=== PATIENT | male | born 1960 | race Caucasian/White ===

== ENCOUNTER 2019-09-24 07:55 | Inpatient (IN) | payer SELFPAY ==
[~2019-09-24] VITALS: Ht 177.8 cm; Wt 120.0 kg
[2019-09-24] MEDS ORDERED: LORazepam INJ 2 MG/ML (ATIVAN) VIAL ONE (08:18)
--- NOTE | 2019-09-24 08:22 | ED General ---
General Chief Complaint: Altered Mental Status Stated Complaint: CONFUSION;VOMITING Nursing Triage Note: PT TAKEN FROM CAR AND BROUGHT TO RM 7 WITH CC OF ALTERED MENTAL STATUS THAT STARTED ABOUT 0200. STATES HE WAS WALKING INTO A [employer] SEVERAL TIMES AND THEN SHE WALKED HIM TO THE RESTROOM AND HE URINATED ON THE FLOOR. PT VOMITED ABOUT 2100 BUT WAS OK MENTALLY. PT FELL ABOUT 10 DAYS AGO, WAS PUT ON PREDNISONE FOR PULLED MUSCLE IN LT RIB AREA, PT PUT ON LASIX YESTERDAY FOR SWELLING, TOOK ONE YESTERDAY AND STAYED HOME DUE TO SWELLING. Nursing Sepsis Screen: No Definite Risk Source of Information: Patient Exam Limitations: No Limitations History of Present Illness Date Seen by Provider: Sep 24, 2019 Time Seen by Provider: 08:05 Initial Comments This 65 year old man presents to the ER by private vehicle accompanied by his family with concerns about confusion and vomiting. Patient was noted to have a fall on September 15. He had left sided chest wall injury and was given prednisone at that time. He finished a 5 day course of prednisone. He then developed swelling and presented to his primary care provider. He was prescribed Lasix of which he has only taken one dose. He started vomiting about 2100 last night. stated the emesis started as a purplish color and then became darker. Then around 02:00 he got up from bed and started walking around the house. He bumped into a book shelf several times. His then led him to the bathroom where he urinated on the floor. He is disoriented at this time. He is oriented to person and place but disoriented to age and month. Family believes he has hallucinated some. His speech is clear but the content is sometimes nonsensical. He daily consumes 3 or 4 mixed drinks with whiskey. Family reports he has not had any alcohol in a couple of days. He also takes lorazepam for anxiety but family does not believe he has had any in a couple of days. Patient denies any pain. Wesley Campoverde is his primary care provider. Allergies and Home Medications Allergies Coded Allergies: No Known Drug Allergies (Unverified , 09/24/19) Home Medications Amlodipine Besylate 10 Mg Tablet, 10 MG PO DAILY, (Reported) Cholecalciferol (Vitamin D3) 1,250 Mcg Capsule, 1,250 MCG PO FRIDAY, (Reported) Duloxetine HCl 60 Mg Capsule.dr, 60 MG PO DAILY, (Reported) Furosemide 20 Mg Tablet, 20 MG PO DAILY, (Reported) Ibuprofen 200 Mg Tablet, 400 MG PO Q6H PRN for PAIN-MILD (1-4), (Reported) Meloxicam 7.5 Mg Tablet, 7.5 MG PO BID PRN for MUSCLE SPASMS, (Reported) [place]-3 Acid Ethyl Esters 1 Gm Capsule, 2 GM PO BID, (Reported) TAKES 2 (1GM) TO EQUAL 2GM CAPS TWICE DAILY Propranolol HCl 80 Mg Tablet, 80 MG PO BID, (Reported) Patient Home Medication List Home Medication List Reviewed: Yes Review of Systems Review of Systems Constitutional: see HPI; No fever EENTM: no symptoms reported Respiratory: no symptoms reported Cardiovascular: no symptoms reported Gastrointestinal: see HPI Genitourinary: no symptoms reported Musculoskeletal: no symptoms reported Skin: no symptoms reported Psychiatric/Neurological: See HPI Hematologic/Lymphatic: No Symptoms Reported Immunological/Allergic: no symptoms reported Past Hokrmnz-Fphjob-Iwskqw Hx Past Med/Social Hx: Reviewed and Corrections made Patient Social History Alcohol Use: Regular Use Alcohol Beverage of Choice: Whiskey Recreational Drug Use: No Smoking Status: Current Everyday Smoker Recent Foreign Travel: No Contact w/Someone Who Travel: No Recent Infectious Disease Expo: No Past Medical History Surgeries: Yes Orthopedic (Knee) Respiratory: Yes Chronic Bronchitis Cardiac: Yes Hypertension Neurological: No Reproductive Disorders: No Genitourinary: No Gastrointestinal: No Musculoskeletal: No Endocrine: No HEENT: No Cancer: No Psychosocial: Yes (regular alcohol use) Anxiety Integumentary: No Family Medical History Reviewed Nursing Family Hx Physical Exam Vital Signs Vital Signs - First Documented 09/24/19 09/24/19 08:02 11:44 Temp 35.3 Pulse 62 Resp 18 B/P (MAP) 146/87 (106) Pulse Ox 97 O2 Delivery Room Air Capillary Refill : Less Than 3 Seconds Height, Weight, BMI Height: '" Weight: lbs. oz. kg; 29.00 BMI Method: General Appearance: No Apparent Distress, WD/WN HEENT: PERRL/EOMI, TMs Normal, Normal ENT Inspection, Other (oropharynx pasty, mild facial edema) Neck: Normal Inspection Respiratory: Lungs Clear, Normal Breath Sounds, No Accessory Muscle Use, No Respiratory Distress Cardiovascular: Regular Rate, Rhythm, No Edema, No Murmur, Normal Peripheral Pulses Gastrointestinal: Normal Bowel Sounds, Non Tender, Soft Extremity: Non Tender, Pedal Edema (marked pitting edema of the lower extremities, equal bilaterally), Swelling Neurologic/Psychiatric: Alert, No Motor/Sensory Deficits, cashier II-XII Norm as Tested, Disoriented Skin: Normal Color, Warm/Dry Progress/Results/Core Measures Suspected Sepsis Recent Fever Within 48 Hours: No Infection Criteria Present: Suspected New Infection New/Unexplained Altered Menta: Yes Sepsis Screen: No Definite Risk SIRS Temperature: Pulse: 62 Respiratory Rate: 18 Laboratory Tests 09/24/19 08:06: White Blood Count 18.0H Blood Pressure 146 /87 Mean: 106 Laboratory Tests 09/24/19 08:06: Creatinine 0.75, INR Comment 1.3, Platelet Count 132, Total Bilirubin 2.3H Results/Orders Lab Results Laboratory Tests Test 09/24/19 08:05 09/24/19 08:06 09/24/19 10:15 Range/Units Glucometer 113 H 70-110 MG/DL White Blood Count 18.0 H 4.3-11.0 10^3/uL Red Blood Count 3.58 L 4.35-5.85 10^6/uL Hemoglobin 11.6 L 13.3-17.7 G/DL Hematocrit 34 L 40-54 % Mean Corpuscular Volume 96 80-99 FL Mean Corpuscular Hemoglobin 32 25-34 PG Mean Corpuscular Hemoglobin Concent 34 32-36 G/DL Red Cell Distribution Width 16.9 H 10.0-14.5 % Platelet Count 132 130-400 10^3/uL Mean Platelet Volume 11.7 H 7.4-10.4 FL Neutrophils (%) (Auto) 55 42-75 % Lymphocytes (%) (Auto) 31 12-44 % Monocytes (%) (Auto) 11 0-12 % Eosinophils (%) (Auto) 3 0-10 % Basophils (%) (Auto) 1 0-10 % Neutrophils # (Auto) 9.9 H 1.8-7.8 X 10^3 Lymphocytes # (Auto) 5.5 H 1.0-4.0 X 10^3 Monocytes # (Auto) 2.0 H 0.0-1.0 X 10^3 Eosinophils # (Auto) 0.5 H 0.0-0.3 10^3/uL Basophils # (Auto) 0.1 0.0-0.1 10^3/uL Neutrophils % (Manual) 52 % Lymphocytes % (Manual) 38 % Monocytes % (Manual) 6 % Eosinophils % (Manual) 4 % Basophils % (Manual) 0 % Band Neutrophils 0 % Anisocytosis SLIGHT Prothrombin Time 16.8 H 12.2-14.7 SEC INR Comment 1.3 0.8-1.4 Sodium Level 145 135-145 MMOL/L Potassium Level 4.1 3.6-5.0 MMOL/L Chloride Level 114 H 98-107 MMOL/L Carbon Dioxide Level 20 L 21-32 MMOL/L Anion Gap 11 5-14 MMOL/L Blood Urea Nitrogen 33 H 7-18 MG/DL Creatinine 0.75 0.60-1.30 MG/DL Estimat Glomerular Filtration Rate > 60 BUN/Creatinine Ratio 44 Glucose Level 116 H 70-105 MG/DL Calcium Level 7.9 L 8.5-10.1 MG/DL Corrected Calcium 8.6 8.5-10.1 MG/DL Magnesium Level 2.0 1.6-2.4 MG/DL Total Bilirubin 2.3 H 0.1-1.0 MG/DL Aspartate Amino Transf (AST/SGOT) 55 H 5-34 U/L Alanine Aminotransferase (ALT/SGPT) 33 0-55 U/L Alkaline Phosphatase 130 40-136 U/L Ammonia 85 H 11-32 UMOL/L C-Reactive Protein High Sensitivity 1.42 H 0.00-0.50 MG/DL B-Type Natriuretic Peptide 148.8 H <100.0 PG/ML Total Protein 5.7 L 6.4-8.2 GM/DL Albumin 3.1 L 3.2-4.5 GM/DL Lipase 22 8-78 U/L Serum Alcohol < 10 <10 MG/DL Urine Color DARK YELLOW Urine Clarity SL CLOUDY Urine pH 6.5 5-9 Urine Specific [place] 1.010 L 1.016-1.022 Urine Protein NEGATIVE NEGATIVE Urine Glucose (UA) NEGATIVE NEGATIVE Urine Ketones NEGATIVE NEGATIVE Urine Nitrite NEGATIVE NEGATIVE Urine Bilirubin NEGATIVE NEGATIVE Urine Urobilinogen >=8.0 < = 1.0 MG/DL Urine Leukocyte Esterase NEGATIVE NEGATIVE Urine RBC (Auto) NEGATIVE NEGATIVE Urine RBC NONE /HPF Urine WBC NONE /HPF Urine Squamous Epithelial Cells 0-2 /HPF Urine Crystals NONE /LPF Urine Bacteria NEGATIVE /HPF Urine Casts NONE /LPF Urine Mucus NEGATIVE /LPF Urine Culture Indicated NO Urine Opiates Screen NEGATIVE NEGATIVE Urine Oxycodone Screen NEGATIVE NEGATIVE Urine Methadone Screen NEGATIVE NEGATIVE Urine Propoxyphene Screen NEGATIVE NEGATIVE Urine Barbiturates Screen NEGATIVE NEGATIVE Ur Tricyclic Antidepressants Screen NEGATIVE NEGATIVE Urine Phencyclidine Screen NEGATIVE NEGATIVE Urine Amphetamines Screen NEGATIVE NEGATIVE Urine Methamphetamines Screen NEGATIVE NEGATIVE Urine Benzodiazepines Screen NEGATIVE NEGATIVE Urine Cocaine Screen NEGATIVE NEGATIVE Urine Cannabinoids Screen POSITIVE H NEGATIVE Micro Results Microbiology 09/24/19 Influenza Types A,B Antigen (OCTAVIANO) - Final, Complete My Orders Orders - EDWIN TOLBERT MD Influenza A And B Antigens (09/24/19 08:02) Alcohol (09/24/19 08:15) Ammonia (09/24/19 08:15) Cbc With Automated Diff (09/24/19 08:15) Comprehensive Metabolic Panel (09/24/19 08:15) Drug Screen Stat (Urine) (09/24/19 08:15) Magnesium (09/24/19 08:15) Protime With Inr (09/24/19 08:15) Ua Culture If Indicated (09/24/19 08:15) Ed Iv/Invasive Line Start (09/24/19 08:15) Ct Head Wo (09/24/19 08:15) BNP (09/24/19 08:17) Hs C Reactive Protein (09/24/19 08:17) Chest 1 View, Ap/Pa Only (09/24/19 08:17) Lorazepam Injection (Ativan Injection) (09/24/19 08:30) Ondansetron Injection (Zofran Injectio (09/24/19 08:30) Famotidine Injection (Pepcid Injection) (09/24/19 08:30) Lorazepam Injection (Ativan Injection) (09/24/19 08:18) Manual Differential (09/24/19 08:06) Lipase (09/24/19 09:01) Ns Iv 1000 Ml (Sodium Chloride 0.9%) (09/24/19 09:01) Lorazepam Injection (Ativan Injection) (09/24/19 09:30) Medications Given in ED Current Medications Medications Dose Ordered Sig/Shadi Route Start Time Stop Time Status Last Admin Dose Admin Famotidine 20 mg ONCE ONCE IVP 09/24/19 08:30 09/24/19 08:31 DC 09/24/19 08:30 20 MG Lorazepam 0.5 mg ONCE ONCE IVP 09/24/19 08:30 09/24/19 08:31 DC 09/24/19 08:27 0.5 MG Lorazepam 0.5 mg ONCE ONCE IVP 09/24/19 09:30 09/24/19 09:31 DC 09/24/19 09:24 0.5 MG Ondansetron HCl 4 mg ONCE ONCE IVP 09/24/19 08:30 09/24/19 08:31 DC 09/24/19 08:30 4 MG Vital Signs/I&O 09/24/19 09/24/19 09/24/19 09/24/19 08:02 11:44 12:01 12:57 Temp 35.3 35.7 36.9 37.0 Pulse 62 73 69 75 Resp 18 18 18 18 B/P (MAP) 146/87 (106) 124/84 (106) 136/78 135/71 (92) Pulse Ox 97 94 O2 Delivery Room Air Room Air Room Air 09/24/19 13:55 Temp 36.4 Pulse 67 Resp 20 B/P (MAP) 135/83 (100) Pulse Ox 99 O2 Delivery Room Air Capillary Refill : Less Than 3 Seconds Blood Pressure Mean: 106 Progress Note #1: Time: 08:35 Progress Note Patient was seen and examined. He was given Zofran and Pepcid for GI prophylaxis. Ativan 0.5 mg IV was given as family believe he had been having hallucinations and he was picking and pulling at monitor and lines. We will obtain CT of the head and chest x-ray. Labs are pending. Progress Note #2: Time: 10:48 Progress Note Workup was suggestive of liver failure with elevated ammonia level. This is likely the cause of his altered mental status. He had leukocytosis without any evidence of bacterial infection. Chest x-ray and urinalysis showed no infection. CT of the head was unremarkable. Case was discussed with Dr. Morales. Patient will be admitted and treated with lactulose. The alcohol withdrawal orders will be included. Patient required 2 doses of Ativan 0.5 mg f or agitation in the ER. Diagnostic Imaging Diagonstic Imaging: CT Plain Films/CT/US/NM/MRI: head Comments CT head viewed by me and report reviewed. See report below: NAME: KATIANA BENSON [facility] REC#: [id number] PT STATUS: REG ER : 1960 PHYSICIAN: EDWIN TOLBERT MD ADMIT DATE: 09/24/19/ER Draft Date of Exam:09/24/19 CT HEAD WO PROCEDURE: CT head without contrast. TECHNIQUE: Multiple contiguous axial images were obtained through the brain without the use of intravenous contrast. Auto Exposure Controls were utilized during the CT exam to meet ALARA standards for radiation dose reduction. INDICATION: Altered mental status. COMPARISON: No prior studies are available for comparison. Ventricles and sulci are within normal limits. No sulcal effacement or midline shift is identified. No acute intra-axial or extra-axial hemorrhage is detected. Cisterns are patent. Visualized paranasal sinuses are clear. IMPRESSION: No acute intracranial process is detected. Dictated on workstation # [id number] Dict: 09/24/19 0850 Trans: 09/24/[address] [facility] [id number] Interpreted by: EMIR SILVERIO MD Diagonstic Imaging: Xray Plain Films/CT/US/NM/MRI: chest Comments Chest x-ray viewed by me and report reviewed. See report below: NAME: KATIANA BENSON [facility] REC#: [id number] PT STATUS: REG ER : 1960 PHYSICIAN: EDWIN TOLBERT MD ADMIT DATE: 09/24/19/ER Draft Date of Exam:09/24/19 CHEST 1 VIEW, AP/PA ONLY INDICATION: Altered mental status COMPARISON: None FINDINGS: Single frontal view of the chest demonstrates normal heart size and pulmonary vascularity. The lungs show somewhat low inspiratory volumes, but are otherwise clear. No large pleural effusion or pneumothorax is seen. The visualized osseous structures show no acute abnormalities. IMPRESSION: 1. No acute cardiopulmonary process. Dictated on workstation # [id number] Dict: 09/24/1944 Trans: 09/24/19 0947 [facility] [id number] Interpreted by: SISI BALDERAS MD Departure Communication (Admissions) Time/Spoke to Admitting Phy: 10:42 Dr. Morales Impression Primary Impression: Hyperammonemia Additional Impressions: Altered mental status Qualified Codes: R41.0 - Disorientation, unspecified Nausea and vomiting Qualified Codes: R11.2 - Nausea with vomiting, unspecified Alcohol dependence Qualified Codes: F10.29 - Alcohol dependence with unspecified alcohol- induced disorder Agitation Disposition: 09 ADMITTED INPATIENT Condition: Improved Admissions Decision to Admit Reason: Admit from ER (General) Decision to Admit/Date: Sep 24, 2019 Time/Decision to Admit Time: 08:10 EDWIN TOLBERT MD Sep 24, 2019 08:22
[2019-09-24 08:24] LABS: BASOPHILS # (AUTO) 0.1 10^3/uL (0.0-0.1); BASOPHILS % (AUTO) 1 % (0-10); EOSINOPHILS # (AUTO) 0.5 10^3/uL (0.0-0.3); EOSINOPHILS % (AUTO) 3 % (0-10); HEMATOCRIT 34 % (40-54); HEMOGLOBIN 11.6 G/DL (13.3-17.7); LYMPHOCYTES # (AUTO) 5.5 X 10^3 (1.0-4.0); LYMPHOCYTES % (AUTO) 31 % (12-44); MEAN CORPUSCULAR HEMOGLOBIN 32 PG (25-34); MEAN CORPUSCULAR HGB CONC 34 G/DL (32-36); MEAN CORPUSCULAR VOLUME 96 FL (80-99); MEAN PLATELET VOLUME 11.7 FL (7.4-10.4); MONOCYTES % (AUTO) 11 % (0-12); NEUTROPHILS # (AUTO) 9.9 X 10^3 (1.8-7.8); NEUTROPHILS % (AUTO) 55 % (42-75); PLATELET COUNT 132 10^3/uL (130-400); RED CELL DISTRIBUTION WIDTH 16.9 % (10.0-14.5)
[2019-09-24 08:30] LABS: INR 1.3 (0.8-1.4); PROTHROMBIN TIME PATIENT 16.8 SEC (12.2-14.7)
[2019-09-24] MEDS ORDERED: ONDANSETRON 4 MG/2 ML (SDV) Z0FRAN IVP ONE (08:30)
[2019-09-24] MEDS ORDERED: LORazepam INJ 2 MG/ML (ATIVAN) VIAL IVP ONE ×2 (08:30→09:30)
[2019-09-24] MEDS ORDERED: FAMOTIDINE 20MG/2ML IV (PEPCID) IVP ONE (08:30)
[2019-09-24 08:39] LABS: ALANINE AMINOTRANSFERASE 33 U/L (0-55); ALBUMIN 3.1 GM/DL (3.2-4.5); ALKALINE PHOSPHATASE 130 U/L (40-136); AMMONIA 85 UMOL/L (11-32); BILIRUBIN,TOTAL 2.3 MG/DL (0.1-1.0); BUN/CREATININE RATIO 44; CALCIUM 7.9 MG/DL (8.5-10.1); CARBON DIOXIDE 20 MMOL/L (21-32); CHLORIDE 114 MMOL/L (98-107); CREATININE SERUM 0.75 MG/DL (0.60-1.30); GFR ESTIMATED > 60; GLUCOSE 116 MG/DL (70-105); POTASSIUM 4.1 MMOL/L (3.6-5.0); SODIUM 145 MMOL/L (135-145); TOTAL PROTEIN 5.7 GM/DL (6.4-8.2)
--- NOTE | 2019-09-24 08:50 | NUR ---
PT PULLING LEADS OFF AND TURNING ABOUT THE BED, UNABLE TO KEEP HIM ON THE MONITOR, VITALS CHECKED AND LEADS TAKEN OFF FOR PT COMFORT AND SAFETY.
--- NOTE | 2019-09-24 08:52 | Diagnostic Imaging Report ---
PROCEDURE: CT head without contrast. TECHNIQUE: Multiple contiguous axial images were obtained through the brain without the use of intravenous contrast. Auto Exposure Controls were utilized during the CT exam to meet ALARA standards for radiation dose reduction. INDICATION: Altered mental status. COMPARISON: No prior studies are available for comparison. Ventricles and sulci are within normal limits. No sulcal effacement or midline shift is identified. No acute intra-axial or extra-axial hemorrhage is detected. Cisterns are patent. Visualized paranasal sinuses are clear. IMPRESSION: No acute intracranial process is detected. Dictated by: Dictated on workstation # [id number]
[2019-09-24 08:55] LABS: ANISOCYTOSIS SLIGHT; BAND NEUTROPHILS 0 %; BASOPHILS % (MANUAL) 0 %; EOSINOPHILS % (MANUAL) 4 %; LYMPHOCYTES % (MANUAL) 38 %; MONOCYTES % (MANUAL) 6 %; NEUTROPHILS % (MANUAL) 52 %
[2019-09-24] MEDS ORDERED: NS IV 1000 ML 1,000 ML IV SCH (09:01)
--- NOTE | 2019-09-24 09:47 | Diagnostic Imaging Report ---
INDICATION: Altered mental status COMPARISON: None FINDINGS: Single frontal view of the chest demonstrates normal heart size and pulmonary vascularity. The lungs show somewhat low inspiratory volumes, but are otherwise clear. No large pleural effusion or pneumothorax is seen. The visualized osseous structures show no acute abnormalities. IMPRESSION: 1. No acute cardiopulmonary process. Dictated by: Dictated on workstation # [id number]
[2019-09-24 10:21] LABS: BILIRUBIN,URINE NEGATIVE (NEGATIVE); CLARITY,URINE SL CLOUDY; COLOR,URINE DARK YELLOW; GLUCOSE, URINE (UA) NEGATIVE (NEGATIVE); KETONES,URINE NEGATIVE (NEGATIVE); LEUKOCYTE ESTERASE ,URINE NEGATIVE (NEGATIVE); NITRITE,URINE NEGATIVE (NEGATIVE); PH,URINE 6.5 (5-9); PROTEIN,URINE NEGATIVE (NEGATIVE)
[2019-09-24 10:33] LABS: AMPHETAMINE SCREEN, URINE NEGATIVE (NEGATIVE); BARBITURATE SCREEN URINE NEGATIVE (NEGATIVE); BENZODIAZEPINES SCREEN URINE NEGATIVE (NEGATIVE); CANNABINOID SCREEN, URINE POSITIVE (NEGATIVE); COCAINE SCREEN URINE NEGATIVE (NEGATIVE); METHADONE STAT NEGATIVE (NEGATIVE); METHAMPHETAMINE SCREEN URINE S NEGATIVE (NEGATIVE); OPIATE SCREEN URINE NEGATIVE (NEGATIVE); OXYCODONE STAT NEGATIVE (NEGATIVE); PROPOXYPHENE STAT NEGATIVE (NEGATIVE); TRICYCLIC ANTIDEPRESSANTS SCRE NEGATIVE (NEGATIVE)
[2019-09-24 10:42] LABS: BACTERIA,URINE NEGATIVE /HPF; SQUAMOUS EPITHELIAL CELL,UR 0-2 /HPF
--- NOTE | 2019-09-24 11:00 | NUR ---
PT TRYING TO CRAWL OUT THE END OF THE BED, RAILS UP, NOT RESPONDING TO COMMANDS TO STAY IN BED, ASSISTING THIS RN. PT STATES NEEDING TO GO TO THE BATHROOM, STATED SHE THOUGHT HE NEEDED TO HAVE A BM SO THIS RN GETS THE COMMODE. PT ASSISTED TO THE COMMODE BY TAI RN, THE , AND THIS RN HE IS URINATING ALL OVER THE FLOOR. PT THEN KEEPS TRYING TO STAND UP HE IS STILL URINATING. PT THEN ASSISTED TO HIS FEET AND HELD IN PLACE TO KEEP FROM SLIPPING IN HIS URINE. BLANKETS PULLED OFF THE BED TO THE FLOOR PT CONTINUES TO URINATE WHILE BEING HELD UP BY TAI AND MYSELF. WHEN PT IS FINISHED URINATING ON THE FLOOR WE ASSIST HIM TO THE BED AND COVER HIM BACK UP. PT THEN FALLS BACK TO SLEEP.
--- NOTE | 2019-09-24 11:30 | NUR ---
DR. SOTO IN WITH PT AND FAMILY.
--- NOTE | 2019-09-24 11:39 | History & Physical-Hospitalist ---
[facility] 09/24/19 1139: History of Present Illness HPI/Chief Complaint Patient is obtunded and not able to answer questions. is at bedside and is giving history. Patient was participating in outdoor activities with family when he slipped and fell on his back. He had LUQ pain that lasted for several days before he sought medical care. [facility] he was told he strained a muscle and they started him on prednisone. His says he became severely swollen in both lower extremities so they returned to [facility] and left on lasix. He continued with pain and discomfort until last night around 9pm where he started throwing up profusely dark black and purple. Throughout the night his mental status deteriorated, he then became confused, disoriented, and was urinating on himself and the floor. Patient smokes about 2 packs in a week and drinks 3-4 whiskey glasses nightly. Source: family () Date Seen 09/24/19 Time Seen by a Provider: 11:08 Attending Physician Svetlana Morales DO [facility] Referring Physician Date of Admission Sep 24, 2019 at 10:44 Home Medications & Allergies Home Medications Reviewed patient Home Medication Reconciliation performed by pharmacy medication reconciliations commercial hvac service technician and/or nursing. Patients Allergies have been reviewed. 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) Alcohol Use: Regular Use (3-4 Whiskey nightly ) Alcohol Beverage of Choice: Whiskey Recreational Drug Use: No Smoking Status: Current Everyday Smoker Type Used: Cigarettes Recent Foreign Travel: No Contact w/other who traveled: No Recent Hopitalizations: No Recent Infectious Disease Expo: No Seasonal Allergies Seasonal Allergies: No Past Medical History Surgeries: Orthopedic (Knee in his 20s), Vasectomy Respiratory: Chronic Bronchitis Cardiac: Hypertension Reproductive: No Musculoskeletal: Arthritis (hands), Chronic Back Pain Loss of Vision: Denies Hearing Impairment: Denies Psychosocial: Anxiety Family History Reviewed Nursing Family Hx Review of Systems ROS-Unable to Obtain: patient is obtunded Physical Exam Physical Exam Vital Signs Vital Signs - First Documented 09/24/19 08:02 Temp 35.3 Pulse 62 Resp 18 B/P (MAP) 146/87 (106) O2 Delivery Room Air Capillary Refill : Less Than 3 Seconds Height, Weight, BMI Height: '" Weight: lbs. oz. kg; 29.00 BMI Method: General Appearance: WD/WN, Other (obtunded ) Eyes: Bilateral Eye PERRL HEENT: PERRL/EOMI; No Scleral Icterus (L), No Scleral Icterus (R) Neck: Normal Inspection, Supple Respiratory: Lungs Clear, No Accessory Muscle Use, No Respiratory Distress Cardiovascular: Regular Rate, Rhythm, No Gallop, No Murmur Gastrointestinal: No Pulsatile Mass, Soft; No Guarding Rectal: Deferred Extremity: Normal Capillary Refill, Pedal Edema, Swelling (LE b/l) Neurologic/Psychiatric: Other (obtunded) Skin: Normal Color, Warm/Dry Lymphatic: No Adenopathy (neck) Results Results/Procedures Labs Laboratory Tests 09/24/19 08:06 Patient resulted labs reviewed. Assessment/Plan Assessment and Plan [facility] Hematemesis Inc Ammonia Abn liver enzymes Alcohol abuse Chronic bronchitis Leukocytosis Positive Cannabinoid screen Tobacco abuse Arthritis Slip and fall slight elevation in BNP Head CT - no acute process CXR - no acute process UA - no UTI CIWA protocol Order Blood cultures Consult surgery for EGD due to hematemesis and alcohol history Start lactulose for inc levels of ammonia Start Lasix Start IV Fluids, NS 75cc per hour Regular diet Repeat labs in the morning, CBC, CMP, ammonia, Order Procalcitonin Consult pulmonology Nebs for chronic bronchitis SVETLANA MORALES DO 09/24/192047: History of Present Illness HPI/Chief Complaint CC: AMS HPI: This is a 59yoWM clinic patient of Wesely Campoverde who has a long history of ETOHism who presented to AMS and found to have electrolyte abnl and elevated ammonia. Patient was admitted for supportive care and Lactulose ordered along with detox protocol. Lovenox ordered due to decreased ambulatory status. 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) Alcohol Use: Regular Use (3-4 Whiskey nightly ) Smoking Status: Current Everyday Smoker Review of Systems Constitutional: see HPI Physical Exam Physical Exam General Appearance: Chronically ill, Other (obtunded ) Respiratory: Lungs Clear Cardiovascular: Regular Rate, Rhythm Assessment/Plan Admission Diagnosis Assessment: Encephalopathy likely hepatic type with elevated ammonia ETOH withdrawal Chronic pain issues Smoker Plan: Supportive care Lactulose Lovenox Monitor labs Admission Status: Inpatient Order (span 2 midnights) Reason for Inpatient Admission: AMS with elevated ammonia Diagnosis/Problems Diagnosis/Problems (1) Altered mental status Status: Acute Qualifiers: Altered mental status type: delirium Qualified Codes: R41.0 - Disorientation, unspecified (2) Hyperammonemia Status: Acute (3) Alcohol dependence Status: Acute Qualifiers: Substance use status: unspecified alcohol-induced disorder Qualified Codes: F10.29 - Alcohol dependence with unspecified alcohol-induced disorder (4) Agitation Status: Acute (5) Nausea and vomiting Status: Acute Qualifiers: Vomiting type: unspecified Vomiting Intractability: non-intractable Qualified Codes: R11.2 - Nausea with vomiting, unspecified Supervisory-Addendum Brief Verification & Attestation Participated in pt care: history, MDM, physical Personally performed: exam, history, MDM, supervision of care Care discussed with: Medical Student Procedures: n/a Results interpretation: Verified all documentation Verification and Attestation of Medical Student E/M Service A medical student performed and documented this service in my presence. I rev iewed and verified all information documented by the medical student and made modifications to such information, when appropriate. I personally performed the physical exam and medical decision making. Svetlana Morales Sep 24, 2019,20:49 [facility] Sep 24, 2019 11:39 SVETLANA MORALES DO Sep 24, 2019 20:48
--- NOTE | 2019-09-24 12:00 | NUR ---
KATIANA BENSON admitted to room 420-1, with an admitting diagnosis of HYPER JORDYN. AMS, N/V, on 09/24/19 from ER via [facility], accompanied by ER STAFF AND .KATIANA BENSON introduced to surroundings, call light, bed controls, phone, TV, temperature control, lights, meal times, smoking policy, visitor policy, side rail policy, bathrooms and showers. Patient Rights given to patient in the handbook. KATIANA BENSON verbalizes understanding that [facility] is not responsible for the loss or damage to any personal effects or valuables that are kept in the patients posession during their hospitalization. The following Patient Care Plans were discussed with the PT AND : Discharge Planning,HIGH RISK INJURY, FL VOL DEFICIT, POT FOR FALLS, HG RSK FOR ACT INTOL. KATIANA BENSON verbalizes understanding of Interdisciplinary Patient Education. Patient and/or family were informed about the Rapid Response Team and its purpose.
[2019-09-24 12:01] VITALS: BP 136/78
[2019-09-24] MEDS ORDERED: 1/2 NS IV SOLUTION 1,000 ML IV PRN (12:51)
[2019-09-24 12:57] VITALS: BP 135/71
[2019-09-24] MEDS ORDERED: ONDANSETRON 4 MG/2 ML (SDV) Z0FRAN IV PRN (13:00)
[2019-09-24] MEDS ORDERED: D5 1/2 NS 1000 ML IV SOLUTION 1,000 ML IV PRN (13:00)
[2019-09-24] MEDS ORDERED: LORazepam INJ 2 MG/ML (ATIVAN) VIAL IM/IV PRN (13:00)
[2019-09-24] MEDS ORDERED: LORazepam 1 MG (ATIVAN) TAB PO PRN (13:00)
[2019-09-24] MEDS ORDERED: ONDANSETRON 4 MG (ZOFRAN) ORAL DISSOLVE TAB SL PRN (13:00)
[2019-09-24] MEDS: D5 1/2 NS W/KCL 20 MEQ/L 1,000 ML IV SCH ×2 (13:24→21:44)
[2019-09-24] MEDS: LACTULOSE SYRUP 10GM/15ML (ENULOSE) 30ML UDC PO SCH ×3 (13:25→21:45)
[2019-09-24] MEDS ORDERED: AMLO10TA7 PO (13:37)
[2019-09-24] MEDS ORDERED: FURO-125 PO (13:37)
[2019-09-24] MEDS ORDERED: PROP80TA3 PO (13:37)
[2019-09-24] MEDS ORDERED: CHOL500049 PO (13:37)
[2019-09-24] MEDS ORDERED: DULO60CA6 PO (13:37)
[2019-09-24] MEDS ORDERED: OMEG1CAP PO (13:37)
[2019-09-24] MEDS ORDERED: MELO7.5T46 PO (13:37)
[2019-09-24] MEDS ORDERED: IBUP-2473 PO (13:38)
--- NOTE | 2019-09-24 13:40 | NUR ---
UNABLE TO SPEAK WITH THE PT BUT HIS WAS IN THE ROOM AND HAD A PICTURE OF HIS BOTTLES. I TOOK THE INFORMATION AND GOT A MED LIST FROM [facility] (I WILL ATTACH IT TO THE CHART) TO COMPLETE THE MED REC. PT WAS RECENTLY STARTED ON FUROSEMIDE 20MG AND THE THERAPY WAS IS ONLY FOR 5 DAYS (THIS IS ON THE MED REC) THE FOLLOWING ARE FILL DATES: 09-01-2019 AMLODIPINE 10MG #30/30DS 09-02-2019 VITAMIN D 50,000# 12/84DS 09-02-2019 LOVAZA 1GM #120/30DS 09-02-2019 PROPRANOLOL 80MG #60/30DS 09-16-2019 MELOXICAM 7.5MG #60/30DS 09-19-2019 DULOXETINE 60MG #30/30DS 09-22-2019 FUROSEMIDE 20MG #5/5DS OTC MEDS: IBUPROFEN
[2019-09-24 13:55] VITALS: BP 135/83
[2019-09-24] MEDS: THIAMINE INJECTION 100 MG, FOLIC ACID INJECTION 1 MG, MAGNESIUM SULFATE 2 GM, VITAMIN M... IV SCH ×5 (14:28)
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
[2019-09-24 19:40] VITALS: BP 127/80
[2019-09-24] MEDS ORDERED: HALOPERIDOL 5 MG/ML (HALDOL) AMP IM PRN (20:30)
[2019-09-24] MEDS ORDERED: ENOXAPARIN 40 MG/0.4 ML (LOVENOX) SYR SC SCH (20:45)
--- NOTE | 2019-09-24 21:00 | NUR ---
CALL PLACED TO DR. ROSA AT 1946 TO DISCUSS PT'S COMBATIVE BEHAVIOR, REFUSAL TO TAKE PO MEDS, AND STAFF BEING UNABLE TO OBTAIN IV ACCESS. ORDERS WERE GIVEN FOR HALODOL 5MG PRN Q4 HOURS FOR AGITATION. ORDERS GIVEN TO LEAVE IV OUT FOR NOW. AT APPROXIMATELY 1999 DR. ROSA WAS CONTACTED R/T INTERACTION NOTIFICATION FOR HALODOL AND ZOFRAN. ZOFRAN HAD NOT BEEN ADMINISTERED SINCE 0830 THIS MORNING. ORDERS WERE GIVEN TO DC ZOFRAN AND THAT IT WOULD BE OKAY TO ADMINISTER HALODOL AT THIS TIME.
[2019-09-24] MEDS: FAMOTIDINE 20MG/2ML IV (PEPCID) IV SCH (21:45)
[2019-09-24] MEDS: FAMOTIDINE 20 MG (PEPCID) TABLET PO SCH (21:45)
[2019-09-25] VITALS (27 sets, daily range): BP systolic 76–149; BP diastolic 39–97
[2019-09-25] MEDS: D5 1/2 NS W/KCL 20 MEQ/L 1,000 ML IV SCH ×2 (03:03→11:20)
[2019-09-25 04:44] LABS: ALANINE AMINOTRANSFERASE 32 U/L (0-55); ALBUMIN 2.8 GM/DL (3.2-4.5); ALKALINE PHOSPHATASE 105 U/L (40-136); AMMONIA 120 UMOL/L (11-32); BILIRUBIN,TOTAL 2.7 MG/DL (0.1-1.0); BUN/CREATININE RATIO 43; CALCIUM 7.7 MG/DL (8.5-10.1); CARBON DIOXIDE 16 MMOL/L (21-32); CHLORIDE 118 MMOL/L (98-107); CREATININE SERUM 0.84 MG/DL (0.60-1.30); GFR ESTIMATED > 60; GLUCOSE 134 MG/DL (70-105); SODIUM 145 MMOL/L (135-145); TOTAL PROTEIN 5.3 GM/DL (6.4-8.2)
[2019-09-25] MEDS ORDERED: ENOXAPARIN 40 MG/0.4 ML (LOVENOX) SYR SC SCH (08:00)
--- NOTE | 2019-09-25 09:05 | Progress Note - Hospitalist ---
Subjective HPI/CC On Admission Date Seen by Provider: Sep 25, 2019 Time Seen by Provider: 08:45 CC: AMS HPI: This is a 59yoWM clinic patient of Wesley Campoverde who has a long history of ETOHism who presented to [facility] and found to have electrolyte abnl and elevated ammonia. Patient was admitted for supportive care and Lactulose ordered along with detox protocol. Lovenox ordered due to decreased ambulatory status. Subjective/Events-last exam Patient has become increasingly agitated overnight has removed all IV access and we have been unable to obtain more. He is becoming at increased risk to self and we are unable to provide any medications. Long discussion was held with and son regarding elective intubation and ICU management as he detoxes. I discussed with Dr. Srivastava biztalk software developer and he agrees and will come in to intubate the patient and sedate the patient he goes through withdrawal. The patient currently has sonorous respirations and is agitated striking out but without making sense Review of Systems General: Other Genitourinary: Incontinence Neurological: Confusion Objective Exam Vital Signs Vital Signs Date Time Temp Pulse Resp B/P (MAP) Pulse Ox O2 Delivery O2 Flow Rate FiO2 09/25/19 07:02 37.1 80 20 138/72 (94) 95 Room Air Capillary Refill : Less Than 3 Seconds General Appearance: Chronically ill Neck: Limited Range of Motion Respiratory: Lungs Clear, Other (Sonorous respirations) Cardiovascular: Tachycardia Gastrointestinal: Soft Rectal: Deferred Back: Normal Inspection Extremity: Pedal Edema Results/Procedures Lab Laboratory Tests 09/25/19 04:14 Patient resulted labs reviewed. Assessment/Plan Assessment and Plan Assess & Plan/Chief Complaint Delirium tremens Chronic alcoholism Agitation High risk for seizures because of withdrawal Plan to move to the ICU for elective intubation and sedation Clinical Quality Measures DVT/VTE Risk/Contraindication: Risk Factor Score Per Nursin RFS Level Per Nursing on Admit: 3=High SHIRLEY ROSA MD Sep 25, 2019 09:05
--- NOTE | 2019-09-25 09:10 | NUR ---
THIS RN CALLED ICU TO GIVE REPORT AND TRANSFER PATIENT. ICU NURSE NOT READY AT THIS TIME
[2019-09-25] MEDS ORDERED: PROPOFOL DRIP (ICU) 100 ML IV ONE (09:15)
[2019-09-25] MEDS ORDERED: NS IV 1000 ML 2,000 ML ONE (09:16)
--- NOTE | 2019-09-25 09:30 | NUR ---
TRANSFERED TO ICU IN BED, REPORT GIVEN AT BEDSIDE TO LUIS FELIPE PETE
[2019-09-25] MEDS: PROPOFOL DRIP (ICU) 100 ML IV SCH ×4 (09:51→22:56)
--- NOTE | 2019-09-25 10:15 | NUR ---
PT TO ICU 9 VIA BED ACCOMPANIED BY 4TH FLOOR RN AND DR CARIAS. PT CONNECTED TO BEDSIDE MONITOR AND BEDSIDE REPORT RECEIVED. DR CARIAS ORDERED TO GIVE 6MG VERSED IM TO PT. GIVEN AT 0932. LEFT 18G FOREARM IV AND RIGHT AC 20G IV STARTED AT 0940 AND 1L NS BOLUS STARTED PER DR CARIAS ORDERS. 0945 5ML PROPOFOL GIVEN BY DR CARIAS FOR INTUBATION, RT IN ROOM. 0946 75MCG FENTANYL GIVEN PER DR CARIASS ORDERS, 0947 50MG ROCURONIUM GIVEN PER DR CARIAS, 0950 PT INTUBATED WITH AN 8 ET TUBE, POSITIVE COLOR CHANGED ON CO2 INDICATOR AND THE TUBE IS SECURED AT 24 AT THE LIP, VENTILATOR SET UP BY RT. 0951 PROPOFOL GTT STARTED PER DR CARIAS AT 40MCG. DR CARIAS IN ROOM STILL TO INSERT CENTRAL LINE, DR CARIAS ORDERED TO GIVE ADDITIONAL 25MCG FENTANYL IV AT 1001, 4MG VERSED GIVEN AT [address] CARIAS ORDERS. RIGHT IJ CENTRAL LINE PLACED AT [address] CARIAS. 1010 OG AND YANG PLACED. CXR ORDERED TO CONFIRM PLACEMENT OF LINES/TUBES. WILL CONTINUE TO MONITOR.
[2019-09-25] MEDS ORDERED: LACTATED RINGERS 1,000 ML IV ONE (10:30)
[2019-09-25] MEDS ORDERED: PANTOPRAZOLE 40 MG (PROTONIX) VIAL IV SCH (10:30)
--- NOTE | 2019-09-25 10:35 | Diagnostic Imaging Report ---
INDICATION: Dyspnea, line placement. COMPARISON: 09/24/2019. DISCUSSION: Single portable upright view of the chest was obtained. New right IJ central venous catheter tip in the SVC. New endotracheal tube with tip in the mid trachea. New enteric tube with tip in the gastric body. Normal heart size. No consolidation, pleural fluid, or pneumothorax. No osseous abnormality. IMPRESSION: 1. Support lines and catheter in good position. No pneumothorax. Dictated by: Dictated on workstation # [id number]
[2019-09-25 10:39] LABS: BASOPHILS # (AUTO) 0.1 10^3/uL (0.0-0.1); BASOPHILS % (AUTO) 0 % (0-10); EOSINOPHILS # (AUTO) 0.1 10^3/uL (0.0-0.3); EOSINOPHILS % (AUTO) 1 % (0-10); HEMATOCRIT 23 % (40-54); HEMOGLOBIN 7.5 G/DL (13.3-17.7); LYMPHOCYTES # (AUTO) 4.3 X 10^3 (1.0-4.0); LYMPHOCYTES % (AUTO) 21 % (12-44); MEAN CORPUSCULAR HGB CONC 33 G/DL (32-36); MEAN CORPUSCULAR VOLUME 99 FL (80-99); MEAN PLATELET VOLUME 11.8 FL (7.4-10.4); MONOCYTES # (AUTO) 2.7 X 10^3 (0.0-1.0); MONOCYTES % (AUTO) 13 % (0-12); NEUTROPHILS # (AUTO) 13.3 X 10^3 (1.8-7.8); NEUTROPHILS % (AUTO) 65 % (42-75); PLATELET COUNT 129 10^3/uL (130-400); RED CELL DISTRIBUTION WIDTH 17.1 % (10.0-14.5); WHITE BLOOD COUNT 20.4 10^3/uL (4.3-11.0)
[2019-09-25 10:41] LABS: MEAN CORPUSCULAR HEMOGLOBIN 32 PG (25-34)
[2019-09-25 10:58] LABS: ALANINE AMINOTRANSFERASE 27 U/L (0-55); ALBUMIN 2.7 GM/DL (3.2-4.5); ALKALINE PHOSPHATASE 102 U/L (40-136); BILIRUBIN,TOTAL 2.3 MG/DL (0.1-1.0); BUN/CREATININE RATIO 48; CALCIUM 7.5 MG/DL (8.5-10.1); CARBON DIOXIDE 17 MMOL/L (21-32); CHLORIDE 122 MMOL/L (98-107); CREATININE SERUM 0.92 MG/DL (0.60-1.30); GFR ESTIMATED > 60; GLUCOSE 142 MG/DL (70-105); POTASSIUM 4.4 MMOL/L (3.6-5.0); SODIUM 148 MMOL/L (135-145); TOTAL PROTEIN 4.8 GM/DL (6.4-8.2); TRIGLYCERIDES 161 MG/DL (<150)
[2019-09-25] MEDS: LORazepam INJECTION FOR DRIP 20 MG in D5W 100 ML IVPB 90 ML IV SCH ×2 (11:01→20:30)
[2019-09-25] MEDS: THIAMINE INJECTION 100 MG, FOLIC ACID INJECTION 1 MG, MAGNESIUM SULFATE 2 GM, VITAMIN M... IV SCH ×5 (11:03)
[2019-09-25] MEDS: FAMOTIDINE 20 MG (PEPCID) TABLET PO SCH (11:08)
[2019-09-25] MEDS: FAMOTIDINE 20MG/2ML IV (PEPCID) IV SCH (11:08)
[2019-09-25 11:34] LABS: ABG BASE EXCESS -5.1 MMOL/L (-2.5-2.5); ABG OXYGEN SATURATION 99 % (94-100); ABG PCO2 29 MMHG (35-45); ABG PH 7.43 (7.37-7.43); ABG PO2 119 MMHG (79-93); ABG TCO2 19.4 MMOL/L (21.0-31.0); ALLENS TEST YES-POS
[2019-09-25 11:35] LABS: INSPIRED O2 90%; PATIENT TEMP 37.1; VENTILATOR YES
[2019-09-25] MEDS: inSUlin ASPART (NovoLOG) 1 UNIT/0.01 ML (CHARGE PER UNIT) SC SCH ×2 (12:05→18:13)
[2019-09-25] MEDS: LACTATED RINGERS 1,000 ML IV SCH ×2 (12:07→20:26)
--- NOTE | 2019-09-25 12:07 | Physical Therapy Progress Note ---
Therapy Progress Note Orders received for therapy, patient currently intubated and sedated. We will check patient status 09/27/19. JERRY MCKAY PT Sep 25, 2019 12:07
[2019-09-25] MEDS: DexMEDEtomidine 250 ML DRIP 250 ML IV SCH (12:32)
[2019-09-25] MEDS ORDERED: NS 100 ML (IVPB) BAG IV ONE (13:30)
[2019-09-25] MEDS ORDERED: IOHEXOL 350 MG/ML 100 ML (OMNIPAQUE 350) VIAL IV ONE (13:30)
[2019-09-25] MEDS ORDERED: HOLD METFORMIN - RECEIVED CONTRAST 20 ML VIAL IV SCH (13:30)
[2019-09-25 15:54] LABS: BASOPHILS % (AUTO) 0 % (0-10); EOSINOPHILS # (AUTO) 0.1 10^3/uL (0.0-0.3); EOSINOPHILS % (AUTO) 1 % (0-10); LYMPHOCYTES # (AUTO) 3.7 X 10^3 (1.0-4.0); LYMPHOCYTES % (AUTO) 30 % (12-44); MEAN CORPUSCULAR HEMOGLOBIN 32 PG (25-34); MEAN CORPUSCULAR HGB CONC 32 G/DL (32-36); MEAN CORPUSCULAR VOLUME 100 FL (80-99); MEAN PLATELET VOLUME 11.3 FL (7.4-10.4); MONOCYTES # (AUTO) 1.2 X 10^3 (0.0-1.0); MONOCYTES % (AUTO) 10 % (0-12); NEUTROPHILS # (AUTO) 7.2 X 10^3 (1.8-7.8); NEUTROPHILS % (AUTO) 58 % (42-75); PLATELET COUNT 80 10^3/uL (130-400); RED CELL DISTRIBUTION WIDTH 17.1 % (10.0-14.5); WHITE BLOOD COUNT 12.2 10^3/uL (4.3-11.0)
[2019-09-25 15:56] LABS: HEMATOCRIT 19 % (40-54)
[2019-09-25] MEDS ORDERED: fentaNYL INJECTION 100 MCG/2 ML AMP INJ ONE (16:02)
[2019-09-25] MEDS ORDERED: ROCURONIUM 10 MG/ML 5 ML SYRINGE IV ONE (16:02)
[2019-09-25] MEDS ORDERED: MIDAZOLAM 5 MG/5 ML (VERSED) VIAL IJ ONE (16:02)
[2019-09-25 16:18] LABS: CALCIUM 7.1 MG/DL (8.5-10.1); CREATININE SERUM 1.24 MG/DL (0.60-1.30); MAGNESIUM 2.5 MG/DL (1.6-2.4); POTASSIUM 4.4 MMOL/L (3.6-5.0)
--- NOTE | 2019-09-25 16:49 | Diagnostic Imaging Report ---
EXAMINATION: CT Abdomen Pelvis with and without intravenous contrast. TECHNIQUE: Precontrast acquisitions were acquired through the abdomen and pelvis. Multiple contiguous axial images were obtained through the abdomen and pelvis after the administration of intravenous contrast. All CT scans use one or more of the following dose optimizing techniques: automated exposure control, MA and/or KvP adjustment based on a patient size and exam type, or iterative reconstruction. HISTORY: History of falls. Dropping hemoglobin. COMPARISON: None available. FINDINGS: The heart is unremarkable. Bibasilar consolidative opacities are present. The liver demonstrates a micronodular contour. No focal hepatic lesions are identified. The gallbladder is distended. The spleen is enlarged. A small volume of ascites is seen in the abdomen and pelvis. The pancreas, adrenal glands, and kidneys have a normal appearance. There is no pathologically enlarged mesenteric or retroperitoneal adenopathy. The bowel loops are nondilated. An enteric tube is visualized in the stomach.. There is no free fluid or free air. No acute osseous abnormalities. The urinary bladder is decompressed with a Acevedo in place. There is no free air, loculated collection, or adenopathy in the pelvis. IMPRESSION: 1. Cirrhotic morphology of the liver. No focal hepatic lesions are seen. Recommend correlation with LFTs. 2. Stigmata of portal hypertension with splenomegaly and a small volume of ascites in the abdomen and pelvis. The portal vein is patent. 3. Consolidative opacities in the lung bases, which may represent atelectasis or infection. 4. Distended gallbladder. Consider liver gallbladder ultrasound to further evaluate. Dictated by: Dictated on workstation # [id number]
--- NOTE | 2019-09-25 17:45 | Consultation - Surgery ---
ROBSON MENARD MEDICAL STUDENT 09/25/19 1745: History of Present Illness History of Present Illness Patient Consulted On(donnie/time) 09/25/19 17:36 Date Seen by Provider: Sep 25, 2019 Time Seen by Provider: 05:36 History of Present Illness Shamar Coates is a 65 y/o male, is currently intubated and unresponsive. Information was received from his . Pt presented to the ER on 09/23. Patient was noted to have a fall resulting in left sided chest wall injury on September 11. Pt was given prednisone for possible pulled muscle. After his course of prednisone, pt developed swelling and presented to his primary care provider. He was prescribed Lasix on 09/21, of which he had only taken one dose before he started vomiting. stated the emesis was a dark red color. Pt was delirious, disoriented and was walking into fajardo and urinating on the floor. Pt stated his stomach was in large amounts of pain. Pt was admitted to ER and intubated soon after because he was being combative. Nurses state that there was blood in throat before intubation occurred. also states that yesterday's bowel movement, was very dark and bloody. Pt daily consumes 3 or 4 mixed drinks with whiskey. Family reports he has not had any alcohol in a couple of days. Ammonia level has trended from 85 to 120. Pt is not on any blood thinners. CT abdomen showed: 1. Cirrhotic liver, with no lesions 2. Portal hypertension, splenomegaly, patent portal vein 3. Consolidation in both lung bases 4. Distended Gallbladder Allergies and Home Medications Allergies Coded Allergies: Penicillins (Verified Allergy, Unknown, 09/25/19) Home Medications Amlodipine Besylate 10 Mg Tablet, 10 MG PO DAILY, (Reported) Cholecalciferol (Vitamin D3) 1,250 Mcg Capsule, 1,250 MCG PO FRIDAY, (Reported) Duloxetine HCl 60 Mg Capsule.dr, 60 MG PO DAILY, (Reported) Furosemide 20 Mg Tablet, 20 MG PO DAILY, (Reported) Ibuprofen 200 Mg Tablet, 400 MG PO Q6H PRN for PAIN-MILD (1-4), (Reported) Meloxicam 7.5 Mg Tablet, 7.5 MG PO BID PRN for MUSCLE SPASMS, (Reported) Deerfield-3 Acid Ethyl Esters 1 Gm Capsule, 2 GM PO BID, (Reported) TAKES 2 (1GM) TO EQUAL 2GM CAPS TWICE DAILY Propranolol HCl 80 Mg Tablet, 80 MG PO BID, (Reported) Past Qnauahj-Akmjlh-Hiakbf Hx Patient Social History Alcohol Use: Regular Use (3-4 Whiskey nightly ) Number of Drinks Today: GG Recreational Drug Use: No Smoking Status: Current Everyday Smoker Type Used: Cigarettes Recent Foreign Travel: No Contact w/Someone Who Travel: No Recent Infectious Disease Expo: No Recent Hopitalizations: No Physical Abuse Screen: No Sexual Abuse: No Seasonal Allergies Seasonal Allergies: No Surgeries History of Surgeries: Yes Surgeries: Orthopedic (Knee in his 20s), Vasectomy Respiratory History of Respiratory Disorde: Yes Respiratory Disorders: Chronic Bronchitis Cardiovascular History of Cardiac Disorders: Yes Cardiac Disorders: Hypertension Neurological History of Neurological Disord: No Reproductive System Hx Reproductive Disorders: No Genitourinary History of Genitourinary Disor: No Gastrointestinal History of Gastrointestinal Di: No Musculoskeletal History of Musculoskeletal Dis: Yes Musculoskeletal Disorders: Arthritis, Chronic Back Pain Endocrine History of Endocrine Disorders: No HEENT History of HEENT Disorders: No Loss of Vision: Denies Hearing Impairment: Denies Cancer History of Cancer: No Psychosocial History of Psychiatric Problem: Yes (regular alcohol use) Behavioral Health Disorders: Anxiety Integumentary History of Skin or Integumenta: No Review of Systems-General ROS-Unable to Obtain: Patient is intubated and obtunded Physical Exam-General Problems Physical Exam Vital Signs Vital Signs - First Documented 09/24/19 09/24/19 09/25/19 09/25/19 08:02 11:44 09:30 11:43 Temp 35.3 Pulse 62 Resp 18 B/P (MAP) 146/87 (106) Pulse Ox 97 O2 Delivery Room Air O2 Flow Rate 70.00 FiO2 100 Capillary Refill : Less Than 3 Seconds General Appearance: other (Intubated and obtunded) Neck: non-tender, normal inspection Respiratory: lungs clear, other (intubated) Cardiovascular: regular rate, rhythm, no murmur Gastrointestinal: normal bowel sounds, soft, spleenomegaly Extremities: normal inspection, no pedal edema Neurologic/Psychiatric: No alert, No normal mood/affect, No oriented x 3 Skin: normal color, warm/dry Lymphatic: no adenopathy Data Review Labs Laboratory Tests 09/25/19 04:14: Sodium Level 145, Potassium Level 5.0, Chloride Level 118H, Carbon Dioxide Level 16L, Anion Gap 11, Blood Urea Nitrogen 36H, Creatinine 0.84, Estimat Glomerular Filtration Rate > 60, BUN/Creatinine Ratio 43, Glucose Level 134H, Calcium Level 7.7L, Corrected Calcium 8.7, Total Bilirubin 2.7H, Aspartate Amino Transf (AST/SGOT) 59H, Alanine Aminotransferase (ALT/SGPT) 32, Alkaline Phosphatase 105, Ammonia 120H, Total Protein 5.3L, Albumin 2.8L, Procalcitonin 0.16H 09/25/19 10:15: Sodium Level 148H, Potassium Level 4.4, Chloride Level 122H, Carbon Dioxide Level 17L, Anion Gap 9, Blood Urea Nitrogen 44H, Creatinine 0.92, Estimat Glomerular Filtration Rate > 60, BUN/Creatinine Ratio 48, Glucose Level 142H, Calcium Level 7.5L, Corrected Calcium 8.5, Total Bilirubin 2.3H, Aspartate Amino Transf (AST/SGOT) 47H, Alanine Aminotransferase (ALT/SGPT) 27, Alkaline Phosphatase 102, Total Protein 4.8L, Albumin 2.7L, White Blood Count 20.4H, Red Blood Count 2.31L, Hemoglobin 7.5#L, Hematocrit 23L, Mean Corpuscular Volume 99, Mean Corpuscular Hemoglobin 32, Mean Corpuscular Hemoglobin Concent 33, Red Cell Distribution Width 17.1H, Platelet Count 129L, Mean Platelet Volume 11.8H, Neutrophils (%) (Auto) 65, Lymphocytes (%) (Auto) 21, Monocytes (%) (Auto) 13H, Eosinophils (%) (Auto) 1, Basophils (%) (Auto) 0, Neutrophils # (Auto) 13.3H, Lymphocytes # (Auto) 4.3H, Monocytes # (Auto) 2.7H, Eosinophils # (Auto) 0.1, Basophils # (Auto) 0.1, B-Type Natriuretic Peptide 56.9, Triglycerides Level 161H 09/25/19 11:25: Blood Gas Puncture Site RT BRACH, Blood Gas Patient Temperature 37.1, Arterial Blood pH 7.43, Arterial Blood Partial Pressure CO2 29L, Arterial Blood Partial Pressure O2 119H, Arterial Blood HCO3 19L, Arterial Blood Total CO2 19.4L, Arterial Blood Oxygen Saturation 99, Arterial Blood Base Excess -5.1L, Jordan Test YES-POS, Blood Gas Ventilator Setting YES, Blood Gas Inspired Oxygen 90% 3/14/20 11:41: Glucometer 150H 09/25/19 15:45: White Blood Count 12.2H, Red Blood Count 1.89L, Hemoglobin 6.0*L, Hematocrit 19 *L, Mean Corpuscular Volume 100H, Mean Corpuscular Hemoglobin 32, Mean Corpuscular Hemoglobin Concent 32, Red Cell Distribution Width 17.1H, Platelet Count 80L, Mean Platelet Volume 11.3H, Neutrophils (%) (Auto) 58, Lymphocytes (%) (Auto) 30, Monocytes (%) (Auto) 10, Eosinophils (%) (Auto) 1, Basophils (%) (Auto) 0, Neutrophils # (Auto) 7.2, Lymphocytes # (Auto) 3.7, Monocytes # (Auto) 1.2H, Eosinophils # (Auto) 0.1, Basophils # (Auto) 0.0, Sodium Level 148H, Potassium Level 4.4, Chloride Level 122H, Carbon Dioxide Level 16L, Anion Gap 10, Blood Urea Nitrogen 49H, Creatinine 1.24, Estimat Glomerular Filtration Rate 60, BUN/Creatinine Ratio 40, Glucose Level 164H, Calcium Level 7.1L, Magnesium Level 2.5H Microbiology 09/24/19 Influenza Types A,B Antigen (OCTAVIANO) - Final, Complete Assessment/Plan Assessment/Plan Assessment/Plan Delirium Tremens Hypotension GI bleed Cirrhotic Liver EGD kayexalate Maintenance Fluids Watch Hgb levels after 2 unit infusion Clinical Quality Measures DVT/VTE Risk/Contraindication: Risk Factor Score Per Nursin RFS Level Per Nursing on Admit: 3=High SHRUTHI BEAULIEU DO 09/25/192120: History of Present Illness History of Present Illness History of Present Illness 59 year old male who is intubated and sedated. Patient with recent dark color emesis and vomiting prior to intubation. Patient reported to have become combative and concerned for withdrawl and was intubated. Patient having dark coffee ground appearing OG tube drainage. Patient with Hgb drop. Family reports daily alcohol use. Patient receiving PRBC now. Asked to perform EGD for further evaluation. Allergies and Home Medications Allergies Coded Allergies: Penicillins (Verified Allergy, Unknown, 09/25/19) Home Medications Amlodipine Besylate 10 Mg Tablet, 10 MG PO DAILY, (Reported) Cholecalciferol (Vitamin D3) 1,250 Mcg Capsule, 1,250 MCG PO FRIDAY, (Reported) Duloxetine HCl 60 Mg Capsule.dr, 60 MG PO DAILY, (Reported) Furosemide 20 Mg Tablet, 20 MG PO DAILY, (Reported) Ibuprofen 200 Mg Tablet, 400 MG PO Q6H PRN for PAIN-MILD (1-4), (Reported) Meloxicam 7.5 Mg Tablet, 7.5 MG PO BID PRN for MUSCLE SPASMS, (Reported) [place]erfield-3 Acid Ethyl Esters 1 Gm Capsule, 2 GM PO BID, (Reported) TAKES 2 (1GM) TO EQUAL 2GM CAPS TWICE DAILY Propranolol HCl 80 Mg Tablet, 80 MG PO BID, (Reported) Patient Home Medication List Home Medication List Reviewed: Yes Past Vaavukh-Zcpagp-Anocrr Hx Patient Social History Alcohol Use: Regular Use Reviewed Nursing Assessment Reviewed/Agree w Nursing PMH: Yes Family Medical History Significant Family History: No Pertinent Family Hx Review of Systems-General ROS-Unable to Obtain: intubated and sedated unable to obtain Physical Exam-General Problems Physical Exam General Appearance: other (Intubated and sedated) HEENT: other (Et and OT inplaced.) Neck: normal inspection Respiratory: lungs clear Cardiovascular: regular rate, rhythm Gastrointestinal: soft; No distended Rectal: deferred Extremities: normal inspection, no pedal edema Neurologic/Psychiatric: No alert, No normal mood/affect, No oriented x 3; other (sedated) Skin: normal color, warm/dry Lymphatic: no adenopathy Assessment/Plan Assessment/Plan Assessment/Plan GI bleed likely upper source Hypotension Cirrhotic liver EtOH daily use follow labs transfuse blood products prn EGD now Protonix/Octreotide drips Keep intubated May need further endoscopy no surgical intervention will follow Supervisory-Addendum Brief Verification & Attestation Participated in pt care: history, MDM, physical Personally performed: exam, history, MDM, supervision of care Care discussed with: Medical Student Procedures: n/a Results interpretation: Verified all documentation Verification and Attestation of Medical Student E/M Service A medical student performed and documented this service in my presence. I reviewed and verified all information documented by the medical student and made modifications to such information, when appropriate. I personally performed the physical exam and medical decision making. Shruthi Beaulieu, Sep 25, 2019,21:25 ROBSON MENARD MEDICAL STUDENT Sep 25, 2019 17:45 SHRUTHI BEAULIEU DO Sep 25, 2019 21:21
[2019-09-25] MEDS ORDERED: EPINEPHrine INJECTION 1 MG/ML AMP ONE (18:18)
[2019-09-25] MEDS: NS IV 500 ML 500 ML IV SCH ×2 (18:22→18:23)
[2019-09-25] MEDS ORDERED: OCTREOTIDE DRIP KIT ONE (19:33)
[2019-09-25] MEDS ORDERED: NS (IVPB) 0 ML ONE (19:45)
[2019-09-25] MEDS: PANTOPRAZOLE INJECTION 200 MG in NS (IVPB) 100 ML IV SCH (20:25)
[2019-09-25] MEDS: OCTREOTIDE INJECTION 500 MCG in NS (IVPB) 99 ML IV SCH (20:25)
--- OUTSIDE RECORDS SUMMARY | 2019-09-25 23:55 | XMS REPORT ---
Author Author Shamar LANDA Organization [facility] [place] Address [address] [place] [address] Care Team Providers Care Vessel Builder Name Role Phone PETR LANDA Unavailable PROBLEMS Type Condition ICD9-CM Code YGE20-MI Code Onset Dates Condition S tatus SNOMED Code Problem Porokeratosis Q82.8 Active 932125 004 Problem Hypertriglyceridemia E78.1 Active 814318101 Problem Hypertension, benign I10 Active 73599445 Problem Chronic tension-type headache, not intractable G44 .229 Active 275071350 Problem Arthritis M19.90 Active 0966186 Problem Anxiety F41.9 Active 80134971 ALLERGIES No Information ENCOUNTERS Encounter Location Date Diagnosis [facility] [place] [address] [address] May, [facility] [place] [address] [address] 15 Apr, 2018 [facility] [place] [address] [address] 10 Feb, 2018 Callus of foot L84 ; Poroker atosis Q82.8 and Hyperhidrosis R61 [facility] [address] [place] [id number] [place] [phone] 08 Dec, 2017 Chest congestion R09.89 ; Co ugh R05 and Excessive cerumen in both ear canals H61.23 [facility] [place] [address] [place] [id number] [place] [phone] November, Hypertriglyceridemia E78.1 a nd Elevated liver enzymes R74.8 [facility] [place] [address] [place] [id number] [place] [phone] November, [facility] [place] [address] [place] [place] [id number] [place] [phone] November, Anxiety F41.9 ; Hypertension , benign I10 and Arthritis M19.90 [place] [address] Jul, Hypertension, benign I10 ; A nxiety F41.9 ; Arthritis M19.90 ; Other eczema L30.8 and Lesion of skin of face L98.9 [place] [address] [address] Jun, Hypertension, benign I10 [place] [address] [address] May, Hypertension, benign I10 [place] [address] [address] Apr, Hypertension, benign I10 [address] [address] Apr, Encounter for pre-employment examination Z02.[address] [address] 21 Mar, 2017 Hypertension, benign I10 and 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 [place] [address] [address] 14 Mar, 2017 Hypertension, benign I10 and Anxiety F41.[address] [address] 07 Mar, 2017 Chronic tension-type headach e, not intractable G44.229 and Hypertension, benign I10 [facility] [address] [place] [phone] 09 Mar, 2016 Injury of left little finger , initial encounter S69.92XA and Dislocation of left little finger, initial encounter S63.257A [facility] [address] [address] 17 Jul, 2015 Sprain of unspecified parts of lumbar spine and pelvis, initial encounter S33.9XXA [facility] [address] [facility] [id number] [place] [address] Jan, Wasp sting 989.5 ; Caries 52 1.00 and Tooth pain 525.9 IMMUNIZATIONS No Known Immunizations SOCIAL HISTORY Never Assessed REASON FOR VISIT dot pysical appt. sceduling PLAN OF CARE VITAL SIGNS MEDICATIONS Unknown Medications RESULTS No Results PROCEDURES No Known procedures INSTRUCTIONS MEDICATIONS ADMINISTERED No Known Medications
--- OUTSIDE RECORDS SUMMARY | 2019-09-25 23:55 | XMS REPORT ---
Author Author Shamar MARKS Organization [employer] Address Unknown Phone Unavailable Care Team Providers Care Grinder Set Up Operator Thread Name Role Phone ELI MARKS CP Unavailable Allergies, Adverse Reactions, Alerts Substance Reaction Event Type N.K.D.A. Info Not Available Non Drug Allergy Problems Problem Type Condition Code Onset Dates Condition Statu s Assessment Sprain of unspecified parts of lumbar spine and pelvis, initial encounter S33.9XXA Active Medications Medication Code System Code Instructions Start Date End Date Status Dosage PredniSONE [facility] [address]-90 20 MG Orally Once a day Jul 30, 201 6 Aug 02, 2015 as directed Naprosyn [facility] [address]-01 500 MG Orally every 12 hrs Jul 30, 2 016 Aug 06, 2015 1 tablet as needed Cyclobenzaprine HCl [facility] [address]-87 10 MG Orally Three t imes a day Jul 30, 2015 Aug 06, 2015 1 tablet Ibuprofen [facility] [address]-99 800 MG Orally Three times a day 1 tablet Procedures Procedure Coding System Code Date Office Visit, Est Pt., Level 3 CPT-4 35487 J 2015 Vital Signs Date/Time: Jul 30, 2015 Temperature 99.1 F Weight 234.6 lbs Height 70 in BMI 33.66 Index Blood Pressure Diastolic 92 mmHg Blood Pressure Systolic 142 mmHg Cardiac Monitoring Heart Rate 62 bpm Results No Known Results Summary Purpose [employer] Submission
--- OUTSIDE RECORDS SUMMARY | 2019-09-25 23:55 | XMS REPORT ---
Author Author Shamar LANDA Organization [facility] Address [address] [place] [address] Care Team Providers Care Kettle Worker Name Role Phone PETR LANDA Unavailable PROBLEMS Type Condition ICD9-CM Code [id number] Code Onset Dates Condition S tatus SNOMED Code Problem Hypertriglyceridemia E78.1 Active 780017993 Problem Arthritis M19.90 Active 3949153 Problem Chronic tension-type headache, not intractable G44 .229 Active 366819069 Problem Anxiety F41.9 Active 19170918 Problem Hypertension, benign I10 Active 91892158 ALLERGIES No Known Allergies ENCOUNTERS Encounter Location Date Diagnosis [place] [id number] [address] Feb, [facility] [address] [address] 08 Dec, 2017 Chest congestion R09.89 ; Co ugh R05 and Excessive cerumen in both ear canals H61.[address] [address] November, Hypertriglyceridemia E78.1 a nd Elevated liver enzymes R74.[address] [address] November, [address] [address] November, Anxiety F41.9 ; Hypertension , benign I10 and Arthritis M19.90 [facility] [address] [address] Jul, Hypertension, benign I10 ; A nxiety F41.9 ; Arthritis M19.90 ; Other eczema L30.8 and Lesion of skin of face L98.9 [place] [address] [address] Jun, Hypertension, benign I10 [place] [address] [address] May, Hypertension, benign I10 [place] [address] [address] Apr, Hypertension, benign I10 [place] [address] [address] Apr, Encounter for pre-employment examination Z02.1 [address] Mar, Hypertension, benign I10 and 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 [address] Mar, Hypertension, benign I10 and Anxiety F41.9 [place] [address] [address] 07 Mar, 2017 Chronic tension-type headach e, not intractable G44.229 and Hypertension, benign I10 [facility] [place] [address] [address] 09 Mar, 2016 Injury of left little finger , initial encounter S69.92XA and Dislocation of left little finger, initial encounter S63.257A [facility] [address] [address] Jul, Sprain of unspecified parts of lumbar spine and pelvis, initial encounter S33.9XXA [address] [address] Jan, Wasp sting 989.5 ; Caries 52 1.00 and Tooth pain 525.9 IMMUNIZATIONS No Known Immunizations SOCIAL HISTORY Never Assessed REASON FOR VISIT anxiety-Tiburcio ROMO PLAN OF CARE Activity Details Follow Up 4 Weeks Reason:anxiety, htn VITAL SIGNS Height 70 in 2017-11-17 Weight 212.9 lbs 2017-11-17 Temperature 98.5 degrees Fahrenheit 2017-11-17 Heart Rate 78 bpm 2017-11-17 Respiratory Rate 18 2017-11-17 BMI 30.54 kg/m2 2017-11-17 Blood pressure systolic 148 mmHg 2017-11-17 Blood pressure diastolic 96 mmHg 2017-11-17 MEDICATIONS Medication Instructions Dosage Frequency Start Date End Date Duration S tatus Triamcinolone Acetonide 0.1 % Externally Twice a day 1 appli cation to affected area 12h Jul, Active Lisinopril-Hydrochlorothiazide 20-12.5 MG Orally Once a day 2 table ts 24h Jul, Active Propranolol HCl 80 MG 1 tablet 12h A ctive RESULTS No Results PROCEDURES Procedure Date Ordered Result Body Site LIPID PANEL November 17, 2017 ASSAY OF VITAMIN D November 17, 2017 COMPREHEN METABOLIC PANEL November 17, 2017 ASSAY THYROID STIM HORMONE November 17, 2017 COMPLETE CBC W/AUTO DIFF WBC November 17, 2017 INSTRUCTIONS MEDICATIONS ADMINISTERED No Known Medications
--- OUTSIDE RECORDS SUMMARY | 2019-09-25 23:55 | XMS REPORT ---
Author Author Shamar LANDA Organization [facility] Address [address] [place] [address] Care Team Providers Care Salesperson Toy Trains And Accessories Name Role Phone SYEDAPETR Unavailable PROBLEMS Type Condition ICD9-CM Code XWR84-FG Code Onset Dates Condition S tatus SNOMED Code Problem Hypertriglyceridemia E78.1 Active 331392204 Problem Arthritis M19.90 Active 0734498 Problem Chronic tension-type headache, not intractable G44 .229 Active 124054775 Problem Anxiety F41.9 Active 54692328 Problem Hypertension, benign I10 Active 86270777 ALLERGIES No Information ENCOUNTERS Encounter Location Date Diagnosis [place] [address] [address] Feb, [place] [address] [address] November, Hypertriglyceridemia E78.1 a nd Elevated liver enzymes R74.[address] [address] November, [place] [address] [address] November, Anxiety F41.9 ; Hypertension , benign I10 and Arthritis M19.[address] [address] Jul, Hypertension, benign I10 ; A nxiety F41.9 ; Arthritis M19.90 ; Other eczema L30.8 and Lesion of skin of face L98.9 [place] [address] [place] [id number] [place] [address] Jun, Hypertension, benign I10 [place] [address] [address] May, Hypertension, benign I10 [place] [address] [address] Apr, Hypertension, benign I10 [place] [address] [place] [address] Apr, Encounter for pre-employment examination Z02.1 [place] [address] [address] Mar, Hypertension, benign I10 and 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 [address] 14 Mar, 2017 Hypertension, benign I10 and Anxiety F41.9 [place] [address] [address] 07 Mar, 2017 Chronic tension-type headach e, not intractable G44.229 and Hypertension, benign I10 [facility] IN [facility] [address] [address] 09 Mar, 2016 Injury of left little finger , initial encounter S69.92XA and Dislocation of left little finger, initial encounter S63.257A [facility] WALK IN [facility] [address] [place] [address] Jul, Sprain of unspecified parts of lumbar spine and pelvis, initial encounter S33.9XXA [address] [address] Jan, Wasp sting 989.5 ; Caries 52 1.00 and Tooth pain 525.9 IMMUNIZATIONS No Known Immunizations SOCIAL HISTORY Never Assessed REASON FOR VISIT Medication refill request PLAN OF CARE VITAL SIGNS MEDICATIONS Medication Instructions Dosage Frequency Start Date End Date Duration S tatus Propranolol HCl 80 MG Orally Twice a day 1 tablet 12h 07 Mar, 2017 30 day(s) Active Lisinopril 20 mg Orally Once a day 1 tablet 24h Mar, 30 day(s) Active RESULTS No Results PROCEDURES No Known procedures INSTRUCTIONS MEDICATIONS ADMINISTERED No Known Medications
--- OUTSIDE RECORDS SUMMARY | 2019-09-25 23:55 | XMS REPORT ---
Author Author Shamar LANDA Organization [facility] Address [address] [place] [address] Care Team Providers Care Collector Name Role Phone PETR LANDA Unavailable PROBLEMS Type Condition ICD9-CM Code YGQ74-BF Code Onset Dates Condition S tatus SNOMED Code Problem Porokeratosis Q82.8 Active 934031 004 Problem Hypertriglyceridemia E78.1 Active 842319948 Problem Hypertension, benign I10 Active 49879595 Problem Chronic tension-type headache, not intractable G44 .229 Active 008093370 Problem Arthritis M19.90 Active 3815478 Problem Anxiety F41.9 Active 70846588 ALLERGIES No Known Allergies ENCOUNTERS Encounter Location Date Diagnosis [address] [address] May, Anxiety F41.9 and Hypertensi on, benign I10 [address] [address] Apr, [address] [address] 10 Feb, 2018 Callus of foot L84 ; Poroker atosis Q82.8 and Hyperhidrosis R61 [facility] [address] [address] 08 Dec, 2017 Chest congestion R09.89 ; Co ugh R05 and Excessive cerumen in both ear canals H61.[address] [address] November, Hypertriglyceridemia E78.1 a nd Elevated liver enzymes R74.[address] [address] November, [facility] [address] [address] November, Anxiety F41.9 ; Hypertension , benign I10 and Arthritis M19.[address] [address] 08 Jul, 2017 Hypertension, benign I10 ; A nxiety F41.9 ; Arthritis M19.90 ; Other eczema L30.8 and Lesion of skin of face L98.[address] [address] Jun, Hypertension, benign I10 [address] [address] May, Hypertension, benign I10 [address] [address] Apr, Hypertension, benign I10 [address] [address] Apr, Encounter for pre-employment examination Z02.[address] [address] 21 Mar, 2017 Hypertension, benign I10 and 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 [address] 14 Mar, 2017 Hypertension, benign I10 and Anxiety F41.[address] [address] 07 Mar, 2017 Chronic tension-type headach e, not intractable G44.229 and Hypertension, benign I10 [facility] WALK IN [address] [address] 09 Mar, 2016 Injury of left little finger , initial encounter S69.92XA and Dislocation of left little finger, initial encounter S63.257A [facility] [address] [address] Jul, Sprain of unspecified parts of lumbar spine and pelvis, initial encounter S33.9XXA [facility] [address] [facility] [id number] [place] [address] Jan, Wasp sting 989.5 ; Caries 52 1.00 and Tooth pain 525.9 IMMUNIZATIONS No Known Immunizations SOCIAL HISTORY Never Assessed REASON FOR VISIT Anxiety/Hypertension, - Cb ROMO PLAN OF CARE VITAL SIGNS Height 70 in 2018-05-15 Weight 200 lbs 2018-05-15 Temperature 98.1 degrees Fahrenheit 2018-05-15 Heart Rate 59 bpm 2018-05-15 Respiratory Rate 20 2018-05-15 Oximetry 97 % 2018-05-15 BMI 28.69 kg/m2 2018-05-15 Blood pressure systolic 132 mmHg 2018-05-15 Blood pressure diastolic 78 mmHg 2018-05-15 MEDICATIONS Medication Instructions Dosage Frequency Start Date End Date Duration S tatus Fish Oil 1000 MG Orally Twice a day 2 capsules 12h November, May, 30 day(s) Active Propranolol HCl 80 MG 1 tablet 12h 30 A ctive Lisinopril-Hydrochlorothiazide 20-12.5 MG TAKE TWO TABLETS BY MOUTH ONCE DAILY 30 Active Duloxetine HCl 60 MG TAKE ONE (1) CAPSULE BY MOUTH ONCE DAILY 30 Active RESULTS No Results PROCEDURES No Known procedures INSTRUCTIONS MEDICATIONS ADMINISTERED No Known Medications MEDICAL (GENERAL) HISTORY Type Description Date Medical History anxiety/depression Medical History Hypertension Surgical History Left knee ligaments 23yo
--- OUTSIDE RECORDS SUMMARY | 2019-09-25 23:55 | XMS REPORT ---
Author Author Shamar LANDA Organization [facility] Address [address] [place] [address] Care Team Providers Care Airplane Flight Attendant Name Role Phone SEYDAPETR Unavailable PROBLEMS Type Condition ICD9-CM Code QFP09-SW Code Onset Dates Condition S tatus SNOMED Code Problem Hypertriglyceridemia E78.1 Active 094550220 Problem Arthritis M19.90 Active 9512202 Problem Chronic tension-type headache, not intractable G44 .229 Active 308927409 Problem Anxiety F41.9 Active 83401450 Problem Hypertension, benign I10 Active 28144893 ALLERGIES No Information ENCOUNTERS Encounter Location Date Diagnosis [place] [address] [address] Feb, [place] [address] [address] November, Hypertriglyceridemia E78.1 a nd Elevated liver enzymes R74.[address] [address] November, [place] [address] [address] November, Anxiety F41.9 ; Hypertension , benign I10 and Arthritis M19.90 [place] [address] [address] Jul, Hypertension, benign I10 ; A nxiety F41.9 ; Arthritis M19.90 ; Other eczema L30.8 and Lesion of skin of face L98.9 [place] [address] [address] [place] [id number] [address] [place] [address] Jun, Hypertension, benign I10 [place] [address] [address] May, Hypertension, benign I10 [facility] [address] [address] Apr, Hypertension, benign I10 [place] [address] [address] Apr, Encounter for pre-employment examination Z02.1 [place] [address] [address] 21 Mar, 2017 Hypertension, benign I10 and 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 [address] 14 Mar, 2017 Hypertension, benign I10 and Anxiety F41.[address] [address] 07 Mar, 2017 Chronic tension-type headach e, not intractable G44.229 and Hypertension, benign I10 [facility] WALK IN [facility] [address] [address] 09 Mar, 2016 Injury of left little finger , initial encounter S69.92XA and Dislocation of left little finger, initial encounter S63.257A [facility] WALK IN [facility] [address] [place] [address] Jul, Sprain of unspecified parts of lumbar spine and pelvis, initial encounter S33.9XXA [address] [address] Jan, Wasp sting 989.5 ; Caries 52 1.00 and Tooth pain 525.9 IMMUNIZATIONS No Known Immunizations SOCIAL HISTORY Never Assessed REASON FOR VISIT Controlled Refill Request PLAN OF CARE VITAL SIGNS MEDICATIONS Medication Instructions Dosage Frequency Start Date End Date Duration S tatus Ativan 0.5 MG Orally every 6 hrs 1 tablet as needed 6h Mar, Active RESULTS No Results PROCEDURES No Known procedures INSTRUCTIONS MEDICATIONS ADMINISTERED No Known Medications
--- OUTSIDE RECORDS SUMMARY | 2019-09-25 23:55 | XMS REPORT ---
Author Author Shamar LANDA Organization [facility] Address [address] [place] [address] Care Team Providers Care International Trade Analyst Name Role Phone PETR LANDA Unavailable PROBLEMS Type Condition ICD9-CM Code UGQ82-XH Code Onset Dates Condition S tatus SNOMED Code Problem Porokeratosis Q82.8 Active 263295 004 Problem Hypertriglyceridemia E78.1 Active 935161905 Problem Hypertension, benign I10 Active 76531749 Problem Chronic tension-type headache, not intractable G44 .229 Active 388402916 Problem Arthritis M19.90 Active 8039696 Problem Anxiety F41.9 Active 96798087 ALLERGIES No Information ENCOUNTERS Encounter Location Date Diagnosis [address] [address] Apr, [address] [address] Feb, Callus of foot L84 ; Poroker atosis Q82.[address] [facility] [address] [place] [id number] [address] [place] [address] 08 Dec, 2017 Chest congestion R09.89 ; Co ugh R05 and Excessive cerumen in both ear canals H61.23 [facility] [address] [address] November, Hypertriglyceridemia E78.1 a nd Elevated liver enzymes R74.8 [place] [address] [address] November, [place] [address] [address] November, Anxiety F41.9 ; Hypertension , benign I10 and Arthritis M19.[address] [address] 08 Jul, 2017 Hypertension, benign I10 ; A nxiety F41.9 ; Arthritis M19.90 ; Other eczema L30.8 and Lesion of skin of face L98.[address] [address] 14 Jun, 2017 Hypertension, benign I10 [address] [address] May, Hypertension, benign I10 [address] [address] Apr, Hypertension, benign I10 [address] [address] Apr, Encounter for pre-employment examination Z02.[address] [address] 21 Mar, 2017 Hypertension, benign I10 and 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 [address] 14 Mar, 2017 Hypertension, benign I10 and Anxiety F41.[address] [address] 07 Mar, 2017 Chronic tension-type headach e, not intractable G44.229 and Hypertension, benign I10 [facility] WALK IN [address] [address] 09 Mar, 2016 Injury of left little finger , initial encounter S69.92XA and Dislocation of left little finger, initial encounter S63.257A [facility] WALK IN [address] [address] 17 Jul, 2015 Sprain of unspecified parts of lumbar spine and pelvis, initial encounter S33.9XXA [address] [address] Jan, Wasp sting 989.5 ; Caries 52 1.00 and Tooth pain 525.9 IMMUNIZATIONS No Known Immunizations SOCIAL HISTORY Never Assessed REASON FOR VISIT referral/ PLAN OF CARE VITAL SIGNS MEDICATIONS Unknown Medications RESULTS No Results PROCEDURES No Known procedures INSTRUCTIONS MEDICATIONS ADMINISTERED No Known Medications
--- OUTSIDE RECORDS SUMMARY | 2019-09-25 23:55 | XMS REPORT ---
Author Author Shamar GODINEZ Organization [facility] Address [address] [place] [address] Care Team Providers Care Continuous Still Operator Name Role Phone AAYUSH GODINEZ Unavailable PROBLEMS Type Condition ICD9-CM Code KFZ98-PY Code Onset Dates Condition S tatus SNOMED Code Problem Porokeratosis Q82.8 Active 416361 004 Problem Hypertriglyceridemia E78.1 Active 675036330 Problem Hypertension, benign I10 Active 21191112 Problem Chronic tension-type headache, not intractable G44 .229 Active 484313569 Problem Arthritis M19.90 Active 1691834 Problem Anxiety F41.9 Active 07803705 ALLERGIES No Known Allergies ENCOUNTERS Encounter Location Date Diagnosis [place] [address] [address] Apr, [place] [address] [address] Feb, Callus of foot L84 ; Poroker atosis Q82.8 and Hyperhidrosis R61 [facility] [address] [place] [id number] [address] [place] [address] 08 Dec, 2017 Chest congestion R09.89 ; Co ugh R05 and Excessive cerumen in both ear canals H61.23 [facility] [address] [place] [id number] [place] [address] November, Hypertriglyceridemia E78.1 a nd Elevated liver enzymes R74.8 [place] [address] [address] [place] [id number] [place] [address] November, [place] [address] [address] [place] [id number] [address] [place] [address] November, Anxiety F41.9 ; Hypertension , benign I10 and Arthritis M19.90 [place] [address] [address] Jul, Hypertension, benign I10 ; A nxiety F41.9 ; Arthritis M19.90 ; Other eczema L30.8 and Lesion of skin of face L98.9 [place] [address] [address] Jun, Hypertension, benign I10 [place] [address] [address] May, Hypertension, benign I10 [address] [address] Apr, Hypertension, benign I10 [place] [address] [address] Apr, Encounter for pre-employment examination Z02.[address] [address] 21 Mar, 2017 Hypertension, benign I10 and 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 [address] 14 Mar, 2017 Hypertension, benign I10 and Anxiety F41.[address] [address] 07 Mar, 2017 Chronic tension-type headach e, not intractable G44.229 and Hypertension, benign I10 [facility] WALK IN [address] [address] 09 Mar, 2016 Injury of left little finger , initial encounter S69.92XA and Dislocation of left little finger, initial encounter S63.257A [facility] WALK IN [address] [address] 17 Jul, 2015 Sprain of unspecified parts of lumbar spine and pelvis, initial encounter S33.9XXA [address] [place] [address] Jan, Wasp sting 989.5 ; Caries 52 1.00 and Tooth pain 525.9 IMMUNIZATIONS No Known Immunizations SOCIAL HISTORY Never Assessed REASON FOR VISIT cough x7 days JStrasserRN PLAN OF CARE Activity Details Follow Up 1 Week, prn Reason:if sympto ms worsen or do not improve VITAL SIGNS Height 70 in 2017-12-19 Weight 201.2 lbs 2017-12-19 Temperature 99.4 degrees Fahrenheit 2017-12-19 Heart Rate 70 bpm 2017-12-19 Respiratory Rate 20 2017-12-19 BMI 28.87 kg/m2 2017-12-19 Blood pressure systolic 100 mmHg 2017-12-19 Blood pressure diastolic 70 mmHg 2017-12-19 MEDICATIONS Medication Instructions Dosage Frequency Start Date End Date Duration S tatus Propranolol HCl 80 MG 1 tablet 12h A ctive Doxycycline Hyclate 100 mg Orally twice a day 1 capsule 12h 0 8 Dec, 2017 Dec, 10 day(s) Active Lisinopril-Hydrochlorothiazide 20-12.5 MG Orally Once a day 2 table ts 24h Jul, Active Benzonatate 200 mg Orally Three times a day 1 capsule 8h 08 Dec, 2017 Dec, 10 days Active Triamcinolone Acetonide 0.1 % Externally Twice a day 1 appli cation to affected area 12h Jul, Not-Taking Fish Oil 1000 MG Orally Twice a day 2 capsules 12h November, May, 30 day(s) Active Debrox 6.5 % Otic Twice a day 5 drops into affected ear 12h Dec, Dec, 4 day(s) Active RESULTS Name Result Date Reference Range Xray : Chest 2 View (IN HOUSE) 2017-12-19 PROCEDURES Procedure Date Ordered Result Body Site X-RAY EXAM CHEST 2 VIEWS December 19, 2017 INSTRUCTIONS MEDICATIONS ADMINISTERED No Known Medications
--- OUTSIDE RECORDS SUMMARY | 2019-09-25 23:55 | XMS REPORT ---
Author Author Shamar LANDA Organization [facility] Address [address] [place] [address] Care Team Providers Care Swatch Checker Name Role Phone PETR LANDA Unavailable PROBLEMS Type Condition ICD9-CM Code AOF23-NX Code Onset Dates Condition S tatus SNOMED Code Problem Hypertriglyceridemia E78.1 Active 353169451 Problem Arthritis M19.90 Active 7650556 Problem Chronic tension-type headache, not intractable G44 .229 Active 103843968 Problem Anxiety F41.9 Active 37149917 Problem Hypertension, benign I10 Active 03102724 ALLERGIES No Information ENCOUNTERS Encounter Location Date Diagnosis [address] [address] Feb, [facility] [address] [address] 08 Dec, 2017 Chest congestion R09.89 ; Co ugh R05 and Excessive cerumen in both ear canals H61.[address] [address] November, Hypertriglyceridemia E78.1 a nd Elevated liver enzymes R74.[address] [address] November, [address] [address] November, Anxiety F41.9 ; Hypertension , benign I10 and Arthritis M19.90 [place] [address] [address] Jul, Hypertension, benign I10 ; A nxiety F41.9 ; Arthritis M19.90 ; Other eczema L30.8 and Lesion of skin of face L98.9 [place] [address] [address] Jun, Hypertension, benign I10 [place] [address] [address] May, Hypertension, benign I10 [place] [address] [address] Apr, Hypertension, benign I10 [place] [address] [address] Apr, Encounter for pre-employment examination Z02.[address] 21 Mar, 2017 Hypertension, benign I10 and 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 [address] 14 Mar, 2017 Hypertension, benign I10 and Anxiety F41.9 [place] [address] [address] 07 Mar, 2017 Chronic tension-type headach e, not intractable G44.229 and Hypertension, benign I10 [facility] WALK IN [place] [address] [address] 09 Mar, 2016 Injury of left little finger , initial encounter S69.92XA and Dislocation of left little finger, initial encounter S63.257A [facility] [address] [address] Jul, Sprain of unspecified parts of lumbar spine and pelvis, initial encounter S33.9XXA [address] [address] Jan, Wasp sting 989.5 ; Caries 52 1.00 and Tooth pain 525.9 IMMUNIZATIONS No Known Immunizations SOCIAL HISTORY Never Assessed REASON FOR VISIT Lab results PLAN OF CARE VITAL SIGNS MEDICATIONS Medication Instructions Dosage Frequency Start Date End Date Duration S tatus Fish Oil 1000 MG Orally Twice a day 2 capsules 12h November, May, 30 day(s) Active RESULTS No Results PROCEDURES No Known procedures INSTRUCTIONS MEDICATIONS ADMINISTERED No Known Medications
--- OUTSIDE RECORDS SUMMARY | 2019-09-25 23:55 | XMS REPORT ---
Author Author Shamar CRAMER Organization [facility] Address [address] [place] [address] Care Team Providers Care Production Gear Cutter Name Role Phone SHOAIB, EVENS Unavailable PROBLEMS Type Condition ICD9-CM Code WDD75-QS Code Onset Dates Condition S tatus SNOMED Code Problem Porokeratosis Q82.8 Active 125757 004 Problem Hypertriglyceridemia E78.1 Active 492921020 Problem Hypertension, benign I10 Active 25926284 Problem Chronic tension-type headache, not intractable G44 .229 Active 735121296 Problem Arthritis M19.90 Active 5953360 Problem Anxiety F41.9 Active 35002396 ALLERGIES No Information ENCOUNTERS Encounter Location Date Diagnosis [facility] [address] [address] Apr, [facility] [address] [address] Feb, Callus of foot L84 ; Poroker atosis Q82.8 and Hyperhidrosis R61 [facility] [address] [place] [id number] [address] [place] [phone] 08 Dec, 2017 Chest congestion R09.89 ; Co ugh R05 and Excessive cerumen in both ear canals H61.23 [facility] [address] [place] [id number] [address] [place] [phone] November, Hypertriglyceridemia E78.1 a nd Elevated liver enzymes R74.8 [facility] [address] [address] November, [place] [address] [address] November, Anxiety F41.9 ; Hypertension , benign I10 and Arthritis M19.90 [place] [address] [address] 08 Jul, 2017 Hypertension, benign I10 ; A nxiety F41.9 ; Arthritis M19.90 ; Other eczema L30.8 and Lesion of skin of face L98.9 [place] [address] [address] 14 Jun, 2017 Hypertension, benign I10 [place] [address] [address] May, Hypertension, benign I10 [address] [address] Apr, Hypertension, benign I10 [place] [address] [address] Apr, Encounter for pre-employment examination Z02.[address] [address] 21 Mar, 2017 Hypertension, benign I10 and 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 [address] 14 Mar, 2017 Hypertension, benign I10 and Anxiety F41.[address] [address] 07 Mar, 2017 Chronic tension-type headach e, not intractable G44.229 and Hypertension, benign I10 [facility] [address] [address] 09 Mar, 2016 Injury of left little finger , initial encounter S69.92XA and Dislocation of left little finger, initial encounter S63.257A [facility] [address] [address] 17 Jul, 2015 Sprain of unspecified parts of lumbar spine and pelvis, initial encounter S33.9XXA [address] [address] Jan, Wasp sting 989.5 ; Caries 52 1.00 and Tooth pain 525.9 IMMUNIZATIONS No Known Immunizations SOCIAL HISTORY Never Assessed REASON FOR VISIT bilat heel spurs. interested in surgery/injections. - DEMETRIUS Toney PLAN OF CARE Activity Details Follow Up 2 Months Reason: VITAL SIGNS Height 70 in 2018-02-20 Blood pressure systolic 128 mmHg 2018-02-20 Blood pressure diastolic 90 mmHg 2018-02-20 MEDICATIONS Unknown Medications RESULTS No Results PROCEDURES No Known procedures INSTRUCTIONS MEDICATIONS ADMINISTERED No Known Medications
--- OUTSIDE RECORDS SUMMARY | 2019-09-25 23:56 | XMS REPORT ---
Author Author Shamar LANDA Organization [facility] Address [address] [place] [address] Care Team Providers Care College Recruiter Name Role Phone SYEDA PETR Unavailable PROBLEMS Type Condition ICD9-CM Code ING23-OX Code Onset Dates Condition S tatus SNOMED Code Problem Arthritis M19.90 Active 1558117 Problem Anxiety F41.9 Active 51510564 Problem Chronic tension-type headache, not intractable G44 .229 Active 237298862 Problem Hypertension, benign I10 Active 46057897 ALLERGIES No Known Allergies ENCOUNTERS Encounter Location Date Diagnosis [place] [address] [address] November, [address] [address] Jul, Hypertension, benign I10 ; A nxiety F41.9 ; Arthritis M19.90 ; Other eczema L30.8 and Lesion of skin of face L98.9 [place] [address] [address] Jun, Hypertension, benign I10 [place] [address] [address] May, Hypertension, benign I10 [place] [address] [address] Apr, Hypertension, benign I10 [place] [address] [address] Apr, Encounter for pre-employment examination Z02.1 [place] [address] [address] Mar, Hypertension, benign I10 and 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 [facility] [address] [place] [id number] [address] [place] [phone] 14 Mar, 2017 Hypertension, benign I10 and Anxiety F41.9 [facility] [address] [place] [id number] [address] [place] [phone] 07 Mar, 2017 Chronic tension-type headach e, not intractable G44.229 and Hypertension, benign I10 [facility] [address] [place] [id number] [place] [phone] 09 Mar, 2016 Injury of left little finger , initial encounter S69.92XA and Dislocation of left little finger, initial encounter S63.257A [facility] [address] [address] Jul, Sprain of unspecified parts of lumbar spine and pelvis, initial encounter S33.9XXA [place] [address] [place] [id number] [place] [address] Jan, Wasp sting 989.5 ; Caries 52 1.00 and Tooth pain 525.9 IMMUNIZATIONS No Known Immunizations SOCIAL HISTORY Never Assessed REASON FOR VISIT Headache, neck pains causing severe heachaches, b/p f/u--H Michael ROMO PLAN OF CARE VITAL SIGNS Height 70 in 2017-03-20 Weight 214.2 lbs 2017-03-20 Temperature 98.9 degrees Fahrenheit 2017-03-20 Heart Rate 88 bpm 2017-03-20 Respiratory Rate 20 2017-03-20 BMI 30.73 kg/m2 2017-03-20 Blood pressure systolic 168 mmHg 2017-03-20 Blood pressure diastolic 98 mmHg 2017-03-20 MEDICATIONS Medication Instructions Dosage Frequency Start Date End Date Duration S tatus Propranolol HCl 60 mg Orally Twice a day 1 tablet 12h 07 Mar, 2017 30 day(s) Active Fioricet 50-325-40 MG Orally every 4 hrs 1 tablet as needed 4h 07 S 2016 Active Ibuprofen 800 MG Orally Three times a day 1 tablet 8h Active RESULTS No Results PROCEDURES No Known procedures INSTRUCTIONS MEDICATIONS ADMINISTERED No Known Medications
--- OUTSIDE RECORDS SUMMARY | 2019-09-25 23:56 | XMS REPORT | Continuity of Care Document ---
Author Organization Unknown Address Unknown Phone Unavailable Allergies Active Description Code Type Severity Reaction Onset Reported/Identified Relationship to Patient Clinical Status Yes No Known Drug Allergies [id number] Drug Allergy Unknown N/A 09/24/2019 Medications There is no data. Problems There is no data. Procedures There is no data. Results Test Result Range LIPID PANEL - 11/17/17 09:06 CHOLESTEROL, TOTAL 177 mg/dL <200 HDL CHOLESTEROL 28 mg/dL >40 TRIGLYCERIDES 288 mg/dL <150 LDL-CHOLESTEROL 108 mg/dL (calc) NRG CHOL/HDLC RATIO 6.3 (calc) <5.0 NON HDL CHOLESTEROL 149 mg/dL (calc) <13 0 CRP - 09/01/19 09:05 C-REACTIVE PROTEIN 16.8 mg/L <8.0 Capillary blood glucose measurement by g lucometer (mass/volume) - 09/24/19 08:05 Capillary blood glucose measurement by glucometer (mas s/volume) 113 mg/dL 70-110 Complete blood count (CBC) with automate d white blood cell (WBC) differential - 09/24/19 08:06 Blood leukocytes automated count (number/volume) 18.0 10*3/uL 4.3-11.0 Blood erythrocytes automated count (number/volume) 3.58 10*6/uL 4.35-5.85 Venous blood hemoglobin measurement (mass/volume) 11.6 g/dL 13.3-17.7 Blood hematocrit (volume fraction) 34 % 40-54 Automated erythrocyte mean corpuscular volume 96 [ foz_us] 80-99 Automated erythrocyte mean corpuscular h emoglobin (mass per erythrocyte) 32 pg 25-34 Automated erythrocyte mean corpuscular h emoglobin concentration measurement (mass/volume) 34 g/dL 32-36 Automated erythrocyte distribution width ratio 16. 9 % 10.0- 14.5 Automated blood platelet count (count/volume) 132 10*3/uL 130-400 Automated blood platelet mean volume measurement 11.7 [foz_us] 7.4-10.4 Automated blood neutrophils/100 leukocytes 55 % 42-75 Automated blood lymphocytes/100 leukocytes 31 % 12-44 Blood monocytes/100 leukocytes 11 % 0-12 Automated blood eosinophils/100 leukocytes 3 % 0-10 Automated blood basophils/100 leukocytes 1 % 0-10 Blood neutrophils automated count (number/volume) 9.9 10*3 1.8-7.8 Blood lymphocytes automated count (number/volume) 5.5 10*3 1.0-4.0 Blood monocytes automated count (number/volume) 2. 0 10*3 0.0-1.0 Automated eosinophil count 0.5 10*3/uL 0 .0-0.3 Automated blood basophil count (count/volume) 0.1 10*3/uL 0.0-0.1 PT panel in platelet poor plasma by coag ulation assay - 09/24/19 08:06 Prothrombin time (PT) in platelet poor plasma by coagu lation assay 16.8 s 12.2-14.7 INR in platelet poor plasma or blood by coagulation as say 1.3 0.8-1.4 Comprehensive metabolic panel - 09/24/19 08:06 Serum or plasma sodium measurement (moles/volume) 145 mmol/L 135-145 Serum or plasma potassium measurement (moles/volume) 4.1 mmol/L 3.6-5.0 Serum or plasma chloride measurement (moles/volume) 114 mmol/L 98-107 Carbon dioxide 20 mmol/L 21-32 Serum or plasma anion gap determination (moles/volume) 11 mmol/L 5-14 Serum or plasma urea nitrogen measurement (mass/volume ) 33 mg/dL 7-18 Serum or plasma creatinine measurement (mass/volume) 0.75 mg/dL 0.60-1.30 Serum or plasma urea nitrogen/creatinine mass ratio 44 NRG Serum or plasma creatinine measurement w ith calculation of estimated glomerular filtration rate > NRG Serum or plasma glucose measurement (mass/volume) 116 mg/dL 70-105 Serum or plasma calcium measurement (mass/volume) 7.9 mg/dL 8.5-10.1 Serum or plasma total bilirubin measurement (mass/volu me) 2.3 mg/dL 0.1-1.0 Serum or plasma alkaline phosphatase deepali surement (enzymatic activity/volume) 130 U/L 40-136 Serum or plasma aspartate aminotransfera se measurement (enzymatic activity/volume) 55 U/L 5-34 Serum or plasma alanine aminotransferase measurement (enzymatic activity/volume) 33 U/L 0-55 Serum or plasma protein measurement (mass/volume) 5.7 g/dL 6.4-8.2 Serum or plasma albumin measurement (mass/volume) 3.1 g/dL 3.2-4.5 CALCIUM CORRECTED 8.6 mg/dL 8.5-10.1 Magnesium - 09/24/19 08:06 Magnesium 2.0 mg/dL 1.6-2.4 Ammonia - 09/24/19 08:06 Ammonia 85 umol/L 11-32 Serum or plasma C reactive protein measu rement (mass/volume) - 09/24/19 08:06 Serum or plasma C reactive protein measurement (mass/v olume) 1.42 mg/dL 0.00-0.50 Manual absolute plasma cell count - 09/11 09/30 08:06 Blood monocytes/100 leukocytes 6 % NRG Manual blood segmented neutrophils/100 leukocytes 52 % NRG Blood band neutrophils/100 leukocytes 0 % NRG Manual blood lymphocytes/100 leukocytes 38 % NRG Manual eosinophils/100 leukocytes in nose 4 % NRG Manual blood basophils/100 leukocytes 0 % NRG Blood anisocytosis detection by light microscopy S LIGHT NRG Serum or plasma lithium measurement (mol es/volume) - 09/24/19 08:06 BNP PT 148.8 pg/mL <100.0 Serum or plasma ethanol measurement (mas s/volume) - 09/24/19 08:06 Serum or plasma ethanol measurement (mass/volume) < mg/dL <10 Lipase - 09/24/19 08:06 Lipase 22 U/L 8-78 Influenza virus A and B antigen detectio n - 09/24/19 08:13 FLU RESULT NEGATIVE FOR INFLUENZA A AND B ANTIGENS BY [facility] Urine drug screening test - 09/24/19 10: 15 Urine phencyclidine detection by screening method NEGATIVE NEGATIVE Urine benzodiazepines detection by screening method NEGATIVE NEGATIVE Urine cocaine detection NEGATIVE NEGATI VE Urine amphetamines detection by screening method N EGATIVE NEGATIVE Urine methamphetamine detection by screening method NEGATIVE NEGATIVE Urine cannabinoids detection by screening method P OSITIVE NEGATIVE Urine opiates detection by screening method NEGATI VE NEGATIVE Urine barbiturates detection NEGATIVE N EGATIVE Screening urine tricyclic antidepressants detection NEGATIVE NEGATIVE Urine methadone detection by screening method NEGA TIVE NEGATIVE Urine oxycodone detection NEGATIVE NEGA TIVE Urine propoxyphene detection NEGATIVE N EGATIVE Complete urinalysis with reflex to cultu re - 09/24/19 10:15 Urine color determination DARK YELLOW N RG Urine clarity determination SL CLOUDY N RG Urine pH measurement by test strip 6.5 5-9 Specific gravity of urine by test strip 1.010 1.016-1.022 Urine protein assay by test strip, semi-quantitative NEGATIVE NEGATIVE Urine glucose detection by automated test strip NE GATIVE NEGATIVE Erythrocytes detection in urine sediment by light micr oscopy NEGATIVE NEGATIVE Urine ketones detection by automated test strip NE GATIVE NEGATIVE Urine nitrite detection by test strip NEGATIVE NEGATIVE Urine total bilirubin detection by test strip NEGA TIVE NEGATIVE Urine urobilinogen measurement by automated test strip (mass/volume) >= mg/dL < = 1.0 Urine leukocyte esterase detection by dipstick NEG ATIVE NEGATIVE Automated urine sediment erythrocyte cou nt by microscopy (number/high power field) NONE NRG Automated urine sediment leukocyte count by microscopy (number/high power field) NONE NRG Bacteria detection in urine sediment by light microsco py NEGATIVE NRG Squamous epithelial cells detection in u rine sediment by light microscopy 0-2 NRG Crystals detection in urine sediment by light microsco py NONE NRG Casts detection in urine sediment by light microscopy NONE NRG Mucus detection in urine sediment by light microscopy NEGATIVE NRG Complete urinalysis with reflex to culture NO NRG Comprehensive metabolic panel - 09/25/19 04:14 Serum or plasma sodium measurement (moles/volume) 145 mmol/L 135-145 Serum or plasma potassium measurement (moles/volume) 5.0 mmol/L 3.6-5.0 Serum or plasma chloride measurement (moles/volume) 118 mmol/L 98-107 Carbon dioxide 16 mmol/L 21-32 Serum or plasma anion gap determination (moles/volume) 11 mmol/L 5-14 Serum or plasma urea nitrogen measurement (mass/volume ) 36 mg/dL 7-18 Serum or plasma creatinine measurement (mass/volume) 0.84 mg/dL 0.60-1.30 Serum or plasma urea nitrogen/creatinine mass ratio 43 NRG Serum or plasma creatinine measurement w ith calculation of estimated glomerular filtration rate > NRG Serum or plasma glucose measurement (mass/volume) 134 mg/dL 70-105 Serum or plasma calcium measurement (mass/volume) 7.7 mg/dL 8.5-10.1 Serum or plasma total bilirubin measurement (mass/volu me) 2.7 mg/dL 0.1-1.0 Serum or plasma alkaline phosphatase deepali surement (enzymatic activity/volume) 105 U/L 40-136 Serum or plasma aspartate aminotransfera se measurement (enzymatic activity/volume) 59 U/L 5-34 Serum or plasma alanine aminotransferase measurement (enzymatic activity/volume) 32 U/L 0-55 Serum or plasma protein measurement (mass/volume) 5.3 g/dL 6.4-8.2 Serum or plasma albumin measurement (mass/volume) 2.8 g/dL 3.2-4.5 CALCIUM CORRECTED 8.7 mg/dL 8.5-10.1 PROCALCITONIN (PCT) - 09/25/19 04:14 PROCALCITONIN (PCT) 0.16 ng/mL <0.10 Ammonia - 09/25/19 04:14 Ammonia 120 umol/L 11-32 Complete blood count (CBC) with automate d white blood cell (WBC) differential - 09/25/19 10:15 Blood leukocytes automated count (number/volume) 20.4 10*3/uL 4.3-11.0 Blood erythrocytes automated count (number/volume) 2.31 10*6/uL 4.35-5.85 Venous blood hemoglobin measurement (mass/volume) 7.5 g/dL 13.3-17.7 Blood hematocrit (volume fraction) 23 % 40-54 Automated erythrocyte mean corpuscular volume 99 [ foz_us] 80-99 Automated erythrocyte mean corpuscular h emoglobin (mass per erythrocyte) 32 pg 25-34 Automated erythrocyte mean corpuscular h emoglobin concentration measurement (mass/volume) 33 g/dL 32-36 Automated erythrocyte distribution width ratio 17. 1 % 10.0- 14.5 Automated blood platelet count (count/volume) 129 10*3/uL 130-400 Automated blood platelet mean volume measurement 11.8 [foz_us] 7.4-10.4 Automated blood neutrophils/100 leukocytes 65 % 42-75 Automated blood lymphocytes/100 leukocytes 21 % 12-44 Blood monocytes/100 leukocytes 13 % 0-12 Automated blood eosinophils/100 leukocytes 1 % 0-10 Automated blood basophils/100 leukocytes 0 % 0-10 Blood neutrophils automated count (number/volume) 13.3 10*3 1.8-7.8 Blood lymphocytes automated count (number/volume) 4.3 10*3 1.0-4.0 Blood monocytes automated count (number/volume) 2. 7 10*3 0.0-1.0 Automated eosinophil count 0.1 10*3/uL 0 .0-0.3 Automated blood basophil count (count/volume) 0.1 10*3/uL 0.0-0.1 Comprehensive metabolic panel - 09/25/19 10:15 Serum or plasma sodium measurement (moles/volume) 148 mmol/L 135-145 Serum or plasma potassium measurement (moles/volume) 4.4 mmol/L 3.6-5.0 Serum or plasma chloride measurement (moles/volume) 122 mmol/L 98-107 Carbon dioxide 17 mmol/L 21-32 Serum or plasma anion gap determination (moles/volume) 9 mmol/L 5-14 Serum or plasma urea nitrogen measurement (mass/volume ) 44 mg/dL 7-18 Serum or plasma creatinine measurement (mass/volume) 0.92 mg/dL 0.60-1.30 Serum or plasma urea nitrogen/creatinine mass ratio 48 NRG Serum or plasma creatinine measurement w ith calculation of estimated glomerular filtration rate > NRG Serum or plasma glucose measurement (mass/volume) 142 mg/dL 70-105 Serum or plasma calcium measurement (mass/volume) 7.5 mg/dL 8.5-10.1 Serum or plasma total bilirubin measurement (mass/volu me) 2.3 mg/dL 0.1-1.0 Serum or plasma alkaline phosphatase deepali surement (enzymatic activity/volume) 102 U/L 40-136 Serum or plasma aspartate aminotransfera se measurement (enzymatic activity/volume) 47 U/L 5-34 Serum or plasma alanine aminotransferase measurement (enzymatic activity/volume) 27 U/L 0-55 Serum or plasma protein measurement (mass/volume) 4.8 g/dL 6.4-8.2 Serum or plasma albumin measurement (mass/volume) 2.7 g/dL 3.2-4.5 CALCIUM CORRECTED 8.5 mg/dL 8.5-10.1 Serum or plasma triglyceride measurement (mass/volume) - 09/25/19 10:15 Serum or plasma triglyceride measurement (mass/volume) 161 mg/dL <150 Serum or plasma lithium measurement (mol es/volume) - 09/25/19 10:15 BNP PT 56.9 pg/mL <100.0 Arterial blood gas measurement - 0 11:25 Blood pCO2 29 mm[Hg] 35-45 Blood pO2 119 mm[Hg] 79-93 Arterial blood bicarbonate measurement (moles/volume) 19 mmol/L 23-27 Arterial blood base excess by calculation -5.1 mmo l/L -2.5-2.5 Arterial blood oxygen saturation measurement 99 % 94-100 * Inhaled oxygen flow rate 90% NRG Arterial blood pH measurement with patient temperature correction 7.43 7.37-7.43 Arterial blood carbon dioxide, total measurement (mole s/volume) 19.4 mmol/L 21.0-31.0 Body site RT BRACH NRG Assessment of wrist artery patency prior to arterial p uncture YES-POS NRG Setting of ventilation mode YES NR G Measurement of body temperature 37.1 NRG Capillary blood glucose measurement by g lucometer (mass/volume) - 09/25/19 11:41 Capillary blood glucose measurement by glucometer (mas s/volume) 150 mg/dL 70-110 Complete blood count (CBC) with automate d white blood cell (WBC) differential - 09/25/19 15:45 Blood leukocytes automated count (number/volume) 12.2 10*3/uL 4.3-11.0 Blood erythrocytes automated count (number/volume) 1.89 10*6/uL 4.35-5.85 Venous blood hemoglobin measurement (mass/volume) 6.0 g/dL 13.3-17.7 Blood hematocrit (volume fraction) 19 % 40-54 Automated erythrocyte mean corpuscular volume 100 [foz_us] 80-99 Automated erythrocyte mean corpuscular h emoglobin (mass per erythrocyte) 32 pg 25-34 Automated erythrocyte mean corpuscular h emoglobin concentration measurement (mass/volume) 32 g/dL 32-36 Automated erythrocyte distribution width ratio 17. 1 % 10.0- 14.5 Automated blood platelet count (count/volume) 80 1 0*3/uL 130-400 Automated blood platelet mean volume measurement 11.3 [foz_us] 7.4-10.4 Automated blood neutrophils/100 leukocytes 58 % 42-75 Automated blood lymphocytes/100 leukocytes 30 % 12-44 Blood monocytes/100 leukocytes 10 % 0-12 Automated blood eosinophils/100 leukocytes 1 % 0-10 Automated blood basophils/100 leukocytes 0 % 0-10 Blood neutrophils automated count (number/volume) 7.2 10*3 1.8-7.8 Blood lymphocytes automated count (number/volume) 3.7 10*3 1.0-4.0 Blood monocytes automated count (number/volume) 1. 2 10*3 0.0-1.0 Automated eosinophil count 0.1 10*3/uL 0 .0-0.3 Automated blood basophil count (count/volume) 0.0 10*3/uL 0.0-0.1 Whole blood basic metabolic panel - 09/11 10/31 15:45 Serum or plasma sodium measurement (moles/volume) 148 mmol/L 135-145 Serum or plasma potassium measurement (moles/volume) 4.4 mmol/L 3.6-5.0 Serum or plasma chloride measurement (moles/volume) 122 mmol/L 98-107 Carbon dioxide 16 mmol/L 21-32 Serum or plasma anion gap determination (moles/volume) 10 mmol/L 5-14 Serum or plasma urea nitrogen measurement (mass/volume ) 49 mg/dL 7-18 Serum or plasma creatinine measurement (mass/volume) 1.24 mg/dL 0.60-1.30 Serum or plasma urea nitrogen/creatinine mass ratio 40 NRG Serum or plasma creatinine measurement w ith calculation of estimated glomerular filtration rate 60 NRG Serum or plasma glucose measurement (mass/volume) 164 mg/dL 70-105 Serum or plasma calcium measurement (mass/volume) 7.1 mg/dL 8.5-10.1 Magnesium - 09/25/19 15:45 Magnesium 2.5 mg/dL 1.6-2.4 RED CELLS LEUKO REDUCED AS1 - 09/25/19 1 7:10 RED CELLS LEUKO REDUCED AS1 T RANSFUSED 09/25/19 1756 NRG Blood type T Indirect antibody screen pa fracisco - 09/25/19 17:10 WRISTBAND NUMBER [id number] NRG ABO+Rh group OP NRG Blood group antibody screen NEGATIVE NR G Capillary blood glucose measurement by g lucometer (mass/volume) - 09/25/19 17:45 Capillary blood glucose measurement by glucometer (mas s/volume) 151 mg/dL 70-110 Encounters ACCT No. Visit Date/Time Discharge Status Pt. Type Provider Facility Loc./Unit Complaint [id number] 09/16/2019 15:30:00 09/16/2019 23:59:5 9 CLS [facility] [id number] 09/01/2019 08:20:00 Document Registration [id number] 11/17/2017 08:20:00 Document Registration [id number] 09/24/2019 10:44:[address] Inpatient ANALY SOTO DO [facility] 4TH HYPERAMMONEMIA,AMS,N/V
--- OUTSIDE RECORDS SUMMARY | 2019-09-25 23:56 | XMS REPORT ---
Author Author Shamar LANDA Organization [facility] [place] Address [address] [place] [address] Care Team Providers Care Manager Specialty Name Role Phone SYEDA PETR Unavailable PROBLEMS Type Condition ICD9-CM Code [id number] Code Onset Dates Condition S tatus SNOMED Code Problem Arthritis M19.90 Active 3602284 Problem Anxiety F41.9 Active 78789489 Problem Chronic tension-type headache, not intractable G44 .229 Active 177422101 Problem Hypertension, benign I10 Active 71168567 ALLERGIES No Known Allergies ENCOUNTERS Encounter Location Date Diagnosis [place] [address] [address] November, [address] [address] Jul, Hypertension, benign I10 ; A nxiety F41.9 ; Arthritis M19.90 ; Other eczema L30.8 and Lesion of skin of face L98.9 [place] [address] [address] Jun, Hypertension, benign I10 [place] [address] [address] May, Hypertension, benign I10 [place] [address] [address] Apr, Hypertension, benign I10 [place] [address] [address] Apr, Encounter for pre-employment examination Z02.1 [place] [address] [address] Mar, Hypertension, benign I10 and 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 [facility] [address] [place] [id number] [address] [place] [phone] 14 Mar, 2017 Hypertension, benign I10 and Anxiety F41.9 [facility] [address] [place] [id number] [address] [place] [phone] 07 Mar, 2017 Chronic tension-type headach e, not intractable G44.229 and Hypertension, benign I10 [facility] [address] [place] [id number] [place] [phone] 09 Mar, 2016 Injury of left little finger , initial encounter S69.92XA and Dislocation of left little finger, initial encounter S63.257A [facility] W[facility] IN [address] [address] Jul, Sprain of unspecified parts of lumbar spine and pelvis, initial encounter S33.9XXA [place] [address] [address] [place] [id number] [place] [phone] Jan, Wasp sting 989.5 ; Caries 52 1.00 and Tooth pain 525.9 IMMUNIZATIONS No Known Immunizations SOCIAL HISTORY Never Assessed REASON FOR VISIT Headache f/u, BP f/u--H [facility] PLAN OF CARE Activity Details Follow Up 1 Week Reason:dot phys VITAL SIGNS Height 70 in 2017-03-27 Weight 208.4 lbs 2017-03-27 Temperature 98.8 degrees Fahrenheit 2017-03-27 Heart Rate 76 bpm 2017-03-27 Respiratory Rate 20 2017-03-27 BMI 29.90 kg/m2 2017-03-27 Blood pressure systolic 142 mmHg 2017-03-27 Blood pressure diastolic 98 mmHg 2017-03-27 MEDICATIONS Medication Instructions Dosage Frequency Start Date End Date Duration S tatus Fioricet 50-325-40 MG Orally every 4 hrs 1 tablet as needed 4h 07 S ep, 2017 Active Propranolol HCl 80 MG Orally Twice a day 1 tablet 12h 07 Mar, 2017 30 day(s) Active Ativan 0.5 MG Orally every 6 hrs 1 tablet as needed 6h 14 Mar, 2017 Active RESULTS No Results PROCEDURES No Known procedures INSTRUCTIONS MEDICATIONS ADMINISTERED No Known Medications
--- OUTSIDE RECORDS SUMMARY | 2019-09-25 23:56 | XMS REPORT ---
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 Unknown Non Drug Allergy Mar, Unknown SOCIAL HISTORY No smoking Hx information available PLAN OF CARE VITAL SIGNS Height 70 in 2016-03-22 Weight 217.6 lbs 2016-03-22 Heart Rate 82 bpm 2016-03-22 Respiratory Rate 20 2016-03-22 BMI 31.22 kg/m2 2016-03-22 Blood pressure systolic 142 mmHg 2016-03-22 Blood pressure diastolic 90 mmHg 2016-03-22 MEDICATIONS No Known Medications RESULTS Name Result Date Reference Range Xray : Finger(s), Left 2 views (IN HOUSE) 03-22 PROCEDURES Procedure Date Ordered Related Diagnosis Body Site X-RAY EXAM OF FINGER(S) Mar 22, 2016 Office Visit, Est Pt., Level 3 Mar 22, 2016 IMMUNIZATIONS No Known Immunizations
--- OUTSIDE RECORDS SUMMARY | 2019-09-25 23:56 | XMS REPORT ---
Author Author Shamar LANDA Organization [facility] [place] Address [address] [place] [address] Care Team Providers Care Robotics Application Engineer Name Role Phone SYEDA PETR Unavailable PROBLEMS Type Condition ICD9-CM Code MPC34-AL Code Onset Dates Condition S tatus SNOMED Code Problem Arthritis M19.90 Active 1307190 Problem Anxiety F41.9 Active 29975155 Problem Chronic tension-type headache, not intractable G44 .229 Active 395828727 Problem Hypertension, benign I10 Active 95245944 ALLERGIES No Known Allergies ENCOUNTERS Encounter Location Date Diagnosis [place] [address] [address] November, [address] [address] Jul, Hypertension, benign I10 ; A nxiety F41.9 ; Arthritis M19.90 ; Other eczema L30.8 and Lesion of skin of face L98.[address] [address] Jun, Hypertension, benign I10 [place] [address] [address] May, Hypertension, benign I10 [place] [address] [address] Apr, Hypertension, benign I10 [place] [address] [address] Apr, Encounter for pre-employment examination Z02.1 [place] [address] [address] Mar, Hypertension, benign I10 and 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 [facility] [place] [address] [place] [id number] [address] [place] [phone] 14 Mar, 2017 Hypertension, benign I10 and Anxiety F41.9 [facility] [place] [address] [place] [id number] [address] [place] [phone] 07 Mar, 2017 Chronic tension-type headach e, not intractable G44.229 and Hypertension, benign I10 [facility] WALK IN [facility] [address] [place] [id number] [place] [phone] 09 Mar, 2016 Injury of left little finger , initial encounter S69.92XA and Dislocation of left little finger, initial encounter S63.257A [facility] WALK IN [address] [address] Jul, Sprain of unspecified parts of lumbar spine and pelvis, initial encounter S33.9XXA [place] [address] [address] [place] [id number] [place] [phone] Jan, Wasp sting 989.5 ; Caries 52 1.00 and Tooth pain 525.9 IMMUNIZATIONS No Known Immunizations SOCIAL HISTORY Never Assessed REASON FOR VISIT DOT physical--Holland Rodriguez MA PLAN OF CARE Activity Details Follow Up 2 Weeks Reason:htn VITAL SIGNS Height 70 in 2017-04-03 Weight 213.5 lbs 2017-04-03 Temperature 98.5 degrees Fahrenheit 2017-04-03 Heart Rate 82 bpm 2017-04-03 Respiratory Rate 20 2017-04-03 BMI 30.63 kg/m2 2017-04-03 Blood pressure systolic 160 mmHg 2017-04-03 Blood pressure diastolic 98 mmHg 2017-04-03 MEDICATIONS Medication Instructions Dosage Frequency Start Date End Date Duration S tatus Lisinopril 20 mg Orally Once a day 1 tablet 24h 21 Mar, 2017 30 day(s) Active Fioricet 50-325-40 MG Orally every 4 hrs 1 tablet as needed 4h 07 S 2016 Active Propranolol HCl 80 MG Orally Twice a day 1 tablet 12h 07 Mar, 2017 30 day(s) Active Ativan 0.5 MG Orally every 6 hrs 1 tablet as needed 6h 14 Mar, 2017 Active RESULTS Name Result Date Reference Range UA LONG DIP (IN HOUSE) 2017-04-03 Lot # [id number] Exp date Clarity clear Color yellow Odor GLU negative JAVED negative KET negative SG 1.020 BLO negative pH 6.0 Protein negative URO 1.0E.U/dl NIT negative MARYAM negative Lot # [id number] Exp date PROCEDURES Procedure Date Ordered Result Body Site VISUAL ACUITY SCREEN Apr 03, 2017 INSTRUCTIONS MEDICATIONS ADMINISTERED No Known Medications
--- OUTSIDE RECORDS SUMMARY | 2019-09-25 23:56 | XMS REPORT ---
Author Author Shamar LANDA Organization [facility] Address [address] [place] [address] Care Team Providers Care Marketing Effectiveness Manager Name Role Phone SYEDAPETR Unavailable PROBLEMS Type Condition ICD9-CM Code HWY96-HW Code Onset Dates Condition S tatus SNOMED Code Problem Hypertriglyceridemia E78.1 Active 725342953 Problem Arthritis M19.90 Active 9553012 Problem Chronic tension-type headache, not intractable G44 .229 Active 381584610 Problem Anxiety F41.9 Active 23242768 Problem Hypertension, benign I10 Active 70788102 ALLERGIES No Information ENCOUNTERS Encounter Location Date Diagnosis [place] [address] [address] Feb, [place] [address] [address] November, Hypertriglyceridemia E78.1 a nd Elevated liver enzymes R74.[address] [address] November, [place] [address] [address] November, Anxiety F41.9 ; Hypertension , benign I10 and Arthritis M19.90 [place] [address] [address] Jul, Hypertension, benign I10 ; A nxiety F41.9 ; Arthritis M19.90 ; Other eczema L30.8 and Lesion of skin of face L98.9 [place] [address] [address] [place] [id number] [address] [place] [phone] Jun, Hypertension, benign I10 [place] [address] [address] May, Hypertension, benign I10 [facility] [address] [address] Apr, Hypertension, benign I10 [place] [address] [address] Apr, Encounter for pre-employment examination Z02.1 [place] [address] [address] 21 Mar, 2017 Hypertension, benign I10 and 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 WALK IN [facility] [address] [address] 09 Mar, 2016 Injury of left little finger , initial encounter S69.92XA and Dislocation of left little finger, initial encounter S63.257A [facility] WALK IN [facility] [address] [place] [address] Jul, Sprain of unspecified parts of lumbar spine and pelvis, initial encounter S33.9XXA [address] [address] Jan, Wasp sting 989.5 ; Caries 52 1.00 and Tooth pain 525.9 IMMUNIZATIONS No Known Immunizations SOCIAL HISTORY Never Assessed REASON FOR VISIT Controlled Med Refill PLAN OF CARE VITAL SIGNS MEDICATIONS Medication Instructions Dosage Frequency Start Date End Date Duration S tatus Ativan 0.5 MG Orally every 6 hrs 1 tablet as needed 6h Mar, Active RESULTS No Results PROCEDURES No Known procedures INSTRUCTIONS MEDICATIONS ADMINISTERED No Known Medications
[2019-09-26] VITALS (30 sets, daily range): BP systolic 92–118; BP diastolic 46–62
[2019-09-26 00:27] LABS: HEMOGLOBIN 7.8 G/DL (13.3-17.7)
[2019-09-26] MEDS: inSUlin ASPART (NovoLOG) 1 UNIT/0.01 ML (CHARGE PER UNIT) SC SCH ×5 (00:30→23:41)
[2019-09-26] MEDS: DexMEDEtomidine 250 ML DRIP 250 ML IV SCH ×2 (01:51→17:30)
[2019-09-26 02:48] LABS: BASOPHILS % (AUTO) 0 % (0-10); EOSINOPHILS # (AUTO) 0.1 10^3/uL (0.0-0.3); EOSINOPHILS % (AUTO) 1 % (0-10); HEMATOCRIT 23 % (40-54); HEMOGLOBIN 7.7 G/DL (13.3-17.7); LYMPHOCYTES # (AUTO) 3.1 X 10^3 (1.0-4.0); LYMPHOCYTES % (AUTO) 23 % (12-44); MEAN CORPUSCULAR HEMOGLOBIN 32 PG (25-34); MEAN CORPUSCULAR HGB CONC 34 G/DL (32-36); MEAN CORPUSCULAR VOLUME 96 FL (80-99); MEAN PLATELET VOLUME 11.8 FL (7.4-10.4); MONOCYTES # (AUTO) 1.3 X 10^3 (0.0-1.0); MONOCYTES % (AUTO) 10 % (0-12); NEUTROPHILS # (AUTO) 8.8 X 10^3 (1.8-7.8); NEUTROPHILS % (AUTO) 66 % (42-75); PLATELET COUNT 79 10^3/uL (130-400); RED CELL DISTRIBUTION WIDTH 18.4 % (10.0-14.5); WHITE BLOOD COUNT 13.4 10^3/uL (4.3-11.0)
[2019-09-26 03:03] LABS: ABG OXYGEN SATURATION 92 % (94-100); ABG PCO2 23 MMHG (35-45); ABG PH 7.42 (7.37-7.43); ABG PO2 63 MMHG (79-93); ABG TCO2 15.4 MMOL/L (21.0-31.0)
[2019-09-26 03:05] LABS: CALCIUM 6.8 MG/DL (8.5-10.1); CREATININE SERUM 1.41 MG/DL (0.60-1.30); MAGNESIUM 2.5 MG/DL (1.6-2.4); PHOSPHORUS 6.4 MG/DL (2.3-4.7); POTASSIUM 4.4 MMOL/L (3.6-5.0)
[2019-09-26 03:08] LABS: ALLENS TEST POSITIVE; INSPIRED O2 17; PATIENT TEMP 36.8; VENTILATOR YES
[2019-09-26] MEDS: PROPOFOL DRIP (ICU) 100 ML IV SCH ×3 (03:58→23:39)
--- NOTE | 2019-09-26 04:05 | NUR ---
Scant OG content noted throughout shift, OG flushed for patency, difficulty flushing, OG removed and replaced at this time, air bolus auscultated over epigastric region.
--- NOTE | 2019-09-26 04:07 | NUR ---
Daughter at bedside, reports pt's asking about restarting home medications. States that one of the new medications that pt received (along with steroids when he went to an outpatient clinic) was Mobic 7.5 mg daily. Daughter states that he had been taking those meds for approximately 4 days.
[2019-09-26] MEDS: MAGNESIUM 1 GM/100 ML IVPB 100 ML IV SCH (05:18)
[2019-09-26] MEDS: KCL 20 MEQ TAB (K-DUR) PO SCH (05:18)
[2019-09-26] MEDS: POTASSIUM CL 10MEQ/50ML IVPB 50 ML IV SCH (05:18)
--- OUTSIDE RECORDS SUMMARY | 2019-09-26 05:19 | XMS REPORT | Continuity of Care Document ---
Author Organization Unknown Address Unknown Phone Unavailable Allergies Active Description Code Type Severity Reaction Onset Reported/Identified Relationship to Patient Clinical Status Yes No Known Drug Allergies [id number] Drug Allergy Unknown N/A 09/24/2019 Medications There [...] INFLUENZA A AND B ANTIGENS BY IA [facility] Urine drug screening test - 09/24/19 10: [...] pa fracisco - 09/25/19 17:10 WRISTBAND NUMBER [id number] NRG ABO+Rh group OP NRG Blood group antibody screen NEGATIVE NR G Capillary blood glucose measurement by g lucometer (mass/volume) - 09/25/19 17:45 Capillary blood glucose measurement by glucometer (mas s/volume) 151 mg/dL 70-110 Capillary blood glucose measurement by g lucometer (mass/volume) - 09/26/19 00:10 Capillary blood glucose measurement by glucometer (mas s/volume) 156 mg/dL 70-110 Whole blood hemoglobin and hematocrit pa fracisco - 09/26/19 00:10 Venous blood hemoglobin measurement (mass/volume) 7.8 g/dL 13.3-17.7 Blood hematocrit (volume fraction) 23 % 40-54 Complete blood count (CBC) with automate d white blood cell (WBC) differential - 09/26/19 02:34 Blood leukocytes automated count (number/volume) 13.4 10*3/uL 4.3-11.0 Blood erythrocytes automated count (number/volume) 2.40 10*6/uL 4.35-5.85 Venous blood hemoglobin measurement (mass/volume) 7.7 g/dL 13.3-17.7 Blood hematocrit (volume fraction) 23 % 40-54 Automated erythrocyte mean corpuscular volume 96 [ foz_us] 80-99 Automated erythrocyte mean corpuscular h emoglobin (mass per erythrocyte) 32 pg 25-34 Automated erythrocyte mean corpuscular h emoglobin concentration measurement (mass/volume) 34 g/dL 32-36 Automated erythrocyte distribution width ratio 18. 4 % 10.0- 14.5 Automated blood platelet count (count/volume) 79 1 0*3/uL 130-400 Automated blood platelet mean volume measurement 11.8 [foz_us] 7.4-10.4 Automated blood neutrophils/100 leukocytes 66 % 42-75 Automated blood lymphocytes/100 leukocytes 23 % 12-44 Blood monocytes/100 leukocytes 10 % 0-12 Automated blood eosinophils/100 leukocytes 1 % 0-10 Automated blood basophils/100 leukocytes 0 % 0-10 Blood neutrophils automated count (number/volume) 8.8 10*3 1.8-7.8 Blood lymphocytes automated count (number/volume) 3.1 10*3 1.0-4.0 Blood monocytes automated count (number/volume) 1. 3 10*3 0.0-1.0 Automated eosinophil count 0.1 10*3/uL 0 .0-0.3 Automated blood basophil count (count/volume) 0.0 10*3/uL 0.0-0.1 Whole blood basic metabolic panel - 09/11 11/30 02:34 Serum or plasma sodium measurement (moles/volume) 143 mmol/L 135-145 Serum or plasma potassium measurement (moles/volume) 4.4 mmol/L 3.6-5.0 Serum or plasma chloride measurement (moles/volume) 119 mmol/L 98-107 Carbon dioxide 13 mmol/L 21-32 Serum or plasma anion gap determination (moles/volume) 11 mmol/L 5-14 Serum or plasma urea nitrogen measurement (mass/volume ) 56 mg/dL 7-18 Serum or plasma creatinine measurement (mass/volume) 1.41 mg/dL 0.60-1.30 Serum or plasma urea nitrogen/creatinine mass ratio 40 NRG Serum or plasma creatinine measurement w ith calculation of estimated glomerular filtration rate 52 NRG Serum or plasma glucose measurement (mass/volume) 132 mg/dL 70-105 Serum or plasma calcium measurement (mass/volume) 6.8 mg/dL 8.5-10.1 Serum or plasma phosphate measurement (m ass/volume) - 09/26/19 02:34 Serum or plasma phosphate measurement (mass/volume) 6.4 mg/dL 2.3-4.7 Magnesium - 09/26/19 02:34 Magnesium 2.5 mg/dL 1.6-2.4 Ammonia - 09/26/19 02:34 Ammonia 85 umol/L 11-32 Arterial blood gas measurement - 0 02:57 Blood pCO2 23 mm[Hg] 35-45 Blood pO2 63 mm[Hg] 79-93 Arterial blood bicarbonate measurement (moles/volume) 15 mmol/L 23-27 Arterial blood base excess by calculation -9.0 mmo l/L -2.5-2.5 Arterial blood oxygen saturation measurement 92 % 94-100 * Inhaled oxygen flow rate 17 NRG Arterial blood pH measurement with patient temperature correction 7.42 7.37-7.43 Arterial blood carbon dioxide, total measurement (mole s/volume) 15.4 mmol/L 21.0-31.0 Body site LEFT RADIAL NRG Assessment of wrist artery patency prior to arterial p uncture POSITIVE NRG Setting of ventilation mode YES NR G Measurement of body temperature 36.8 NRG Encounters ACCT No. Visit Date/Time Discharge Status Pt. Type Provider Facility Loc./Unit Complaint [id number] 09/16/2019 15:30:00 09/16/2019 23:59:5 9 CLS Outpatient PETR LANDA APRN WALK IN CARE [id number] 09/01/2019 08:20:00 Document Registration [id number] 11/17/2017 08:20:00 Document Registration [id number] 09/24/2019 10:44:[address] Inpatient ANALY SOTO DO Via [facility] 4TH HYPERAMMONEMIA,AMS,N/V
--- NOTE | 2019-09-26 05:59 | Pulmonary Consultation ---
History of Present Illness History of Present Illness Date Seen by Provider: Sep 26, 2019 Time Seen by Provider: 05:54 Date of Admission Allergies and Home Medications Allergies Coded Allergies: Penicillins (Verified Allergy, Unknown, 09/25/19) Home Medications Amlodipine Besylate 10 Mg Tablet, 10 MG PO DAILY, (Reported) Cholecalciferol (Vitamin D3) 1,250 Mcg Capsule, 1,250 MCG PO FRIDAY, (Reported) Duloxetine HCl 60 Mg Capsule.dr, 60 MG PO DAILY, (Reported) Furosemide 20 Mg Tablet, 20 MG PO DAILY, (Reported) Ibuprofen 200 Mg Tablet, 400 MG PO Q6H PRN for PAIN-MILD (1-4), (Reported) Meloxicam 7.5 Mg Tablet, 7.5 MG PO BID PRN for MUSCLE SPASMS, (Reported) [place]-3 Acid Ethyl Esters 1 Gm Capsule, 2 GM PO BID, (Reported) TAKES 2 (1GM) TO EQUAL 2GM CAPS TWICE DAILY Propranolol HCl 80 Mg Tablet, 80 MG PO BID, (Reported) Past Kdnwexq-Lbbjxb-Xbwbzz Hx Past Med/Social Hx: Reviewed Nursing Past Med/Soc Hx, Reviewed and Corrections made Patient Social History Alcohol Use: Regular Use Number of Drinks Today: GG Alcohol Beverage of Choice: Whiskey Recreational Drug Use: No Smoking Status: Current Everyday Smoker Type Used: Cigarettes Recent Foreign Travel: No Contact w/Someone Who Travel: No Recent Infectious Disease Expo: No Recent Hopitalizations: No Physical Abuse: No Sexual Abuse: No Mistreated: No Fear: No Seasonal Allergies Seasonal Allergies: No Past Medical History Surgeries: Yes Orthopedic (Knee in his 20s), Vasectomy Respiratory: Yes Chronic Bronchitis Cardiac: Yes Hypertension Neurological: No Reproductive Disorders: No Genitourinary: No Gastrointestinal: No Musculoskeletal: Yes Arthritis, Chronic Back Pain Endocrine: No HEENT: No Loss of Vision: Denies Hearing Impairment: Denies Cancer: No Psychosocial: Yes (regular alcohol use) Anxiety Integumentary: No Family Medical History Reviewed Nursing Family Hx No Pertinent Family Hx Sepsis Event Evaluation Height, Weight, BMI Height: '" Weight: lbs. oz. kg; 30.65 BMI Method: Exam Exam Vital Signs Date Time Temp Pulse Resp B/P (MAP) Pulse Ox O2 Delivery O2 Flow Rate FiO2 09/26/19 04:02 36.8 09/26/19 04:00 58 19 94/47 (63) 93 Mechanical Ventilator 30.00 09/26/19 04:00 Mechanical Ventilator 30 09/26/19 03:58 59 94/52 09/26/19 03:00 61 16 92/47 (62) 93 Mechanical Ventilator 30.00 09/26/19 02:14 58 27 93 30 09/26/19 02:00 63 18 94/50 (65) 93 Mechanical Ventilator 30.00 09/26/19 01:51 62 93/48 09/26/19 01:00 63 17 100/50 (67) 94 Mechanical Ventilator 30.00 09/26/19 01:00 63 09/26/19 00:05 36.5 09/26/19 00:00 Mechanical Ventilator 30 09/26/19 00:00 59 16 102/51 (68) 95 Mechanical Ventilator 30.00 09/25/19 23:00 58 18 104/51 (68) 95 Mechanical Ventilator 30.00 09/25/19 22:56 58 101/51 09/25/19 22:27 36.2 09/25/19 22:27 36.2 59 16 102/51 95 Mechanical Ventilator 30 09/25/19 22:20 Mechanical Ventilator 30.00 09/25/19 22:20 Mechanical Ventilator 30.00 09/25/19 22:15 60 28 97 40 09/25/19 22:00 61 18 98/49 (65) 97 Mechanical Ventilator 40.00 09/25/19 21:00 62 17 95/45 (62) 95 Mechanical Ventilator 40.00 09/25/19 20:40 35.9 60 16 88/45 96 Mechanical Ventilator 40 09/25/19 20:18 35.9 61 16 93/45 96 Mechanical Ventilator 40 09/25/19 20:04 36.4 09/25/19 20:00 Mechanical Ventilator 40 09/25/19 20:00 62 15 85/39 (54) 99 Mechanical Ventilator 40.00 09/25/19 19:46 35.8 59 99/46 Mechanical Ventilator 40 09/25/19 19:00 62 15 97/46 (63) 99 Mechanical Ventilator 40.00 09/25/19 19:00 59 09/25/19 18:20 36.2 63 17 88/43 97 Mechanical Ventilator 40 09/25/19 18:05 36.4 64 17 91/40 96 Mechanical Ventilator 40 09/25/19 18:00 64 17 91/40 (57) 98 Mechanical Ventilator 50.00 09/25/19 17:34 67 09/25/19 17:00 68 17 98/48 (65) 98 Mechanical Ventilator 50.00 09/25/19 16:54 70 32 97 40 09/25/19 16:00 Mechanical Ventilator 50 09/25/19 16:00 107/54 (71) Mechanical Ventilator 50.00 09/25/19 15:50 35.9 09/25/19 15:00 69 16 76/44 (55) 95 Mechanical Ventilator 50.00 09/25/19 14:00 78 18 79/47 (58) 96 Mechanical Ventilator 50.00 09/25/19 13:51 80 28 96 50 09/25/19 13:00 87 32 102/65 (77) 98 Mechanical Ventilator 50.00 09/25/19 12:42 88 09/25/19 12:34 86 122/71 09/25/19 12:32 87 122/71 09/25/19 12:00 Mechanical Ventilator 50 09/25/19 12:00 84 15 122/71 (88) 100 Mechanical Ventilator 50.00 09/25/19 11:43 104 22 96 100 09/25/19 11:42 36.7 09/25/19 11:10 84 09/25/19 11:01 89 35 132/81 09/25/19 11:00 86 13 132/81 (98) 100 Mechanical Ventilator 70.00 09/25/19 10:00 105 22 149/97 (114) 100 Mechanical Ventilator 70.00 09/25/19 10:00 Mechanical Ventilator 09/25/19 09:51 86 09/25/19 09:30 93 34 140/78 (98) 97 Mechanical Ventilator 70.00 09/25/19 08:00 Room Air 09/25/19 07:02 37.1 80 20 138/72 (94) 95 Room Air I & O 09/26/19 07:00 Intake Total 2650 ml Output Total 675 ml Balance 1975 ml Height & Weight Height: '" Weight: lbs. oz. kg; 30.65 BMI Method: General Appearance: Chronically ill HEENT: PERRL/EOMI, TMs Normal, Normal ENT Inspection, Other (oropharynx pasty, mild facial edema) Neck: Limited Range of Motion Respiratory: Lungs Clear, Other (Sonorous respirations) Cardiovascular: Tachycardia Capillary Refill: Less Than 3 Seconds Gastrointestinal: soft; No distended Extremity: Pedal Edema Neurologic/Psychiatric: Alert, No Motor/Sensory Deficits, md ophthalmologist II-XII Norm as Tested, Disoriented Skin: Normal Color, Warm/Dry Lymphatic: No Adenopathy (neck) Results Lab Laboratory Tests 09/24/19 08:06 09/25/19 04:14 09/25/19 10:15 09/25/19 15:45 09/26/19 00:10 09/26/19 02:34 Assessment/Plan Assessment/Plan Acute respiratory failure -S/p intubation Alcoholic dependance -CIWA protocol Agitation JESSICA CARIAS DO Sep 26, 2019 05:59
[2019-09-26] MEDS ORDERED: LACTATED RINGERS 1,000 ML IV SCH ×2 (06:00)
--- NOTE | 2019-09-26 06:07 | Pulmonary Progress Note ---
Subjective Date Seen by a Provider: Sep 26, 2019 Time Seen by a Provider: 07:16 Subjective/Events-last exam Sedated on vent Sepsis Event Evaluation Height, Weight, BMI Height: '" Weight: lbs. oz. kg; 30.65 BMI Method: Exam Exam Vital Signs Date Time Temp Pulse Resp B/P (MAP) Pulse Ox O2 Delivery O2 Flow Rate FiO2 09/26/19 04:02 36.8 09/26/19 04:00 58 19 94/47 (63) 93 Mechanical Ventilator 30.00 09/26/19 04:00 Mechanical Ventilator 30 09/26/19 03:58 59 94/52 09/26/19 03:00 61 16 92/47 (62) 93 Mechanical Ventilator 30.00 09/26/19 02:14 58 27 93 30 09/26/19 02:00 63 18 94/50 (65) 93 Mechanical Ventilator 30.00 09/26/19 01:51 62 93/48 09/26/19 01:00 63 17 100/50 (67) 94 Mechanical Ventilator 30.00 09/26/19 01:00 63 09/26/19 00:05 36.5 09/26/19 00:00 Mechanical Ventilator 30 09/26/19 00:00 59 16 102/51 (68) 95 Mechanical Ventilator 30.00 09/25/19 23:00 58 18 104/51 (68) 95 Mechanical Ventilator 30.00 09/25/19 22:56 58 101/51 09/25/19 22:27 36.2 09/25/19 22:27 36.2 59 16 102/51 95 Mechanical Ventilator 30 09/25/19 22:20 Mechanical Ventilator 30.00 09/25/19 22:20 Mechanical Ventilator 30.00 09/25/19 22:15 60 28 97 40 09/25/19 22:00 61 18 98/49 (65) 97 Mechanical Ventilator 40.00 09/25/19 21:00 62 17 95/45 (62) 95 Mechanical Ventilator 40.00 09/25/19 20:40 35.9 60 16 88/45 96 Mechanical Ventilator 40 09/25/19 20:18 35.9 61 16 93/45 96 Mechanical Ventilator 40 09/25/19 20:04 36.4 09/25/19 20:00 Mechanical Ventilator 40 09/25/19 20:00 62 15 85/39 (54) 99 Mechanical Ventilator 40.00 09/25/19 19:46 35.8 59 99/46 Mechanical Ventilator 40 09/25/19 19:00 62 15 97/46 (63) 99 Mechanical Ventilator 40.00 09/25/19 19:00 59 09/25/19 18:20 36.2 63 17 88/43 97 Mechanical Ventilator 40 09/25/19 18:05 36.4 64 17 91/40 96 Mechanical Ventilator 40 09/25/19 18:00 64 17 91/40 (57) 98 Mechanical Ventilator 50.00 09/25/19 17:34 67 09/25/19 17:00 68 17 98/48 (65) 98 Mechanical Ventilator 50.00 09/25/19 16:54 70 32 97 40 09/25/19 16:00 Mechanical Ventilator 50 09/25/19 16:00 107/54 (71) Mechanical Ventilator 50.00 09/25/19 15:50 35.9 09/25/19 15:00 69 16 76/44 (55) 95 Mechanical Ventilator 50.00 09/25/19 14:00 78 18 79/47 (58) 96 Mechanical Ventilator 50.00 09/25/19 13:51 80 28 96 50 09/25/19 13:00 87 32 102/65 (77) 98 Mechanical Ventilator 50.00 09/25/19 12:42 88 09/25/19 12:34 86 122/71 09/25/19 12:32 87 122/71 09/25/19 12:00 Mechanical Ventilator 50 09/25/19 12:00 84 15 122/71 (88) 100 Mechanical Ventilator 50.00 09/25/19 11:43 104 22 96 100 09/25/19 11:42 36.7 09/25/19 11:10 84 09/25/19 11:01 89 35 132/81 09/25/19 11:00 86 13 132/81 (98) 100 Mechanical Ventilator 70.00 09/25/19 10:00 105 22 149/97 (114) 100 Mechanical Ventilator 70.00 09/25/19 10:00 Mechanical Ventilator 09/25/19 09:51 86 09/25/19 09:30 93 34 140/78 (98) 97 Mechanical Ventilator 70.00 09/25/19 08:00 Room Air 09/25/19 07:02 37.1 80 20 138/72 (94) 95 Room Air I & O 09/26/19 07:00 Intake Total 2650 ml Output Total 675 ml Balance 1975 ml Height & Weight Height: '" Weight: lbs. oz. kg; 30.65 BMI Method: General Appearance: Chronically ill, Other (sedated on vent) HEENT: PERRL/EOMI, TMs Normal, Normal ENT Inspection, Other (oropharynx pasty, mild facial edema) Neck: Limited Range of Motion Respiratory: Lungs Clear Cardiovascular: Tachycardia Capillary Refill: Less Than 3 Seconds Gastrointestinal: soft; No distended Extremity: Pedal Edema Neurologic/Psychiatric: Disoriented Skin: Normal Color, Warm/Dry Lymphatic: No Adenopathy (neck) Results Lab Laboratory Tests 09/24/19 08:06 09/25/19 04:14 09/25/19 10:15 09/25/19 15:45 09/26/19 00:10 09/26/19 02:34 Assessment/Plan Assessment/Plan Acute respiratory failure r/o PNA -CT of abd shows PNA in bases -Check procalcitonin -Start Rocephin and cleocin -Abdalla culture -Cont ventilator care Metabolic acidosis -Give 2 liter bolus -Check LA -Increase LR to 150 -Monitor Alcoholic dependance -CIWA protocol -Check CMP Acute worsening renal failure -IVF Thrombocytopenia -Monitor Acute GIB with anemia -Continue protonix and octreotide gtt -Monitor Grade I diastolic CHF Agitation JESSICA CARIAS DO Sep 26, 2019 06:07
[2019-09-26] MEDS ORDERED: WATER (STERILE) FOR INJECTION 10 ML ONE (06:22)
[2019-09-26] MEDS ORDERED: cefTRIAXone 1,000 MG IV (ROCEPHIN) VIAL ONE (06:22)
[2019-09-26] MEDS: LORazepam INJECTION FOR DRIP 20 MG in D5W 100 ML IVPB 90 ML IV SCH ×5 (06:25→21:09)
[2019-09-26] MEDS: LACTATED RINGERS 1,000 ML IV SCH ×3 (06:30→20:01)
[2019-09-26] MEDS: cefTRIAXone FOR IV USE 1,000 MG in WATER (STERILE) FOR INJECTION 10 ML IV SCH (06:30)
[2019-09-26 07:04] LABS: ALBUMIN 2.4 GM/DL (3.2-4.5); BILIRUBIN,TOTAL 1.4 MG/DL (0.1-1.0); CREATININE SERUM 1.56 MG/DL (0.60-1.30); POTASSIUM 4.5 MMOL/L (3.6-5.0); TOTAL PROTEIN 4.4 GM/DL (6.4-8.2)
[2019-09-26 07:14] LABS: CLARITY,URINE CLEAR; COLOR,URINE YELLOW; GLUCOSE, URINE (UA) NEGATIVE (NEGATIVE); KETONES,URINE NEGATIVE (NEGATIVE); LEUKOCYTE ESTERASE ,URINE NEGATIVE (NEGATIVE); NITRITE,URINE NEGATIVE (NEGATIVE); PH,URINE 5.5 (5-9); PROTEIN,URINE NEGATIVE (NEGATIVE)
--- NOTE | 2019-09-26 07:25 | Diagnostic Imaging Report ---
INDICATION: Ventilator support. TIME OF EXAM: 3:49 AM CORRELATION is made with prior study of one day earlier. ET tube has tip above the heaven. There appears to be an OG tube. The tip is difficult to see but appears to pass below the diaphragm. ET tube has tip above the heaven. Lungs are fairly clear. There is no significant effusion or pneumothorax. IMPRESSION: Stable chest. No acute feature is detected. Dictated by: Dictated on workstation # [id number]
[2019-09-26 07:31] LABS: BACTERIA,URINE NEGATIVE /HPF; BILIRUBIN,URINE 1+ (NEGATIVE)
[2019-09-26] MEDS: OCTREOTIDE INJECTION 500 MCG in NS (IVPB) 99 ML IV SCH ×3 (08:13→17:24)
--- NOTE | 2019-09-26 08:51 | Progress Note - Surgery ---
ROBSON MENARD MEDICAL STUDENT 09/26/19 0851: Subjective Date Seen by a Provider: Sep 26, 2019 Time Seen by a Provider: 08:00 Subjective/Events-last exam Patient is intubated and sedated. Was not able to ask questions because of this. and daughter at bedside. Urine output- 0.22 WBC: Trending down from 20.4 to 13.4 Hgb: Stable 7.7 from yesterdays 6, after the 2 unit transfusion Lactic Acid: 3.05 Creatinine: Trending up from 1.41 to 1.56 Focused Exam Lactate Level 09/26/19 06:19: Lactic Acid Level 3.05*H 09/26/19 08:15: Lactic Acid Level Laboratory Tests Test 09/26/19 06:19 09/26/19 08:15 Lactic Acid Level 3.05 MMOL/L (0.50-2.00) *H Objective Exam Vital Signs Date Time Temp Pulse Resp B/P (MAP) Pulse Ox O2 Delivery O2 Flow Rate FiO2 09/26/19 07:50 68 17 95 30 09/26/19 07:44 67 120/66 09/26/19 06:40 59 09/26/19 06:00 58 22 103/53 (70) 92 Mechanical Ventilator 30.00 09/26/19 05:00 56 17 106/53 (70) 93 Mechanical Ventilator 30.00 09/26/19 04:02 36.8 09/26/19 04:00 58 19 94/47 (63) 93 Mechanical Ventilator 30.00 09/26/19 04:00 Mechanical Ventilator 30 09/26/19 03:58 59 94/52 09/26/19 03:00 61 16 92/47 (62) 93 Mechanical Ventilator 30.00 09/26/19 02:14 58 27 93 30 09/26/19 02:00 63 18 94/50 (65) 93 Mechanical Ventilator 30.00 09/26/19 01:51 62 93/48 09/26/19 01:00 63 17 100/50 (67) 94 Mechanical Ventilator 30.00 09/26/19 01:00 63 09/26/19 00:05 36.5 09/26/19 00:00 Mechanical Ventilator 30 09/26/19 00:00 59 16 102/51 (68) 95 Mechanical Ventilator 30.00 09/25/19 23:00 58 18 104/51 (68) 95 Mechanical Ventilator 30.00 09/25/19 22:56 58 101/51 09/25/19 22:27 36.2 09/25/19 22:27 36.2 59 16 102/51 95 Mechanical Ventilator 30 09/25/19 22:20 Mechanical Ventilator 30.00 09/25/19 22:20 Mechanical Ventilator 30.00 09/25/19 22:15 60 28 97 40 09/25/19 22:00 61 18 98/49 (65) 97 Mechanical Ventilator 40.00 09/25/19 21:00 62 17 95/45 (62) 95 Mechanical Ventilator 40.00 09/25/19 20:40 35.9 60 16 88/45 96 Mechanical Ventilator 40 09/25/19 20:18 35.9 61 16 93/45 96 Mechanical Ventilator 40 09/25/19 20:04 36.4 09/25/19 20:00 Mechanical Ventilator 40 09/25/19 20:00 62 15 85/39 (54) 99 Mechanical Ventilator 40.00 09/25/19 19:46 35.8 59 99/46 Mechanical Ventilator 40 09/25/19 19:00 62 15 97/46 (63) 99 Mechanical Ventilator 40.00 09/25/19 19:00 59 09/25/19 18:20 36.2 63 17 88/43 97 Mechanical Ventilator 40 09/25/19 18:05 36.4 64 17 91/40 96 Mechanical Ventilator 40 09/25/19 18:00 64 17 91/40 (57) 98 Mechanical Ventilator 50.00 09/25/19 17:34 67 09/25/19 17:00 68 17 98/48 (65) 98 Mechanical Ventilator 50.00 09/25/19 16:54 70 32 97 40 09/25/19 16:00 Mechanical Ventilator 50 09/25/19 16:00 107/54 (71) Mechanical Ventilator 50.00 09/25/19 15:50 35.9 09/25/19 15:00 69 16 76/44 (55) 95 Mechanical Ventilator 50.00 09/25/19 14:00 78 18 79/47 (58) 96 Mechanical Ventilator 50.00 09/25/19 13:51 80 28 96 50 09/25/19 13:00 87 32 102/65 (77) 98 Mechanical Ventilator 50.00 09/25/19 12:42 88 3/14/20 12:34 86 122/71 09/25/19 12:32 87 122/71 09/25/19 12:00 Mechanical Ventilator 50 09/25/19 12:00 84 15 122/71 (88) 100 Mechanical Ventilator 50.00 09/25/19 11:43 104 22 96 100 09/25/19 11:42 36.7 09/25/19 11:10 84 09/25/19 11:01 89 35 132/81 09/25/19 11:00 86 13 132/81 (98) 100 Mechanical Ventilator 70.00 09/25/19 10:00 105 22 149/97 (114) 100 Mechanical Ventilator 70.00 09/25/19 10:00 Mechanical Ventilator 09/25/19 09:51 86 09/25/19 09:30 93 34 140/78 (98) 97 Mechanical Ventilator 70.00 I & O 09/26/19 07:00 Intake Total 3760 ml Output Total 850 ml Balance 2910 ml Capillary Refill : Less Than 3 Seconds General Appearance: Chronically ill, Other (sedated on vent) HEENT: PERRL/EOMI, TMs Normal, Normal ENT Inspection, Other (oropharynx pasty, mild facial edema) Neck: Limited Range of Motion Respiratory: Lungs Clear Cardiovascular: Tachycardia Gastrointestinal: soft; No distended Extremity: Pedal Edema (minimal) Neurologic/Psychiatric: No Alert, No Oriented x3, No Normal Mood/Affect, No Disoriented; Other (nonresponsive) Skin: Normal Color, Warm/Dry Lymphatic: No Adenopathy (neck) Results Lab Laboratory Tests 09/25/19 10:15: White Blood Count 20.4H, Red Blood Count 2.31L, Hemoglobin 7.5#L, Hematocrit 23L , Mean Corpuscular Volume 99, Mean Corpuscular Hemoglobin 32, Mean Corpuscular Hemoglobin Concent 33, Red Cell Distribution Width 17.1H, Platelet Count 129L, Mean Platelet Volume 11.8H, Neutrophils (%) (Auto) 65, Lymphocytes (%) (Auto) 21, Monocytes (%) (Auto) 13H, Eosinophils (%) (Auto) 1, Basophils (%) (Auto) 0, Neutrophils # (Auto) 13.3H, Lymphocytes # (Auto) 4.3H, Monocytes # (Auto) 2.7H, Eosinophils # (Auto) 0.1, Basophils # (Auto) 0.1, Sodium Level 148H, Potassium Level 4.4, Chloride Level 122H, Carbon Dioxide Level 17L, Anion Gap 9, Blood Urea Nitrogen 44H, Creatinine 0.92, Estimat Glomerular Filtration Rate > 60, BUN/Creatinine Ratio 48, Glucose Level 142H, Calcium Level 7.5L, Corrected Calci um 8.5, Total Bilirubin 2.3H, Aspartate Amino Transf (AST/SGOT) 47H, Alanine Aminotransferase (ALT/SGPT) 27, Alkaline Phosphatase 102, B-Type Natriuretic Peptide 56.9, Total Protein 4.8L, Albumin 2.7L, Triglycerides Level 161H 09/25/19 11:25: Blood Gas Puncture Site RT BRACH, Blood Gas Patient Temperature 37.1, Arterial Blood pH 7.43, Arterial Blood Partial Pressure CO2 29L, Arterial Blood Partial Pressure O2 119H, Arterial Blood HCO3 19L, Arterial Blood Total CO2 19.4L, Arterial Blood Oxygen Saturation 99, Arterial Blood Base Excess -5.1L, Jordan Test YES-POS, Blood Gas Ventilator Setting YES, Blood Gas Inspired Oxygen 90% 09/25/19 11:41: Glucometer 150H 09/25/19 15:45: White Blood Count 12.2H, Red Blood Count 1.89L, Hemoglobin 6.0*L, Hematocrit 19*L, Mean Corpuscular Volume 100H, Mean Corpuscular Hemoglobin 32, Mean Corpuscular Hemoglobin Concent 32, Red Cell Distribution Width 17.1H, Platelet Count 80L, Mean Platelet Volume 11.3H, Neutrophils (%) (Auto) 58, Lymphocytes (%) (Auto) 30, Monocytes (%) (Auto) 10, Eosinophils (%) (Auto) 1, Basophils (%) (Auto) 0, Neutrophils # (Auto) 7.2, Lymphocytes # (Auto) 3.7, Monocytes # (Auto) 1.2H, Eosinophils # (Auto) 0.1, Basophils # (Auto) 0.0, Sodium Level 148H, Potassium Level 4.4, Chloride Level 122H, Carbon Dioxide Level 16L, Anion Gap 10, Blood Urea Nitrogen 49H, Creatinine 1.24, Estimat Glomerular Filtration Rate 60, BUN/Creatinine Ratio 40, Glucose Level 164H, Calcium Level 7.1L, Magnesium Level 2.5H 09/25/19 17:45: Glucometer 151H 09/26/19 00:10: Glucometer 156H, Hemoglobin 7.8#L, Hematocrit 23L 09/26/19 02:34: Hemoglobin 7.7L, Hematocrit 23L, White Blood Count 13.4H, Red Blood Count 2.40L, Mean Corpuscular Volume 96, Mean Corpuscular Hemoglobin 32, Mean Corpuscular Hemoglobin Concent 34, Red Cell Distribution Width 18.4H, Platelet Count 79L, Mean Platelet Volume 11.8H, Neutrophils (%) (Auto) 66, Lymphocytes (%) (Auto) 23, Monocytes (%) (Auto) 10, Eosinophils (%) (Auto) 1, Basophils (%) (Auto) 0, Neutrophils # (Auto) 8.8H, Lymphocytes # (Auto) 3.1, Monocytes # (Auto) 1.3H, Eosinophils # (Auto) 0.1, Basophils # (Auto) 0.0, Sodium Level 143, Potassium Level 4.4, Chloride Level 119H, Carbon Dioxide Level 13L, Anion Gap 11, Blood Urea Nitrogen 56H, Creatinine 1.41H, Estimat Glomerular Filtration Rate 52, BUN/Creatinine Ratio 40, Glucose Level 132H, Calcium Level 6.8L, Phosphorus Level 6.4H, Magnesium Level 2.5H, Ammonia 85H 09/26/19 02:57: Blood Gas Puncture Site LEFT RADIAL, Blood Gas Patient Temperature 36.8, Arterial Blood pH 7.42, Arterial Blood Partial Pressure CO2 23L, Arterial Blood Partial Pressure O2 63L, Arterial Blood HCO3 15*L, Arterial Blood Total CO2 15.4L, Arterial Blood Oxygen Saturation 92L, Arterial Blood Base Excess -9.0L, Jordan Test POSITIVE, Blood Gas Ventilator Setting YES, Blood Gas Inspired Oxygen 17 09/26/19 06:19: Sodium Level 145, Potassium Level 4.5, Chloride Level 120H, Carbon Dioxide Level 13L, Anion Gap 12, Blood Urea Nitrogen 61H, Creatinine 1.56H, Estimat Glomerular Filtration Rate 46, BUN/Creatinine Ratio 39, Glucose Level 129H, Lactic Acid Level 3.05*H, Calcium Level 7.0L, Corrected Calcium 8.3L, Total Bilirubin 1.4H, Aspartate Amino Transf (AST/SGOT) 43H, Alanine Aminotransferase (ALT/SGPT) 27, Alkaline Phosphatase 88, Total Protein 4.4L, Albumin 2.4L, Procalcitonin 0.29H 09/26/19 06:58: Urine Color YELLOW, Urine Clarity CLEAR, Urine pH 5.5, Urine Specific [place] 1.020, Urine Protein NEGATIVE, Urine Glucose (UA) NEGATIVE, Urine Ketones NEGATIVE, Urine Nitrite NEGATIVE, Urine Bilirubin 1+H, Urine Urobilinogen 0.2, Urine Leukocyte Esterase NEGATIVE, Urine RBC (Auto) NEGATIVE, Urine RBC NONE, Urine WBC 2-5, Urine Crystals NONE, Urine Bacteria NEGATIVE, Urine Casts NONE, Urine Mucus NEGATIVE, Urine Culture Indicated NO 09/26/19 08:15: Microbiology 09/25/19 Gram Stain - Final, Resulted 09/25/19 Sputum Culture - Preliminary, Resulted Staphylococcus aureus Assessment/Plan Assessment/Plan Assessment/Plan GI bleed with anemia-likely upper source Hypotension Cirrhotic liver EtOH daily use follow labs transfuse blood products prn Follow up EGD today Protonix/Octreotide drips Keep intubated no surgical intervention will follow Clinical Quality Measures DVT/VTE Risk/Contraindication: Risk Factor Score Per Nursin RFS Level Per Nursing on Admit: 3=High YOSI CHAPPELL DO 09/26/19 1646: Subjective Subjective/Events-last exam Intubated and sedated hgb stable on protonix and octretotide drip family at bedside. Objective Exam General Appearance: Other (sedated on vent) HEENT: Normal ENT Inspection, Other (et and og tube) Neck: Supple Respiratory: Chest Non Tender (lungs coarse) Cardiovascular: Tachycardia Gastrointestinal: soft; No distended Neurologic/Psychiatric: Other (sedated) Skin: Normal Color, Warm/Dry Lymphatic: No Adenopathy (neck) Assessment/Plan Assessment/Plan Assessment/Plan GI bleed with anemia-large clots in stomach at time of EGD and did not see any active bleeding Hypotension- monitor Cirrhotic liver EtOH daily use on ciwa acute respiratory failure on vent may need repeat egd if drop in hgb follow hgb transfusing blood products prn Supervisory-Addendum Brief Verification & Attestation Participated in pt care: history, MDM, physical Personally performed: exam, history, MDM, supervision of care Care discussed with: Medical Student Procedures: n/a Results interpretation: Verified all documentation Verification and Attestation of Medical Student E/M Service A medical student performed and documented this service in my presence. I reviewed and verified all information documented by the medical student and made modifications to such information, when appropriate. I personally performed the physical exam and medical decision making. Yosi Chappell, Sep 26, 2019,16:46 ROBSON MENARD MEDICAL STUDENT Sep 26, 2019 08:51 YOSI CHAPPELL DO Sep 26, 2019 16:46
[2019-09-26] MEDS ORDERED: VANCOMYCIN INJECTION 0.1 MG in NS (IVPB) 250 ML IV SCH (09:45)
[2019-09-26] MEDS: THIAMINE INJECTION 100 MG, FOLIC ACID INJECTION 1 MG, MAGNESIUM SULFATE 2 GM, VITAMIN M... IV SCH ×5 (09:47)
--- NOTE | 2019-09-26 10:16 | NUR ---
CR 1.56; CR CL ~60 (USED ADJ WT OF 83.7 KG); ACTUAL WT 99.9 KG; VANCO 1750 MG IV BOLUS THEN 1250 MG IV Q12H; TROUGH AFTER 3RD DOSE
[2019-09-26] MEDS ORDERED: VANCOMYCIN 1,750 MG/NS 500 ML IVPB IV NR ×2 (10:30)
--- NOTE | 2019-09-26 13:29 | NUR ---
This nurse taking over care of patient. Report received from JUAN R Quarles
--- NOTE | 2019-09-26 13:29 | NUR ---
Report given to JUAN R San at this time.
[2019-09-26] MEDS: CLINDAMYCIN 600 MG/50 ML IVPB 50 ML IV SCH ×2 (14:49→21:09)
--- NOTE | 2019-09-26 16:12 | NUR ---
notified of patients elevated lactic acid. order received to give a 1L NS bolus
[2019-09-26] MEDS ORDERED: NS IV 1000 ML 1,000 ML IV SCH (16:15)
[2019-09-26] MEDS: PANTOPRAZOLE INJECTION 200 MG in NS (IVPB) 100 ML IV SCH (17:31)
--- NOTE | 2019-09-26 20:52 | OPERATIVE REPORT ---
DATE OF SERVICE: 09/25/2019 PREOPERATIVE DIAGNOSES: Anemia, gastrointestinal bleed. POSTOPERATIVE DIAGNOSIS: Upper gastrointestinal bleed. No source of bleeding found, but large clot in the stomach. PROCEDURE: EGD. SURGEON: Shruthi Chappell DO. ANESTHESIA: Sedation. The patient was already sedated on ventilator. INDICATIONS: The patient is a 59-year-old male with anemia and found to have dark coffee ground-appearing fluid coming from his OG tube. Family understands risks and benefits of procedure and wished to proceed with procedure. Consent was signed in the chart. DESCRIPTION OF PROCEDURE: The patient remained intubated and sedated in the ICU. Timeout was performed. Scope was inserted in mouth, down the esophagus, stomach and into the duodenum without difficulty. The duodenum had normal appearance. No polyps, masses or ulcerations. Some fluid down in the duodenum was easily suctioned. Scope was then slowly retracted back into the stomach where a large clot was present more in the cardia of the stomach, which lots of irrigation and suction was performed removing the clot in its entirety. The stomach was irrigated with copious amounts of irrigation further for better visualization. There were no polyps, masses or ulcerations. No active bleeding visualized at this time. No erythematous changes in the stomach. Scope was then retracted back slowly in the distal esophagus, which had normal appearance. No polyps, masses or ulcerations. Scope was slowly retracted back until completely removed noting no other pathology. The patient tolerated procedure well without any complications. RECOMMENDATIONS: The patient is started on Protonix and octreotide drip. A significant clot burden in the stomach, which I feel is most likely source of bleeding, but no source able to be visualized. We will continue to monitor hemoglobin. If he has further drop in hemoglobin, we would repeat EGD at that time. Job ID: [id number] DocumentID: [id number] Dictated Date: 09/26/2019 16:51:04 Otolaryngology Physician Date: 09/26/2019 20:51:54 Dictated By: SHRUTHI CHAPPELL DO [facility]
[2019-09-26] MEDS ORDERED: VANCOMYCIN 1250 MG/NS 250 ML IVPB IV SCH ×2 (23:00)
[2019-09-27] VITALS (31 sets, daily range): BP systolic 89–126; BP diastolic 46–101
[2019-09-27] MEDS: LORazepam INJ 2 MG/ML (ATIVAN) VIAL IV PRN ×3 (00:08→20:46)
[2019-09-27 00:42] LABS: ABG BASE EXCESS -7.2 MMOL/L (-2.5-2.5); ABG OXYGEN SATURATION 87 % (94-100); ABG PCO2 23 MMHG (35-45); ABG PH 7.46 (7.37-7.43); ABG PO2 52 MMHG (79-93); ABG TCO2 16.7 MMOL/L (21.0-31.0)
[2019-09-27 00:43] LABS: BASOPHILS % (AUTO) 0 % (0-10); EOSINOPHILS # (AUTO) 0.2 10^3/uL (0.0-0.3); EOSINOPHILS % (AUTO) 2 % (0-10); HEMATOCRIT 25 % (40-54); HEMOGLOBIN 8.4 G/DL (13.3-17.7); LYMPHOCYTES # (AUTO) 2.7 X 10^3 (1.0-4.0); LYMPHOCYTES % (AUTO) 23 % (12-44); MEAN CORPUSCULAR HEMOGLOBIN 32 PG (25-34); MEAN CORPUSCULAR HGB CONC 33 G/DL (32-36); MEAN CORPUSCULAR VOLUME 97 FL (80-99); MONOCYTES # (AUTO) 0.9 X 10^3 (0.0-1.0); MONOCYTES % (AUTO) 8 % (0-12); NEUTROPHILS # (AUTO) 8.1 X 10^3 (1.8-7.8); NEUTROPHILS % (AUTO) 68 % (42-75); PLATELET COUNT 83 10^3/uL (130-400); RED CELL DISTRIBUTION WIDTH 19.8 % (10.0-14.5); WHITE BLOOD COUNT 11.9 10^3/uL (4.3-11.0)
[2019-09-27 00:45] LABS: ALLENS TEST POSITIVE; INSPIRED O2 33; PATIENT TEMP 36.5; VENTILATOR YES
[2019-09-27] MEDS ORDERED: fentaNYL INJECTION 100 MCG/2 ML AMP ONE (00:52)
[2019-09-27 01:01] LABS: INR 1.3 (0.8-1.4); PROTHROMBIN TIME PATIENT 17.2 SEC (12.2-14.7)
[2019-09-27 01:11] LABS: ALANINE AMINOTRANSFERASE 36 U/L (0-55); ALBUMIN 2.5 GM/DL (3.2-4.5); ALKALINE PHOSPHATASE 96 U/L (40-136); AMMONIA 67 UMOL/L (11-32); BILIRUBIN,TOTAL 1.3 MG/DL (0.1-1.0); BUN/CREATININE RATIO 37; CALCIUM 6.9 MG/DL (8.5-10.1); CARBON DIOXIDE 15 MMOL/L (21-32); CREATININE SERUM 1.11 MG/DL (0.60-1.30); GFR ESTIMATED > 60; GLUCOSE 111 MG/DL (70-105); POTASSIUM 4.1 MMOL/L (3.6-5.0); SODIUM 143 MMOL/L (135-145); TOTAL PROTEIN 4.5 GM/DL (6.4-8.2)
--- NOTE | 2019-09-27 01:26 | NUR ---
peep to [address] martin Addendum: 09/27/19 at 0128 by KAILA ROSALES RT Amended: Links added.
[2019-09-27 01:36] LABS: CHLORIDE 119 MMOL/L (98-107)
[2019-09-27] MEDS: LORazepam INJECTION FOR DRIP 20 MG in D5W 100 ML IVPB 90 ML IV SCH ×6 (01:49→20:27)
[2019-09-27] MEDS: LACTATED RINGERS 1,000 ML IV SCH ×4 (01:49→20:26)
[2019-09-27 03:22] LABS: BASOPHILS % (AUTO) 0 % (0-10); EOSINOPHILS # (AUTO) 0.2 10^3/uL (0.0-0.3); EOSINOPHILS % (AUTO) 2 % (0-10); HEMATOCRIT 24 % (40-54); HEMOGLOBIN 7.8 G/DL (13.3-17.7); LYMPHOCYTES # (AUTO) 1.7 X 10^3 (1.0-4.0); LYMPHOCYTES % (AUTO) 17 % (12-44); MEAN CORPUSCULAR HEMOGLOBIN 32 PG (25-34); MEAN CORPUSCULAR HGB CONC 33 G/DL (32-36); MEAN CORPUSCULAR VOLUME 98 FL (80-99); MEAN PLATELET VOLUME 11.9 FL (7.4-10.4); MONOCYTES # (AUTO) 0.7 X 10^3 (0.0-1.0); MONOCYTES % (AUTO) 7 % (0-12); NEUTROPHILS # (AUTO) 7.2 X 10^3 (1.8-7.8); NEUTROPHILS % (AUTO) 74 % (42-75); PLATELET COUNT 72 10^3/uL (130-400); RED CELL DISTRIBUTION WIDTH 19.7 % (10.0-14.5); WHITE BLOOD COUNT 9.7 10^3/uL (4.3-11.0)
[2019-09-27 03:24] LABS: ABG BASE EXCESS -7.3 MMOL/L (-2.5-2.5); ABG OXYGEN SATURATION 90 % (94-100); ABG PCO2 28 MMHG (35-45); ABG PH 7.39 (7.37-7.43); ABG PO2 160 MMHG (79-93); ABG TCO2 17.3 MMOL/L (21.0-31.0)
[2019-09-27 03:25] LABS: ALLENS TEST POSITIVE
[2019-09-27 03:26] LABS: INSPIRED O2 60; PATIENT TEMP 38.4; VENTILATOR YES
[2019-09-27] MEDS ORDERED: ACETAMINOPHEN 650 MG SUPP (TYLENOL) PR PRN (03:30)
--- NOTE | 2019-09-27 03:30 | NUR ---
PT TEMP 38.4. TELEPHONE ORDERS RECEIVED FROM DR. ROSA-TYLENOL SUPPOSITORY 650MG Q6HRS PRN TEMP.
[2019-09-27] MEDS ORDERED: ACETAMINOPHEN 650 MG SUPP (TYLENOL) ONE (03:41)
[2019-09-27] MEDS: OCTREOTIDE INJECTION 500 MCG in NS (IVPB) 99 ML IV SCH ×2 (03:57→14:09)
[2019-09-27] MEDS: PROPOFOL DRIP (ICU) 100 ML IV SCH ×4 (03:59→17:57)
[2019-09-27 04:00] LABS: BUN/CREATININE RATIO 34; CALCIUM 6.7 MG/DL (8.5-10.1); CARBON DIOXIDE 16 MMOL/L (21-32); CHLORIDE 119 MMOL/L (98-107); CREATININE SERUM 1.16 MG/DL (0.60-1.30); GFR ESTIMATED > 60; GLUCOSE 113 MG/DL (70-105); MAGNESIUM 2.5 MG/DL (1.6-2.4); PHOSPHORUS 3.3 MG/DL (2.3-4.7); POTASSIUM 3.7 MMOL/L (3.6-5.0); SODIUM 142 MMOL/L (135-145); TRIGLYCERIDES 157 MG/DL (<150)
[2019-09-27] MEDS ORDERED: fentaNYL INJECTION 100 MCG/2 ML AMP IV ONE (04:00)
[2019-09-27] MEDS: POTASSIUM CL 10MEQ/50ML IVPB 50 ML IV SCH (04:05)
[2019-09-27] MEDS: MAGNESIUM 1 GM/100 ML IVPB 100 ML IV SCH (04:05)
[2019-09-27] MEDS: inSUlin ASPART (NovoLOG) 1 UNIT/0.01 ML (CHARGE PER UNIT) SC SCH ×4 (04:06→23:20)
[2019-09-27] MEDS: KCL 20 MEQ TAB (K-DUR) PO SCH (04:06)
--- NOTE | 2019-09-27 04:39 | Pulmonary Progress Note ---
Subjective Date Seen by a Provider: Sep 27, 2019 Time Seen by a Provider: 04:34 Subjective/Events-last exam Sedated on vent Sepsis Event Evaluation Height, Weight, BMI Height: '" Weight: lbs. oz. kg; 30.65 BMI Method: Focused Exam Lactate Level 09/26/19 18:35: Lactic Acid Level 2.16*H 09/27/19 00:30: Lactic Acid Level 2.47*H 09/27/19 03:08: Lactic Acid Level 2.09*H Lactic Acid Level Laboratory Tests Test 09/27/19 03:08 Lactic Acid Level 2.09 MMOL/L (0.50-2.00) *H Exam Exam Vital Signs Date Time Temp Pulse Resp B/P (MAP) Pulse Ox O2 Delivery O2 Flow Rate FiO2 09/27/19 03:59 70 96/47 09/27/19 03:56 38.4 09/27/19 03:34 Mechanical Ventilator 45 09/27/19 03:32 69 20 92 Mechanical Ventilator 45.00 09/27/19 03:20 38.4 Mechanical Ventilator 60.00 09/27/19 03:00 70 21 107/51 (69) 91 Mechanical Ventilator 60.00 09/27/19 02:38 70 21 94 60 09/27/19 02:00 70 20 114/54 (74) 94 Mechanical Ventilator 60.00 09/27/19 01:49 71 21 111/58 09/27/19 01:00 73 09/27/19 01:00 73 24 122/61 (81) 93 Mechanical Ventilator 60.00 09/27/19 00:50 75 22 111/61 (78) 91 Mechanical Ventilator 60.00 09/27/19 00:13 Mechanical Ventilator 50.00 09/27/19 00:00 73 26 126/101 (109) 92 Mechanical Ventilator 40.00 09/26/19 23:52 Mechanical Ventilator 40 09/26/19 23:48 36.5 40.00 09/26/19 23:39 64 117/59 09/26/19 23:00 64 34 117/59 (78) 91 Mechanical Ventilator 40.00 09/26/19 22:05 61 21 91 40 09/26/19 22:00 58 18 107/50 (69) 96 Mechanical Ventilator 40.00 09/26/19 21:09 60 34 107/57 09/26/19 21:00 61 18 107/57 (74) 93 Mechanical Ventilator 40.00 09/26/19 20:00 Mechanical Ventilator 40 09/26/19 20:00 54 25 106/52 (70) 91 Mechanical Ventilator 40.00 09/26/19 19:26 36.7 09/26/19 19:00 57 09/26/19 19:00 57 17 112/53 (72) 92 Mechanical Ventilator 40.00 09/26/19 18:47 57 19 91 40 09/26/19 18:00 59 17 115/52 (73) 91 Mechanical Ventilator 40.00 09/26/19 17:30 60 114/60 09/26/19 17:00 61 15 111/50 (70) 94 Mechanical Ventilator 40.00 09/26/19 16:00 Mechanical Ventilator 40 09/26/19 16:00 36.8 09/26/19 16:00 60 15 105/47 (66) 93 Mechanical Ventilator 40.00 09/26/19 15:00 59 16 105/49 (67) 94 Mechanical Ventilator 40.00 09/26/19 14:50 60 101/46 09/26/19 14:00 61 16 101/46 (64) 93 Mechanical Ventilator 40.00 09/26/19 13:32 62 21 93 40 09/26/19 13:00 62 17 99/46 (63) 93 Mechanical Ventilator 40.00 09/26/19 12:38 62 09/26/19 12:00 Mechanical Ventilator 40 09/26/19 12:00 52 18 101/56 (71) 95 Mechanical Ventilator 40.00 09/26/19 11:55 36.3 09/26/19 11:17 107/56 09/26/19 11:00 54 18 110/56 (74) 94 Mechanical Ventilator 30.00 09/26/19 11:00 Mechanical Ventilator 40.00 09/26/19 10:00 62 19 112/55 (74) 91 Mechanical Ventilator 30.00 09/26/19 09:50 62 18 90 40 09/26/19 09:46 97/53 09/26/19 09:00 65 12 103/51 (68) 90 Mechanical Ventilator 30.00 09/26/19 08:00 36.5 Mechanical Ventilator 30.00 09/26/19 08:00 67 16 117/60 (79) 94 Mechanical Ventilator 30.00 09/26/19 08:00 Mechanical Ventilator 30 09/26/19 07:50 68 17 95 30 09/26/19 07:44 67 120/66 09/26/19 07:00 63 37 112/56 (74) 95 Mechanical Ventilator 30.00 09/26/19 06:40 59 09/26/19 06:00 58 22 103/53 (70) 92 Mechanical Ventilator 30.00 09/26/19 05:00 56 17 106/53 (70) 93 Mechanical Ventilator 30.00 I & O 09/27/19 07:00 Intake Total 4067.5 ml Output Total 1760 ml Balance 2307.5 ml Height & Weight Height: '" Weight: lbs. oz. kg; 30.65 BMI Method: General Appearance: Other (sedated on vent) HEENT: Normal ENT Inspection, Other (et and og tube) Neck: Supple Respiratory: Chest Non Tender (lungs coarse) Cardiovascular: Tachycardia Capillary Refill: Less Than 3 Seconds Gastrointestinal: soft; No distended Extremity: Pedal Edema (minimal) Neurologic/Psychiatric: Other (sedated) Skin: Normal Color, Warm/Dry Lymphatic: No Adenopathy (neck) Results Lab Laboratory Tests 09/25/19 10:15 09/25/19 15:45 09/26/19 00:10 09/26/19 02:34 09/26/19 06:19 09/27/19 00:30 09/27/19 03:08 Assessment/Plan Assessment/Plan Acute respiratory failure r/o PNA -Check procalcitonin -Rocephin and cleocin -Abdalla culture -Cont ventilator care Metabolic acidosis -Give 2 liter bolus -Check LA -Increase LR to 150 -Monitor Alcoholic dependance -CIWA protocol -Check CMP Acute worsening renal failure -IVF Thrombocytopenia -Monitor Acute GIB with anemia -Continue protonix and octreotide gtt -Monitor Grade I diastolic CHF Agitation JESSICA CARIAS DO Sep 27, 2019 04:39
[2019-09-27] MEDS ORDERED: LACTATED RINGERS 1,000 ML IV SCH (05:15)
[2019-09-27] MEDS ORDERED: SODIUM BICARB 8.4% 50 MEQ/50 ML VIAL IV ONE (05:15)
[2019-09-27] MEDS: CLINDAMYCIN 600 MG/50 ML IVPB 50 ML IV SCH ×3 (05:33→20:26)
[2019-09-27] MEDS: cefTRIAXone FOR IV USE 1,000 MG in WATER (STERILE) FOR INJECTION 10 ML IV SCH (05:33)
--- NOTE | 2019-09-27 06:30 | NUR ---
INFORMED DR. CARIAS PT TIDAL VOLUME KEEPS INCREASING TO GREATER THAN 1200. TELEPHONE ORDERS RECEIVED FOR ATIVAN 4MG IV X1.
--- NOTE | 2019-09-27 06:43 | Progress Note - Hospitalist ---
Subjective HPI/CC On Admission Date Seen by Provider: Sep 26, 2019 Time Seen by Provider: 09:15 CC: AMS HPI: This is a 59yoWM clinic patient of Wesley Campoverde who has a long history of ETOHism who presented to AMS and found to have electrolyte abnl and elevated ammonia. Patient was admitted for supportive care and Lactulose ordered along with detox protocol. Lovenox ordered due to decreased ambulatory status. Subjective/Events-last exam Pt comfortable on vent Fi02 30%. discussed guarded prognosis at length with . Hgb stable Focused Exam Lactate Level 09/26/19 18:35: Lactic Acid Level 2.16*H 09/27/19 00:30: Lactic Acid Level 2.47*H 09/27/19 03:08: Lactic Acid Level 2.09*H Lactic Acid Level Laboratory Tests Test 09/27/19 03:08 Lactic Acid Level 2.09 MMOL/L (0.50-2.00) *H Objective Exam Vital Signs Vital Signs Date Time Temp Pulse Resp B/P (MAP) Pulse Ox O2 Delivery O2 Flow Rate FiO2 09/27/19 06:00 71 18 98/49 (65) 89 Mechanical Ventilator 45.00 09/27/19 03:56 38.4 09/27/19 03:34 45 Capillary Refill : Less Than 3 Seconds General Appearance: WD/WN, Other (sedated) Neck: Limited Range of Motion Respiratory: Lungs Clear Cardiovascular: Regular Rate, Rhythm, No Gallop, No Murmur Gastrointestinal: Normal Bowel Sounds, Soft Extremity: Pedal Edema Neurologic/Psychiatric: Other Results/Procedures Lab Laboratory Tests 09/27/19 00:30 09/27/19 03:08 Patient resulted labs reviewed. Assessment/Plan Assessment and Plan Assess & Plan/Chief Complaint Delirium tremens-intubated- appreciate DR. Salamanca help Chronic alcoholism Agitation High risk for seizures Upper GI bleed s/p 2 units blood- appreciate DR. Lira help Increasing cr- risk of hepato-renal failure increasing Prognosis guarded Clinical Quality Measures DVT/VTE Risk/Contraindication: Risk Factor Score Per Nursin RFS Level Per Nursing on Admit: 3=High SHIRLEY ROSA MD Sep 27, 2019 06:43
[2019-09-27] MEDS ORDERED: LORazepam INJ 2 MG/ML (ATIVAN) VIAL IVP ONE (06:45)
--- NOTE | 2019-09-27 06:54 | Diagnostic Imaging Report ---
CHEST 1 VIEW, AP/PA ONLY INDICATION: Dyspnea. COMPARISON: 09/26/2019 FINDINGS: Stable ET and enteric tubes. Stable right IJ central venous catheter. Increase in bibasilar ill-defined pulmonary opacities. Small left pleural effusion. No pneumothorax. Stable cardiomediastinal silhouette. IMPRESSION: 1. Stable support devices. 2. Worsening bibasilar pulmonary opacities could be due to edema, infection and/or atelectasis. Dictated by: Dictated on workstation # [id number]
[2019-09-27] MEDS: DexMEDEtomidine 250 ML DRIP 250 ML IV SCH ×2 (07:23→20:26)
--- NOTE | 2019-09-27 08:09 | NUR ---
Eligibility Consultant support provided to pt's , Marilynn, via phone. 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 She states pastoral care is important to them at this time as they believe in prayer and feel vulnerable now.
--- NOTE | 2019-09-27 08:27 | Progress Note - Surgery ---
ROBSON MENARD MEDICAL STUDENT 09/27/19 0827: Subjective Date Seen by a Provider: Sep 27, 2019 Time Seen by a Provider: 07:30 Subjective/Events-last exam Patient is intubated and sedated. Was not able to ask questions because of this. at bedside. Dr. Osborn has informed pts family of guarded prognosis WBC: 9.7; Trending down from 13.4 yesterday Hgb: Stable 7.8 from yesterdays 7.7, after the 2 unit transfusion on 09/24 Lactic Acid: 2.09; Trending down from 3.10 yesterday Creatinine: 1.16; Trending down from 1.[address] shows worsening bibasilar pulmonary opacities Focused Exam Lactate Level 09/26/19 18:35: Lactic Acid Level 2.16*H 09/27/19 00:30: Lactic Acid Level 2.47*H 09/27/19 03:08: Lactic Acid Level 2.09*H Objective Exam Vital Signs Date Time Temp Pulse Resp B/P (MAP) Pulse Ox O2 Delivery O2 Flow Rate FiO2 09/27/19 07:25 71 21 93 45 09/27/19 07:23 71 98/49 09/27/19 07:05 37.8 09/27/19 07:00 71 14 97/52 (67) 92 Mechanical Ventilator 45.00 09/27/19 07:00 72 09/27/19 06:00 71 18 98/49 (65) 89 Mechanical Ventilator 45.00 09/27/19 05:34 69 16 92/54 09/27/19 05:00 69 17 89/49 (62) 91 Mechanical Ventilator 45.00 09/27/19 04:00 70 20 92/49 (63) 90 Mechanical Ventilator 45.00 09/27/19 03:59 70 96/47 09/27/19 03:56 38.4 09/27/19 03:34 Mechanical Ventilator 45 09/27/19 03:32 69 20 92 Mechanical Ventilator 45.00 09/27/19 03:20 38.4 Mechanical Ventilator 60.00 09/27/19 03:00 70 21 107/51 (69) 91 Mechanical Ventilator 60.00 09/27/19 02:38 70 21 94 60 09/27/19 02:00 70 20 114/54 (74) 94 Mechanical Ventilator 60.00 09/27/19 01:49 71 21 111/58 09/27/19 01:00 73 09/27/19 01:00 73 24 122/61 (81) 93 Mechanical Ventilator 60.00 09/27/19 00:50 75 22 111/61 (78) 91 Mechanical Ventilator 60.00 09/27/19 00:13 Mechanical Ventilator 50.00 09/27/19 00:00 73 26 126/101 (109) 92 Mechanical Ventilator 40.00 09/26/19 23:52 Mechanical Ventilator 40 09/26/19 23:48 36.5 40.00 09/26/19 23:39 64 117/59 09/26/19 23:00 64 34 117/59 (78) 91 Mechanical Ventilator 40.00 09/26/19 22:05 61 21 91 40 09/26/19 22:00 58 18 107/50 (69) 96 Mechanical Ventilator 40.00 09/26/19 21:09 60 34 107/57 09/26/19 21:00 61 18 107/57 (74) 93 Mechanical Ventilator 40.00 09/26/19 20:00 Mechanical Ventilator 40 09/26/19 20:00 54 25 106/52 (70) 91 Mechanical Ventilator 40.00 09/26/19 19:26 36.7 09/26/19 19:00 57 09/26/19 19:00 57 17 112/53 (72) 92 Mechanical Ventilator 40.00 09/26/19 18:47 57 19 91 40 09/26/19 18:00 59 17 115/52 (73) 91 Mechanical Ventilator 40.00 09/26/19 17:30 60 114/60 09/26/19 17:00 61 15 111/50 (70) 94 Mechanical Ventilator 40.00 09/26/19 16:00 Mechanical Ventilator 40 09/26/19 16:00 36.8 09/26/19 16:00 60 15 105/47 (66) 93 Mechanical Ventilator 40.00 09/26/19 15:00 59 16 105/49 (67) 94 Mechanical Ventilator 40.00 09/26/19 14:50 60 101/46 09/26/19 14:00 61 16 101/46 (64) 93 Mechanical Ventilator 40.00 09/26/19 13:32 62 21 93 40 09/26/19 13:00 62 17 99/46 (63) 93 Mechanical Ventilator 40.00 09/26/19 12:38 62 09/26/19 12:00 Mechanical Ventilator 40 09/26/19 12:00 52 18 101/56 (71) 95 Mechanical Ventilator 40.00 09/26/19 11:55 36.3 09/26/19 11:17 107/56 09/26/19 11:00 54 18 110/56 (74) 94 Mechanical Ventilator 30.00 09/26/19 11:00 Mechanical Ventilator 40.00 09/26/19 10:00 62 19 112/55 (74) 91 Mechanical Ventilator 30.00 09/26/19 09:50 62 18 90 40 09/26/19 09:46 97/53 09/26/19 09:00 65 12 103/51 (68) 90 Mechanical Ventilator 30.00 I & O 09/27/19 07:00 Intake Total 4490.0 ml Output Total 2360 ml Balance 2130.0 ml Capillary Refill : Less Than 3 Seconds General Appearance: WD/WN, Other (sedated) HEENT: Normal ENT Inspection, Other (et and og tube) Neck: Non Tender, Supple, Limited Range of Motion Respiratory: Lungs Clear, Other (Pt is on ventilator FiO2 30%) Cardiovascular: Regular Rate, Rhythm, No Gallop, No Murmur Gastrointestinal: soft; No distended Extremity: Pedal Edema Neurologic/Psychiatric: Other (Pt is intubated and sedated) Skin: Normal Color, Warm/Dry Lymphatic: No Adenopathy (neck) Results Lab Laboratory Tests 09/26/19 11:07: Glucometer 162H 09/26/19 11:20: Lactic Acid Level 3.53*H 09/26/19 11:50: Glucometer 156H 09/26/19 13:50: Lactic Acid Level 3.10*H 09/26/19 16:25: Lactic Acid Level 2.79*H 09/26/19 17:52: Glucometer 127H 09/26/19 18:35: Lactic Acid Level 2.16*H 09/26/19 22:56: Glucometer 118H 09/27/19 00:30: White Blood Count 11.9H, Red Blood Count 2.63L, Hemoglobin 8.4L, Hematocrit 25L, Mean Corpuscular Volume 97, Mean Corpuscular Hemoglobin 32, Mean Corpuscular Hemoglobin Concent 33, Red Cell Distribution Width 19.8H, Platelet Count 83L, Mean Platelet Volume 12.0H, Neutrophils (%) (Auto) 68, Lymphocytes (%) (Auto) 23, Monocytes (%) (Auto) 8, Eosinophils (%) (Auto) 2, Basophils (%) (Auto) 0, Neutrophils # (Auto) 8.1H, Lymphocytes # (Auto) 2.7, Monocytes # (Auto) 0.9, Eosinophils # (Auto) 0.2, Basophils # (Auto) 0.0, Prothrombin Time 17.2H, INR Comment 1.3, Blood Gas Puncture Site LEFT RADIAL, Blood Gas Patient Temperature 36.5, Arterial Blood pH 7.46H, Arterial Blood Partial Pressure CO2 23L, Arterial Blood Partial Pressure O2 52L, Arterial Blood HCO3 16*L, Arterial Blood Total CO2 16.7L, Arterial Blood Oxygen Saturation 87L, Arterial Blood Base Excess - 7.2L, Jordan Test POSITIVE, Blood Gas Ventilator Setting YES, Blood Gas Inspired Oxygen 33, Sodium Level 143, Potassium Level 4.1, Chloride Level 119H, Carbon Dioxide Level 15L, Anion Gap 9, Blood Urea Nitrogen 41H, Creatinine 1.11, Estimat Glomerular Filtration Rate > 60, BUN/Creatinine Ratio 37, Glucose Level 111H, Lactic Acid Level 2.47*H, Calcium Level 6.9L, Corrected Calcium 8.1L, Total Bilirubin 1.3H, Aspartate Amino Transf (AST/SGOT) 76H, Alanine Aminotransferase (ALT/SGPT) 36, Alkaline Phosphatase 96, Ammonia 67H, Total Protein 4.5L, Albumin 2.5L 09/27/19 03:08: White Blood Count 9.7, Red Blood Count 2.44L, Hemoglobin 7.8L, Hematocrit 24L, Mean Corpuscular Volume 98, Mean Corpuscular Hemoglobin 32, Mean Corpuscular Hemoglobin Concent 33, Red Cell Distribution Width 19.7H, Platelet Count 72L, Mean Platelet Volume 11.9H, Neutrophils (%) (Auto) 74, Lymphocytes (%) (Auto) 17, Monocytes (%) (Auto) 7, Eosinophils (%) (Auto) 2, Basophils (%) (Auto) 0, Neutrophils # (Auto) 7.2, Lymphocytes # (Auto) 1.7, Monocytes # (Auto) 0.7, Eosinophils # (Auto) 0.2, Basophils # (Auto) 0.0, Sodium Level 142, Potassium Level 3.7, Chloride Level 119H, Carbon Dioxide Level 16L, Anion Gap 7, Blood Urea Nitrogen 40H, Creatinine 1.16, Estimat Glomerular Filtration Rate > 60, BUN/Creatinine Ratio 34, Glucose Level 113H, Lactic Acid Level 2.09*H, Calcium Level 6.7L, Phosphorus Level 3.3, Magnesium Level 2.5H, Triglycerides Level 157H , Procalcitonin 0.22H 09/27/19 03:15: Blood Gas Puncture Site RIGHT RADIAL, Blood Gas Patient Temperature 38.4, Arterial Blood pH 7.39, Arterial Blood Partial Pressure CO2 28L, Arterial Blood Partial Pressure O2 160H, Arterial Blood HCO3 16*L, Arterial Blood Total CO2 17.3L, Arterial Blood Oxygen Saturation 90L, Arterial Blood Base Excess -7.3L, Jordan Test POSITIVE, Blood Gas Ventilator Setting YES, Blood Gas Inspired Oxygen 60 09/27/19 05:40: Microbiology 09/26/19 MRSA Screen - Final, Complete MRSA not isolated Assessment/Plan Assessment/Plan Assessment/Plan GI bleed with anemia-large clots in stomach at time of EGD and did not see any active bleeding Hypotension- monitor Delirium [place] Cirrhotic liver Acute Respiratory Failure Prognosis Guarded EtOH daily use on ciwa acute respiratory failure on vent follow hgb transfusing blood products prn Clinical Quality Measures DVT/VTE Risk/Contraindication: Risk Factor Score Per Nursin RFS Level Per Nursing on Admit: 3=High YOSI CHAPPELL DO 09/28/19 1704: Subjective Subjective/Events-last exam Patient remains intubated and sedated. Not having og drainage that is coffee ground appearing now. Hgb stable. Family at bedside all questions answered. Objective Exam General Appearance: Other (sedated and intubated) HEENT: Other (et and og tube) Neck: Normal Inspection Respiratory: Other (Pt is on ventilator FiO2 30%, equal chest rise) Cardiovascular: Regular Rate, Rhythm Gastrointestinal: soft; No distended Extremity: Pedal Edema Neurologic/Psychiatric: Other (intubated and sedated) Skin: Normal Color, Warm/Dry Lymphatic: No Adenopathy Assessment/Plan Assessment/Plan Assessment/Plan GI bleed with anemia-large clots in stomach at time of EGD and did not see any active bleeding Hypotension- monitor Delirium [place] Cirrhotic liver Acute Respiratory Failure Hgb stable On Octreotide/Protonix drips Follow hgb, if drop would repeat egd Supervisory-Addendum Brief Verification & Attestation Participated in pt care: history, MDM, physical Personally performed: exam, history, MDM, supervision of care Care discussed with: Medical Student Procedures: n/a Results interpretation: Verified all documentation Verification and Attestation of Medical Student E/M Service A medical student performed and documented this service in my presence. I reviewed and verified all information documented by the medical student and made modifications to such information, when appropriate. I personally performed the physical exam and medical decision making. Yosi Chappell, Sep 27, 2019,17:01 ROBSON MENARD MEDICAL STUDENT Sep 27, 2019 08:27 YOSI CHAPPELL DO Sep 28, 2019 17:04
--- NOTE | 2019-09-27 08:30 | Physical Therapy Progress Note ---
Therapy Progress Note Patient currently sedated and on ventilator. PT will continue to monitor patient status and initiate treatment when patient is medically stable and able to actively participate with skilled therapy. KAILA HERNANDEZ PT Sep 27, 2019 08:30
--- NOTE | 2019-09-27 08:33 | Occ Therapy Progress Note ---
Therapy Progress Note Pt. continues on ventilator support. Will continue to monitor and evaluate for skilled occupational therapy services when medically stable. [id number] JACKY YOO OT Sep 27, 2019 08:32
--- NOTE | 2019-09-27 10:40 | NUR ---
Pastoral care visit, w/pts and son, offered support had prayer.
--- NOTE | 2019-09-27 14:46 | NUR ---
"Received dietary consult regarding pt's vent status. Est. kcal needs: 8752-9783 kcal | 15-20 kcal/kg Est. Pro needs: 88-109 g Pro | 0.8-1.0 g Pro/kg If pt is to remain NPO for more than 3days, would recommend initiation of the following TF: Jevity 1.5 at goal rate of 60ml/hr. Begin at 10ml/hr and increase by 10ml q6h as tolerated. Monitor gastric residuals for tolerance. At goal rate, provides 2160 kcal (20 kcal/kg); 92 g Pro (0.8 g Pro/kg) and 1094ml free water. Flush with 75ml H2O q4h for hydration status. With flushes, provides 1544ml free water. Will continue to follow and reassess as pt needs, intake, and status change. Trevor Dasilva MS, RD, LD [phone]"
[2019-09-27] MEDS: PANTOPRAZOLE INJECTION 200 MG in NS (IVPB) 100 ML IV SCH (15:58)
--- NOTE | 2019-09-27 19:18 | Progress Note ---
Subjective Subjective/Events-last exam Intubated and sedated Review of Systems Intubated and sedated Focused Exam Lactate Level 09/26/19 18:35: Lactic Acid Level 2.16*H 09/27/19 00:30: Lactic Acid Level 2.47*H 09/27/19 03:08: Lactic Acid Level 2.09*H Objective Exam Last Set of Vital Signs Vital Signs Date Time Temp Pulse Resp B/P (MAP) Pulse Ox O2 Delivery O2 Flow Rate FiO2 09/27/19 18:24 63 21 94 45 09/27/19 18:00 110/57 (74) Mechanical Ventilator 45.00 09/27/19 16:00 37.6 Capillary Refill : Less Than 3 Seconds I&O Intake and Output 09/27/19 00:00 Intake Total 4590.0 ml Output Total 1760 ml Balance 2830.0 ml Intake Oral 0 ml IV Total 4590.0 ml Output Urine Total 1725 ml Gastric Drainage Total 35 ml General: Other (Intubated and sedated) Lungs: Other (diffuse crackles, breathing over the vent, agitated) Heart: Regular Rate (mild distention) Extremities: Other (3+ pitting edema bilaterally) Results/Procedures Lab Laboratory Tests 09/26/19 22:56: Glucometer 118H 09/27/19 00:30: White Blood Count 11.9H, Red Blood Count 2.63L, Hemoglobin 8.4L, Hematocrit 25L, Mean Corpuscular Volume 97, Mean Corpuscular Hemoglobin 32, Mean Corpuscular Hemoglobin Concent 33, Red Cell Distribution Width 19.8H, Platelet Count 83L, Mean Platelet Volume 12.0H, Neutrophils (%) (Auto) 68, Lymphocytes (%) (Auto) 23, Monocytes (%) (Auto) 8, Eosinophils (%) (Auto) 2, Basophils (%) (Auto) 0, Neutrophils # (Auto) 8.1H, Lymphocytes # (Auto) 2.7, Monocytes # (Auto) 0.9, Eosinophils # (Auto) 0.2, Basophils # (Auto) 0.0, Prothrombin Time 17.2H, INR Comment 1.3, Blood Gas Puncture Site LEFT RADIAL, Blood Gas Patient Temperature 36.5, Arterial Blood pH 7.46H, Arterial Blood Partial Pressure CO2 23L, Arterial Blood Partial Pressure O2 52L, Arterial Blood HCO3 16*L, Arterial Blood Total CO2 16.7L, Arterial Blood Oxygen Saturation 87L, Arterial Blood Base Excess - 7.2L, Jordan Test POSITIVE, Blood Gas Ventilator Setting YES, Blood Gas Inspired Oxygen 33, Sodium Level 143, Potassium Level 4.1, Chloride Level 119H, Carbon Dioxide Level 15L, Anion Gap 9, Blood Urea Nitrogen 41H, Creatinine 1.11, Estimat Glomerular Filtration Rate > 60, BUN/Creatinine Ratio 37, Glucose Level 111H, Lactic Acid Level 2.47*H, Calcium Level 6.9L, Corrected Calcium 8.1L, Total Bilirubin 1.3H, Aspartate Amino Transf (AST/SGOT) 76H, Alanine Aminotransferase (ALT/SGPT) 36, Alkaline Phosphatase 96, Ammonia 67H, Total Protein 4.5L, Albumin 2.5L 09/27/19 03:08: White Blood Count 9.7, Red Blood Count 2.44L, Hemoglobin 7.8L, Hematocrit 24L, Mean Corpuscular Volume 98, Mean Corpuscular Hemoglobin 32, Mean Corpuscular Hemoglobin Concent 33, Red Cell Distribution Width 19.7H, Platelet Count 72L, Mean Platelet Volume 11.9H, Neutrophils (%) (Auto) 74, Lymphocytes (%) (Auto) 17, Monocytes (%) (Auto) 7, Eosinophils (%) (Auto) 2, Basophils (%) (Auto) 0, Neutrophils # (Auto) 7.2, Lymphocytes # (Auto) 1.7, Monocytes # (Auto) 0.7, Eosinophils # (Auto) 0.2, Basophils # (Auto) 0.0, Sodium Level 142, Potassium Level 3.7, Chloride Level 119H, Carbon Dioxide Level 16L, Anion Gap 7, Blood Urea Nitrogen 40H, Creatinine 1.16, Estimat Glomerular Filtration Rate > 60, BUN/Creatinine Ratio 34, Glucose Level 113H, Lactic Acid Level 2.09*H, Calcium Level 6.7L, Phosphorus Level 3.3, Magnesium Level 2.5H, Triglycerides Level 157H , Procalcitonin 0.22H 09/27/19 03:15: Blood Gas Puncture Site RIGHT RADIAL, Blood Gas Patient Temperature 38.4, Arterial Blood pH 7.39, Arterial Blood Partial Pressure CO2 28L, Arterial Blood Partial Pressure O2 160H, Arterial Blood HCO3 16*L, Arterial Blood Total CO2 17.3L, Arterial Blood Oxygen Saturation 90L, Arterial Blood Base Excess -7.3L, Jordan Test POSITIVE, Blood Gas Ventilator Setting YES, Blood Gas Inspired Oxygen 60 09/27/19 11:19: Glucometer 145H 09/27/19 11:34: Lab Scanned Report Transfusion Reaction Form 09/27/19 14:00: 09/27/19 17:53: Glucometer 144H Microbiology 09/26/19 MRSA Screen - Final, Complete MRSA not isolated 09/26/19 Blood Culture - Preliminary, Resulted No growth Assessment/Plan Assessment/Plan (1) Acute respiratory failure Status: Acute Assessment & Plan: 09/26: 2/2 to DTs, Dr Srivastava consulted and managing Qualifiers: Qualified Codes: J96.00 - Acute respiratory failure, unspecified whether with hypoxia or hypercapnia (2) Delirium tremens Status: Acute Assessment & Plan: 09/26: Currently on Ativan gtts 6mg/hr which was increased from yesterday (3) Acute upper GI bleed Status: Acute Assessment & Plan: 09/26: Dr Chappell consulted and managing, patient received 2 Units of pRBCs (4) Anemia due to acute blood loss Status: Acute (5) Altered mental status Status: Acute Qualifiers: Qualified Codes: R41.0 - Disorientation, unspecified (6) Hyperammonemia Status: Acute (7) Alcohol dependence Status: Acute Qualifiers: Qualified Codes: F10.29 - Alcohol dependence with unspecified alcohol- induced disorder (8) DVT prophylaxis Status: Acute Assessment & Plan: SCDs 2/2 to upper GI bleed Clinical Quality Measures DVT/VTE Risk/Contraindication: Risk Factor Score Per Nursin RFS Level Per Nursing on Admit: 3=High EDDY YOUNGER MD Sep 27, 2019 19:17
[2019-09-27] MEDS ORDERED: TROUGH ORDER-PHARMACY XX NR (22:00)
[2019-09-28] VITALS (30 sets, daily range): BP systolic 103–136; BP diastolic 52–86
[2019-09-28] MEDS: PROPOFOL DRIP (ICU) 100 ML IV SCH ×4 (00:31→17:58)
[2019-09-28] MEDS: OCTREOTIDE INJECTION 500 MCG in NS (IVPB) 99 ML IV SCH ×3 (00:32→20:26)
[2019-09-28] MEDS: LORazepam INJECTION FOR DRIP 20 MG in D5W 100 ML IVPB 90 ML IV SCH ×5 (02:17→22:23)
[2019-09-28 04:03] LABS: ABG BASE EXCESS -3.5 MMOL/L (-2.5-2.5); ABG OXYGEN SATURATION 93 % (94-100); ABG PCO2 36 MMHG (35-45); ABG PH 7.38 (7.37-7.43); ABG PO2 73 MMHG (79-93); ABG TCO2 21.6 MMOL/L (21.0-31.0)
[2019-09-28 04:04] LABS: ALLENS TEST POS; INSPIRED O2 45%; PATIENT TEMP 37.8; VENTILATOR YES
[2019-09-28 04:17] LABS: BASOPHILS % (AUTO) 0 % (0-10); EOSINOPHILS # (AUTO) 0.1 10^3/uL (0.0-0.3); EOSINOPHILS % (AUTO) 2 % (0-10); HEMATOCRIT 23 % (40-54); HEMOGLOBIN 7.1 G/DL (13.3-17.7); LYMPHOCYTES # (AUTO) 2.6 X 10^3 (1.0-4.0); LYMPHOCYTES % (AUTO) 28 % (12-44); MEAN CORPUSCULAR HEMOGLOBIN 32 PG (25-34); MEAN CORPUSCULAR HGB CONC 31 G/DL (32-36); MEAN CORPUSCULAR VOLUME 100 FL (80-99); MEAN PLATELET VOLUME 11.6 FL (7.4-10.4); MONOCYTES # (AUTO) 1.1 X 10^3 (0.0-1.0); MONOCYTES % (AUTO) 12 % (0-12); NEUTROPHILS # (AUTO) 5.5 X 10^3 (1.8-7.8); NEUTROPHILS % (AUTO) 59 % (42-75); PLATELET COUNT 64 10^3/uL (130-400); RED CELL DISTRIBUTION WIDTH 20.4 % (10.0-14.5); WHITE BLOOD COUNT 9.3 10^3/uL (4.3-11.0)
[2019-09-28] MEDS: LORazepam INJ 2 MG/ML (ATIVAN) VIAL IV PRN (04:25)
[2019-09-28] MEDS: LACTATED RINGERS 1,000 ML IV SCH (04:38)
[2019-09-28 04:44] LABS: BUN/CREATININE RATIO 28; CALCIUM 6.7 MG/DL (8.5-10.1); CARBON DIOXIDE 19 MMOL/L (21-32); CHLORIDE 119 MMOL/L (98-107); CREATININE SERUM 1.08 MG/DL (0.60-1.30); GFR ESTIMATED > 60; GLUCOSE 127 MG/DL (70-105); MAGNESIUM 2.5 MG/DL (1.6-2.4); PHOSPHORUS 3.2 MG/DL (2.3-4.7); SODIUM 144 MMOL/L (135-145)
--- NOTE | 2019-09-28 05:42 | Pulmonary Progress Note ---
Subjective Time Seen by a Provider: 05:35 Subjective/Events-last exam Sedated on vent. Sepsis Event Evaluation Height, Weight, BMI Height: '" Weight: lbs. oz. kg; 30.65 BMI Method: Focused Exam Lactate Level 09/26/19 18:35: Lactic Acid Level 2.16*H 09/27/19 00:30: Lactic Acid Level 2.47*H 09/27/19 03:08: Lactic Acid Level 2.09*H Exam Exam Vital Signs Date Time Temp Pulse Resp B/P (MAP) Pulse Ox O2 Delivery O2 Flow Rate FiO2 09/28/19 04:12 37.8 09/28/19 04:00 Mechanical Ventilator 45 09/28/19 04:00 65 31 111/59 (76) 91 Mechanical Ventilator 45.00 09/28/19 03:00 65 33 112/57 (75) 92 Mechanical Ventilator 45.00 09/28/19 02:17 64 32 113/55 09/28/19 02:10 64 18 92 45 09/28/19 02:00 64 19 113/55 (74) 92 Mechanical Ventilator 45.00 09/28/19 01:00 62 22 111/56 (74) 94 Mechanical Ventilator 45.00 09/28/19 01:00 62 09/28/19 00:31 64 112/56 09/28/19 00:00 64 16 112/56 (74) 95 Mechanical Ventilator 45.00 09/27/19 23:23 Mechanical Ventilator 45 09/27/19 23:20 37.3 09/27/19 23:00 64 14 114/56 (75) 95 Mechanical Ventilator 45.00 09/27/19 22:09 70 17 95 45 09/27/19 22:00 70 16 116/60 (78) 95 Mechanical Ventilator 45.00 09/27/19 21:00 71 15 117/61 (79) 96 Mechanical Ventilator 45.00 09/27/19 20:27 70 14 113/61 09/27/19 20:26 70 113/61 09/27/19 20:00 70 10 113/61 (78) 94 Mechanical Ventilator 45.00 09/27/19 20:00 37.7 09/27/19 20:00 Mechanical Ventilator 45 09/27/19 19:00 63 09/27/19 19:00 63 13 113/59 (77) 95 Mechanical Ventilator 45.00 09/27/19 18:24 63 21 94 45 09/27/19 18:00 62 17 110/57 (74) 94 Mechanical Ventilator 45.00 09/27/19 17:57 111/55 09/27/19 17:00 61 16 111/55 (73) 94 Mechanical Ventilator 45.00 09/27/19 16:43 Mechanical Ventilator 45 09/27/19 16:29 61 21 95 45 09/27/19 16:00 61 14 108/53 (71) 94 Mechanical Ventilator 45.00 09/27/19 16:00 37.6 09/27/19 15:54 60 10 106/54 09/27/19 15:00 60 10 106/54 (71) 93 Mechanical Ventilator 45.00 09/27/19 14:00 61 13 109/51 (70) 95 Mechanical Ventilator 45.00 09/27/19 13:22 58 103/52 09/27/19 13:00 56 13 103/46 (65) 94 Mechanical Ventilator 45.00 09/27/19 12:28 62 10 102/46 09/27/19 12:05 62 09/27/19 12:01 Mechanical Ventilator 45 09/27/19 12:00 60 10 102/46 (64) 92 Mechanical Ventilator 45.00 09/27/19 11:52 59 21 92 45 09/27/19 11:10 37.2 09/27/19 11:00 61 11 114/58 (76) 93 Mechanical Ventilator 45.00 09/27/19 10:00 64 17 109/54 (72) 93 Mechanical Ventilator 45.00 09/27/19 09:16 67 12 118/61 09/27/19 09:00 67 12 118/61 (80) 91 Mechanical Ventilator 45.00 09/27/19 08:34 71 101/49 09/27/19 08:15 Mechanical Ventilator 45 09/27/19 08:00 71 10 120/63 (82) 93 Mechanical Ventilator 45.00 09/27/19 07:25 71 21 93 45 09/27/19 07:23 71 98/49 09/27/19 07:05 37.8 09/27/19 07:00 71 14 97/52 (67) 92 Mechanical Ventilator 45.00 09/27/19 07:00 72 09/27/19 06:00 71 18 98/49 (65) 89 Mechanical Ventilator 45.00 I & O 09/28/19 07:00 Intake Total 1950 ml Output Total 1850 ml Balance 100 ml Height & Weight Height: '" Weight: lbs. oz. kg; 30.65 BMI Method: General Appearance: Other (sedated on vent) HEENT: Normal ENT Inspection, Other (et and og tube) Neck: Supple Respiratory: Chest Non Tender (lungs coarse) Cardiovascular: Tachycardia Capillary Refill: Less Than 3 Seconds Gastrointestinal: soft; No distended Extremity: Pedal Edema (minimal) Neurologic/Psychiatric: Other (sedated) Skin: Normal Color, Warm/Dry Lymphatic: No Adenopathy (neck) Results Lab Laboratory Tests 09/26/19 06:19 09/27/19 00:30 09/27/19 03:08 09/28/19 03:45 Assessment/Plan Assessment/Plan Acute respiratory failure with PNA -Rocephin and cleocin -Will plan on extubating pt tomorrow morning. -Give 60mg of Lasix x 1 now. -D/C IVF -Vanco d/c'd -Abdalla culture -Cont ventilator care Metabolic acidosis -Check LA -Increase LR to 150 -Monitor Alcoholic dependance -CIWA protocol -Check CMP Acute worsening renal failure -IVF Thrombocytopenia -Monitor Acute GIB with anemia -protonix and octreotide gtt -Repeat H&H later today -Monitor Grade I diastolic CHF JESSICA CRAIAS DO Sep 28, 2019 05:41
[2019-09-28] MEDS: MAGNESIUM 1 GM/100 ML IVPB 100 ML IV SCH (05:50)
[2019-09-28] MEDS: KCL 20 MEQ TAB (K-DUR) PO SCH (05:50)
[2019-09-28] MEDS: POTASSIUM CL 10MEQ/50ML IVPB 50 ML IV SCH ×4 (05:50→07:19)
[2019-09-28] MEDS: inSUlin ASPART (NovoLOG) 1 UNIT/0.01 ML (CHARGE PER UNIT) SC SCH ×3 (05:51→20:57)
--- NOTE | 2019-09-28 06:01 | Diagnostic Imaging Report ---
Indication: Respiratory distress Portable chest 4:55 AM There is ET tube projects over the trachea. Right IJ central line tip projects over the SVC. NG tube appears to enter the stomach. Heart size and pulmonary vascularity are within normal limits. There is some basilar atelectasis. IMPRESSION: Bibasilar atelectasis. No appreciable change from the previous day. Dictated by: Dictated on workstation # [id number]
[2019-09-28] MEDS: cefTRIAXone FOR IV USE 1,000 MG in WATER (STERILE) FOR INJECTION 10 ML IV SCH (06:02)
[2019-09-28] MEDS: CLINDAMYCIN 600 MG/50 ML IVPB 50 ML IV SCH ×3 (06:02→21:32)
[2019-09-28] MEDS ORDERED: FUROSEMIDE 40 MG/4 ML INJ (LASIX) ONE (07:07)
[2019-09-28] MEDS ORDERED: FUROSEMIDE 40 MG/4 ML INJ (LASIX) IVP NR (07:14)
[2019-09-28] MEDS: DexMEDEtomidine 250 ML DRIP 250 ML IV SCH ×3 (07:40→23:31)
--- NOTE | 2019-09-28 07:57 | Physical Therapy Progress Note ---
Therapy Progress Note Patient currently sedated and on mechanical ventilator. PT will continue to monitor patient medical status and initiate treatment when patient is medically stable and able to actively participate with skilled therapy. KAILA HERNANDEZ PT Sep 28, 2019 07:57
--- NOTE | 2019-09-28 11:04 | Occ Therapy Progress Note ---
Therapy Progress Note Pt. continues on ventilator support. Will continue to monitor and evaluate for skilled occupational therapy services when medically stable and able to participate. CORNELIO SINGH OT Sep 28, 2019 11:04
[2019-09-28 11:12] LABS: HEMOGLOBIN 7.6 G/DL (13.3-17.7)
[2019-09-28 11:14] LABS: PARAINFLU 1 PCR Not Detected (Not Detected); PARAINFLU 2 PCR Not Detected (Not Detected); RSV PCR TEST Not Detected (Not Detected)
[2019-09-28] MEDS: RT-ALBUTEROL/IPRATROPIUM 3 ML (DUONEB) VIAL INH SCH ×4 (11:19→21:35)
[2019-09-28] MEDS: PANTOPRAZOLE INJECTION 200 MG in NS (IVPB) 100 ML IV SCH (14:45)
--- NOTE | 2019-09-28 16:11 | OPERATIVE REPORT ---
DATE OF SERVICE: 09/28/2019 PREOPERATIVE DIAGNOSIS: Gastrointestinal bleed upper. POSTOPERATIVE DIAGNOSES: Erosion body of the stomach. No active bleeding. PROCEDURE: EGD with biopsy of the antrum. SURGEON: Shruthi Chappell. ANESTHESIA: Intubated and sedation. ESTIMATED BLOOD LOSS: None. COMPLICATIONS: None. INDICATIONS: The patient is a 59-year-old male intensive care unit. He had a slight drop in his hemoglobin. He previously was not able to have found the source of bleeding. The patient's family was discussed risks and benefits of relooking with EGD and they understand and wish to proceed. Consent was signed in the chart. DESCRIPTION OF PROCEDURE: The patient was already intubated and sedated. Timeout was performed. Scope was inserted in mouth, down the esophagus, stomach and into the duodenum without difficulty. There were no polyps, masses or ulcerations within the duodenum. Scope was then slowly retracted back into the stomach. There were no polyps, masses or ulcerations within the antrum. Scope was retroflexed noting some slight erosions in the body of the stomach. This is most likely source of where his bleeding was. There was no active bleeding at this time. No other pathology noted. Scope was returned to its normal position. Biopsy of the antrum was obtained. Scope was slowly retracted back until withdrawn into the distal esophagus. There were no polyps, masses or ulcerations. Scope was then slowly retracted back until completely removed noting no other pathology. The patient tolerated procedure well without any complications. RECOMMENDATIONS: The patient to continue on current medications. If any significant drop in hemoglobin, we would repeat endoscopy. Job ID: [id number] DocumentID: [id number] Dictated Date: 09/28/2019 15:31:20 Mix Crusher Operator Date: 09/28/2019 16:11:02 Dictated By: SHRUTHI CHAPPELL DO [facility]
--- NOTE | 2019-09-28 17:10 | Progress Note - Surgery ---
Subjective Date Seen by a Provider: Sep 28, 2019 Time Seen by a Provider: 12:03 Subjective/Events-last exam Patient remains intubated and sedated. Patient had drop in hgb and og contents more coffee ground appearance. Hgb down to 7.1 and repeat 7.6. Family at bedside. Focused Exam Lactate Level 09/27/19 00:30: Lactic Acid Level 2.47*H 09/27/19 03:08: Lactic Acid Level 2.09*H 09/28/19 06:10: Lactic Acid Level 1.20 Objective Exam Vital Signs Date Time Temp Pulse Resp B/P (MAP) Pulse Ox O2 Delivery O2 Flow Rate FiO2 09/28/19 16:00 68 16 109/61 (77) 95 Mechanical Ventilator 40.00 09/28/19 15:30 68 106/52 09/28/19 15:30 68 106/52 09/28/19 15:00 68 14 106/52 (70) 94 Mechanical Ventilator 40.00 09/28/19 14:48 65 19 94 35 09/28/19 14:00 61 16 114/55 (74) 95 Mechanical Ventilator 40.00 09/28/19 13:33 Mechanical Ventilator 40.00 09/28/19 13:13 67 14 120/62 09/28/19 13:00 67 14 120/62 (81) 95 Mechanical Ventilator 45.00 09/28/19 12:12 69 09/28/19 12:05 Mechanical Ventilator 55 09/28/19 12:00 68 18 119/62 (81) 92 Mechanical Ventilator 45.00 09/28/19 12:00 37.2 09/28/19 11:30 Mechanical Ventilator 45.00 09/28/19 11:19 68 21 96 45 09/28/19 11:00 96 16 136/86 (103) 97 Mechanical Ventilator 50.00 09/28/19 10:00 64 15 121/66 (84) 95 Mechanical Ventilator 55.00 09/28/19 09:00 64 18 116/62 (80) 96 Mechanical Ventilator 55.00 09/28/19 08:22 Mechanical Ventilator 55 09/28/19 08:20 36.4 09/28/19 08:16 64 17 115/72 09/28/19 08:00 64 17 115/72 (86) 95 Mechanical Ventilator 55.00 09/28/19 07:40 68 110/62 09/28/19 07:40 68 110/62 09/28/19 07:19 68 21 96 45 09/28/19 07:00 64 15 110/62 (78) 95 Mechanical Ventilator 55.00 09/28/19 07:00 65 09/28/19 06:05 Mechanical Ventilator 55.00 09/28/19 06:00 64 15 109/57 (74) 94 Mechanical Ventilator 45.00 09/28/19 05:23 65 17 103/55 (71) 91 Mechanical Ventilator 45.00 09/28/19 04:12 37.8 09/28/19 04:00 Mechanical Ventilator 45 09/28/19 04:00 65 31 111/59 (76) 91 Mechanical Ventilator 45.00 09/28/19 03:00 65 33 112/57 (75) 92 Mechanical Ventilator 45.00 09/28/19 02:17 64 32 113/55 09/28/19 02:10 64 18 92 45 09/28/19 02:00 64 19 113/55 (74) 92 Mechanical Ventilator 45.00 09/28/19 01:00 62 22 111/56 (74) 94 Mechanical Ventilator 45.00 09/28/19 01:00 62 09/28/19 00:31 64 112/56 09/28/19 00:00 64 16 112/56 (74) 95 Mechanical Ventilator 45.00 09/27/19 23:23 Mechanical Ventilator 45 09/27/19 23:20 37.3 09/27/19 23:00 64 14 114/56 (75) 95 Mechanical Ventilator 45.00 09/27/19 22:09 70 17 95 45 09/27/19 22:00 70 16 116/60 (78) 95 Mechanical Ventilator 45.00 09/27/19 21:00 71 15 117/61 (79) 96 Mechanical Ventilator 45.00 09/27/19 20:27 70 14 113/61 09/27/19 20:26 70 113/61 09/27/19 20:00 70 10 113/61 (78) 94 Mechanical Ventilator 45.00 09/27/19 20:00 37.7 09/27/19 20:00 Mechanical Ventilator 45 09/27/19 19:00 63 09/27/19 19:00 63 13 113/59 (77) 95 Mechanical Ventilator 45.00 3/16/20 18:24 63 21 94 45 09/27/19 18:00 62 17 110/57 (74) 94 Mechanical Ventilator 45.00 09/27/19 17:57 111/55 I & O 09/28/19 07:00 Intake Total 2010 ml Output Total 2325 ml Balance -315 ml Capillary Refill : Less Than 3 Seconds General Appearance: No Apparent Distress, Other (sedated and intubated) HEENT: PERRL/EOMI, Other (et and og tube) Neck: Normal Inspection Respiratory: Other (equal chest rise) Cardiovascular: Regular Rate, Rhythm Gastrointestinal: soft, no organomegaly; No distended Extremity: Pedal Edema Neurologic/Psychiatric: Other (intubated and sedated) Skin: Normal Color, Warm/Dry Lymphatic: No Adenopathy Results Lab Laboratory Tests 09/27/19 17:53: Glucometer 144H 09/27/19 23:11: Glucometer 136H 09/28/19 03:45: White Blood Count 9.3, Red Blood Count 2.25L, Hemoglobin 7.1L, Hematocrit 23L, Mean Corpuscular Volume 100H, Mean Corpuscular Hemoglobin 32, Mean Corpuscular Hemoglobin Concent 31L, Red Cell Distribution Width 20.4H, Platelet Count 64L, Mean Platelet Volume 11.6H, Neutrophils (%) (Auto) 59, Lymphocytes (%) (Auto) 28, Monocytes (%) (Auto) 12, Eosinophils (%) (Auto) 2, Basophils (%) (Auto) 0, Neutrophils # (Auto) 5.5, Lymphocytes # (Auto) 2.6, Monocytes # (Auto) 1.1H, Eosinophils # (Auto) 0.1, Basophils # (Auto) 0.0, Sodium Level 144, Potassium Level 4.0, Chloride Level 119H, Carbon Dioxide Level 19L, Anion Gap 6, Blood Urea Nitrogen 30H, Creatinine 1.08, Estimat Glomerular Filtration Rate > 60, BUN/Creatinine Ratio 28, Glucose Level 127H, Calcium Level 6.7L, Phosphorus Level 3.2, Magnesium Level 2.5H, B-Type Natriuretic Peptide 150.7H 09/28/19 03:50: Blood Gas Puncture Site RT Rad, Blood Gas Patient Temperature 37.8, Arterial Blood pH 7.38, Arterial Blood Partial Pressure CO2 36, Arterial Blood Partial Pressure O2 73L, Arterial Blood HCO3 21L, Arterial Blood Total CO2 21.6, Arterial Blood Oxygen Saturation 93L, Arterial Blood Base Excess -3.5L, Jordan Test POS, Blood Gas Ventilator Setting YES, Blood Gas Inspired Oxygen 45% 09/28/19 06:10: Lactic Acid Level 1.20 09/28/19 11:00: Hemoglobin 7.6L, Hematocrit 24L 09/28/19 11:20: Glucometer 136H Microbiology 09/27/19 MRSA Screen - Final, Complete MRSA not isolated 09/26/19 Blood Culture - Preliminary, Resulted No growth Assessment/Plan Assessment/Plan Assessment/Plan GI bleed with anemia-large clots in stomach at time of EGD and did not see any active bleeding Hypotension- monitor Delirium [place] Cirrhotic liver Acute Respiratory Failure Hgb stable Protonix Had drop in hgb, repeat okay but concerned with change of OG tube output. We discussed risks and benefits of having repeat egd and family wishes to proceed. Clinical Quality Measures DVT/VTE Risk/Contraindication: Risk Factor Score Per Nursin RFS Level Per Nursing on Admit: 3=High SHRUTHI BEAULIEU DO Sep 28, 2019 17:10
--- NOTE | 2019-09-28 22:25 | Progress Note ---
Subjective Subjective/Events-last exam Intubated and sedated No O/N events Review of Systems Intubated and sedated Focused Exam Lactate Level 09/27/19 00:30: Lactic Acid Level 2.47*H 09/27/19 03:08: Lactic Acid Level 2.09*H 09/28/19 06:10: Lactic Acid Level 1.20 Objective Exam Last Set of Vital Signs Vital Signs Date Time Temp Pulse Resp B/P (MAP) Pulse Ox O2 Delivery O2 Flow Rate FiO2 09/28/19 22:00 72 14 111/64 (80) 94 Mechanical Ventilator 40.00 09/28/19 21:35 35 09/28/19 20:00 37.3 Capillary Refill : Less Than 3 Seconds I&O Intake and Output 09/28/19 00:00 Intake Total 3010 ml Output Total 2375 ml Balance 635 ml Intake Oral 0 ml IV Total 3010 ml Output Urine Total 2025 ml Gastric Drainage Total 350 ml General: Other (Intubated and Sedated) HEENT: Mucous Memb Moist/[place], Other (dark brown blood draining from OG) Lungs: Clear to Auscultation, Normal Air Movement Heart: Regular Rate, No Murmurs Abdomen: Normal Bowel Sounds, Soft, Other (mild distention) Extremities: Other (4+ pitting edema bilaterally) Results/Procedures Lab Laboratory Tests 09/27/19 23:11: Glucometer 136H 09/28/19 03:45: White Blood Count 9.3, Red Blood Count 2.25L, Hemoglobin 7.1L, Hematocrit 23L, Mean Corpuscular Volume 100H, Mean Corpuscular Hemoglobin 32, Mean Corpuscular Hemoglobin Concent 31L, Red Cell Distribution Width 20.4H, Platelet Count 64L, Mean Platelet Volume 11.6H, Neutrophils (%) (Auto) 59, Lymphocytes (%) (Auto) 28, Monocytes (%) (Auto) 12, Eosinophils (%) (Auto) 2, Basophils (%) (Auto) 0, Neutrophils # (Auto) 5.5, Lymphocytes # (Auto) 2.6, Monocytes # (Auto) 1.1H, Eo sinophils # (Auto) 0.1, Basophils # (Auto) 0.0, Sodium Level 144, Potassium Level 4.0, Chloride Level 119H, Carbon Dioxide Level 19L, Anion Gap 6, Blood Urea Nitrogen 30H, Creatinine 1.08, Estimat Glomerular Filtration Rate > 60, BUN/Creatinine Ratio 28, Glucose Level 127H, Calcium Level 6.7L, Phosphorus Level 3.2, Magnesium Level 2.5H, B-Type Natriuretic Peptide 150.7H 09/28/19 03:50: Blood Gas Puncture Site RT Rad, Blood Gas Patient Temperature 37.8, Arterial Blood pH 7.38, Arterial Blood Partial Pressure CO2 36, Arterial Blood Partial Pressure O2 73L, Arterial Blood HCO3 21L, Arterial Blood Total CO2 21.6, Arterial Blood Oxygen Saturation 93L, Arterial Blood Base Excess -3.5L, Jordan Test POS, Blood Gas Ventilator Setting YES, Blood Gas Inspired Oxygen 45% 09/28/19 06:10: Lactic Acid Level 1.20 09/28/19 11:00: Hemoglobin 7.6L, Hematocrit 24L 09/28/19 11:20: Glucometer 136H 09/28/19 17:47: Glucometer 146H Microbiology 09/27/19 MRSA Screen - Final, Complete MRSA not isolated 09/26/19 Blood Culture - Preliminary, Resulted No growth Assessment/Plan Assessment/Plan (1) Acute respiratory failure Status: Acute Assessment & Plan: 09/26: 2/ to DTs, Dr Srivastava consulted and managing 09/27: Plan to extubate tomorrow Qualifiers: Qualified Codes: J96.00 - Acute respiratory failure, unspecified whether with hypoxia or hypercapnia (2) Delirium tremens Status: Acute Assessment & Plan: 09/26: Currently on Ativan gtts 6mg/hr which was increased from yesterday 09/27: Ativan gtts decreased today to 4 mg/hr, will continue to titrate as tolerated (3) Acute upper GI bleed Status: Acute Assessment & Plan: 09/26: Dr Chappell consulted and managing, patient received 2 Units of pRBCs (4) Anemia due to acute blood loss Status: Acute Assessment & Plan: 09/27: IV iron replacement when patient stabilized (5) Altered mental status Status: Acute Qualifiers: Qualified Codes: R41.0 - Disorientation, unspecified (6) Hyperammonemia Status: Acute (7) Alcohol dependence Status: Acute Qualifiers: Qualified Codes: F10.29 - Alcohol dependence with unspecified alcohol- induced disorder (8) DVT prophylaxis Status: Acute Assessment & Plan: SCDs 2/2 to upper GI bleed Clinical Quality Measures DVT/VTE Risk/Contraindication: Risk Factor Score Per Nursin RFS Level Per Nursing on Admit: 3=High EDDY YOUNGER MD Sep 28, 2019 22:25
[2019-09-29] VITALS (30 sets, daily range): BP systolic 117–193; BP diastolic 59–102
[2019-09-29] MEDS: inSUlin ASPART (NovoLOG) 1 UNIT/0.01 ML (CHARGE PER UNIT) SC SCH ×5 (00:26→23:14)
[2019-09-29] MEDS: PROPOFOL DRIP (ICU) 100 ML IV SCH (01:02)
[2019-09-29] MEDS: RT-ALBUTEROL/IPRATROPIUM 3 ML (DUONEB) VIAL INH SCH ×6 (01:55→22:13)
[2019-09-29 03:16] LABS: ABG BASE EXCESS -3.8 MMOL/L (-2.5-2.5); ABG OXYGEN SATURATION 96 % (94-100); ABG PCO2 36 MMHG (35-45); ABG PH 7.38 (7.37-7.43); ABG PO2 76 MMHG (79-93); ABG TCO2 21.5 MMOL/L (21.0-31.0); ALLENS TEST POSITIVE; INSPIRED O2 40; PATIENT TEMP 37.2; VENTILATOR YES
[2019-09-29 03:20] LABS: BASOPHILS % (AUTO) 0 % (0-10); EOSINOPHILS # (AUTO) 0.1 10^3/uL (0.0-0.3); EOSINOPHILS % (AUTO) 1 % (0-10); HEMATOCRIT 24 % (40-54); HEMOGLOBIN 7.7 G/DL (13.3-17.7); LYMPHOCYTES % (AUTO) 24 % (12-44); MEAN CORPUSCULAR HEMOGLOBIN 32 PG (25-34); MEAN CORPUSCULAR HGB CONC 32 G/DL (32-36); MEAN CORPUSCULAR VOLUME 100 FL (80-99); MEAN PLATELET VOLUME 11.6 FL (7.4-10.4); MONOCYTES # (AUTO) 0.9 X 10^3 (0.0-1.0); MONOCYTES % (AUTO) 11 % (0-12); NEUTROPHILS # (AUTO) 5.4 X 10^3 (1.8-7.8); NEUTROPHILS % (AUTO) 64 % (42-75); PLATELET COUNT 69 10^3/uL (130-400); RED CELL DISTRIBUTION WIDTH 19.7 % (10.0-14.5); WHITE BLOOD COUNT 8.6 10^3/uL (4.3-11.0)
[2019-09-29 03:33] LABS: ALANINE AMINOTRANSFERASE 33 U/L (0-55); ALBUMIN 2.4 GM/DL (3.2-4.5); ALKALINE PHOSPHATASE 97 U/L (40-136); AMMONIA 44 UMOL/L (11-32); BILIRUBIN,TOTAL 1.3 MG/DL (0.1-1.0); BUN/CREATININE RATIO 23; CALCIUM 7.1 MG/DL (8.5-10.1); CARBON DIOXIDE 19 MMOL/L (21-32); CHLORIDE 117 MMOL/L (98-107); CREATININE SERUM 1.05 MG/DL (0.60-1.30); GFR ESTIMATED > 60; GLUCOSE 143 MG/DL (70-105); MAGNESIUM 2.6 MG/DL (1.6-2.4); PHOSPHORUS 3.5 MG/DL (2.3-4.7); POTASSIUM 4.4 MMOL/L (3.6-5.0); SODIUM 143 MMOL/L (135-145); TOTAL PROTEIN 4.9 GM/DL (6.4-8.2); TRIGLYCERIDES 131 MG/DL (<150)
[2019-09-29] MEDS: LORazepam INJECTION FOR DRIP 20 MG in D5W 100 ML IVPB 90 ML IV SCH (03:41)
[2019-09-29] MEDS ORDERED: FUROSEMIDE 40 MG/4 ML INJ (LASIX) IVP ONE (05:15)
--- NOTE | 2019-09-29 05:23 | Pulmonary Progress Note ---
Subjective Time Seen by a Provider: 05:17 Subjective/Events-last exam Sedated on vent Sepsis Event Evaluation Height, Weight, BMI Height: '" Weight: lbs. oz. kg; 30.65 BMI Method: Focused Exam Lactate Level 09/27/19 00:30: Lactic Acid Level 2.47*H 09/27/19 03:08: Lactic Acid Level 2.09*H 09/28/19 06:10: Lactic Acid Level 1.20 Exam Exam Vital Signs Date Time Temp Pulse Resp B/P (MAP) Pulse Ox O2 Delivery O2 Flow Rate FiO2 09/29/19 04:00 37.2 09/29/19 04:00 79 13 123/66 (85) 93 Mechanical Ventilator 35.00 09/29/19 04:00 Mechanical Ventilator 35 09/29/19 03:41 80 09/29/19 03:00 76 15 123/65 (84) 95 Mechanical Ventilator 35.00 09/29/19 02:00 75 32 125/62 (83) 94 Mechanical Ventilator 35.00 09/29/19 01:55 75 17 94 35 09/29/19 01:02 70 09/29/19 01:00 70 14 117/64 (81) 93 Mechanical Ventilator 35.00 09/29/19 01:00 70 09/29/19 00:00 Mechanical Ventilator 35 09/29/19 00:00 71 16 117/59 (78) 94 Mechanical Ventilator 35.00 09/28/19 23:45 37.2 09/28/19 23:31 72 09/28/19 23:00 72 14 119/63 (81) 94 Mechanical Ventilator 35.00 09/28/19 22:23 74 09/28/19 22:00 72 14 111/64 (80) 94 Mechanical Ventilator 35.00 09/28/19 21:35 72 18 94 35 09/28/19 21:00 73 15 123/80 (94) 94 Mechanical Ventilator 35.00 09/28/19 20:00 37.3 09/28/19 20:00 Mechanical Ventilator 35 09/28/19 20:00 72 13 116/62 (80) 94 Mechanical Ventilator 35.00 09/28/19 19:00 72 13 112/52 (72) 93 Mechanical Ventilator 35.00 09/28/19 19:00 72 09/28/19 18:24 67 19 94 35 09/28/19 18:00 69 14 113/55 (74) 93 Mechanical Ventilator 40.00 09/28/19 17:58 65 109/56 09/28/19 17:56 65 15 109/56 09/28/19 17:00 65 15 109/56 (73) 95 Mechanical Ventilator 40.00 09/28/19 16:35 Mechanical Ventilator 45 09/28/19 16:00 68 16 109/61 (77) 95 Mechanical Ventilator 40.00 09/28/19 15:30 68 106/52 09/28/19 15:30 68 106/52 09/28/19 15:00 68 14 106/52 (70) 94 Mechanical Ventilator 40.00 09/28/19 14:48 65 19 94 35 09/28/19 14:00 61 16 114/55 (74) 95 Mechanical Ventilator 40.00 09/28/19 13:33 Mechanical Ventilator 40.00 09/28/19 13:13 67 14 120/62 09/28/19 13:00 67 14 120/62 (81) 95 Mechanical Ventilator 45.00 09/28/19 12:12 69 09/28/19 12:05 Mechanical Ventilator 55 09/28/19 12:00 68 18 119/62 (81) 92 Mechanical Ventilator 45.00 09/28/19 12:00 37.2 09/28/19 11:30 Mechanical Ventilator 45.00 09/28/19 11:19 68 21 96 45 09/28/19 11:00 96 16 136/86 (103) 97 Mechanical Ventilator 50.00 09/28/19 10:00 64 15 121/66 (84) 95 Mechanical Ventilator 55.00 09/28/19 09:00 64 18 116/62 (80) 96 Mechanical Ventilator 55.00 09/28/19 08:22 Mechanical Ventilator 55 09/28/19 08:20 36.4 09/28/19 08:16 64 17 115/72 09/28/19 08:00 64 17 115/72 (86) 95 Mechanical Ventilator 55.00 09/28/19 07:40 68 110/62 09/28/19 07:40 68 110/62 09/28/19 07:19 68 21 96 45 09/28/19 07:00 64 15 110/62 (78) 95 Mechanical Ventilator 55.00 09/28/19 07:00 65 09/28/19 06:05 Mechanical Ventilator 55.00 09/28/19 06:00 64 15 109/57 (74) 94 Mechanical Ventilator 45.00 09/28/19 05:23 65 17 103/55 (71) 91 Mechanical Ventilator 45.00 I & O 09/29/19 07:00 Intake Total 550 ml Output Total 3530 ml Balance -2980 ml Height & Weight Height: '" Weight: lbs. oz. kg; 30.65 BMI Method: General Appearance: No Apparent Distress, Other (sedated and intubated) HEENT: PERRL/EOMI, Other (et and og tube) Neck: Normal Inspection Respiratory: Other (equal chest rise) Cardiovascular: Regular Rate, Rhythm Capillary Refill: Less Than 3 Seconds Gastrointestinal: soft, no organomegaly; No distended Extremity: Pedal Edema Neurologic/Psychiatric: Other (intubated and sedated) Skin: Normal Color, Warm/Dry Lymphatic: No Adenopathy Results Lab Laboratory Tests 09/28/19 03:45 09/28/19 11:00 09/29/19 03:05 Assessment/Plan Assessment/Plan Acute respiratory failure with PNA -Rocephin and cleocin -Will extubate this AM. D/C propofol and Ativan. Continue precedex. -Once pt is awake and alert will extubate. -Give 40mg of Lasix x 1 now. -D/C IVF -Vanco d/c'd -Abdalla culture -Cont ventilator care Metabolic acidosis -Check LA -Increase LR to 150 -Monitor Alcoholic dependance -Last drink was 09/21 -[facility] protocol Acute worsening renal failure -IVF Thrombocytopenia -Monitor Acute GIB with anemia -protonix and octreotide gtt -Repeat H&H later today -Monitor Grade I diastolic CHF JESSICA CARIAS DO Sep 29, 2019 05:23
[2019-09-29] MEDS ORDERED: FUROSEMIDE 40 MG/4 ML INJ (LASIX) ONE (05:33)
[2019-09-29] MEDS: cefTRIAXone FOR IV USE 1,000 MG in WATER (STERILE) FOR INJECTION 10 ML IV SCH (05:45)
[2019-09-29] MEDS: KCL 20 MEQ TAB (K-DUR) PO SCH (06:20)
[2019-09-29] MEDS: POTASSIUM CL 10MEQ/50ML IVPB 50 ML IV SCH (06:20)
[2019-09-29] MEDS: MAGNESIUM 1 GM/100 ML IVPB 100 ML IV SCH (06:20)
[2019-09-29] MEDS: OCTREOTIDE INJECTION 500 MCG in NS (IVPB) 99 ML IV SCH ×2 (06:39→14:37)
--- NOTE | 2019-09-29 07:22 | Diagnostic Imaging Report ---
INDICATION: Ventilator patient with respiratory distress. COMPARISON: 09/28/2019. FINDINGS: ET tube, NG tube and right central line remain in good position. There continues to be basilar atelectasis and/or infiltrates. The upper lungs are clear. Mild cardiomegaly. No pneumothorax. Could not exclude small basilar pleural effusion. IMPRESSION: 1. Continued density lung bases consistent with atelectasis and/or infiltrate. No significant overall change in appearance has occurred. Dictated by: Dictated on workstation # [id number]
--- NOTE | 2019-09-29 07:49 | Physical Therapy Progress Note ---
Therapy Progress Note Patient remains sedated and intubated. PT will continue to monitor. KAILA HERNANDEZ PT Sep 29, 2019 07:49
--- NOTE | 2019-09-29 10:07 | Occ Therapy Progress Note ---
Therapy Progress Note Pt continues to be sedated and on vent, OT will continue to monitor and initiate tx when pt is able to participate in skilled therapy and is more medically stable. CLIFFORD TURCIOS OT Sep 29, 2019 10:07
--- NOTE | 2019-09-29 11:03 | NUR ---
VEL/MARCK visited the patients room. The patient is currently being weaned off of vent and staff is waiting for patient to wake up. The patients Marilynn was present at bedside. She states that they have been for 35 years and their 36th anniversary is this upcoming Friday. She verbalized that she is waiting for him to wake up because they are taking off the vent today. CM/SS informed the patients of the role of social work and what things we can assist with. VEL/MARCK stated that we could not plan for much at this time until we see his functioning level and needs. She verbalized understanding. She reports that she is okay and does not have any questions or concerns at this time. Will continue to follow to assist with any discharge needs.
--- NOTE | 2019-09-29 12:19 | Progress Note - Surgery ---
Subjective Date Seen by a Provider: Sep 29, 2019 Time Seen by a Provider: 08:36 Subjective/Events-last exam On vent and sedated at this time. at bedside. Hgb stable. Focused Exam Lactate Level 09/27/19 00:30: Lactic Acid Level 2.47*H 09/27/19 03:08: Lactic Acid Level 2.09*H 09/28/19 06:10: Lactic Acid Level 1.20 Objective Exam Vital Signs Date Time Temp Pulse Resp B/P (MAP) Pulse Ox O2 Delivery O2 Flow Rate FiO2 09/29/19 10:24 73 19 93 30 09/29/19 09:00 75 16 120/70 (87) 96 Mechanical Ventilator 35.00 09/29/19 08:00 76 15 120/68 (85) 94 Mechanical Ventilator 35.00 09/29/19 07:49 Mechanical Ventilator 35 09/29/19 07:49 37.4 09/29/19 07:41 74 19 94 35 09/29/19 07:00 74 15 120/66 (84) 94 Mechanical Ventilator 35.00 09/29/19 06:40 69 09/29/19 06:00 73 14 128/68 (88) 95 Mechanical Ventilator 35.00 09/29/19 05:00 75 15 123/64 (83) 94 Mechanical Ventilator 35.00 09/29/19 04:00 37.2 09/29/19 04:00 79 13 123/66 (85) 93 Mechanical Ventilator 35.00 09/29/19 04:00 Mechanical Ventilator 35 09/29/19 03:41 80 09/29/19 03:00 76 15 123/65 (84) 95 Mechanical Ventilator 35.00 09/29/19 02:00 75 32 125/62 (83) 94 Mechanical Ventilator 35.00 09/29/19 01:55 75 17 94 35 09/29/19 01:02 70 09/29/19 01:00 70 14 117/64 (81) 93 Mechanical Ventilator 35.00 09/29/19 01:00 70 09/29/19 00:00 Mechanical Ventilator 35 09/29/19 00:00 71 16 117/59 (78) 94 Mechanical Ventilator 35.00 09/28/19 23:45 37.2 09/28/19 23:31 72 09/28/19 23:00 72 14 119/63 (81) 94 Mechanical Ventilator 35.00 09/28/19 22:23 74 09/28/19 22:00 72 14 111/64 (80) 94 Mechanical Ventilator 35.00 09/28/19 21:35 72 18 94 35 09/28/19 21:00 73 15 123/80 (94) 94 Mechanical Ventilator 35.00 09/28/19 20:00 37.3 09/28/19 20:00 Mechanical Ventilator 35 09/28/19 20:00 72 13 116/62 (80) 94 Mechanical Ventilator 35.00 09/28/19 19:00 72 13 112/52 (72) 93 Mechanical Ventilator 35.00 09/28/19 19:00 72 09/28/19 18:24 67 19 94 35 09/28/19 18:00 69 14 113/55 (74) 93 Mechanical Ventilator 40.00 09/28/19 17:58 65 109/56 09/28/19 17:56 65 15 109/56 09/28/19 17:00 65 15 109/56 (73) 95 Mechanical Ventilator 40.00 09/28/19 16:35 Mechanical Ventilator 45 09/28/19 16:00 68 16 109/61 (77) 95 Mechanical Ventilator 40.00 09/28/19 15:30 68 106/52 09/28/19 15:30 68 106/52 09/28/19 15:00 68 14 106/52 (70) 94 Mechanical Ventilator 40.00 09/28/19 14:48 65 19 94 35 09/28/19 14:00 61 16 114/55 (74) 95 Mechanical Ventilator 40.00 09/28/19 13:33 Mechanical Ventilator 40.00 09/28/19 13:13 67 14 120/62 09/28/19 13:00 67 14 120/62 (81) 95 Mechanical Ventilator 45.00 09/28/19 12:12 69 I & O 09/29/19 07:00 Intake Total 550 ml Output Total 3805 ml Balance -3255 ml Capillary Refill : Less Than 3 Seconds General Appearance: No Apparent Distress, Other (sedated and intubated) HEENT: PERRL/EOMI, Other (et and og tube no evidence of blood) Neck: Normal Inspection Respiratory: Other (equal chest rise) Cardiovascular: Regular Rate, Rhythm Gastrointestinal: soft, no organomegaly; No distended Extremity: Pedal Edema Neurologic/Psychiatric: Other (intubated and sedated) Skin: Normal Color, Warm/Dry Lymphatic: No Adenopathy Results Lab Laboratory Tests 09/28/19 17:47: Glucometer 146H 09/28/19 22:55: Glucometer 146H 09/29/19 03:05: White Blood Count 8.6, Red Blood Count 2.39L, Hemoglobin 7.7L, Hematocrit 24L, Mean Corpuscular Volume 100H, Mean Corpuscular Hemoglobin 32, Mean Corpuscular Hemoglobin Concent 32, Red Cell Distribution Width 19.7H, Platelet Count 69L, Mean Platelet Volume 11.6H, Neutrophils (%) (Auto) 64, Lymphocytes (%) (Auto) 24, Monocytes (%) (Auto) 11, Eosinophils (%) (Auto) 1, Basophils (%) (Auto) 0, Neutrophils # (Auto) 5.4, Lymphocytes # (Auto) 2.0, Monocytes # (Auto) 0.9, Eosinophils # (Auto) 0.1, Basophils # (Auto) 0.0, Blood Gas Puncture Site RIGHT RADIAL, Blood Gas Patient Temperature 37.2, Arterial Blood pH 7.38, Arterial Blood Partial Pressure CO2 36, Arterial Blood Partial Pressure O2 76L, Arterial Blood HCO3 20L, Arterial Blood Total CO2 21.5, Arterial Blood Oxygen Saturation 96, Arterial Blood Base Excess -3.8L, Jordan Test POSITIVE, Blood Gas Ventilator Setting YES, Blood Gas Inspired Oxygen 40, Sodium Level 143, Potassium Level 4.4, Chloride Level 117H, Carbon Dioxide Level 19L, Anion Gap 7, Blood Urea Nitrogen 24H, Creatinine 1.05, Estimat Glomerular Filtration Rate > 60, BUN/Creatinine Ratio 23, Glucose Level 143H, Calcium Level 7.1L, Corrected Calcium 8.4L, Phosphorus Level 3.5, Magnesium Level 2.6H, Total Bilirubin 1.3H, Aspartate Amino Transf (AST/SGOT) 65H, Alanine Aminotransferase (ALT/SGPT) 33, Alkaline Phosphatase 97, Ammonia 44H, Total Protein 4.9L, Albumin 2.4L, Triglycerides Level 131 Microbiology 09/27/19 MRSA Screen - Final, Complete MRSA not isolated 09/26/19 Blood Culture - Preliminary, Resulted No growth Assessment/Plan Assessment/Plan Assessment/Plan GI bleed with anemia-upper Hypotension- monitor Delirium Tremens Cirrhotic liver Acute Respiratory Failure Hgb stable Protonix If drop would repeat egd Trying to extubated today Clinical Quality Measures DVT/VTE Risk/Contraindication: Risk Factor Score Per Nursin RFS Level Per Nursing on Admit: 3=High SHRUTHI BEAULIEU DO Sep 29, 2019 12:19
[2019-09-29] MEDS: PANTOPRAZOLE INJECTION 200 MG in NS (IVPB) 100 ML IV SCH (14:37)
[2019-09-29] MEDS: LORazepam INJ 2 MG/ML (ATIVAN) VIAL IV PRN (18:53)
[2019-09-29] MEDS ORDERED: LORazepam INJECTION FOR DRIP 20 MG in D5W 100 ML IVPB 90 ML IV SCH (19:00)
--- NOTE | 2019-09-29 20:27 | Progress Note ---
Subjective Subjective/Events-last exam Patient intubated, sedation has been turned off. Review of Systems Intubated and sedated Focused Exam Lactate Level 09/27/19 00:30: Lactic Acid Level 2.47*H 09/27/19 03:08: Lactic Acid Level 2.09*H 09/28/19 06:10: Lactic Acid Level 1.20 Objective Exam Last Set of Vital Signs Vital Signs Date Time Temp Pulse Resp B/P (MAP) Pulse Ox O2 Delivery O2 Flow Rate FiO2 09/29/19 19:00 105 09/29/19 18:20 21 92 30 09/29/19 18:00 159/86 (110) Mechanical Ventilator 35.00 09/29/19 16:00 37.6 Capillary Refill : Less Than 3 Seconds I&O Intake and Output 09/29/19 00:00 Intake Total 910 ml Output Total 4150 ml Balance -3240 ml Intake Oral 0 ml IV Total 910 ml Output Urine Total 3825 ml Gastric Drainage Total 200 ml Oral Regurgitation 125 ml General: Other (Intubated, sedation turned off, patient not responding yet) HEENT: Mucous Memb Moist/Napoleon, Other (OG with brown old blood ) Lungs: Clear to Auscultation, Normal Air Movement Heart: Regular Rate, No Murmurs Abdomen: Normal Bowel Sounds, Soft, Other (mild distention) Extremities: Other (4+ pitting edema) Results/Procedures Lab Laboratory Tests 09/28/19 22:55: Glucometer 146H 09/29/19 03:05: White Blood Count 8.6, Red Blood Count 2.39L, Hemoglobin 7.7L, Hematocrit 24L, Mean Corpuscular Volume 100H, Mean Corpuscular Hemoglobin 32, Mean Corpuscular Hemoglobin Concent 32, Red Cell Distribution Width 19.7H, Platelet Count 69L, Mean Platelet Volume 11.6H, Neutrophils (%) (Auto) 64, Lymphocytes (%) (Auto) 24, Monocytes (%) (Auto) 11, Eosinophils (%) (Auto) 1, Basophils (%) (Auto) 0, Neutrophils # (Auto) 5.4, Lymphocytes # (Auto) 2.0, Monocytes # (Auto) 0.9, Eosinophils # (Auto) 0.1, Basophils # (Auto) 0.0, Blood Gas Puncture Site RIGHT RADIAL, Blood Gas Patient Temperature 37.2, Arterial Blood pH 7.38, Arterial Blood Partial Pressure CO2 36, Arterial Blood Partial Pressure O2 76L, Arterial Blood HCO3 20L, Arterial Blood Total CO2 21.5, Arterial Blood Oxygen Saturation 96, Arterial Blood Base Excess -3.8L, Jordan Test POSITIVE, Blood Gas Ventilator Setting YES, Blood Gas Inspired Oxygen 40, Sodium Level 143, Potassium Level 4.4, Chloride Level 117H, Carbon Dioxide Level 19L, Anion Gap 7, Blood Urea Nitrogen 24H, Creatinine 1.05, Estimat Glomerular Filtration Rate > 60, BUN/Creatinine Ratio 23, Glucose Level 143H, Calcium Level 7.1L, Corrected Calcium 8.4L, Phosphorus Level 3.5, Magnesium Level 2.6H, Total Bilirubin 1.3H, Aspartate Amino Transf (AST/SGOT) 65H, Alanine Aminotransferase (ALT/SGPT) 33, Alkaline Phosphatase 97, Ammonia 44H, Total Protein 4.9L, Albumin 2.4L, T riglycerides Level 131 09/29/19 12:05: Glucometer 128H 09/29/19 18:21: Glucometer 108 Microbiology 09/27/19 MRSA Screen - Final, Complete MRSA not isolated 09/26/19 Blood Culture - Preliminary, Resulted No growth Assessment/Plan Assessment/Plan (1) Acute respiratory failure Status: Acute Assessment & Plan: 09/26: 2/ to DTs, Dr Srivastava consulted and managing 09/27: Plan to extubate tomorrow 09/28: Sedation off and breathing trial planned for today with goal of extubation Qualifiers: Qualified Codes: J96.00 - Acute respiratory failure, unspecified whether with hypoxia or hypercapnia (2) Delirium tremens Status: Acute Assessment & Plan: 09/26: Currently on Ativan gtts 6mg/hr which was increased from yesterday 09/27: Ativan gtts decreased today to 4 mg/hr, will continue to titrate as tolerated 09/28: Ativan d/c today (3) Acute upper GI bleed Status: Acute Assessment & Plan: 09/26: Dr Chappell consulted and managing, patient received 2 Units of pRBCs 09/28: Hgb stable, continue to monitor, no signs of active bleeding (4) Anemia due to acute blood loss Status: Acute Assessment & Plan: 09/27: IV iron replacement when patient stabilized (5) Altered mental status Status: Acute Qualifiers: Qualified Codes: R41.0 - Disorientation, unspecified (6) Hyperammonemia Status: Acute (7) Alcohol dependence Status: Acute Qualifiers: Qualified Codes: F10.29 - Alcohol dependence with unspecified alcohol-induce d disorder (8) DVT prophylaxis Status: Acute Assessment & Plan: SCDs 2/2 to upper GI bleed Clinical Quality Measures DVT/VTE Risk/Contraindication: Risk Factor Score Per Nursin RFS Level Per Nursing on Admit: 3=High EDDY YOUNGER MD Sep 29, 2019 20:27
[2019-09-29] MEDS ORDERED: ACETAMINOPHEN 650 MG SUPP (TYLENOL) ONE (21:27)
[2019-09-29] MEDS ORDERED: ACETAMINOPHEN 650 MG SUPP (TYLENOL) PR PRN (21:30)
[2019-09-29 22:11] LABS: ABG BASE EXCESS -4.2 MMOL/L (-2.5-2.5); ABG OXYGEN SATURATION 93 % (94-100); ABG PCO2 39 MMHG (35-45); ABG PH 7.35 (7.37-7.43); ABG PO2 84 MMHG (79-93)
[2019-09-29 22:13] LABS: ALLENS TEST YES-POS; INSPIRED O2 45%; PATIENT TEMP 39.6; VENTILATOR YES
[2019-09-29 22:47] LABS: BASOPHILS % (AUTO) 0 % (0-10); EOSINOPHILS # (AUTO) 0.1 10^3/uL (0.0-0.3); EOSINOPHILS % (AUTO) 1 % (0-10); HEMATOCRIT 27 % (40-54); HEMOGLOBIN 8.5 G/DL (13.3-17.7); LYMPHOCYTES # (AUTO) 1.1 X 10^3 (1.0-4.0); LYMPHOCYTES % (AUTO) 7 % (12-44); MEAN CORPUSCULAR HEMOGLOBIN 32 PG (25-34); MEAN CORPUSCULAR HGB CONC 32 G/DL (32-36); MEAN CORPUSCULAR VOLUME 100 FL (80-99); MEAN PLATELET VOLUME 11.5 FL (7.4-10.4); MONOCYTES # (AUTO) 1.8 X 10^3 (0.0-1.0); MONOCYTES % (AUTO) 11 % (0-12); NEUTROPHILS # (AUTO) 13.1 X 10^3 (1.8-7.8); NEUTROPHILS % (AUTO) 81 % (42-75); PLATELET COUNT 97 10^3/uL (130-400); RED CELL DISTRIBUTION WIDTH 19.1 % (10.0-14.5); WHITE BLOOD COUNT 16.1 10^3/uL (4.3-11.0)
[2019-09-29 22:51] LABS: INR 1.3 (0.8-1.4); PROTHROMBIN TIME PATIENT 17.1 SEC (12.2-14.7)
[2019-09-29 22:58] LABS: ALANINE AMINOTRANSFERASE 43 U/L (0-55); ALBUMIN 2.7 GM/DL (3.2-4.5); ALKALINE PHOSPHATASE 142 U/L (40-136); BILIRUBIN,TOTAL 1.7 MG/DL (0.1-1.0); BUN/CREATININE RATIO 23; CALCIUM 7.4 MG/DL (8.5-10.1); CARBON DIOXIDE 19 MMOL/L (21-32); CHLORIDE 117 MMOL/L (98-107); CREATININE SERUM 0.94 MG/DL (0.60-1.30); GFR ESTIMATED > 60; GLUCOSE 135 MG/DL (70-105); SODIUM 146 MMOL/L (135-145); TOTAL PROTEIN 5.3 GM/DL (6.4-8.2)
[2019-09-29 23:30] LABS: ANISOCYTOSIS MARKED; BAND NEUTROPHILS 6 %; BASOPHILS % (MANUAL) 0 %; EOSINOPHILS % (MANUAL) 0 %; LYMPHOCYTES % (MANUAL) 4 %; MONOCYTES % (MANUAL) 9 %; NEUTROPHILS % (MANUAL) 81 %; POLYCHROMASIA MODERATE
--- NOTE | 2019-09-29 23:44 | NUR ---
2142--Tele-ICU notified, updated on pt condition, blood in ETT noted, erratic breathing 2149--Sedation off per Tele-ICU dr, see IV spreadsheet, labs and XRay ordered 2215--Tele-ICU contacted, updated on pt condition 2310--Tele-ICU contacted updated on pt condition, no new orders at this time
[2019-09-30] VITALS (30 sets, daily range): BP systolic 107–188; BP diastolic 72–107
[2019-09-30] MEDS: OCTREOTIDE INJECTION 500 MCG in NS (IVPB) 99 ML IV SCH ×3 (00:36→19:52)
[2019-09-30] MEDS: RT-ALBUTEROL/IPRATROPIUM 3 ML (DUONEB) VIAL INH SCH ×5 (02:02→22:17)
[2019-09-30 03:43] LABS: BASOPHILS % (AUTO) 0 % (0-10); EOSINOPHILS # (AUTO) 0.1 10^3/uL (0.0-0.3); EOSINOPHILS % (AUTO) 0 % (0-10); HEMATOCRIT 26 % (40-54); HEMOGLOBIN 8.3 G/DL (13.3-17.7); LYMPHOCYTES # (AUTO) 1.7 X 10^3 (1.0-4.0); LYMPHOCYTES % (AUTO) 10 % (12-44); MEAN CORPUSCULAR HEMOGLOBIN 32 PG (25-34); MEAN CORPUSCULAR HGB CONC 32 G/DL (32-36); MEAN CORPUSCULAR VOLUME 100 FL (80-99); MEAN PLATELET VOLUME 11.4 FL (7.4-10.4); MONOCYTES # (AUTO) 1.6 X 10^3 (0.0-1.0); MONOCYTES % (AUTO) 9 % (0-12); NEUTROPHILS # (AUTO) 13.8 X 10^3 (1.8-7.8); NEUTROPHILS % (AUTO) 81 % (42-75); PLATELET COUNT 103 10^3/uL (130-400); WHITE BLOOD COUNT 17.1 10^3/uL (4.3-11.0)
[2019-09-30 03:53] LABS: ABG BASE EXCESS -3.4 MMOL/L (-2.5-2.5); ABG OXYGEN SATURATION 98 % (94-100); ABG PCO2 32 MMHG (35-45); ABG PH 7.42 (7.37-7.43); ABG PO2 141 MMHG (79-93); ABG TCO2 21.3 MMOL/L (21.0-31.0)
[2019-09-30 03:58] LABS: MAGNESIUM 2.2 MG/DL (1.6-2.4); POTASSIUM 4.2 MMOL/L (3.6-5.0)
[2019-09-30 04:00] LABS: ALLENS TEST POSITIVE; INSPIRED O2 45; PATIENT TEMP 37.1; VENTILATOR YES
[2019-09-30 04:13] LABS: AMMONIA 46 UMOL/L (11-32); BUN/CREATININE RATIO 25; CALCIUM 7.4 MG/DL (8.5-10.1); CARBON DIOXIDE 20 MMOL/L (21-32); CHLORIDE 116 MMOL/L (98-107); CREATININE SERUM 0.83 MG/DL (0.60-1.30); GFR ESTIMATED > 60; GLUCOSE 133 MG/DL (70-105); SODIUM 144 MMOL/L (135-145)
[2019-09-30] MEDS ORDERED: PHARMACY TO DOSE IV SCH (04:30)
[2019-09-30 04:32] LABS: ANISOCYTOSIS SLIGHT; EOSINOPHILS % (MANUAL) 1 %; HYPOCHROMASIA SLIGHT; LYMPHOCYTES % (MANUAL) 10 %; MONOCYTES % (MANUAL) 7 %; NEUTROPHILS % (MANUAL) 82 %; POIKILOCYTOSIS SLIGHT; POLYCHROMASIA SLIGHT
[2019-09-30 04:33] LABS: BURR CELLS SLIGHT; TEAR DROP CELLS SLIGHT
--- NOTE | 2019-09-30 04:41 | Pulmonary Progress Note ---
Subjective Time Seen by a Provider: 04:35 Subjective/Events-last exam Pt is unresponsive Sepsis Event Evaluation Height, Weight, BMI Height: '" Weight: lbs. oz. kg; 30.65 BMI Method: Focused Exam Lactate Level 09/28/19 06:10: Lactic Acid Level 1.20 09/30/19 03:33: Lactic Acid Level 2.26*H Lactic Acid Level Laboratory Tests Test 09/30/19 03:33 Lactic Acid Level 2.26 MMOL/L (0.50-2.00) *H Exam Exam Vital Signs Date Time Temp Pulse Resp B/P (MAP) Pulse Ox O2 Delivery O2 Flow Rate FiO2 09/30/19 04:00 37.2 99 15 152/103 (119) 96 Mechanical Ventilator 40.00 09/30/19 04:00 Mechanical Ventilator 40 09/30/19 03:47 Mechanical Ventilator 40.00 09/30/19 03:00 37.0 87 16 151/85 (107) 97 Mechanical Ventilator 45.00 09/30/19 02:03 82 29 97 45 09/30/19 02:00 36.9 85 17 135/85 (102) 97 Mechanical Ventilator 45.00 09/30/19 01:00 36.8 82 15 131/84 (100) 97 Mechanical Ventilator 45.00 09/30/19 01:00 82 09/30/19 00:00 Mechanical Ventilator 45 09/30/19 00:00 37.7 85 13 134/73 (93) 93 Mechanical Ventilator 45.00 09/29/19 23:00 38.5 90 21 154/94 (114) 94 Mechanical Ventilator 45.00 09/29/19 22:14 91 20 93 45 09/29/19 22:12 39.2 09/29/19 22:00 39.5 95 16 155/79 (104) 93 Mechanical Ventilator 45.00 09/29/19 21:35 39.7 09/29/19 21:00 40.0 104 20 167/95 (119) 94 Mechanical Ventilator 45.00 09/29/19 20:45 40.2 09/29/19 20:30 40.2 Mechanical Ventilator 45.00 09/29/19 20:25 105 19 188/102 09/29/19 20:15 40.3 09/29/19 20:00 40.1 104 20 188/102 (130) 93 Mechanical Ventilator 40.00 09/29/19 20:00 Mechanical Ventilator 40 09/29/19 19:00 Mechanical Ventilator 40.00 09/29/19 19:00 104 20 193/95 (127) 91 Mechanical Ventilator 40.00 09/29/19 19:00 105 09/29/19 18:20 89 21 92 30 09/29/19 18:00 87 20 159/86 (110) 92 Mechanical Ventilator 35.00 09/29/19 17:00 87 29 137/83 (101) 93 Mechanical Ventilator 35.00 09/29/19 16:00 84 22 135/75 (95) 96 Mechanical Ventilator 35.00 09/29/19 16:00 Mechanical Ventilator 35 09/29/19 16:00 37.6 09/29/19 15:00 80 36 137/86 (103) 97 Mechanical Ventilator 35.00 09/29/19 14:00 76 16 125/66 (85) 97 Mechanical Ventilator 35.00 09/29/19 13:55 76 20 96 30 09/29/19 13:00 75 15 121/68 (85) 95 Mechanical Ventilator 35.00 09/29/19 12:39 75 09/29/19 12:00 76 13 119/78 (92) 95 Mechanical Ventilator 35.00 09/29/19 12:00 36.9 09/29/19 12:00 Mechanical Ventilator 35 09/29/19 11:00 76 14 120/70 (87) 94 Mechanical Ventilator 35.00 09/29/19 10:24 73 19 93 30 09/29/19 10:00 73 33 120/70 (87) 95 Mechanical Ventilator 35.00 09/29/19 09:00 75 16 120/70 (87) 96 Mechanical Ventilator 35.00 09/29/19 08:00 76 15 120/68 (85) 94 Mechanical Ventilator 35.00 09/29/19 07:49 Mechanical Ventilator 35 09/29/19 07:49 37.4 09/29/19 07:41 74 19 94 35 09/29/19 07:00 74 15 120/66 (84) 94 Mechanical Ventilator 35.00 09/29/19 06:40 69 09/29/19 06:00 73 14 128/68 (88) 95 Mechanical Ventilator 35.00 09/29/19 05:00 75 15 123/64 (83) 94 Mechanical Ventilator 35.00 I & O 09/30/19 07:00 Intake Total 100 ml Output Total 2285 ml Balance -2185 ml Height & Weight Height: '" Weight: lbs. oz. kg; 30.65 BMI Method: General Appearance: No Apparent Distress, Other (sedated and intubated) HEENT: PERRL/EOMI, Other (et and og tube no evidence of blood) Neck: Normal Inspection Respiratory: Other (equal chest rise) Cardiovascular: Regular Rate, Rhythm Capillary Refill: Greater Than 3 Seconds Gastrointestinal: soft, no organomegaly; No distended Extremity: Pedal Edema Neurologic/Psychiatric: Other (intubated and sedated) Skin: Normal Color, Warm/Dry Lymphatic: No Adenopathy Results Lab Laboratory Tests 09/28/19 11:00 09/29/19 03:05 09/29/19 22:35 09/30/19 03:33 Assessment/Plan Assessment/Plan Acute respiratory failure with PNA -Rocephin and cleocin -D/C propofol and Ativan and precedex -Once pt is awake and alert will extubate. -D/c CIWA protocol for now and monitor close for signs of withdrawal -D/C IVF -Vanco d/c'd -Boone culture -Cont ventilator care Metabolic Lactic acidosis -Recheck procalcitonin -Repeat boone cultures - LR to 150 -Give liter bolus of LR -Monitor Hepatic encephalopathy - doubt meningitis however worsening leukocytosis, LA and fever -Add Levaquin and Vanco -Increase rocephin to 2gms IV daily -Repeat boone cultures and check PCT -Add lactulose, and rifaxamine -May need NG after extubation for continuation of lactulose. Currently pt has OG Alcoholic dependance -Last drink was 09/21 -CIWA protocol Acute worsening renal failure -IVF Thrombocytopenia -Monitor Acute GIB with anemia -protonix and octreotide gtt -Repeat H&H later today -Monitor Grade I diastolic CHF JESSICA CARIAS DO Sep 30, 2019 04:41
[2019-09-30] MEDS ORDERED: LACTATED RINGERS 1,000 ML IV SCH (04:45)
[2019-09-30] MEDS ORDERED: cefTRIAXone 2 GM IV (ROCEPHIN) VIAL ONE (04:48)
[2019-09-30] MEDS ORDERED: WATER (STERILE) FOR INJECTION 20 ML ONE (04:48)
[2019-09-30] MEDS: cefTRIAXone FOR IV USE 2,000 MG in WATER (STERILE) FOR INJECTION 20 ML IV SCH (04:59)
[2019-09-30] MEDS: MAGNESIUM 1 GM/100 ML IVPB 100 ML IV SCH (05:00)
[2019-09-30] MEDS: POTASSIUM CL 10MEQ/50ML IVPB 50 ML IV SCH (05:00)
[2019-09-30] MEDS: LACTATED RINGERS 1,000 ML IV SCH ×3 (05:00→17:50)
[2019-09-30] MEDS: KCL 20 MEQ TAB (K-DUR) PO SCH (05:00)
[2019-09-30] MEDS ORDERED: VANCOMYCIN 2000 MG/NS 500 ML IVPB IV ONE ×2 (05:30)
[2019-09-30] MEDS: inSUlin ASPART (NovoLOG) 1 UNIT/0.01 ML (CHARGE PER UNIT) SC SCH ×4 (06:09→23:26)
[2019-09-30 06:20] LABS: BILIRUBIN,URINE NEGATIVE (NEGATIVE); CLARITY,URINE SL CLOUDY; COLOR,URINE AMBER; GLUCOSE, URINE (UA) NEGATIVE (NEGATIVE); KETONES,URINE NEGATIVE (NEGATIVE); LEUKOCYTE ESTERASE ,URINE NEGATIVE (NEGATIVE); NITRITE,URINE NEGATIVE (NEGATIVE); PH,URINE 5.5 (5-9); PROTEIN,URINE NEGATIVE (NEGATIVE)
[2019-09-30 06:30] LABS: AMORPHOUS SEDIMENT,UR RARE AMOR URATES /LPF; BACTERIA,URINE TRACE /HPF
[2019-09-30 06:31] LABS: URIC ACID CRYSTALS,URINE FEW /LPF; URINE OTHER NO /HPF
--- NOTE | 2019-09-30 06:32 | Diagnostic Imaging Report ---
INDICATION: Respiratory failure COMPARISON: Imaging from the same date TECHNIQUE: Single radiograph of the chest dated 09/29/2019 FINDINGS: Endotracheal tube, enteric catheter, and right IJ central venous catheter are stable. The cardiac silhouette is enlarged, though stable. Worsening small bibasilar pleural-parenchymal opacities are identified. No pneumothorax. No acute osseous abnormality. IMPRESSION: Worsening bibasilar pleural-parenchymal opacities, felt to relate to a combination of pleural fluid with adjacent atelectasis and/or infiltrate. Unchanged lines and tubes. Stable cardiomegaly. Dictated by: Dictated on workstation # [id number]
--- NOTE | 2019-09-30 07:48 | Diagnostic Imaging Report ---
INDICATION: Dyspnea COMPARISON: 09/29/2019 TECHNIQUE: Single radiograph chest dated 09/30/2019. FINDINGS: Endotracheal tube, enteric catheter, and right IJ central venous catheter are stable. The cardiac silhouette is stable. No significant pulmonary vascular congestion. Improved aeration of the lungs with improved though persistent right greater than left small bibasilar pleural-parenchymal opacities. No pneumothorax. No acute osseous abnormality. IMPRESSION: Improved aeration of the lungs with improved though persistent small right greater than left pleural-parenchymal opacities. Unchanged lines and tubes. Dictated by: Dictated on workstation # [id number]
--- NOTE | 2019-09-30 07:54 | Physical Therapy Progress Note ---
Therapy Progress Note Patient currently sedated/unresponsive and intubated. PT will continue to monitor patient status. KAILA HERNANDEZ PT Sep 30, 2019 07:54
[2019-09-30] MEDS: LEVOFLOXACIN 750 MG/150 ML IV 150 ML IV SCH (08:20)
[2019-09-30] MEDS: RIFAXIMIN 550 MG TABLET (XIFAXAN) PO SCH ×2 (08:20→20:12)
[2019-09-30] MEDS: LACTULOSE SYRUP 10GM/15ML (ENULOSE) 30ML UDC PO SCH ×2 (08:21→20:12)
--- NOTE | 2019-09-30 09:50 | NUR ---
VANCOMYCIN DOSING SCR 0.83; ADJ BW 87 KG; CRCL ~ 120; DOSE VANC 20 MG/KG X 108 KG ~ 2 GM THEN VANC 15 MG/KG ~ 1750 MG Q12H CHECK TROUGH LEVEL AFTER 3RD DOSE 10/01 1999 HOLD DOSE AND CONTACT PHARMACY IF LEVEL IS GREATER THAN 20
--- NOTE | 2019-09-30 12:15 | NUR ---
THIS NURSE NOTIFIED DR DE LEON PT IS STILL HAVING TACHYPNEA AND VERY LABORED BREATHING WITH USE OF ABD MUSCLES. PT IS STILL UNRESPONSIVE AT THIS TIME. DR DE LEON IS TO CALL BACK AFTER LOOKING THROUGH CHART.
[2019-09-30] MEDS ORDERED: RT-ALBUTEROL/IPRATROPIUM 3 ML (DUONEB) VIAL INH SCH (12:30)
[2019-09-30] MEDS ORDERED: DexMEDEtomidine 250 ML DRIP 250 ML IV SCH (12:30)
[2019-09-30] MEDS: DexMEDEtomidine 250 ML DRIP 250 ML IV SCH (12:35)
--- NOTE | 2019-09-30 12:39 | Occ Therapy Progress Note ---
Therapy Progress Note Pt remains sedated/unresponsive and intubated, OT will continue to monitor pt status. CLIFFORD TURCIOS OT Sep 30, 2019 12:39
--- NOTE | 2019-09-30 12:45 | NUR ---
THIS NURSE NOTIFIED DR BEAULIEU PT STOOL IS BLACK. PT IS ALSO COUGHING UP BLOOD TINGED SPUTUM. NO NEW ORDERS AT THIS TIME. WILL CONTINUE TO MONITOR.
[2019-09-30] MEDS ORDERED: RT-ALBUTEROL SULF 2.5 MG/3 ML PRE-MIX VIAL INH NR (13:18)
[2019-09-30] MEDS ORDERED: RT-ALBUTEROL/IPRATROPIUM 3 ML (DUONEB) VIAL INH NR (13:19)
[2019-09-30 15:39] LABS: ABG BASE EXCESS -3.4 MMOL/L (-2.5-2.5); ABG OXYGEN SATURATION 93 % (94-100); ABG PCO2 33 MMHG (35-45); ABG PH 7.41 (7.37-7.43); ABG PO2 68 MMHG (79-93); ABG TCO2 21.4 MMOL/L (21.0-31.0)
[2019-09-30 15:40] LABS: ALLENS TEST YES-POS; INSPIRED O2 40; PATIENT TEMP 37.2; VENTILATOR YES
[2019-09-30] MEDS: PANTOPRAZOLE INJECTION 200 MG in NS (IVPB) 100 ML IV SCH (15:40)
--- NOTE | 2019-09-30 19:32 | Progress Note - Surgery ---
Subjective Date Seen by a Provider: Sep 30, 2019 Time Seen by a Provider: 12:48 Subjective/Events-last exam Remains intubated. at bedside. Patient hgb stable. Family with no new questions. Focused Exam Lactate Level 09/28/19 06:10: Lactic Acid Level 1.20 09/30/19 03:33: Lactic Acid Level 2.26*H 09/30/19 07:23: Lactic Acid Level 1.71 Objective Exam Vital Signs Date Time Temp Pulse Resp B/P (MAP) Pulse Ox O2 Delivery O2 Flow Rate FiO2 09/30/19 19:18 36.8 09/30/19 18:39 89 20 95 35 09/30/19 18:00 92 33 130/78 (95) 96 Mechanical Ventilator 40.00 09/30/19 18:00 37.1 09/30/19 17:00 37.1 09/30/19 17:00 92 19 127/73 (91) 96 Mechanical Ventilator 40.00 09/30/19 16:59 121 25 96 100 09/30/19 16:02 93 Mechanical Ventilator 35 09/30/19 16:00 95 12 107/72 (84) 95 Mechanical Ventilator 40.00 09/30/19 15:36 36.6 09/30/19 15:00 93 12 121/72 (88) 95 Mechanical Ventilator 40.00 09/30/19 14:00 105 18 157/88 (111) 99 Mechanical Ventilator 40.00 09/30/19 13:54 105 18 94 35 09/30/19 13:00 36.4 112 29 173/90 (117) 93 Mechanical Ventilator 40.00 09/30/19 12:40 114 09/30/19 12:35 144/93 09/30/19 12:00 36.3 114 16 156/90 (112) 93 Mechanical Ventilator 40.00 09/30/19 11:53 93 Mechanical Ventilator 35 09/30/19 11:51 36.3 09/30/19 11:00 36.6 121 17 95 Mechanical Ventilator 40.00 09/30/19 10:16 112 30 95 35 09/30/19 10:00 37.0 108 26 177/95 (122) 95 Mechanical Ventilator 40.00 09/30/19 09:00 37.0 110 34 147/87 (107) 94 Mechanical Ventilator 40.00 09/30/19 08:00 37.3 105 21 163/85 (111) 95 Mechanical Ventilator 40.00 09/30/19 08:00 95 Mechanical Ventilator 35 09/30/19 08:00 37.2 09/30/19 07:00 37.2 107 39 176/104 (128) 95 Mechanical Ventilator 40.00 09/30/19 07:00 37.3 09/30/19 06:51 106 19 95 35 09/30/19 06:40 108 09/30/19 06:20 Mechanical Ventilator 35.00 09/30/19 06:00 37.1 101 29 170/104 (126) 97 Mechanical Ventilator 40.00 09/30/19 05:00 37.2 109 15 168/91 (116) 95 Mechanical Ventilator 40.00 09/30/19 04:00 37.2 99 15 152/103 (119) 96 Mechanical Ventilator 40.00 09/30/19 04:00 Mechanical Ventilator 40 09/30/19 03:47 Mechanical Ventilator 40.00 09/30/19 03:00 37.0 87 16 151/85 (107) 97 Mechanical Ventilator 45.00 09/30/19 02:03 82 29 97 45 09/30/19 02:00 36.9 85 17 135/85 (102) 97 Mechanical Ventilator 45.00 09/30/19 01:00 36.8 82 15 131/84 (100) 97 Mechanical Ventilator 45.00 09/30/19 01:00 82 09/30/19 00:00 Mechanical Ventilator 45 09/30/19 00:00 37.7 85 13 134/73 (93) 93 Mechanical Ventilator 45.00 09/29/19 23:00 38.5 90 21 154/94 (114) 94 Mechanical Ventilator 45.00 09/29/19 22:14 91 20 93 45 09/29/19 22:12 39.2 09/29/19 22:00 39.5 95 16 155/79 (104) 93 Mechanical Ventilator 45.00 09/29/19 21:35 39.7 09/29/19 21:00 40.0 104 20 167/95 (119) 94 Mechanical Ventilator 45.00 09/29/19 20:45 40.2 09/29/19 20:30 40.2 Mechanical Ventilator 45.00 09/29/19 20:25 105 19 188/102 09/29/19 20:15 40.3 09/29/19 20:00 40.1 104 20 188/102 (130) 93 Mechanical Ventilator 40.00 09/29/19 20:00 Mechanical Ventilator 40 I & O 09/30/19 07:00 Intake Total 100 ml Output Total 2585 ml Balance -2485 ml Capillary Refill : Less Than 3 Seconds General Appearance: Other (intubated) HEENT: PERRL/EOMI, Other (et and og tube no evidence of blood) Neck: Normal Inspection Respiratory: Other (equal chest rise) Cardiovascular: Regular Rate, Rhythm Gastrointestinal: soft, no organomegaly, distended (minimal) Extremity: Pedal Edema Neurologic/Psychiatric: No Alert; Other (intubated ) Skin: Normal Color, Warm/Dry Lymphatic: No Adenopathy Results Lab Laboratory Tests 09/29/19 21:59: Blood Gas Puncture Site RR, Blood Gas Patient Temperature 39.6, Arterial Blood pH 7.35L, Arterial Blood Partial Pressure CO2 39, Arterial Blood Partial Pressure O2 84, Arterial Blood HCO3 20L, Arterial Blood Total CO2 21.0, Arterial Blood Oxygen Saturation 93L, Arterial Blood Base Excess -4.2L, Jordan Test YES- POS, Blood Gas Ventilator Setting YES, Blood Gas Inspired Oxygen 45% 09/29/19 22:35: White Blood Count 16.1H, Red Blood Count 2.67L, Hemoglobin 8.5L, Hematocrit 27L, Mean Corpuscular Volume 100H, Mean Corpuscular Hemoglobin 32, Mean Corpuscular Hemoglobin Concent 32, Red Cell Distribution Width 19.1H, Platelet Count 97L, Mean Platelet Volume 11.5H, Neutrophils (%) (Auto) 81H, Lymphocytes (%) (Auto) 7L, Monocytes (%) (Auto) 11, Eosinophils (%) (Auto) 1, Basophils (%) (Auto) 0, Neutrophils # (Auto) 13.1H, Lymphocytes # (Auto) 1.1, Monocytes # (Auto) 1.8H, Eosinophils # (Auto) 0.1, Basophils # (Auto) 0.0, Neutrophils % (Manual) 81, Lymphocytes % (Manual) 4, Monocytes % (Manual) 9, Eosinophils % (Manual) 0, Basophils % (Manual) 0, Band Neutrophils 6, Polychromasia MODERATE, Anisocytosis MARKED, Prothrombin Time 17.1H, INR Comment 1.3, Activated Partial Thromboplast Time 36H, Sodium Level 146H, Potassium Level 4.0, Chloride Level 117H, Carbon Dioxide Level 19L, Anion Gap 10, Blood Urea Nitrogen 22H, Creatinine 0.94, Estimat Glomerular Filtration Rate > 60, BUN/Creatinine Ratio 23, Glucose Level 135H, Calcium Level 7.4L, Corrected Calcium 8.4L, Total Bilirubin 1.7H, Aspartate Amino Transf (AST/SGOT) 83H, Alanine Aminotransferase (ALT/SGPT) 43, Alkaline Phosphatase 142H, Total Protein 5.3L, Albumin 2.7L 09/29/19 23:10: Glucometer 127H 09/30/19 03:33: White Blood Count 17.1H, Red Blood Count 2.62L, Hemoglobin 8.3L, Hematocrit 26L, Mean Corpuscular Volume 100H, Mean Corpuscular Hemoglobin 32, Mean Corpuscular Hemoglobin Concent 32, Red Cell Distribution Width 19.0H, Platelet Count 103L, Mean Platelet Volume 11.4H, Neutrophils (%) (Auto) 81H, Lymphocytes (%) (Auto) 10L, Monocytes (%) (Auto) 9, Eosinophils (%) (Auto) 0, Basophils (%) (Auto) 0, Neutrophils # (Auto) 13.8H, Lymphocytes # (Auto) 1.7, Monocytes # (Auto) 1.6H, Eosinophils # (Auto) 0.1, Basophils # (Auto) 0.0, Neutrophils % (Manual) 82, Lymphocytes % (Manual) 10, Monocytes % (Manual) 7, Eosinophils % (Manual) 1, Feliz ychromasia SLIGHT, Anisocytosis SLIGHT, Sodium Level 144, Potassium Level 4.2, Chloride Level 116H, Carbon Dioxide Level 20L, Anion Gap 8, Blood Urea Nitrogen 21H, Creatinine 0.83, Estimat Glomerular Filtration Rate > 60, BUN/Creatinine Ratio 25, Glucose Level 133H, Calcium Level 7.4L, Hypochromasia SLIGHT, Poikilocytosis SLIGHT, Macrocytosis SLIGHT, Tear Drop Cells SLIGHT, [place] Cells SLIGHT, Lactic Acid Level 2.26*H, Phosphorus Level 3.0, Magnesium Level 2.2, Ammonia 46H, Procalcitonin 1.42H 09/30/19 03:45: Blood Gas Puncture Site RIGHT RADIAL, Blood Gas Patient Temperature 37.1, Arterial Blood pH 7.42, Arterial Blood Partial Pressure CO2 32L, Arterial Blood Partial Pressure O2 141H, Arterial Blood HCO3 20L, Arterial Blood Total CO2 21.3, Arterial Blood Oxygen Saturation 98, Arterial Blood Base Excess -3.4L, Jordan Test POSITIVE, Blood Gas Ventilator Setting YES, Blood Gas Inspired Oxygen 45 09/30/19 05:10: Urine Color AMBERH, Urine Clarity SL CLOUDY, Urine pH 5.5, Urine Specific Sterling >=1.030, Urine Protein NEGATIVE, Urine Glucose (UA) NEGATIVE, Urine Ketones NEGATIVE, Urine Nitrite NEGATIVE, Urine Bilirubin NEGATIVE, Urine Urobilinogen 0.2, Urine Leukocyte Esterase NEGATIVE, Urine RBC (Auto) 2+H, Urine RBC 5-10H, Urine WBC NONE, Urine Squamous Epithelial Cells NONE, Urine Crystals PRESENTH, Urine Uric Acid Crystals FEWH, Urine Amorphous Sediment RARE DELIO URATESH, Urine Bacteria TRACE, Urine Casts NONE, Urine Mucus SMALLH, Urine Other NO, Urine Culture Indicated NO 09/30/19 07:23: Lactic Acid Level 1.71 09/30/19 10:34: Stool Occult Blood Immunoassay POSITIVEH 09/30/19 11:19: Glucometer 124H 09/30/19 15:35: Blood Gas Puncture Site RT RAD, Blood Gas Patient Temperature 37.2, Arterial Blood pH 7.41, Arterial Blood Partial Pressure CO2 33L, Arterial Blood Partial Pressure O2 68L, Arterial Blood HCO3 20L, Arterial Blood Total CO2 21.4, Arterial Blood Oxygen Saturation 93L, Arterial Blood Base Excess -3.4L, Jordan Test YES-POS, Blood Gas Ventilator Setting YES, Blood Gas Inspired Oxygen 40 09/30/19 18:11: Glucometer 126H Microbiology 09/30/19 Influenza Types A,B Antigen (OCTAVIANO) - Final, Complete 09/26/19 Blood Culture - Preliminary, Resulted No growth Assessment/Plan Assessment/Plan Assessment/Plan GI bleed with anemia-upper Hypotension- monitor Delirium Tremens Cirrhotic liver Acute Respiratory Failure Hgb stable Protonix If drop would repeat egd, continue medical management Clinical Quality Measures DVT/VTE Risk/Contraindication: Risk Factor Score Per Nursin RFS Level Per Nursing on Admit: 3=High SHRUTHI BEAULIEU DO Sep 30, 2019 19:32
[2019-09-30] MEDS: VANCOMYCIN 1,750 MG/NS 500 ML IVPB IV SCH ×2 (20:12)
--- NOTE | 2019-09-30 22:08 | Progress Note ---
Subjective Subjective/Events-last exam Intubated and sedation has been turned off. Patient unresponsive Review of Systems Intubated and unresponsive Focused Exam Lactate Level 09/28/19 06:10: Lactic Acid Level 1.20 09/30/19 03:33: Lactic Acid Level 2.26*H 09/30/19 07:23: Lactic Acid Level 1.71 Objective Exam Last Set of Vital Signs Vital Signs Date Time Temp Pulse Resp B/P (MAP) Pulse Ox O2 Delivery O2 Flow Rate FiO2 09/30/19 21:35 90 121/89 09/30/19 20:00 Mechanical Ventilator 35 09/30/19 19:18 36.8 09/30/19 18:39 20 95 09/30/19 18:00 40.00 Capillary Refill : Less Than 3 Seconds I&O Intake and Output 09/30/19 00:00 Intake Total 0 ml Output Total 2605 ml Balance -2605 ml Intake Oral 0 ml Output Urine Total 2605 ml General: Other (Intubated, unresponsive) Lungs: Clear to Auscultation, Other (Belly breathing) Heart: Regular Rate, No Murmurs Abdomen: Normal Bowel Sounds, Soft Extremities: Other (4 + pitting edema in all extremities) Results/Procedures Lab Laboratory Tests 09/29/19 22:35: White Blood Count 16.1H, Red Blood Count 2.67L, Hemoglobin 8.5L, Hematocrit 27L, Mean Corpuscular Volume 100H, Mean Corpuscular Hemoglobin 32, Mean Corpuscular Hemoglobin Concent 32, Red Cell Distribution Width 19.1H, Platelet Count 97L, Mean Platelet Volume 11.5H, Neutrophils (%) (Auto) 81H, Lymphocytes (%) (Auto) 7L, Monocytes (%) (Auto) 11, Eosinophils (%) (Auto) 1, Basophils (%) (Auto) 0, Neutrophils # (Auto) 13.1H, Lymphocytes # (Auto) 1.1, Monocytes # (Auto) 1.8H, Eosinophils # (Auto) 0.1, Basophils # (Auto) 0.0, Neutrophils % (Manual) 81, Lymphocytes % (Manual) 4, Monocytes % (Manual) 9, Eosinophils % (Manual) 0, Basophils % (Manual) 0, Band Neutrophils 6, Polychromasia MODERATE, Anisocytosis MARKED, Prothrombin Time 17.1H, INR Comment 1.3, Activated Partial Thromboplast Time 36H, Sodium Level 146H, Potassium Level 4.0, Chloride Level 117H, Carbon Dioxide Level 19L, Anion Gap 10, Blood Urea Nitrogen 22H, Creatinine 0.94, Estimat Glomerular Filtration Rate > 60, BUN/Creatinine Ratio 23, Glucose Level 135H, Calcium Level 7.4L, Corrected Calcium 8.4L, Total Bilirubin 1.7H, Aspartate Amino Transf (AST/SGOT) 83H, Alanine Aminotransferase (ALT/SGPT) 43, Alkaline Phosphatase 142H, Total Protein 5.3L, Albumin 2.7L 09/29/19 23:10: Glucometer 127H 09/30/19 03:33: White Blood Count 17.1H, Red Blood Count 2.62L, Hemoglobin 8.3L, Hematocrit 26L, Mean Corpuscular Volume 100H, Mean Corpuscular Hemoglobin 32, Mean Corpuscular Hemoglobin Concent 32, Red Cell Distribution Width 19.0H, Platelet Count 103L, Mean Platelet Volume 11.4H, Neutrophils (%) (Auto) 81H, Lymphocytes (%) (Auto) 10L, Monocytes (%) (Auto) 9, Eosinophils (%) (Auto) 0, Basophils (%) (Auto) 0, Neutrophils # (Auto) 13.8H, Lymphocytes # (Auto) 1.7, Monocytes # (Auto) 1.6H, Eosinophils # (Auto) 0.1, Basophils # (Auto) 0.0, Neutrophils % (Manual) 82, Lymphocytes % (Manual) 10, Monocytes % (Manual) 7, Eosinophils % (Manual) 1, Polychromasia SLIGHT, Anisocytosis SLIGHT, Sodium Level 144, Potassium Level 4.2, Chloride Level 116H, Carbon Dioxide Level 20L, Anion Gap 8, Blood Urea Nitrogen 21H, Creatinine 0.83, Estimat Glomerular Filtration Rate > 60, BUN/Creatinine Ratio 25, Glucose Level 133H, Calcium Level 7.4L, Hypochromasia SLIGHT, Poikilocytosis SLIGHT, Macrocytosis SLIGHT, Tear Drop Cells SLIGHT, Erin Cells SLIGHT, Lactic Acid Level 2.26*H, Phosphorus Level 3.0, Magnesium Level 2.2, Ammonia 46H, Procalcitonin 1.42H 09/30/19 03:45: Blood Gas Puncture Site RIGHT RADIAL, Blood Gas Patient Temperature 37.1, Arterial Blood pH 7.42, Arterial Blood Partial Pressure CO2 32L, Arterial Blood Partial Pressure O2 141H, Arterial Blood HCO3 20L, Arterial Blood Total CO2 21.3, Arterial Blood Oxygen Saturation 98, Arterial Blood Base Excess -3.4L, Jordan Test POSITIVE, Blood Gas Ventilator Setting YES, Blood Gas Inspired Oxygen 45 09/30/19 05:10: Urine Color AMBERH, Urine Clarity SL CLOUDY, Urine pH 5.5, Urine Specific [place] >=1.030, Urine Protein NEGATIVE, Urine Glucose (UA) NEGATIVE, Urine Ketones NEGATIVE, Urine Nitrite NEGATIVE, Urine Bilirubin NEGATIVE, Urine Urobilinogen 0.2, Urine Leukocyte Esterase NEGATIVE, Urine RBC (Auto) 2+H, Urine RBC 5-10H, Urine WBC NONE, Urine Squamous Epithelial Cells NONE, Urine Crystals PRESENTH, Urine Uric Acid Crystals FEWH, Urine Amorphous Sediment RARE DELIO URATESH, Urine Bacteria TRACE, Urine Casts NONE, Urine Mucus SMALLH, Urine Other NO, Urine Culture Indicated NO 09/30/19 07:23: Lactic Acid Level 1.71 09/30/19 10:34: Stool Occult Blood Immunoassay POSITIVEH 09/30/19 11:19: Glucometer 124H 09/30/19 15:35: Blood Gas Puncture Site RT RAD, Blood Gas Patient Temperature 37.2, Arterial Blood pH 7.41, Arterial Blood Partial Pressure CO2 33L, Arterial Blood Partial Pressure O2 68L, Arterial Blood HCO3 20L, Arterial Blood Total CO2 21.4, Arterial Blood Oxygen Saturation 93L, Arterial Blood Base Excess -3.4L, Jordan Test YES-POS, Blood Gas Ventilator Setting YES, Blood Gas Inspired Oxygen 40 09/30/19 18:11: Glucometer 126H Microbiology 09/30/19 Influenza Types A,B Antigen (OCTAVIANO) - Final, Complete 09/26/19 Blood Culture - Preliminary, Resulted No growth Assessment/Plan Assessment/Plan (1) Acute respiratory failure Status: Acute Assessment & Plan: 09/26: 2/2 to DTs, Dr Srivastava consulted and managing 09/27: Plan to extubate tomorrow 09/28: Sedation off and breathing trial planned for today with goal of extubation 09/29: Patient had fever overnight, antibiotics added per Dr Srivastava, cultures redrawn, sedation has been turned off Qualifiers: Qualified Codes: J96.00 - Acute respiratory failure, unspecified whether with hypoxia or hypercapnia (2) Delirium tremens Status: Acute Assessment & Plan: 09/26: Currently on Ativan gtts 6mg/hr which was increased from yesterday 09/27: Ativan gtts decreased today to 4 mg/hr, will continue to titrate as tolerated 09/28: Ativan d/c today (3) Acute upper GI bleed Status: Acute Assessment & Plan: 09/26: Dr Chappell consulted and managing, patient received 2 Units of pRBCs 09/28: Hgb stable, continue to monitor, no signs of active bleeding (4) Anemia due to acute blood loss Status: Acute Assessment & Plan: 09/27: IV iron replacement when patient stabilized (5) Altered mental status Status: Acute Assessment & Plan: 09/29: continues to be unreponsive, lactulose started thru OG Qualifiers: Qualified Codes: R41.0 - Disorientation, unspecified (6) Hyperammonemia Status: Acute (7) Alcohol dependence Status: Acute Qualifiers: Qualified Codes: F10.29 - Alcohol dependence with unspecified alcohol- induced disorder (8) DVT prophylaxis Status: Acute Assessment & Plan: SCDs 2/2 to upper GI bleed Clinical Quality Measures DVT/VTE Risk/Contraindication: Risk Factor Score Per Nursin RFS Level Per Nursing on Admit: 3=High EDDY YOUNGER MD Sep 30, 2019 22:08
--- NOTE | 2019-09-30 23:13 | NUR ---
THIS RN CALLED TABITHA TO INFORM THE NURSE/PHYSICIAN OF SIGNIFICANT CHANGE IN PT'S BLOOD PRESSURE, OXYGEN SETTING ON VENTILATOR, AND SLIGHT CHANGE IN HEART RATE. BP WENT FROM 112/72 TO 187/107, HR FROM 90S TO 110s, 02 FROM 35% FIO2 TO 75% FIO2.
[2019-10-01] VITALS (29 sets, daily range): BP systolic 111–182; BP diastolic 64–128
[2019-10-01] MEDS: LACTATED RINGERS 1,000 ML IV SCH ×3 (00:20→14:33)
[2019-10-01] MEDS: DexMEDEtomidine 250 ML DRIP 250 ML IV SCH ×3 (02:01→22:54)
[2019-10-01] MEDS: RT-ALBUTEROL/IPRATROPIUM 3 ML (DUONEB) VIAL INH SCH ×6 (02:13→23:46)
[2019-10-01 02:46] LABS: ABG BASE EXCESS -1.8 MMOL/L (-2.5-2.5); ABG OXYGEN SATURATION 99 % (94-100); ABG PCO2 31 MMHG (35-45); ABG PH 7.46 (7.37-7.43); ABG PO2 102 MMHG (79-93); ABG TCO2 22.5 MMOL/L (21.0-31.0)
[2019-10-01 02:49] LABS: ALLENS TEST YES-POS; INSPIRED O2 65%; PATIENT TEMP 37.2; VENTILATOR YES
[2019-10-01 03:03] LABS: BASOPHILS % (AUTO) 0 % (0-10); EOSINOPHILS # (AUTO) 0.1 10^3/uL (0.0-0.3); EOSINOPHILS % (AUTO) 1 % (0-10); HEMATOCRIT 24 % (40-54); HEMOGLOBIN 7.6 G/DL (13.3-17.7); LYMPHOCYTES # (AUTO) 1.3 X 10^3 (1.0-4.0); LYMPHOCYTES % (AUTO) 12 % (12-44); MEAN CORPUSCULAR HEMOGLOBIN 32 PG (25-34); MEAN CORPUSCULAR HGB CONC 32 G/DL (32-36); MEAN CORPUSCULAR VOLUME 100 FL (80-99); MEAN PLATELET VOLUME 11.4 FL (7.4-10.4); MONOCYTES % (AUTO) 9 % (0-12); NEUTROPHILS % (AUTO) 78 % (42-75); PLATELET COUNT 102 10^3/uL (130-400); RED CELL DISTRIBUTION WIDTH 18.8 % (10.0-14.5); WHITE BLOOD COUNT 11.6 10^3/uL (4.3-11.0)
[2019-10-01 03:16] LABS: BUN/CREATININE RATIO 24; CARBON DIOXIDE 20 MMOL/L (21-32); CHLORIDE 119 MMOL/L (98-107); CREATININE SERUM 0.75 MG/DL (0.60-1.30); GFR ESTIMATED > 60; GLUCOSE 126 MG/DL (70-105); MAGNESIUM 1.9 MG/DL (1.6-2.4); PHOSPHORUS 2.5 MG/DL (2.3-4.7); SODIUM 148 MMOL/L (135-145); TRIGLYCERIDES 121 MG/DL (<150)
[2019-10-01] MEDS: KCL 20 MEQ TAB (K-DUR) PO SCH (03:56)
[2019-10-01] MEDS: POTASSIUM CL 10MEQ/50ML IVPB 50 ML IV SCH (03:56)
[2019-10-01] MEDS: MAGNESIUM 1 GM/100 ML IVPB 100 ML IV SCH (03:56)
[2019-10-01] MEDS: cefTRIAXone FOR IV USE 2,000 MG in WATER (STERILE) FOR INJECTION 20 ML IV SCH (04:05)
[2019-10-01] MEDS: inSUlin ASPART (NovoLOG) 1 UNIT/0.01 ML (CHARGE PER UNIT) SC SCH ×3 (05:39→18:15)
[2019-10-01] MEDS: OCTREOTIDE INJECTION 500 MCG in NS (IVPB) 99 ML IV SCH (05:53)
--- NOTE | 2019-10-01 06:41 | NUR ---
THIS RN CALLED AYAH ABOUT PT HAVING VOMITING. THIS RN INFORMED AYAH ALMARAZ THAT PT HAS NO ANTIEMETICS ON EMAR. Addendum: 10/01/19 at 0642 by ORION TOMLIN RN NOTE PLACED ON WRONG PT.
--- NOTE | 2019-10-01 07:21 | Diagnostic Imaging Report ---
EXAMINATION: Portable erect AP chest at 219h. INDICATION: Dyspnea There is shallow inspiration when compared to the prior exam of 09/30/2019. Allowing for this technical factor there does not appear to have been any significant change. The heart is stable in size. There is still atelectasis/infiltrate involving both lung bases. The upper lungs are relatively clear. The mediastinum is not widened. The osseous structures are intact. The supportive tubes and lines seem to be in good position. IMPRESSION: Allowing for the shallow degree of inspiration there has been no significant change since the prior exam. A followup study would be recommended for continued evaluation. Dictated by: Dictated on workstation # [id number]
--- NOTE | 2019-10-01 07:48 | Physical Therapy Progress Note ---
Therapy Progress Note Patient remains sedated and intubated. PT will continue to monitor patient status and initiate treatment when patient is medically stable and able to actively participate with skilled therapy. KAILA HERNANDEZ PT Oct 01, 2019 07:48
[2019-10-01] MEDS: LEVOFLOXACIN 750 MG/150 ML IV 150 ML IV SCH (08:55)
[2019-10-01] MEDS: RIFAXIMIN 550 MG TABLET (XIFAXAN) PO SCH ×2 (08:55→20:49)
[2019-10-01] MEDS: VANCOMYCIN 1,750 MG/NS 500 ML IVPB IV SCH ×2 (08:55)
[2019-10-01] MEDS: LACTULOSE SYRUP 10GM/15ML (ENULOSE) 30ML UDC PO SCH ×2 (08:56→20:49)
--- NOTE | 2019-10-01 09:02 | Occ Therapy Progress Note ---
Therapy Progress Note Pt remains intubated/unresponsive. OT will continue to monitor pt and initiate skilled therapy when pt is more medically stable and able to participate in skilled therapy. CLIFFORD TURCIOS OT Oct 01, 2019 09:01
--- NOTE | 2019-10-01 10:14 | NUR ---
This RN updated E-ICU on status and plan for patient. No orders at this time.
[2019-10-01 10:29] LABS: RSV PCR TEST Not Detected (Not Detected)
--- NOTE | 2019-10-01 11:50 | NUR ---
The RN accompanied with RT and dye lab technician, took pt for MRI of the Brain.
--- NOTE | 2019-10-01 12:50 | NUR ---
Pt back on floor. Transferred to bed. No new complaints. No acute changes. Vitals Signs stable. Will continue to monitor.
--- NOTE | 2019-10-01 12:52 | Diagnostic Imaging Report ---
PROCEDURE: MR imaging of the brain without contrast. TECHNIQUE: Multiplanar, multisequence MR imaging of the brain was performed without contrast. DATE: October 01, 2019. COMPARISON: CT head September 24, 2019. HISTORY: 59-year-old male, unresponsive on ventilator. FINDINGS: The patient was not able to complete the study. There is motion artifact present. There is no diffusion restriction to suggest an acute infarct. The ventricles and CSF spaces are within normal limits in size and configuration for patient age. There is no identified abnormal extra-axial fluid collection. There is no evidence to suggest an acute intracranial hemorrhage. There is no mass effect. There is no midline shift. The visualized portions of the paranasal sinuses are well-aerated. There is opacification in the bilateral mastoid air cells. IMPRESSION: 1. No evidence of acute infarct or other acute intracranial abnormality. 2. Nonspecific opacification of the bilateral mastoid air cells. Dictated by: Dictated on workstation # [id number]
--- NOTE | 2019-10-01 13:07 | NUR ---
"Received dietary consult regarding pt's vent status. Est. kcal needs: 8800-7533 kcal | 15-20 kcal/kg Est. Pro needs: 88-109 g Pro | 0.8-1.0 g Pro/kg Given pt's current status, would recommend initiation of the following TF: Jevity 1.5 at goal rate of 60ml/hr. Begin at 10ml/hr and increase by 10ml q6h as tolerated. Monitor gastric residuals for tolerance. At goal rate, provides 2160 kcal (20 kcal/kg); 92 g Pro (0.8 g Pro/kg) and 1094ml free water. Flush with 75ml H2O q4h for hydration status. With flushes, provides 1544ml free water. Will continue to follow and reassess as pt needs, intake, and status change. Trevor Dasilva MS, RD, LD [phone]"
--- NOTE | 2019-10-01 15:08 | NUR ---
Spoke with E-ICU, DR. Thorpe. Orders received.
--- NOTE | 2019-10-01 17:38 | Progress Note - Surgery ---
Subjective Date Seen by a Provider: Oct 01, 2019 Time Seen by a Provider: 12:16 Subjective/Events-last exam Patient remains intubated. Minimal drop of hgb. Off sedation, but not really doing anything purposeful. at bedside. Focused Exam Lactate Level 09/30/19 03:33: Lactic Acid Level 2.26*H 09/30/19 07:23: Lactic Acid Level 1.71 Objective Exam Vital Signs Date Time Temp Pulse Resp B/P (MAP) Pulse Ox O2 Delivery O2 Flow Rate FiO2 10/01/19 16:00 Mechanical Ventilator 55 10/01/19 16:00 36.9 10/01/19 16:00 66 14 145/84 (104) 100 Mechanical Ventilator 55.00 10/01/19 15:00 65 15 141/81 (101) 100 Mechanical Ventilator 55.00 10/01/19 14:46 64 16 100 55 10/01/19 14:00 77 19 150/74 (99) 97 Mechanical Ventilator 55.00 10/01/19 13:51 78 10/01/19 13:00 85 22 140/102 (115) 94 Mechanical Ventilator 55.00 10/01/19 12:43 81 10/01/19 12:00 36.8 10/01/19 12:00 Mechanical Ventilator 55 10/01/19 11:00 71 16 120/72 (88) 99 Mechanical Ventilator 55.00 10/01/19 10:54 71 20 99 55 10/01/19 10:00 69 14 123/74 (90) 99 Mechanical Ventilator 55.00 10/01/19 09:00 74 14 122/73 (89) 98 Mechanical Ventilator 55.00 10/01/19 08:00 75 13 121/73 (89) 96 Mechanical Ventilator 55.00 10/01/19 08:00 36.9 10/01/19 08:00 Mechanical Ventilator 55 10/01/19 07:27 73 18 95 55 10/01/19 07:00 75 23 129/73 (91) 98 Mechanical Ventilator 55.00 10/01/19 06:45 73 10/01/19 06:00 74 14 119/72 (88) 97 Mechanical Ventilator 55.00 10/01/19 05:00 74 15 115/70 (85) 97 Mechanical Ventilator 55.00 10/01/19 04:14 Mechanical Ventilator 55.00 10/01/19 04:09 Mechanical Ventilator 35 10/01/19 04:00 77 15 114/65 (81) 99 Mechanical Ventilator 65.00 10/01/19 03:49 37.2 10/01/19 03:00 79 26 111/64 (80) 98 Mechanical Ventilator 65.00 10/01/19 02:42 Mechanical Ventilator 65.00 10/01/19 02:13 92 23 96 65 10/01/19 02:01 92 150/93 10/01/19 02:00 94 16 150/93 (112) 97 Mechanical Ventilator 70.00 10/01/19 01:00 100 10/01/19 01:00 97 21 144/95 (111) 96 Mechanical Ventilator 70.00 10/01/19 00:39 Mechanical Ventilator 70.00 10/01/19 00:00 101 21 182/97 (125) 97 Mechanical Ventilator 75.00 09/30/19 23:23 Mechanical Ventilator 35 09/30/19 23:22 106 187/107 09/30/19 23:21 37.2 09/30/19 23:00 96 23 187/107 (133) 95 Mechanical Ventilator 75.00 09/30/19 22:52 Mechanical Ventilator 75.00 09/30/19 22:45 Mechanical Ventilator 45.00 09/30/19 22:31 92 112/72 09/30/19 22:20 87 32 92 35 09/30/19 22:00 83 14 112/72 (85) 94 Mechanical Ventilator 40.00 09/30/19 21:35 90 121/89 09/30/19 21:00 94 25 121/89 (100) 93 Mechanical Ventilator 40.00 09/30/19 20:00 Mechanical Ventilator 35 09/30/19 20:00 99 28 129/101 (110) 92 Mechanical Ventilator 40.00 09/30/19 19:46 98 123/85 09/30/19 19:18 36.8 09/30/19 19:03 96 123/85 09/30/19 19:00 94 24 123/85 (98) 94 Mechanical Ventilator 40.00 09/30/19 19:00 100 09/30/19 18:39 89 20 95 35 09/30/19 18:00 92 33 130/78 (95) 96 Mechanical Ventilator 40.00 09/30/19 18:00 37.1 I & O 10/01/19 07:00 Intake Total 3717.5 ml Output Total 2700 ml Balance 1017.5 ml Capillary Refill : Less Than 3 Seconds General Appearance: No Apparent Distress, Other (intubated) HEENT: PERRL/EOMI, Other (et and og tube no evidence of blood) Neck: Normal Inspection, Other (intubated) Respiratory: Other (equal chest rise) Cardiovascular: Regular Rate, Rhythm Gastrointestinal: soft, no organomegaly, distended (minimal) Extremity: Pedal Edema Neurologic/Psychiatric: No Alert; Other (intubated ) Skin: Normal Color, Warm/Dry Lymphatic: No Adenopathy Results Lab Laboratory Tests 09/30/19 18:11: Glucometer 126H 09/30/19 23:25: Glucometer 117H 10/01/19 02:40: Blood Gas Puncture Site LEFT RADIAL, Blood Gas Patient Temperature 37.2, Arterial Blood pH 7.46H, Arterial Blood Partial Pressure CO2 31L, Arterial Blood Partial Pressure O2 102H, Arterial Blood HCO3 22L, Arterial Blood Total CO2 22.5, Arterial Blood Oxygen Saturation 99, Arterial Blood Base Excess -1.8, Jordan Test YES-POS, Blood Gas Ventilator Setting YES, Blood Gas Inspired Oxygen 65% 10/01/19 02:50: White Blood Count 11.6H, Red Blood Count 2.39L, Hemoglobin 7.6L, Hematocrit 24L, Mean Corpuscular Volume 100H, Mean Corpuscular Hemoglobin 32, Mean Corpuscular Hemoglobin Concent 32, Red Cell Distribution Width 18.8H, Platelet Count 102L, Mean Platelet Volume 11.4H, Neutrophils (%) (Auto) 78H, Lymphocytes (%) (Auto) 12, Monocytes (%) (Auto) 9, Eosinophils (%) (Auto) 1, Basophils (%) (Auto) 0, Neutrophils # (Auto) 9.0H, Lymphocytes # (Auto) 1.3, Monocytes # (Auto) 1.0, Eosinophils # (Auto) 0.1, Basophils # (Auto) 0.0, Sodium Level 148H, Potassium Level 4.0, Chloride Level 119H, Carbon Dioxide Level 20L, Anion Gap 9, Blood Urea Nitrogen 18, Creatinine 0.75, Estimat Glomerular Filtration Rate > 60, BUN/Creatinine Ratio 24, Glucose Level 126H, Calcium Level 7.0L, Phosphorus Level 2.5, Magnesium Level 1.9, Triglycerides Level 121 10/01/19 05:17: Glucometer 133H 10/01/19 11:00: Ammonia 48H 10/01/19 13:06: Glucometer 91 Microbiology 09/30/19 Blood Culture - Preliminary, Resulted No growth 09/30/19 Influenza Types A,B Antigen (OCTAVIANO) - Final, Complete Assessment/Plan Assessment/Plan Assessment/Plan GI bleed with anemia-upper Hypotension- monitor Delirium Tremens Cirrhotic liver Acute Respiratory Failure Hgb minimal drop continue to follow Protonix to IV If drop would repeat egd, continue medical management Sedation off, wean off vent for extubation Clinical Quality Measures DVT/VTE Risk/Contraindication: Risk Factor Score Per Nursin RFS Level Per Nursing on Admit: 3=High SHRUTHI BEAULIEU DO Oct 01, 2019 17:38
[2019-10-01] MEDS ORDERED: TROUGH ORDER-PHARMACY XX NR (19:00)
[2019-10-01] MEDS ORDERED: PROPOFOL DRIP (ICU) 100 ML IV ONE (19:39)
--- NOTE | 2019-10-01 19:45 | NUR ---
THIS RN NOTIFIED BY DAYSJASONFT RN THAT PT BEGAN COUGHING AND HAVING COPIOUS AMOUNTS OF SECRETIONS FROM ET TUBE. SECRETIONS NOTED TO BE PINK/BROWN TINGED. DAYSJASONFT RN STOPPED TUBE FEEDINGS, E-ICU BUTTON UTILIZED TO HAVE PHYSICIAN CAMERA IN. INCREASED WORK OF BREATHING NOTED. NEW ORDERS FOR PROPOFOL OBTAINED, SEE ORDER HX.
[2019-10-01] MEDS: PROPOFOL DRIP (ICU) 100 ML IV SCH (19:47)
--- NOTE | 2019-10-01 20:30 | NUR ---
THIS RN APPROACHED BY PT'S ABOUT STAYING THE NIGHT DESPITE NEW VISITATION RULES. THIS RN INFORMED BY PT'S THAT [facility] INFORMED HER OF THE RULES BUT STATED IT IS "UP TO THE NURSE'S DISCRETION" ON WHETHER OR NOT SHE COULD STAY. THIS WAS CONFIRMED BY DAYSHIFT RN. DUE TO PT'S STATUS AT THE TIME, THIS RN OPTED TO ALLOW PT'S TO STAY AND INFORMED HER OF OUR CURRENT PROTOCOL.
[2019-10-01] MEDS: PANTOPRAZOLE 40 MG (PROTONIX) VIAL IV SCH (20:49)
[2019-10-01] MEDS: VANCOMYCIN 2000 MG/NS 500 ML IVPB IV SCH ×2 (20:49)
--- NOTE | 2019-10-01 21:07 | Progress Note ---
Subjective Subjective/Events-last exam Intubated No new overnight events Review of Systems Intubated and unresponsive Focused Exam Lactate Level 09/30/19 03:33: Lactic Acid Level 2.26*H 09/30/19 07:23: Lactic Acid Level 1.71 Objective Exam Last Set of Vital Signs Vital Signs Date Time Temp Pulse Resp B/P (MAP) Pulse Ox O2 Delivery O2 Flow Rate FiO2 10/01/19 20:00 37.5 10/01/19 20:00 86 21 149/100 (116) 98 Mechanical Ventilator 55.00 10/01/19 19:29 55 Capillary Refill : Less Than 3 Seconds I&O Intake and Output 10/01/19 00:00 Intake Total 3447.5 ml Output Total 1760 ml Balance 1687.5 ml Intake Oral 0 ml IV Total 3387.5 ml Other 60 ml Output Urine Total 1760 ml General: Other (Intubated) Lungs: Other (diffuse crackles, normal work on vent) Heart: Regular Rate, No Murmurs Abdomen: Normal Bowel Sounds, Soft Extremities: Other (4+ pitting edema to all extremities) Results/Procedures Lab Laboratory Tests 09/30/19 23:25: Glucometer 117H 10/01/19 02:40: Blood Gas Puncture Site LEFT RADIAL, Blood Gas Patient Temperature 37.2, Arterial Blood pH 7.46H, Arterial Blood Partial Pressure CO2 31L, Arterial Blood Partial Pressure O2 102H, Arterial Blood HCO3 22L, Arterial Blood Total CO2 22.5 , Arterial Blood Oxygen Saturation 99, Arterial Blood Base Excess -1.8, Jordan Test YES-POS, Blood Gas Ventilator Setting YES, Blood Gas Inspired Oxygen 65% 10/01/19 02:50: White Blood Count 11.6H, Red Blood Count 2.39L, Hemoglobin 7.6L, Hematocrit 24L, Mean Corpuscular Volume 100H, Mean Corpuscular Hemoglobin 32, Mean Corpuscular Hemoglobin Concent 32, Red Cell Distribution Width 18.8H, Platelet Count 102L, Mean Platelet Volume 11.4H, Neutrophils (%) (Auto) 78H, Lymphocytes (%) (Auto) 12, Monocytes (%) (Auto) 9, Eosinophils (%) (Auto) 1, Basophils (%) (Auto) 0, Neutrophils # (Auto) 9.0H, Lymphocytes # (Auto) 1.3, Monocytes # (Auto) 1.0, Eosinophils # (Auto) 0.1, Basophils # (Auto) 0.0, Sodium Level 148H, Potassium Level 4.0, Chloride Level 119H, Carbon Dioxide Level 20L, Anion Gap 9, Blood Urea Nitrogen 18, Creatinine 0.75, Estimat Glomerular Filtration Rate > 60, BU N/Creatinine Ratio 24, Glucose Level 126H, Calcium Level 7.0L, Phosphorus Level 2.5, Magnesium Level 1.9, Triglycerides Level 121 10/01/19 05:17: Glucometer 133H 10/01/19 11:00: Ammonia 48H 10/01/19 13:06: Glucometer 91 10/01/19 18:06: Glucometer 102 10/01/19 19:30: Triglycerides Level 130, Vancomycin Level Trough 13.2 Microbiology 09/30/19 Blood Culture - Preliminary, Resulted No growth 09/30/19 Influenza Types A,B Antigen (OCTAVIANO) - Final, Complete Assessment/Plan Assessment/Plan (1) Acute respiratory failure Status: Acute Assessment & Plan: 09/26: 2/ to DTs, Dr Srivastava consulted and managing 09/27: Plan to extubate tomorrow 09/28: Sedation off and breathing trial planned for today with goal of extubation 09/29: Patient had fever overnight, antibiotics added per Dr Srivastava, cultures redrawn, sedation has been turned off 09/30: Sedation off and patient continues to not follow commands, MRI head today showed no acute changes Qualifiers: Qualified Codes: J96.00 - Acute respiratory failure, unspecified whether with hypoxia or hypercapnia (2) Delirium tremens Status: Acute Assessment & Plan: 09/26: Currently on Ativan gtts 6mg/hr which was increased from yesterday 09/27: Ativan gtts decreased today to 4 mg/hr, will continue to titrate as tolerated 09/28: Ativan d/c today (3) Acute upper GI bleed Status: Acute Assessment & Plan: 09/26: Dr Chapplel consulted and managing, patient received 2 Units of pRBCs 09/28: Hgb stable, continue to monitor, no signs of active bleeding (4) Anemia due to acute blood loss Status: Acute Assessment & Plan: 09/27: IV iron replacement when patient stabilized (5) Altered mental status Status: Acute Assessment & Plan: 09/29: continues to be unreponsive, lactulose started thru OG 09/30: MRI head today Qualifiers: Qualified Codes: R41.0 - Disorientation, unspecified (6) Hyperammonemia Status: Acute (7) Alcohol dependence Status: Acute Qualifiers: Qualified Codes: F10.29 - Alcohol dependence with unspecified alcohol- induced disorder (8) DVT prophylaxis Status: Acute Assessment & Plan: SCDs 2/2 to upper GI bleed Clinical Quality Measures DVT/VTE Risk/Contraindication: Risk Factor Score Per Nursin RFS Level Per Nursing on Admit: 3=High EDDY YOUNGER MD Oct 01, 2019 21:07
[2019-10-02] VITALS (29 sets, daily range): BP systolic 114–147; BP diastolic 70–98
[2019-10-02] MEDS: inSUlin ASPART (NovoLOG) 1 UNIT/0.01 ML (CHARGE PER UNIT) SC SCH ×4 (00:26→18:00)
[2019-10-02] MEDS: LACTATED RINGERS 1,000 ML IV SCH ×2 (00:58→16:46)
[2019-10-02] MEDS: RT-ALBUTEROL/IPRATROPIUM 3 ML (DUONEB) VIAL INH SCH ×6 (01:58→21:30)
[2019-10-02] MEDS: PROPOFOL DRIP (ICU) 100 ML IV SCH ×3 (02:24→15:28)
[2019-10-02 02:25] LABS: ABG BASE EXCESS -1.8 MMOL/L (-2.5-2.5); ABG OXYGEN SATURATION 98 % (94-100); ABG PCO2 31 MMHG (35-45); ABG PH 7.46 (7.37-7.43); ABG PO2 92 MMHG (79-93); ABG TCO2 22.4 MMOL/L (21.0-31.0)
[2019-10-02 02:28] LABS: ALLENS TEST YES-POS; INSPIRED O2 45%; PATIENT TEMP 37.6; VENTILATOR YES
[2019-10-02 03:09] LABS: BASOPHILS % (AUTO) 0 % (0-10); EOSINOPHILS # (AUTO) 0.1 10^3/uL (0.0-0.3); EOSINOPHILS % (AUTO) 2 % (0-10); HEMATOCRIT 24 % (40-54); HEMOGLOBIN 7.3 G/DL (13.3-17.7); LYMPHOCYTES # (AUTO) 1.9 X 10^3 (1.0-4.0); LYMPHOCYTES % (AUTO) 24 % (12-44); MEAN CORPUSCULAR HEMOGLOBIN 31 PG (25-34); MEAN CORPUSCULAR HGB CONC 31 G/DL (32-36); MEAN CORPUSCULAR VOLUME 100 FL (80-99); MEAN PLATELET VOLUME 10.8 FL (7.4-10.4); MONOCYTES # (AUTO) 0.6 X 10^3 (0.0-1.0); MONOCYTES % (AUTO) 8 % (0-12); NEUTROPHILS # (AUTO) 5.3 X 10^3 (1.8-7.8); NEUTROPHILS % (AUTO) 67 % (42-75); PLATELET COUNT 99 10^3/uL (130-400); RED CELL DISTRIBUTION WIDTH 18.5 % (10.0-14.5)
[2019-10-02 03:22] LABS: BUN/CREATININE RATIO 21; CALCIUM 7.3 MG/DL (8.5-10.1); CARBON DIOXIDE 20 MMOL/L (21-32); CHLORIDE 119 MMOL/L (98-107); CREATININE SERUM 0.72 MG/DL (0.60-1.30); GFR ESTIMATED > 60; GLUCOSE 110 MG/DL (70-105); MAGNESIUM 1.8 MG/DL (1.6-2.4); PHOSPHORUS 2.6 MG/DL (2.3-4.7); POTASSIUM 4.1 MMOL/L (3.6-5.0); SODIUM 147 MMOL/L (135-145)
[2019-10-02] MEDS: POTASSIUM CL 10MEQ/50ML IVPB 50 ML IV SCH (03:47)
[2019-10-02] MEDS: KCL 20 MEQ TAB (K-DUR) PO SCH (03:47)
[2019-10-02] MEDS: MAGNESIUM 1 GM/100 ML IVPB 100 ML IV SCH (03:47)
[2019-10-02] MEDS: cefTRIAXone FOR IV USE 2,000 MG in WATER (STERILE) FOR INJECTION 20 ML IV SCH (03:57)
--- NOTE | 2019-10-02 07:53 | Diagnostic Imaging Report ---
INDICATION: Dyspnea. TECHNIQUE: Frontal view of the chest. COMPARISON: 10/01/2019 FINDINGS: The endotracheal tube is approximately 4 to 5 cm above the heaven. Lung volumes are low. There are bibasilar airspace opacities which appear stable. The right jugular line tip projects over the SVC. An enteric tube appears to project over the stomach. No significant pleural effusion or pneumothorax is seen. Cardiac silhouette is normal in size. IMPRESSION: 1. Persistent bibasilar airspace opacities appear unchanged since the prior study. 2. Low lung volumes. Stable endotracheal tube. Dictated by: Dictated on workstation # [id number]
--- NOTE | 2019-10-02 08:48 | Progress Note - Surgery ---
Subjective Date Seen by a Provider: Oct 02, 2019 Time Seen by a Provider: 08:45 Subjective/Events-last exam On vent. Lots of secretions from ET tube that are thick and frothy. Fever. Hgb 7.3. Focused Exam Lactate Level 09/30/19 03:33: Lactic Acid Level 2.26*H 09/30/19 07:23: Lactic Acid Level 1.71 Objective Exam Vital Signs Date Time Temp Pulse Resp B/P (MAP) Pulse Ox O2 Delivery O2 Flow Rate FiO2 10/02/19 08:00 55 12 125/83 (97) 97 Mechanical Ventilator 45.00 10/02/19 07:00 55 16 129/79 (96) 99 Mechanical Ventilator 45.00 10/02/19 07:00 56 10/02/19 06:59 55 18 97 35 10/02/19 06:00 60 16 131/83 (99) 99 Mechanical Ventilator 45.00 10/02/19 05:00 65 16 133/81 (98) 99 Mechanical Ventilator 45.00 10/02/19 04:33 69 124/72 10/02/19 04:33 69 124/72 10/02/19 04:30 Mechanical Ventilator 45 10/02/19 04:00 70 13 124/72 (89) 98 Mechanical Ventilator 45.00 10/02/19 03:58 37.8 10/02/19 03:13 78 136/80 10/02/19 03:00 77 16 136/80 (98) 98 Mechanical Ventilator 45.00 10/02/19 02:24 78 138/79 10/02/19 02:23 78 138/79 10/02/19 02:06 Mechanical Ventilator 45.00 10/02/19 02:00 79 10/02/19 02:00 77 16 138/79 (98) 98 Mechanical Ventilator 50.00 10/02/19 01:58 77 16 98 50 10/02/19 01:05 79 138/79 10/02/19 01:00 79 20 138/79 (98) 98 Mechanical Ventilator 50.00 10/02/19 00:05 36.9 10/02/19 00:00 68 14 142/88 (106) 99 Mechanical Ventilator 50.00 10/02/19 00:00 Mechanical Ventilator 55 10/01/19 23:50 Mechanical Ventilator 50.00 10/01/19 23:47 67 16 100 55 10/01/19 23:00 68 18 133/86 (102) 99 Mechanical Ventilator 55.00 10/01/19 22:54 68 145/86 10/01/19 22:00 70 17 148/87 (107) 100 Mechanical Ventilator 55.00 10/01/19 21:00 75 15 128/74 (92) 99 Mechanical Ventilator 55.00 10/01/19 20:00 37.5 10/01/19 20:00 Mechanical Ventilator 55 10/01/19 20:00 86 21 149/100 (116) 98 Mechanical Ventilator 55.00 10/01/19 19:47 86 145/104 10/01/19 19:29 86 21 97 55 10/01/19 19:00 83 10/01/19 19:00 81 25 142/93 (109) 98 Mechanical Ventilator 55.00 10/01/19 18:00 73 23 149/81 (103) 98 Mechanical Ventilator 55.00 10/01/19 17:00 65 15 146/80 (102) 100 Mechanical Ventilator 55.00 10/01/19 16:00 Mechanical Ventilator 55 10/01/19 16:00 36.9 10/01/19 16:00 66 14 145/84 (104) 100 Mechanical Ventilator 55.00 10/01/19 15:00 65 15 141/81 (101) 100 Mechanical Ventilator 55.00 10/01/19 14:46 64 16 100 55 10/01/19 14:00 77 19 150/74 (99) 97 Mechanical Ventilator 55.00 10/01/19 13:51 78 10/01/19 13:00 85 22 140/102 (115) 94 Mechanical Ventilator 55.00 10/01/19 12:43 81 10/01/19 12:00 36.8 10/01/19 12:00 Mechanical Ventilator 55 10/01/19 11:00 71 16 120/72 (88) 99 Mechanical Ventilator 55.00 10/01/19 10:54 71 20 99 55 10/01/19 10:00 69 14 123/74 (90) 99 Mechanical Ventilator 55.00 10/01/19 09:00 74 14 122/73 (89) 98 Mechanical Ventilator 55.00 I & O 10/02/19 07:00 Intake Total 2912.5 ml Output Total 4875 ml Balance -1962.5 ml Capillary Refill : Less Than 3 Seconds General Appearance: No Apparent Distress, Other (intubated) HEENT: PERRL/EOMI, Other (et and og tube no evidence of blood) Neck: Normal Inspection, Other (intubated) Respiratory: Other (equal chest rise coarse lung sounds) Cardiovascular: Regular Rate, Rhythm Gastrointestinal: soft, no organomegaly, distended (minimal) Extremity: Pedal Edema Neurologic/Psychiatric: No Alert; Other (intubated ) Skin: Normal Color, Warm/Dry Lymphatic: No Adenopathy Results Lab Laboratory Tests 10/01/19 11:00: Ammonia 48H 10/01/19 13:06: Glucometer 91 10/01/19 18:06: Glucometer 102 10/01/19 19:30: Triglycerides Level 130, Vancomycin Level Trough 13.2 10/02/19 00:08: Glucometer 115H 10/02/19 02:17: Blood Gas Puncture Site LEFT RADIAL, Blood Gas Patient Temperature 37.6, Arterial Blood pH 7.46H, Arterial Blood Partial Pressure CO2 31L, Arterial Blood Partial Pressure O2 92, Arterial Blood HCO3 22L, Arterial Blood Total CO2 22.4, Arterial Blood Oxygen Saturation 98, Arterial Blood Base Excess -1.8, Jordan Test YES-POS, Blood Gas Ventilator Setting YES, Blood Gas Inspired Oxygen 45% 10/02/19 03:00: White Blood Count 8.0, Red Blood Count 2.36L, Hemoglobin 7.3L, Hematocrit 24L, Mean Corpuscular Volume 100H, Mean Corpuscular Hemoglobin 31, Mean Corpuscular Hemoglobin Concent 31L, Red Cell Distribution Width 18.5H, Platelet Count 99L, Mean Platelet Volume 10.8H, Neutrophils (%) (Auto) 67, Lymphocytes (%) (Auto) 24, Monocytes (%) (Auto) 8, Eosinophils (%) (Auto) 2, Basophils (%) (Auto) 0, Neutrophils # (Auto) 5.3, Lymphocytes # (Auto) 1.9, Monocytes # (Auto) 0.6, Eosinophils # (Auto) 0.1, Basophils # (Auto) 0.0, Sodium Level 147H, Potassium Level 4.1, Chloride Level 119H, Carbon Dioxide Level 20L, Anion Gap 8, Blood Urea Nitrogen 15, Creatinine 0.72, Estimat Glomerular Filtration Rate > 60, BUN/Creatinine Ratio 21, Glucose Level 110H, Calcium Level 7.3L, Phosphorus Level 2.6, Magnesium Level 1.8 Microbiology 09/30/19 Blood Culture - Preliminary, Resulted No growth 09/30/19 Influenza Types A,B Antigen (OCTAVIANO) - Final, Complete Assessment/Plan Assessment/Plan Assessment/Plan GI bleed with anemia-upper Hypotension- monitor Delirium Tremens Cirrhotic liver Acute Respiratory Failure, with significant secretions Hgb minimal drop continue to follow Protonix to IV If drop would repeat egd, continue medical management Lots of secretions will plan bronchoscopy this morning Clinical Quality Measures DVT/VTE Risk/Contraindication: Risk Factor Score Per Nursin RFS Level Per Nursing on Admit: 3=High SHRUTHI BEAULIEU DO Oct 02, 2019 08:48
[2019-10-02] MEDS ORDERED: LIDOCAINE PF 2% 5 ML (XYLOCAINE) VIAL INJ ONE (09:45)
[2019-10-02] MEDS ORDERED: LIDOCAINE PF 1% 2 ML VIAL IJ ONE (09:45)
--- NOTE | 2019-10-02 10:04 | Diagnostic Imaging Report ---
HISTORY: Post bronchoscopy COMPARISON: 10/02/2019 TECHNIQUE: Single frontal view of the chest. FINDINGS: There is a small left pleural effusion with bibasilar airspace opacities. The cardiac silhouette is stable in size. The endotracheal tube appears to be in stable position approximately 5 cm above the heaven. An enteric tube is seen, however the tip is not well seen on these images. No pneumothorax is seen. IMPRESSION:. Small left pleural effusion with bibasilar airspace opacities. Aeration is improved compared to the prior exam. Dictated by: Dictated on workstation # [id number]
[2019-10-02] MEDS: RIFAXIMIN 550 MG TABLET (XIFAXAN) PO SCH ×2 (10:12→21:13)
[2019-10-02] MEDS: LEVOFLOXACIN 750 MG/150 ML IV 150 ML IV SCH (10:12)
[2019-10-02] MEDS: VANCOMYCIN 2000 MG/NS 500 ML IVPB IV SCH ×4 (10:13→21:13)
[2019-10-02] MEDS: LACTULOSE SYRUP 10GM/15ML (ENULOSE) 30ML UDC PO SCH ×2 (10:13→21:14)
[2019-10-02] MEDS: PANTOPRAZOLE 40 MG (PROTONIX) VIAL IV SCH ×2 (10:13→21:13)
[2019-10-02] MEDS ORDERED: morphine INJ 4 MG/ML 1 ML (VIAL/SYRINGE) IVP PRN (13:30)
--- NOTE | 2019-10-02 13:48 | Physical Therapy Progress Note ---
Therapy Progress Note Patient remains sedated and intubated. PT will continue to monitor patient medical status and initiate treatment when patient is medically stable and able to actively participate with skilled therapy. BETH MCKEON PT Oct 02, 2019 13:48
[2019-10-02] MEDS: LEVETIRACETAM INJECTION 1,000 MG in NS (IVPB) 100 ML IV SCH (13:55)
[2019-10-02] MEDS: DexMEDEtomidine 250 ML DRIP 250 ML IV SCH ×2 (13:58→23:54)
[2019-10-02 15:00] LABS: ABG BASE EXCESS -3.3 MMOL/L (-2.5-2.5); ABG OXYGEN SATURATION 97 % (94-100); ABG PCO2 32 MMHG (35-45); ABG PH 7.42 (7.37-7.43); ABG PO2 80 MMHG (79-93); ABG TCO2 21.5 MMOL/L (21.0-31.0)
[2019-10-02 15:01] LABS: ALLENS TEST YES-POS; INSPIRED O2 35%; VENTILATOR YES
[2019-10-02 15:02] LABS: PATIENT TEMP 36.8
--- NOTE | 2019-10-02 19:38 | NUR ---
Pt had Bronchoscopy done with bilateral washing preformed by Dr Chappell. Time Out done in room. Sample was taken and sent to lab. has remained with Pt throughout day. This RN discussed with Marilynn, Pts , about the possibility of a tracheostomy and an acute care buttermaker helper facility. Marilynn is on board with this if needed. No new complaints. No acute changes. Vitals have remained stable. Will continue to monitor.
--- NOTE | 2019-10-02 21:46 | OPERATIVE REPORT ---
DATE OF SERVICE: 10/02/2019 PREOPERATIVE DIAGNOSES: Acute respiratory failure requiring intubation and increasing secretions. POSTOPERATIVE DIAGNOSIS: Significant mucus in the right middle and lower lobes. PROCEDURE: Bronchoscopy with bilateral washings and suction of mucus. SURGEON: Shruthi Chappell DO ANESTHESIA: Sedated. INDICATIONS: The patient is a 59-year-old male, who has remained intubated. He is having increasing secretions and some are increasing in thickness and requiring more aggressive suctioning from respiratory therapy. Risks and benefits of having bronchoscopy performed were discussed and consent was signed in the chart by the family. DESCRIPTION OF PROCEDURE: Timeout was performed. The bronchoscopy scope was inserted through the endotracheal tube into the trachea, which demonstrated there is some slight mucus. No significant inflammation at the heaven. A 3 mL of 1% lidocaine were injected and the left main bronchus was then entered. The left upper lobe bronchus and the left lower lobe bronchus were then examined as well, noting just some minimal mucus, saline was injected and suctioned, removing any mucus that was visualized. There were no significant inflammatory changes present. No masses or any other pathology noted. Scope was then retracted back into the trachea and then taken down the right main bronchus demonstrating significant mucus present, which was then began to be suctioned. The more irrigation was injected into the right main bronchus and right upper lobe bronchus, right middle bronchus and the right lower lobe bronchus injecting and suctioning until clear. Again, no significant inflammatory changes were present. The significant mucus present on the right side was continued to be irrigated and suctioned until clear. No other pathology noted. Scope was then slowly retracted back into the trachea and noting no other pathology and slowly retracted until completely removed. The patient tolerated procedure well. Bilateral washings were sent for further micro testing. Job ID: [id number] DocumentID: [id number] Dictated Date: 10/02/2019 20:38:57 Loss Control Consultant Date: 10/02/2019 21:46:13 Dictated By: SHRUTHI CHAPPELL DO [facility]
[2019-10-03] VITALS (30 sets, daily range): BP systolic 99–144; BP diastolic 55–107
[2019-10-03] MEDS: inSUlin ASPART (NovoLOG) 1 UNIT/0.01 ML (CHARGE PER UNIT) SC SCH ×5 (00:27→23:10)
[2019-10-03] MEDS: LEVETIRACETAM INJECTION 1,000 MG in NS (IVPB) 100 ML IV SCH ×3 (00:58→23:10)
[2019-10-03] MEDS: PROPOFOL DRIP (ICU) 100 ML IV SCH ×3 (02:23→17:43)
[2019-10-03] MEDS: RT-ALBUTEROL/IPRATROPIUM 3 ML (DUONEB) VIAL INH SCH ×6 (02:50→21:30)
[2019-10-03 03:01] LABS: BASOPHILS % (AUTO) 1 % (0-10); EOSINOPHILS # (AUTO) 0.1 10^3/uL (0.0-0.3); EOSINOPHILS % (AUTO) 2 % (0-10); HEMATOCRIT 25 % (40-54); HEMOGLOBIN 7.8 G/DL (13.3-17.7); LYMPHOCYTES # (AUTO) 1.6 X 10^3 (1.0-4.0); LYMPHOCYTES % (AUTO) 28 % (12-44); MEAN CORPUSCULAR HEMOGLOBIN 32 PG (25-34); MEAN CORPUSCULAR HGB CONC 32 G/DL (32-36); MEAN CORPUSCULAR VOLUME 100 FL (80-99); MEAN PLATELET VOLUME 11.2 FL (7.4-10.4); MONOCYTES # (AUTO) 0.4 X 10^3 (0.0-1.0); MONOCYTES % (AUTO) 7 % (0-12); NEUTROPHILS # (AUTO) 3.6 X 10^3 (1.8-7.8); NEUTROPHILS % (AUTO) 62 % (42-75); PLATELET COUNT 105 10^3/uL (130-400); RED CELL DISTRIBUTION WIDTH 17.8 % (10.0-14.5); WHITE BLOOD COUNT 5.8 10^3/uL (4.3-11.0)
[2019-10-03 03:02] LABS: ABG BASE EXCESS -3.2 MMOL/L (-2.5-2.5); ABG OXYGEN SATURATION 93 % (94-100); ABG PCO2 30 MMHG (35-45); ABG PH 7.45 (7.37-7.43); ABG PO2 55 MMHG (79-93); ABG TCO2 21.3 MMOL/L (21.0-31.0)
[2019-10-03 03:03] LABS: ALLENS TEST YES-POS; INSPIRED O2 25%; PATIENT TEMP 36.1; VENTILATOR YES
[2019-10-03 03:22] LABS: BUN/CREATININE RATIO 22; CALCIUM 7.1 MG/DL (8.5-10.1); CARBON DIOXIDE 20 MMOL/L (21-32); CHLORIDE 119 MMOL/L (98-107); CREATININE SERUM 0.65 MG/DL (0.60-1.30); GFR ESTIMATED > 60; GLUCOSE 100 MG/DL (70-105); MAGNESIUM 1.7 MG/DL (1.6-2.4); PHOSPHORUS 2.8 MG/DL (2.3-4.7); POTASSIUM 3.6 MMOL/L (3.6-5.0); SODIUM 148 MMOL/L (135-145); TRIGLYCERIDES 120 MG/DL (<150)
[2019-10-03] MEDS: cefTRIAXone FOR IV USE 2,000 MG in WATER (STERILE) FOR INJECTION 20 ML IV SCH (03:44)
[2019-10-03] MEDS: POTASSIUM CL 10MEQ/50ML IVPB 50 ML IV SCH ×3 (04:24→05:39)
[2019-10-03] MEDS: MAGNESIUM 1 GM/100 ML IVPB 100 ML IV SCH ×3 (04:24→04:47)
[2019-10-03] MEDS: KCL 20 MEQ TAB (K-DUR) PO SCH (04:25)
--- NOTE | 2019-10-03 06:08 | NUR ---
SEDATION VACATION STARTED.
[2019-10-03] MEDS: LACTATED RINGERS 1,000 ML IV SCH (06:23)
--- NOTE | 2019-10-03 06:59 | NUR ---
SEDATION VACATION ENDED.
--- NOTE | 2019-10-03 07:27 | NUR ---
ATTEMPTED TO CALL PT'S TO PROVIDE UPDATE ON SEDATION VACATION. NO ANSWER.
[2019-10-03] MEDS ORDERED: TROUGH ORDER-PHARMACY XX NR (07:30)
[2019-10-03] MEDS: PANTOPRAZOLE 40 MG (PROTONIX) VIAL IV SCH ×2 (07:55→20:03)
--- NOTE | 2019-10-03 07:55 | Diagnostic Imaging Report ---
INDICATION: Dyspnea AP view of chest is obtained with comparison made to study of one day earlier. There has been mild increase in basilar atelectasis and/or pneumonitis. There appears to be blunting of the left costophrenic sulcus. Support tubes and right jugular catheter are in stable position. IMPRESSION: Basilar atelectasis and/or pneumonitis with probable mild left pleural fluid. Dictated by: Dictated on workstation # [id number]
[2019-10-03] MEDS: RIFAXIMIN 550 MG TABLET (XIFAXAN) PO SCH ×2 (07:56→20:03)
[2019-10-03] MEDS: LACTULOSE SYRUP 10GM/15ML (ENULOSE) 30ML UDC PO SCH ×2 (07:56→20:09)
[2019-10-03] MEDS: LEVOFLOXACIN 750 MG/150 ML IV 150 ML IV SCH (07:56)
[2019-10-03] MEDS: VANCOMYCIN 2000 MG/NS 500 ML IVPB IV SCH ×4 (08:15→20:04)
[2019-10-03] MEDS: THIAMINE 100 MG/ML 2 ML (VITAMIN B-1) VIAL IV SCH (09:26)
[2019-10-03] MEDS: D5 1/2 NS 1000 ML IV SOLUTION 1,000 ML IV SCH ×2 (09:26→17:43)
--- NOTE | 2019-10-03 11:27 | Progress Note - Hospitalist ---
Subjective HPI/CC On Admission Date Seen by Provider: Oct 03, 2019 Time Seen by Provider: 07:30 CC: AMS HPI: This is a 59yoWM clinic patient of Wesley Campoverde who has a long history of ETOHism who presented to [facility] and found to have electrolyte abnl and elevated ammonia. Patient was admitted for supportive care and Lactulose ordered along with detox protocol. Lovenox ordered due to decreased ambulatory status. Subjective/Events-last exam According to during sedation vacation yesterday the patient did squeeze her hand. The only other meaningful activity noted with the patient on vent was she ask him if he wanted her to leave and he shook his head no. He did become agitated requiring sedation via Diprovan again. He was sleeping comfortably on the vent with nonlabored respirations during my discussion with the and his evaluation. She states that he has been a functional alcoholic the entire time of their marriage a little over 30 years. He developed nausea and vomiting the before there admission she couldn't tell me if he was having any abdominal pain. She states that he does not usually discuss any of his health issues with her and does not complain about anything. She does not believe he had been losing weight or feeling unwell prior to last Friday. She denied noting any issues with cough chills or fever or previous episodes of abdominal pain albeit with the above caveat. He had no known previous history of liver disease no other hospitalizations and no opportunity for withdrawal as the patient as far she knows hadn't gone without alcohol for as long as she had known him. He has no past abdominal surgery history and she does not believe that he's had any surgeries in the past. Objective Exam Vital Signs Vital Signs Date Time Temp Pulse Resp B/P (MAP) Pulse Ox O2 Delivery O2 Flow Rate FiO2 10/03/19 11:06 90 Mechanical Ventilator 10/03/19 10:55 62 23 10/03/19 10:00 129/88 (102) 21.00 10/03/19 08:00 36.7 Capillary Refill : Less Than 3 Seconds General Appearance: No Apparent Distress, Obese, Other (Sedated on vent) Respiratory: No Accessory Muscle Use, No Respiratory Distress, Other (Few basilar rhonchi sounds much clearer than yesterday no wheezing noted.) Cardiovascular: Regular Rate, Rhythm, No Edema, No Gallop, No JVD, No Murmur, Other (Heart sounds somewhat distant likely aggravated by body habitus and mechanical ventilation.) Gastrointestinal: Distended (Although still relatively soft bowel sounds are not appreciated patient still having significant NG drainage to low intermittent suction.) Extremity: Other (3+ edema of the lower and upper extremities no significant facial edema noted no crepitus noted no evidence for rash.) Results/Procedures Lab Laboratory Tests 10/03/19 02:41 Patient resulted labs reviewed. Assessment/Plan Assessment and Plan Assess & Plan/Chief Complaint A/P 1. Alcohol use disorder with secondary cirrhosis with portal hypertension in addition to alcohol withdrawal and delirium tremens. His white count has normalized and his platelet count is slowly coming up which are positive signs. My biggest concern right now which may be the reason that he is continuing to experience some delirium is the underlying cause of his ileus. His gallbladder was significantly dilated and he did present with initial nausea and vomiting well he was still drinking. He had no reported hematemesis and Dr. Chappell's findings on EGD evaluation are not consistent with alcoholic gastritis significant enough to cause his ongoing ileus. Will obtain abdominal sonogram in the morning as we do not have we can capability and my concerns were discussed with Dr. Chappell. The patient did have a small amount of ascites on admission CT it will likely be worse on sonogram of significant and gallbladder pathology is not apparent would consider paracentesis to rule out spontaneous bacterial peritonitis. He is not a candidate for [place] referral at this time until the underlying causes ileus is addressed or it resolves. 2. Hypernatremia mild patient being switched to half-normal saline. 3. Mechanical ventilation for airway protection due to refractory delirium tremens requiring Precedex and Diprovan. Ventilation status is improving FiO2 down to 25 percent with increasing ease of ventilation. We will again try vacation from sedation later today while the is here. He has reached the point that if delirium can be controlled and the above medications can be discontinued he would tolerate extubation. I discussed with the that while we can't at this time guarantee that there is not some permanent brain injury it is much less likely than full recovery of mental function. Also discussed that long-term survival is highly unlikely if he doesn't abstain from all alcohol use for the rest of his life. Critical Care Critically Ill Patient Clinical Quality Measures DVT/VTE Risk/Contraindication: Risk Factor Score Per Nursin RFS Level Per Nursing on Admit: 3=High JUSTYNA ALMANZAR MD Oct 03, 2019 11:27
[2019-10-03] MEDS: DexMEDEtomidine 250 ML DRIP 250 ML IV SCH ×2 (11:32→17:44)
--- NOTE | 2019-10-03 13:15 | NUR ---
Spoke with e-ICU regarding pt propofol on hold et pt being restless and continuously coughing against vent. Physician said she will put a prn order for fentanyl
[2019-10-03] MEDS: fentaNYL INJECTION 100 MCG/2 ML AMP IVP PRN ×2 (13:22→14:19)
--- NOTE | 2019-10-03 13:58 | Progress Note - Surgery ---
Subjective Time Seen by a Provider: 12:31 Subjective/Events-last exam Pt seen, sedated on vent but they are trying to wean sedation and he is not really waking up. Review of Systems unable to obtain, pt is on vent Objective Exam Vital Signs Date Time Temp Pulse Resp B/P (MAP) Pulse Ox O2 Delivery O2 Flow Rate FiO2 10/03/19 13:35 61 21 92 21 10/03/19 13:00 58 12 144/92 (109) 94 Mechanical Ventilator 21.00 10/03/19 12:33 63 10/03/19 12:30 36.9 10/03/19 12:00 64 13 99/55 (70) 92 Mechanical Ventilator 21.00 10/03/19 11:32 62 133/92 10/03/19 11:17 62 133/92 10/03/19 11:06 90 Mechanical Ventilator 21 10/03/19 11:00 64 17 133/87 (102) 90 Mechanical Ventilator 21.00 10/03/19 10:55 62 23 93 21 10/03/19 10:00 59 12 129/88 (102) 94 Mechanical Ventilator 21.00 10/03/19 09:00 63 12 130/87 (101) 94 Mechanical Ventilator 21.00 10/03/19 08:00 36.7 10/03/19 08:00 Mechanical Ventilator 21 10/03/19 08:00 62 14 124/81 (95) 94 Mechanical Ventilator 21.00 10/03/19 07:00 63 21 123/76 (92) 92 Mechanical Ventilator 21.00 10/03/19 07:00 64 16 93 10/03/19 07:00 61 10/03/19 06:59 62 112/66 10/03/19 06:59 62 112/66 10/03/19 06:54 62 14 93 21 10/03/19 06:00 57 14 121/79 (93) 93 Mechanical Ventilator 21.00 10/03/19 05:52 36.2 10/03/19 05:00 53 15 116/78 (91) 94 Mechanical Ventilator 21.00 10/03/19 04:20 Mechanical Ventilator 21 10/03/19 04:00 61 20 114/77 (89) 92 Mechanical Ventilator 21.00 10/03/19 03:33 Mechanical Ventilator 21.00 10/03/19 03:00 64 13 121/77 (92) 93 Mechanical Ventilator 25.00 10/03/19 02:50 64 19 96 21 10/03/19 02:23 65 146/94 10/03/19 02:23 67 146/84 10/03/19 02:23 67 146/84 10/03/19 02:00 61 21 138/87 (104) 96 Mechanical Ventilator 25.00 10/03/19 01:00 62 16 134/92 (106) 96 Mechanical Ventilator 25.00 10/03/19 01:00 62 10/03/19 00:28 36.2 10/03/19 00:00 Mechanical Ventilator 25 10/03/19 00:00 68 15 134/96 (109) 95 Mechanical Ventilator 25.00 10/02/19 23:54 62 145/95 10/02/19 23:54 62 145/95 10/02/19 23:00 64 12 138/91 (107) 93 Mechanical Ventilator 25.00 10/02/19 22:00 64 12 143/98 (113) 94 Mechanical Ventilator 25.00 10/02/19 21:35 Mechanical Ventilator 25.00 10/02/19 21:30 60 17 100 25 10/02/19 21:00 59 15 141/96 (111) 97 Mechanical Ventilator 30.00 10/02/19 20:00 36.4 10/02/19 20:00 64 16 137/96 (110) 97 Mechanical Ventilator 30.00 10/02/19 20:00 Mechanical Ventilator 30 10/02/19 19:00 67 12 144/97 (113) 96 Mechanical Ventilator 30.00 10/02/19 19:00 67 10/02/19 18:56 Mechanical Ventilator 35.00 10/02/19 18:41 64 16 98 35 10/02/19 18:00 64 11 129/77 (94) 97 Mechanical Ventilator 45.00 10/02/19 17:00 65 13 129/75 (93) 98 Mechanical Ventilator 45.00 10/02/19 16:00 Mechanical Ventilator 35 10/02/19 16:00 72 11 138/84 (102) 97 Mechanical Ventilator 45.00 10/02/19 16:00 36.1 10/02/19 15:28 70 10/02/19 15:00 70 14 133/78 (96) 97 Mechanical Ventilator 45.00 10/02/19 14:47 70 19 97 35 10/02/19 14:00 75 15 124/74 (91) 96 Mechanical Ventilator 45.00 10/02/19 13:58 75 I & O 10/03/19 07:00 Intake Total 2530 ml Output Total 1500 ml Balance 1030 ml Capillary Refill : Less Than 3 Seconds General Appearance: No Apparent Distress, Obese, Other (Sedated on vent) HEENT: PERRL/EOMI, Other (et and og tube no evidence of blood) Respiratory: No Accessory Muscle Use, No Respiratory Distress, Other (Few basilar rhonchi sounds much clearer than yesterday no wheezing noted.) Cardiovascular: Regular Rate, Rhythm, No Murmur, Other (Heart sounds somewhat distant likely aggravated by body habitus and mechanical ventilation.) Gastrointestinal: soft, no organomegaly, distended (minimal), hernia (umbilical), other (abdomen appears to have some edema) Extremity: Other (3+ edema of the lower and upper extremities no significant facial edema noted no crepitus noted no evidence for rash.) Skin: Normal Color, Warm/Dry Results Lab Laboratory Tests 10/02/19 14:48: Blood Gas Puncture Site LT RADIUS, Blood Gas Patient Temperature 36.8, Arterial Blood pH 7.42, Arterial Blood Partial Pressure CO2 32L, Arterial Blood Partial Pressure O2 80, Arterial Blood HCO3 21L, Arterial Blood Total CO2 21.5, Arterial Blood Oxygen Saturation 97, Arterial Blood Base Excess -3.3L, Jordan Test YES- POS, Blood Gas Ventilator Setting YES, Blood Gas Inspired Oxygen 35% 10/02/19 17:32: Glucometer 111H 10/02/19 23:35: Glucometer 99 10/03/19 02:41: White Blood Count 5.8, Red Blood Count 2.48L, Hemoglobin 7.8L, Hematocrit 25L, Mean Corpuscular Volume 100H, Mean Corpuscular Hemoglobin 32, Mean Corpuscular Hemoglobin Concent 32, Red Cell Distribution Width 17.8H, Platelet Count 105L, Mean Platelet Volume 11.2H, Neutrophils (%) (Auto) 62, Lymphocytes (%) (Auto) 28, Monocytes (%) (Auto) 7, Eosinophils (%) (Auto) 2, Basophils (%) (Auto) 1, Neutrophils # (Auto) 3.6, Lymphocytes # (Auto) 1.6, Monocytes # (Auto) 0.4, Eosinophils # (Auto) 0.1, Basophils # (Auto) 0.0, Sodium Level 148H, Potassium Level 3.6, Chloride Level 119H, Carbon Dioxide Level 20L, Anion Gap 9, Blood Urea Nitrogen 14, Creatinine 0.65, Estimat Glomerular Filtration Rate > 60, BUN/Creatinine Ratio 22, Glucose Level 100, Calcium Level 7.1L, Phosphorus Level 2.8, Magnesium Level 1.7, Triglycerides Level 120 10/03/19 02:52: Blood Gas Puncture Site RIGHT RADIAL, Blood Gas Patient Temperature 36.1, Arterial Blood pH 7.45H, Arterial Blood Partial Pressure CO2 30L, Arterial Blood Partial Pressure O2 55L, Arterial Blood HCO3 20L, Arterial Blood Total CO2 21.3, Arterial Blood Oxygen Saturation 93L, Arterial Blood Base Excess -3.2L, Jordan Test YES-POS, Blood Gas Ventilator Setting YES, Blood Gas Inspired Oxygen 25% 10/03/19 07:34: Vancomycin Level Trough 17.1 10/03/19 09:31: Ammonia 37H 10/03/19 11:14: Glucometer 110 Microbiology 10/02/19 Gram Stain - Final, Resulted 10/02/19 Bronchial Culture - Preliminary, Resulted YEAST 10/02/19 Fungal Culture 1, Resulted Pending 09/30/19 Blood Culture - Preliminary, Resulted No growth Assessment/Plan Assessment/Plan Assessment/Plan GI bleed with anemia-upper Hypotension- monitor Delirium Tremens Cirrhotic liver Acute Respiratory Failure, with significant secretions - s/p bronchoscopy Plan is to wean sedation and try and wake pt up; E-ICU is worried about mental status, but we have not way to do EEG or Neuro evaluation (no Neurologist). Will follow H/H, Protonix IV, Continue supportive care. Clinical Quality Measures DVT/VTE Risk/Contraindication: Risk Factor Score Per Nursin RFS Level Per Nursing on Admit: 3=High COREY LOPEZ DO Oct 03, 2019 13:58
--- NOTE | 2019-10-03 15:50 | NUR ---
Spoke with EICU regarding pt very restless et trying to sit up in bed despite precedex et prn fentanyl given. Pt not following any commands at this time. Order to restart propofol given.
[2019-10-03] MEDS: MICONAZOLE 2% POWDER (DESENEX AF) 90 GM TOP SCH (20:05)
[2019-10-03] MEDS ORDERED: chlordiazePOXIDE 10 MG (LIBRIUM) NON-FORMULARY PO SCH (21:00)
[2019-10-04] VITALS (22 sets, daily range): BP systolic 106–143; BP diastolic 70–104
[2019-10-04] MEDS: DexMEDEtomidine 250 ML DRIP 250 ML IV SCH ×3 (00:25→13:43)
[2019-10-04] MEDS: RT-ALBUTEROL/IPRATROPIUM 3 ML (DUONEB) VIAL INH SCH ×5 (02:04→18:13)
[2019-10-04] MEDS: PROPOFOL DRIP (ICU) 100 ML IV SCH ×3 (02:28→18:52)
[2019-10-04 03:16] LABS: BASOPHILS % (AUTO) 1 % (0-10); EOSINOPHILS # (AUTO) 0.1 10^3/uL (0.0-0.3); EOSINOPHILS % (AUTO) 2 % (0-10); HEMATOCRIT 26 % (40-54); LYMPHOCYTES # (AUTO) 1.7 X 10^3 (1.0-4.0); LYMPHOCYTES % (AUTO) 27 % (12-44); MEAN CORPUSCULAR HEMOGLOBIN 31 PG (25-34); MEAN CORPUSCULAR HGB CONC 31 G/DL (32-36); MEAN CORPUSCULAR VOLUME 99 FL (80-99); MONOCYTES # (AUTO) 0.4 X 10^3 (0.0-1.0); MONOCYTES % (AUTO) 7 % (0-12); NEUTROPHILS % (AUTO) 64 % (42-75); PLATELET COUNT 117 10^3/uL (130-400); WHITE BLOOD COUNT 6.2 10^3/uL (4.3-11.0)
[2019-10-04 03:33] LABS: BUN/CREATININE RATIO 16; CALCIUM 6.9 MG/DL (8.5-10.1); CARBON DIOXIDE 18 MMOL/L (21-32); CHLORIDE 119 MMOL/L (98-107); CREATININE SERUM 0.67 MG/DL (0.60-1.30); GFR ESTIMATED > 60; GLUCOSE 124 MG/DL (70-105); LIPASE 19 U/L (8-78); MAGNESIUM 1.6 MG/DL (1.6-2.4); PHOSPHORUS 2.6 MG/DL (2.3-4.7); POTASSIUM 3.4 MMOL/L (3.6-5.0); SODIUM 145 MMOL/L (135-145)
[2019-10-04] MEDS: cefTRIAXone FOR IV USE 2,000 MG in WATER (STERILE) FOR INJECTION 20 ML IV SCH (04:04)
[2019-10-04] MEDS ORDERED: MAGNESIUM 1 GM/100 ML IVPB 100 ML IV ONE ×2 (05:30→07:00)
[2019-10-04] MEDS ORDERED: POTASSIUM CL 10MEQ/50ML IVPB 50 ML IV ONE ×2 (05:30→07:00)
[2019-10-04] MEDS: KCL 20 MEQ TAB (K-DUR) PO SCH (05:54)
[2019-10-04] MEDS: inSUlin ASPART (NovoLOG) 1 UNIT/0.01 ML (CHARGE PER UNIT) SC SCH ×3 (05:54→18:49)
[2019-10-04] MEDS: POTASSIUM CL 10MEQ/50ML IVPB 50 ML IV SCH (06:36)
[2019-10-04] MEDS: MAGNESIUM 1 GM/100 ML IVPB 100 ML IV SCH (06:37)
[2019-10-04] MEDS: D5 1/2 NS 1000 ML IV SOLUTION 1,000 ML IV SCH ×2 (06:38→14:45)
--- NOTE | 2019-10-04 07:28 | Diagnostic Imaging Report ---
INDICATION: Dyspnea COMPARISON: October 03, 2019 TECHNIQUE: Single radiograph chest dated 10/04/2019. FINDINGS: Endotracheal tube, enteric catheter, and right IJ central venous catheter are again identified. The cardiac silhouette is enlarged, though stable. Central pulmonary vascular congestion is again noted, slightly increased since the prior examination. Increasing small bibasilar pleural-parenchymal opacities. Slightly increasing interstitial prominence. No pneumothorax. No acute osseous abnormality. IMPRESSION: Worsening bibasilar pleural-parenchymal opacities, likely related to underlying congestive heart failure given increasing central pulmonary vascular congestion. Unchanged lines and tubes. Dictated by: Dictated on workstation # [id number]
--- NOTE | 2019-10-04 08:54 | PM&R Progress Note ---
Subjective HPI/CC On Admission Date Seen by Provider: Oct 04, 2019 Time Seen by Provider: 09:30 CC: AMS HPI: This is a 59yoWM clinic patient of Wesley Campoverde who has a long history of ETOHism who presented to [facility] and found to have electrolyte abnl and elevated ammonia. Patient was admitted for supportive care and Lactulose ordered along with detox protocol. Lovenox ordered due to decreased ambulatory status. Objective Exam Vital Signs Vital Signs Date Time Temp Pulse Resp B/P (MAP) Pulse Ox O2 Delivery O2 Flow Rate FiO2 10/04/19 14:15 64 19 99 21 10/04/19 13:43 112/77 10/04/19 13:00 Mechanical Ventilator 21.00 10/04/19 12:00 37.1 Capillary Refill : Less Than 3 Seconds General Appearance: No Apparent Distress, Obese, Other (Sedated on vent) HEENT: PERRL/EOMI, Other (et and og tube no evidence of blood) Respiratory: No Accessory Muscle Use, No Respiratory Distress, Other (Few basilar rhonchi sounds much clearer than yesterday no wheezing noted.) Cardiovascular: Regular Rate, Rhythm, No Murmur, Other (Heart sounds somewhat distant likely aggravated by body habitus and mechanical ventilation.) Gastrointestinal: Distended (Although still relatively soft bowel sounds are not appreciated patient still having significant NG drainage to low intermittent suction.) Rectal: Deferred Back: Normal Inspection Extremity: Other (3+ edema of the lower and upper extremities no significant facial edema noted no crepitus noted no evidence for rash.) Skin: Normal Color, Warm/Dry Results/Procedures Lab Laboratory Tests 10/04/19 03:12 Patient resulted labs reviewed. [facility] Transfers Therapy Code Descriptions/Definitions Functional Winkler Measure: 0=Not Assessed/NA 4=Minimal Assistance 1=Total Assistance 5=Supervision or Setup 2=Maximal Assistance 6=Modified Winkler 3=Moderate Assistance 7=Complete IndependenceSCALE: Activities may be completed with or without assistive devices. 5-Xmrfuvcsbh-vqiavwp completes the activity by him/herself with no assistance f rom a helper. 5-Set-up or Clean-up Assistance-helper sets up or cleans up; patient completes activity. [place] assists only prior to or following the activity. 4-Supervision or Touching Assistance-helper provides verbal cues and/or touching/steadying and/or contact guard assistance as patient completes activity. Assistance may be provided throughout the activity or intermittently. 3-Partial/Moderate Assistance-helper does LESS THAN HALF the effort. [place] lifts, holds or supports trunk or limbs, but provides less than half the effort. 2-Substantial/Maximal Assistance-helper does MORE THAN HALF the effort. [place]er lifts or holds trunk or limbs and provides more than half the effort. 1-Wquraoxle-iwqebr does ALL the effort. Patient does none of the effort to complete the activity. Or, the assistance of 2 or more helpers is required for the patient to complete the activity. If activity was not attempted, code reason: 7-Patient Refused. 9-Not Applicable-not attempted and the patient did not perform the activity before the current illness, exacerbation or injury. 10-Not Attempted due to Environmental Limitations-(lack of equipment, weather restraints, etc.). 88-Not Attempted due to Medical Conditions or Safety Concerns. Assessment/Plan Assessment and Plan (1) Altered mental status Status: Acute Qualifiers: Altered mental status type: delirium Qualified Codes: R41.0 - Disorientation, unspecified (2) Hyperammonemia Status: Acute (3) Alcohol dependence Status: Acute Qualifiers: Substance use status: unspecified alcohol-induced disorder Qualified Codes: F10.29 - Alcohol dependence with unspecified alcohol-induced disorder (4) Agitation Status: Acute (5) Nausea and vomiting Status: Acute Qualifiers: Vomiting type: unspecified Vomiting Intractability: non-intractable Qualified Codes: R11.2 - Nausea with vomiting, unspecified Critical Care Critical Care: Critically Ill Patient ANALY SOTO DO Oct 04, 2019 08:54
[2019-10-04] MEDS ORDERED: GABAPENTIN 100 MG (NEURONTIN) CAP PO SCH (09:00)
[2019-10-04] MEDS: THIAMINE 100 MG/ML 2 ML (VITAMIN B-1) VIAL IV SCH (09:57)
[2019-10-04] MEDS: LACTULOSE SYRUP 10GM/15ML (ENULOSE) 30ML UDC PO SCH (09:57)
[2019-10-04] MEDS: PANTOPRAZOLE 40 MG (PROTONIX) VIAL IV SCH (09:58)
[2019-10-04] MEDS: LEVOFLOXACIN 750 MG/150 ML IV 150 ML IV SCH (09:58)
[2019-10-04] MEDS: RIFAXIMIN 550 MG TABLET (XIFAXAN) PO SCH (09:58)
[2019-10-04] MEDS: VANCOMYCIN 2000 MG/NS 500 ML IVPB IV SCH ×2 (09:58)
[2019-10-04] MEDS: MICONAZOLE 2% POWDER (DESENEX AF) 90 GM TOP SCH (09:59)
--- NOTE | 2019-10-04 10:04 | Diagnostic Imaging Report ---
CLINICAL INDICATION: Patient with dilated gallbladder and ascites. EXAM: Complete abdominal ultrasound. COMPARISON: CT scan of the abdomen and pelvis performed without IV or enteric contrast dated 09/25/2019. FINDINGS: Limited exam and visualization of the intra-abdominal structures due to patient's body habitus, liver density, and overlying bowel gas. Patient also intubated and unable to follow breathing instructions or move. The liver is enlarged measuring 22 cm. The liver surface is lobulated and may be seen with liver cirrhosis. There is coarsened echotexture seen throughout the liver. There is no liver mass seen. The main portal vein demonstrates hepatopetal forward flow. The gallbladder is moderately fluid distended. There is pericholecystic fluid. Gallbladder wall is mildly thickened at 5 mm. There is no sonographic Jackman's sign. There is no intrahepatic ductal dilation. The common bile duct is obscured. Pancreas is obscured and unable to be evaluated. The spleen is enlarged measuring 19.1 cm. The spleen is otherwise unremarkable. The right and left kidneys show no gross abnormality with normal-appearing cortical thickness and no hydronephrosis or mass. The right and left kidneys measure 11 cm and 10 cm, respectively. There is abdominal ascites seen which may be pyjnt-vz-tpkwumkh amount. IMPRESSION: 1: Limited evaluation of the abdominal structures due to patient body habitus, patient intubated, bowel gas, and dense liver. 2: There is hepatosplenomegaly with liver findings which may be seen with cirrhosis and chronic hepatocellular disease. There is no liver mass seen. 3: Moderately distended gallbladder with no definite stones or sludge seen, as visualized. There is no sonographic Jackman's sign, but patient is intubated and possibly sedated. 4: There is gallbladder wall thickening and pericholecystic fluid. This may be seen with chronic liver disease. If there is concern for cystic duct obstruction, then nuclear medicine HIDA study would better evaluate. 5: Abdominal ascites. Dictated by: Dictated on workstation # [id number]
--- NOTE | 2019-10-04 11:10 | Physical Therapy Progress Note ---
Therapy Progress Note No treatment rendered this date. Pt remains intubated. Will continue to follow. PEPPER MYERS PT Oct 04, 2019 11:10
--- NOTE | 2019-10-04 11:18 | Progress Note - Hospitalist ---
Subjective HPI/CC On Admission Date Seen by Provider: Oct 04, 2019 Time Seen by Provider: 09:30 CC: AMS HPI: This is a 59yoWM clinic patient of Wesley Gilles who has a long history of ETOHism who presented to [facility] and found to have electrolyte abnl and elevated ammonia. Patient was admitted for supportive care and Lactulose ordered along with detox protocol. Lovenox ordered due to decreased ambulatory status. Subjective/Events-last exam 9th day of intubation Spoke to eICU in-depth and Neuro input would be helpful since he does not appear to be able to make any purposeful movements when sedation lifted Ammonia decreased to 37 now Rocephin maintained for SBP PPx but abdominal USG reveals not enough ascites to remove safely Dr Chappell managing the gallbladder but appears to be mostly from end stage cirrhosis from heavy ETOH use for years INR 1.3 MRI brain reviewed and no acute abnl Patient was not able to carry on a conversation when I initially admitted him on 09/24/19 from elevated ammonia Patient appears to have significant metabolic encephalopathy from heavy ETOH use Sending records to to see if they could possibly provide any advice or transfer Patient really has poor prognosis considering his lack of positive clinical improvement after all of this time on the ventilator Considering the COVID-19 pandemic makes resources less available making this case more and more difficult. Review of Systems General: Fatigue Neurological: Confusion Objective Exam Vital Signs Vital Signs Date Time Temp Pulse Resp B/P (MAP) Pulse Ox O2 Delivery O2 Flow Rate FiO2 10/04/19 14:15 64 19 99 21 10/04/19 13:43 112/77 10/04/19 13:00 Mechanical Ventilator 21.00 10/04/19 12:00 37.1 Capillary Refill : Less Than 3 Seconds General Appearance: Chronically ill, Other (sedated) Respiratory: No Accessory Muscle Use, No Respiratory Distress, Decreased Breath Sounds, Other (on vent) Cardiovascular: Regular Rate, Rhythm Gastrointestinal: Distended, Other (decreased BS) Neurologic/Psychiatric: Other (sedated) Results/Procedures Lab Laboratory Tests 10/04/19 03:12 Patient resulted labs reviewed. Assessment/Plan Assessment and Plan Assess & Plan/Chief Complaint Assessment: VDRF New diagnosis of end stage liver cirrhosis from ETOH use Staph Pneumonitis placed on Vanc Yeast pneumonitis placed on Diflucan Ascites SBP PPx with Rocephin Encephalopathy when off sedation thrashes around without purposeful movements Coagulopathy Distended gallbladder Anemia Thrombocytopenia Ammonia elevation on admit now resolved with Lactulose Plan: Send records to [facility] Lactulose Dr Chappell appreciated EICU appreciated Prognosis guarded to poor Critical Care Critically Ill Patient Diagnosis/Problems Diagnosis/Problems (1) Ventilator dependence (2) Altered mental status Status: Acute Qualifiers: Altered mental status type: delirium Qualified Codes: R41.0 - Disorientation, unspecified (3) Hyperammonemia Status: Acute (4) Alcohol dependence Status: Acute Qualifiers: Substance use status: unspecified alcohol-induced disorder Qualified Codes: F10.29 - Alcohol dependence with unspecified alcohol-induced disorder (5) Agitation Status: Acute (6) Nausea and vomiting Status: Acute Qualifiers: Vomiting type: unspecified Vomiting Intractability: non-intractable Qualified Codes: R11.2 - Nausea with vomiting, unspecified Clinical Quality Measures DVT/VTE Risk/Contraindication: Risk Factor Score Per Nursin RFS Level Per Nursing on Admit: 3=High ANALY SOTO DO Oct 04, 2019 11:18
[2019-10-04] MEDS ORDERED: LORazepam INJ 2 MG/ML (ATIVAN) VIAL ONE (11:22)
--- NOTE | 2019-10-04 11:24 | NUR ---
CM/SS visited with the patients spouse Marilynn. Marilynn was present at bedside this a.m. and plans to leave around 12 due to the new visitor precautions. The patients states that she is having difficulty with the new visitor rules. She also stated that she had a concern with him being transferred to a different facility. The patients also had questions about the Medicaid application. CM/SS spoke with Dr. Morales. At this time, the plan is for the patient to stay at this facility, no transfer plans currently. CM/SS notified the and she was thankful and appeared tearful. CM/SS contacted Alejandrina from Financial services who states she will give Marilynn a call to discuss changes in patients status and if this will allow him to qualify for Medicaid.
--- NOTE | 2019-10-04 11:43 | Occ Therapy Progress Note ---
Therapy Progress Note Pt remains intubated, no skilled therapy indicated on this date. OT will continue to monitor pt. CLIFFORD TURCIOS OT Oct 04, 2019 11:43
[2019-10-04] MEDS ORDERED: LORazepam INJ 2 MG/ML (ATIVAN) VIAL IVP PRN (11:45)
[2019-10-04] MEDS: fentaNYL INJECTION 100 MCG/2 ML AMP IVP PRN (12:03)
[2019-10-04] MEDS: LEVETIRACETAM INJECTION 1,000 MG in NS (IVPB) 100 ML IV SCH (12:34)
[2019-10-04] MEDS ORDERED: aCETylcysteine 20% (MUCOMYST) 30ML SOLN VIAL INH SCH ×2 (15:00)
--- NOTE | 2019-10-04 15:56 | Progress Note - Surgery ---
Subjective Date Seen by a Provider: Oct 04, 2019 Time Seen by a Provider: 15:50 Subjective/Events-last exam Patient intubated and sedated. Abdomen distended. No family at bedside. Abdominal u/s showing cirrhosis, distended gb, thickened gallbladder with pericholecystic fluid, min-moderated ascites no gallstones or sludge Objective Exam Vital Signs Date Time Temp Pulse Resp B/P (MAP) Pulse Ox O2 Delivery O2 Flow Rate FiO2 10/04/19 14:15 64 19 99 21 10/04/19 13:43 65 112/77 10/04/19 13:00 68 15 106/73 (84) 98 Mechanical Ventilator 21.00 10/04/19 12:40 73 10/04/19 12:02 79 10/04/19 12:00 37.1 10/04/19 12:00 Mechanical Ventilator 21 10/04/19 12:00 79 25 134/86 (102) 94 Mechanical Ventilator 21.00 10/04/19 11:00 63 24 100 21 10/04/19 11:00 64 21 121/104 (110) 99 Mechanical Ventilator 21.00 10/04/19 10:00 62 17 124/104 (111) 100 Mechanical Ventilator 21.00 10/04/19 09:00 61 15 127/89 (102) 100 Mechanical Ventilator 21.00 10/04/19 08:00 61 12 126/90 (102) 100 Mechanical Ventilator 21.00 10/04/19 08:00 Mechanical Ventilator 21 10/04/19 07:23 36.4 10/04/19 07:16 61 26 100 21 10/04/19 07:00 60 13 126/90 (102) 100 Mechanical Ventilator 21.00 10/04/19 06:44 61 10/04/19 06:43 60 10/04/19 06:00 59 14 127/89 (102) 100 Mechanical Ventilator 21.00 10/04/19 05:00 64 20 127/91 (103) 99 Mechanical Ventilator 21.00 10/04/19 04:00 Mechanical Ventilator 21 10/04/19 04:00 61 12 128/86 (100) 99 Mechanical Ventilator 21.00 10/04/19 03:00 64 15 127/87 (100) 98 Mechanical Ventilator 21.00 10/04/19 03:00 35.8 10/04/19 02:28 64 122/88 10/04/19 02:04 64 17 99 21 10/04/19 02:00 59 21 121/85 (97) 100 Mechanical Ventilator 21.00 10/04/19 01:00 59 14 131/97 (108) 100 Mechanical Ventilator 21.00 10/04/19 01:00 61 10/04/19 00:43 36.4 10/04/19 00:25 60 138/97 10/04/19 00:00 Mechanical Ventilator 21 10/04/19 00:00 60 15 137/94 (108) 100 Mechanical Ventilator 21.00 10/03/19 23:00 62 14 137/99 (112) 100 Mechanical Ventilator 21.00 10/03/19 22:00 64 13 136/95 (109) 100 Mechanical Ventilator 21.00 10/03/19 21:30 64 17 99 21 10/03/19 21:00 62 14 142/96 (111) 100 Mechanical Ventilator 21.00 10/03/19 20:00 Mechanical Ventilator 21 10/03/19 20:00 66 16 129/107 (114) 100 Mechanical Ventilator 21.00 10/03/19 19:12 36.0 10/03/19 19:00 65 14 141/105 (117) 100 Mechanical Ventilator 21.00 10/03/19 18:30 64 17 99 21 10/03/19 18:17 64 10/03/19 18:00 68 16 143/95 (111) 99 Mechanical Ventilator 21.00 10/03/19 17:44 71 140/94 10/03/19 17:43 71 140/94 10/03/19 17:00 71 12 140/94 (109) 100 Mechanical Ventilator 21.00 10/03/19 16:06 91 Mechanical Ventilator 21 10/03/19 16:00 81 24 122/99 (107) 94 Mechanical Ventilator 21.00 I & O 10/04/19 07:00 Intake Total 6140 ml Output Total 1320 ml Balance 4820 ml Capillary Refill : Less Than 3 Seconds General Appearance: No Apparent Distress, Obese, Other (Sedated on vent) HEENT: PERRL/EOMI, Other (et and og tube no evidence of blood) Respiratory: No Accessory Muscle Use, No Respiratory Distress, Other (equal chest rise) Cardiovascular: Regular Rate, Rhythm Gastrointestinal: soft, no organomegaly, distended (slightly more), hernia (umbilical), other (abdomen appears to have some edema) Extremity: Other (3+ edema of the lower and upper extremities no significant facial edema noted no crepitus noted no evidence for rash.) Neurologic/Psychiatric: No Alert; Other (sedated) Skin: Normal Color, Warm/Dry Lymphatic: No Adenopathy Results Lab Laboratory Tests 10/03/19 17:45: Glucometer 127H 10/03/19 23:05: Glucometer 116H 10/04/19 03:12: White Blood Count 6.2, Red Blood Count 2.61L, Hemoglobin 8.0L, Hematocrit 26L, Mean Corpuscular Volume 99, Mean Corpuscular Hemoglobin 31, Mean Corpuscular Hemoglobin Concent 31L, Red Cell Distribution Width 18.0H, Platelet Count 117L, Mean Platelet Volume 11.0H, Neutrophils (%) (Auto) 64, Lymphocytes (%) (Auto) 27, Monocytes (%) (Auto) 7, Eosinophils (%) (Auto) 2, Basophils (%) (Auto) 1, Neutrophils # (Auto) 4.0, Lymphocytes # (Auto) 1.7, Monocytes # (Auto) 0.4, Eosinophils # (Auto) 0.1, Basophils # (Auto) 0.0, Sodium Level 145, Potassium Level 3.4L, Chloride Level 119H, Carbon Dioxide Level 18L, Anion Gap 8, Blood Urea Nitrogen 11, Creatinine 0.67, Estimat Glomerular Filtration Rate > 60, BUN/Creatinine Ratio 16, Glucose Level 124H, Calcium Level 6.9L, Phosphorus Level 2.6, Magnesium Level 1.6, Lipase 19 10/04/19 05:44: Glucometer 95 10/04/19 11:37: Glucometer 102 Microbiology 10/02/19 Mycobacterial Culture - Preliminary, Resulted 09/30/19 Blood Culture - Preliminary, Resulted No growth Assessment/Plan Assessment/Plan Assessment/Plan GI bleed with anemia-upper Hypotension- monitor Delirium Tremens Cirrhotic liver Acute Respiratory Failure, with significant secretions - s/p bronchoscopy thickened gallbladder r/o cholecystitis Plan is to wean sedation and try and wake pt up; E-ICU is worried about mental status, but we have not way to do EEG or Neuro evaluation (no Neurologist). Will follow H/H, Protonix IV, thickened gallbladder and pericholecystic fluid, does have cirrhosis and ascites, which could be related to cirrhosis, will get HIDA to check for cystic duct obstruction If cystic duct obstructed would need to be transferred for Cholecystostomy tube placement abdominal distention will get KUB Continue supportive care. Clinical Quality Measures DVT/VTE Risk/Contraindication: Risk Factor Score Per Nursin RFS Level Per Nursing on Admit: 3=High SHRUTHI BEAULIEU DO Oct 04, 2019 15:56
[2019-10-04] MEDS ORDERED: PROP10VI48 IV (17:52)
[2019-10-04] MEDS ORDERED: FNT.05A2 IVP (17:52)
[2019-10-04] MEDS ORDERED: PANT40VI IV (17:52)
[2019-10-04] MEDS ORDERED: POTA10IV IV (17:52)
[2019-10-04] MEDS ORDERED: RIFA550T PO (17:52)
[2019-10-04] MEDS ORDERED: CEFT2FRO2 IV (17:52)
[2019-10-04] MEDS ORDERED: VANC2PLA5 IV (17:52)
[2019-10-04] MEDS ORDERED: [UNRECOGNIZED DRUG - CODE] IV (17:52)
[2019-10-04] MEDS ORDERED: LACT20SO2 PO (17:52)
[2019-10-04] MEDS ORDERED: IPRA3AMP31 INH (17:52)
--- NOTE | 2019-10-04 17:53 | Discharge Summary ---
Discharge Summary Hospital Course Was the Problem List Reviewed?: Yes Problems/Dx: (1) Ventilator dependence (2) Altered mental status Status: Acute Qualifiers: Qualified Codes: R41.0 - Disorientation, unspecified (3) Hyperammonemia Status: Acute (4) Alcohol dependence Status: Acute Qualifiers: Qualified Codes: F10.29 - Alcohol dependence with unspecified alcohol- induced disorder (5) Agitation Status: Acute (6) Nausea and vomiting Status: Acute Qualifiers: Qualified Codes: R11.2 - Nausea with vomiting, unspecified Hospital Course Date of Admission: Sep 24, 2019 at 10:44 Admission Diagnosis : Family Physician/Provider: Ever Campoverde Date of Discharge: 10/04/19 Discharge Diagnosis: VDRF 9 days, Severe ETOH withdrawal, Cirrhosis from ETOHism, anemia, thrombocytopenia, hyperammonia Hospital Course: Patient had a lengthy course most of it intubated from severe ETOH withdrawal after I admitted him 1 week prior. Elevated ammonia was managed with Lactulose through OGT with eventual lowering it from 120 to 37. Patient was supported and placed on Vanc for Stap from endotracheal secretions and Dilfucan for yeast on same Cx. Overall patient could not regain normal purposeful consciousness and was felt to be in need of Neuro in case there was something that could be done to save his life and [facility] declined and [facility] declined but [facility] graciously agreed to accept transfer and he was moved there at ~1900 in stable but critical condition although his prognosis remained very poor. Labs and Pending Lab Test: Laboratory Tests 10/03/19 23:05: Glucometer 116H 10/04/19 03:12: White Blood Count 6.2, Red Blood Count 2.61L, Hemoglobin 8.0L, Hematocrit 26L, Mean Corpuscular Volume 99, Mean Corpuscular Hemoglobin 31, Mean Corpuscular Hemoglobin Concent 31L, Red Cell Distribution Width 18.0H, Platelet Count 117L, Mean Platelet Volume 11.0H, Neutrophils (%) (Auto) 64, Lymphocytes (%) (Auto) 27, Monocytes (%) (Auto) 7, Eosinophils (%) (Auto) 2, Basophils (%) (Auto) 1, Neutrophils # (Auto) 4.0, Lymphocytes # (Auto) 1.7, Monocytes # (Auto) 0.4, Eosinophils # (Auto) 0.1, Basophils # (Auto) 0.0, Sodium Level 145, Potassium Level 3.4L, Chloride Level 119H, Carbon Dioxide Level 18L, Anion Gap 8, Blood Urea Nitrogen 11, Creatinine 0.67, Estimat Glomerular Filtration Rate > 60, BUN/Creatinine Ratio 16, Glucose Level 124H, Calcium Level 6.9L, Phosphorus Level 2.6, Magnesium Level 1.6, Lipase 19 10/04/19 05:44: Glucometer 95 10/04/19 11:37: Glucometer 102 Microbiology 10/02/19 Mycobacterial Culture - Preliminary, Resulted 09/30/19 Blood Culture - Preliminary, Resulted No growth Home Meds Active Thiamine HCl 100 Mg/Ml Soln 100 Mg IV DAILY 7 Days Protonix IV (Pantoprazole Sodium) 40 Mg Vial 40 Mg IV BID 7 Days D5%-1/2Ns-KCl 10 Meq/l IV Lisa (Potassium Chloride/D5-0.45NACL) 10 Meq/1000 Ml Iv.soln 10 Meq IV PD Lactulose 20 Gm/30 Ml Solution 30 Gm PO BID 7 Days Fentanyl 0.05 mg/ml Ampul (Fentanyl Citrate) 100 Mcg/2 Ml Soln 50 Mcg IVP Q1H PRN 5 Days Diprivan (Propofol) 10 Mg/1 Ml Vial 10 Mg IV PD 5 Days Iprat-Albut 0.5-3(2.5) mg/3 ml (Ipratropium/Albuterol Sulfate) 3 Ml Ampul.neb 3 Ml INH RTQ4HR 7 Days Vanco 2 Gram/500 ml-0.9% NaCl (Vancomycin/0.9 % Sod Chloride) 2 Gm/500 Ml Plast..bag 2 Gm IV Q12H 5 Days Xifaxan (Rifaximin) 550 Mg Tablet 550 Mg PO BID 30 Days Ceftriaxone 2 gm Piggyback (Ceftriaxone Na/Dextrose,Iso) 2 Gm/50 Ml Froz.piggy 2 Gm IV DAILY 5 Days Reported Ibuprofen 200 Mg Tablet 400 Mg PO Q6H PRN Lasix (Furosemide) 20 Mg Tablet 20 Mg PO DAILY 5 Days Meloxicam 7.5 Mg Tablet 7.5 Mg PO BID PRN Vitamin D3 (Cholecalciferol (Vitamin D3)) 1,250 Mcg Capsule 1,250 Mcg PO FRIDAY Cymbalta (Duloxetine HCl) 60 Mg Capsule.dr 60 Mg PO DAILY Propranolol HCl 80 Mg Tablet 80 Mg PO BID Amlodipine Besylate 10 Mg Tablet 10 Mg PO DAILY Lovaza (Wagener-3 Acid Ethyl Esters) 1 Gm Capsule 2 Gm PO BID TAKES 2 (1GM) TO EQUAL 2GM CAPS TWICE DAILY Assessment/Pt Instructions Tx to [facility] Discharge Planning: >30 minutes discharge planning Discharge Instructions Discharge Diet: Other Diet Pneumonia Vaccine Order Indica: Yes Discharge Physical Examination Vital Signs Vital Signs Date Time Temp Pulse Resp B/P (MAP) Pulse Ox O2 Delivery O2 Flow Rate FiO2 10/04/19 16:00 Mechanical Ventilator 21 10/04/19 16:00 36.8 10/04/19 16:00 66 14 112/81 (91) 99 21.00 General Appearance: Chronically ill Allergies: Coded Allergies: Penicillins (Verified Allergy, Unknown, 09/25/19) Discharge Summary Date of Admission Sep 24, 2019 at 10:44 Date of Discharge Discharge Date: Oct 04, 2019 Admission Diagnosis Assessment: Encephalopathy likely hepatic type with elevated ammonia ETOH withdrawal Chronic pain issues Smoker Plan: Supportive care Lactulose Lovenox Monitor labs Discharge Diagnosis Assessment: VDRF New diagnosis of end stage liver cirrhosis from ETOH use Staph Pneumonitis placed on Vanc Yeast pneumonitis placed on Diflucan Ascites SBP PPx with Rocephin Encephalopathy when off sedation thrashes around without purposeful movements Coagulopathy Distended gallbladder Anemia Thrombocytopenia Ammonia elevation on admit now resolved with Lactulose Plan: Send records to [facility] Rocephin Lactulose Dr Chappell appreciated EICU appreciated Prognosis guarded to poor (1) Ventilator dependence (2) Altered mental status Status: Acute Qualifiers: Qualified Codes: R41.0 - Disorientation, unspecified (3) Hyperammonemia Status: Acute (4) Alcohol dependence Status: Acute Qualifiers: Qualified Codes: F10.29 - Alcohol dependence with unspecified alcohol- induced disorder (5) Agitation Status: Acute (6) Nausea and vomiting Status: Acute Qualifiers: Qualified Codes: R11.2 - Nausea with vomiting, unspecified Clinical Quality Measures DVT/VTE Risk/Contraindication: Risk Factor Score Per Nursin RFS Level Per Nursing on Admit: 3=High ANALY SOTO DO Oct 04, 2019 17:53
--- NOTE | 2019-10-04 17:55 | Diagnostic Imaging Report ---
AP view of the abdomen INDICATION: Abdominal distention. FINDINGS: There are multiple gas-filled loops of colon. There are no findings of small bowel dilation. There is no evidence of free air. An enteric tube extends to the expected level of of the stomach. No osseous abnormalities or abdominal calcifications evident. IMPRESSION: 1. Appropriate positioning of an enteric tube. 2. Diffuse gas-filled loops of nondilated colon. Small bowel not well delineated. There are no dilated loops of small bowel present. Underlying fluid-filled loops of small bowel could not be excluded. Dictated by: Dictated on workstation # [id number]
--- NOTE | 2019-10-04 18:11 | Diagnostic Imaging Report ---
EXAM: Hepatobiliary scintigraphy. INDICATION: Thickened gallbladder wall on prior ultrasound. Evaluate for cholecystitis. TECHNIQUE: After intravenous administration of 5.43 mCi of technetium 99m mebrofenin. Anterior imaging of the abdomen is acquired for 30 minutes. FINDINGS: Initial images demonstrate homogeneous distribution throughout the liver. The gallbladder is demonstrated at 20 minutes as well as the common bile duct. There is small bowel activity at 30 minutes. IMPRESSION: Cystic and common bile ducts are patent. There are no findings of acute cholecystitis. Dictated by: Dictated on workstation # [id number]
--- NOTE | 2019-10-04 18:42 | NUR ---
This RN attempted to wean pt off vent. per E-ICU Doctor order. Pt was unable to follow commands, would not respond to threat, and would not track. Pt began to agonal breathing while still intubated. E-ICU called. orders received. Later in shift pt taken for HIDA scan and KUB x-ray. This RN accompanied pt as well as Respiratory Therapist, Kathie. Pt has been accepted to [facility]. Report called to JUAN R Reynolds. EMS notified. Pts family also notified.
--- NOTE | 2019-10-04 19:33 | NUR ---
80ML OF ATIVAN WASTED WITNESSED BY TEODORA Keane RN AND TEODORA NuñezRN
== END 2019-10-04 19:25 | disposition short-term general hospital (02) | DRG 432 ==
LOC: EDUNIT# 07:55 → ER 07:58 → 4TH 10:44 → ICU 09-25 09:46
PROVIDERS: ADMIT Internal Medicine; ATTEND Internal Medicine
PROC: 0BH17EZ Insertion of Endotracheal Airway into Trachea, Via Natural or Artificial Opening (ICD-10-PCS; 2019-09-25)
PROC: 0DC68ZZ Extirpation of Matter from Stomach, Via Natural or Artificial Opening Endoscopic (ICD-10-PCS; 2019-09-25)
PROC: 5A1955Z Respiratory Ventilation, Greater than 96 Consecutive Hours (ICD-10-PCS; principal; 2019-09-25 18:30)
PROC: 0DB78ZX Excision of Stomach, Pylorus, Via Natural or Artificial Opening Endoscopic, Diagnostic (ICD-10-PCS; 2019-09-28)
PROC: 0BC58ZZ Extirpation of Matter from Right Middle Lobe Bronchus, Via Natural or Artificial Opening Endoscopic (ICD-10-PCS; 2019-10-02)
PROC: 0BC68ZZ Extirpation of Matter from Right Lower Lobe Bronchus, Via Natural or Artificial Opening Endoscopic (ICD-10-PCS; 2019-10-02)
PROC: 0BC88ZZ Extirpation of Matter from Left Upper Lobe Bronchus, Via Natural or Artificial Opening Endoscopic (ICD-10-PCS; 2019-10-02)
PROC: 0BCB8ZZ Extirpation of Matter from Left Lower Lobe Bronchus, Via Natural or Artificial Opening Endoscopic (ICD-10-PCS; 2019-10-02)
DX: K70.40 Alcoholic hepatic failure without coma (principal); E72.20 Disorder of urea cycle metabolism, unspecified; F10.232 Alcohol dependence with withdrawal with perceptual disturbance; F10.231 Alcohol dependence with withdrawal delirium; K25.4 Chronic or unspecified gastric ulcer with hemorrhage; J96.00 Acute respiratory failure, unspecified whether with hypoxia or hypercapnia; E87.2 Acidosis; G92 Toxic encephalopathy; N17.9 Acute kidney failure, unspecified; D62 Acute posthemorrhagic anemia; J15.211 Pneumonia due to Methicillin susceptible Staphylococcus aureus; B37.1 Pulmonary candidiasis; I11.0 Hypertensive heart disease with heart failure; I50.30 Unspecified diastolic (congestive) heart failure; K76.6 Portal hypertension; K70.30 Alcoholic cirrhosis of liver without ascites; K56.7 Ileus, unspecified; E87.0 Hyperosmolality and hypernatremia; T17.590A Other foreign object in bronchus causing asphyxiation, initial encounter; J42 Unspecified chronic bronchitis; M19.042 Primary osteoarthritis, left hand; M19.041 Primary osteoarthritis, right hand; M54.9 Dorsalgia, unspecified; F41.9 Anxiety disorder, unspecified; R32 Unspecified urinary incontinence; F17.210 Nicotine dependence, cigarettes, uncomplicated; I95.9 Hypotension, unspecified; D69.6 Thrombocytopenia, unspecified
CPT/HCPCS: 36415; 36600; 70450; 70551; 71045; 74018; 74178; 76700; 78226; 80048; 80053; 80202; 80306; 80320; 81000; 82140; 82274; 82805; 82962; 83605; 83690; 83735; 83880; 84100; 84145; 84478; 85007; 85014; 85018; 85025; 85027; 85610; 85730; 86141; 86850; 86900; 86901; 86920; 87015; 87040; 87070; 87077; 87081; 87101; 87116; 87186; 87205; 87206; 87449; 87631; 87804; 87899; 88305; 88342; 93306; 94002; 94003; 94640; 94799; 96361; 96374; 96375; 96376

== ENCOUNTER 2020-12-27 10:03 | Inpatient (IN) | payer OTHER ==
[~2020-12-27] VITALS: Ht 180 cm; Wt 92.7 kg
[~2020-12-27 10:03] MED LIST: AMLO-251 PO; CEFT2FRO2 IV; CHOL500049 PO; DULO60CA6 PO; FNT.05A2 IVP; FURO-125 PO; IBUP-2473 PO; IPRA3AMP31 INH; LACT20SO2 PO; MELO7.5T46 PO; NF-LOVAZAC PO; PANT40VI IV; POTA10IV IV; PROP10VI48 IV; PROP80TA3 PO; RIFA550T PO; VANC2PLA5 IV; [UNRECOGNIZED DRUG - CODE] IV
[2020-12-27] MEDS ORDERED: LACTATED RINGERS 1,000 ML IV STA (10:34)
[2020-12-27] MEDS ORDERED: fentaNYL INJ 100 MCG/2 ML AMP IVP STA (10:34)
[2020-12-27] MEDS ORDERED: KETOROLAC 30 MG/ML VIAL IVP STA (10:34)
--- NOTE | 2020-12-27 10:41 | ED General ---
General Stated Complaint: L FOOT INFECTION Source of Information: Patient Exam Limitations: No Limitations History of Present Illness Date Seen by Provider: Dec 27, 2020 Time Seen by Provider: 10:23 Initial Comments Here with report of left foot infection. Onset 2 weeks ago after dropping a pipe on it. He was wearing steel toed boots but the pipe landed behind the steel toe. This did cause a wound and ultimately a blister. He tried to Dr. it at home for a while. Ultimately seen by a local provider in office (Dr. Valderrama) as well as [facility]. Normally follows with [facility]. Does have history of neuropathy and diabetes. Does have history of alcohol use but has quit drinking and smoking for the last year. States that the wound came about and worsened. He has been on cephalexin and now Levaquin without improvement. Wound is worsening and red streaks or worsening output and onto the lower leg. States pain is 7 out of 10 despite tramadol. Did have nausea and one episode of vomiting after Levaquin dose today. Timing/Duration: Getting Worse, Other (2 weeks) Severity: Moderate Modifying Factors: improves with Immobilization; worse with Medication Associated Systoms: No Chest Pain, No Cough; Fever/Chills, Nausea/Vomiting; No Shortness of Air Allergies and Home Medications Allergies Coded Allergies: Penicillins (Verified Allergy, Unknown, 09/25/19) Home Medications Ceftriaxone Na/Dextrose,Iso 2 Gm/50 Ml Froz.piggy, 2 GM IV DAILY Prescribed by: ANALY SOTO on 10/04/191751 Fentanyl Citrate 100 Mcg/2 Ml Soln, 50 MCG IVP Q1H PRN for RASH Prescribed by: ANALY SOTO on 10/04/191751 Ipratropium/Albuterol Sulfate 3 Ml Ampul.neb, 3 ML INH RTQ4HR Prescribed by: ANALY SOTO on 10/04/191751 Lactulose 20 Gm/30 Ml Solution, 30 GM PO BID Prescribed by: ANALY SOTO on 10/04/191751 Pantoprazole Sodium 40 Mg Vial, 40 MG IV BID Prescribed by: ANALY SOTO on 10/04/191751 Potassium Chloride/D5-0.45NACL 10 Meq/1000 Ml Iv.soln, 10 MEQ IV PD Prescribed by: ANALY SOTO on 10/04/191751 Propofol 10 Mg/1 Ml Vial, 10 MG IV PD Prescribed by: ANALY SOTO on 10/04/191751 Rifaximin 550 Mg Tablet, 550 MG PO BID Prescribed by: ANALY SOTO on 10/04/191751 Thiamine HCl 100 Mg/Ml Soln, 100 MG IV DAILY Prescribed by: ANALY SOTO on 10/04/191751 Vancomycin/0.9 % Sod Chloride 2 Gm/500 Ml Plast..bag, 2 GM IV Q12H Prescribed by: ANALY SOTO on 10/04/191751 Patient Home Medication List Home Medication List Reviewed: Yes Review of Systems Review of Systems Constitutional: see HPI; No chills; fever EENTM: no symptoms reported Respiratory: no symptoms reported Cardiovascular: no symptoms reported Gastrointestinal: nausea, vomiting Genitourinary: no symptoms reported Musculoskeletal: see HPI, joint pain, muscle pain Skin: change in color, lesions Psychiatric/Neurological: No Symptoms Reported All Other Systems Reviewed Negative Unless Noted: Yes Past Bzuwyhi-Ughmyp-Ejlnvp Hx Past Med/Social Hx: Reviewed Nursing Past Med/Soc Hx Patient Social History Alcohol Use: Past History Alcohol Beverage of Choice: Whiskey Smoking Status: Former Smoker Type Used: Cigarettes Recent Hopitalizations: No Seasonal Allergies Seasonal Allergies: No Past Medical History Surgeries: Yes Orthopedic, Vasectomy Respiratory: Yes Chronic Bronchitis Cardiac: Yes Hypertension Neurological: No Reproductive Disorders: No Genitourinary: No Gastrointestinal: No Musculoskeletal: Yes Arthritis, Chronic Back Pain Endocrine: No HEENT: No Loss of Vision: Denies Hearing Impairment: Denies Cancer: No Psychosocial: Yes (regular alcohol use) Anxiety Integumentary: No Family Medical History Reviewed Nursing Family Hx No Pertinent Family Hx Physical Exam-Suspected Sepsis Physical Exam Vital Signs Vital Signs - First Documented 12/27/20 10:15 Temp 37.0 Pulse 61 Resp 18 B/P (MAP) 151/79 (103) Pulse Ox 98 Capillary Refill : Height, Weight, BMI Height: '" Weight: lbs. oz. kg; 30.65 BMI Method: General Appearance: No Apparent Distress, WD/WN HEENT: PERRL/EOMI, Pharynx Normal Neck: Non Tender, Supple Respiratory: Lungs Clear, Normal Breath Sounds Cardiovascular: Regular Rate, Rhythm, No Murmur Gastrointestinal: Non Tender, Soft Back: Normal Inspection, No Vertebral Tenderness Extremity: Swelling, Other (Left foot with marked swelling, wounds to the dorsum distally including 3 ulcerative wounds. Redness extends from toes up to area above ankle with red streaks moving up the leg. Ecchymosis noted distal to the wound to all toes.) Neurologic/Psychiatric: Alert, Oriented x3 Skin: warm/dry, ecchymosis, ulcerations (As above) Focused Exam Lactate Level 12/27/20 10:30: Lactic Acid Level 2.53*H Lactic Acid Level Laboratory Tests Test 12/27/20 10:30 Lactic Acid Level 2.53 MMOL/L (0.50-2.00) *H Procedures/Interventions Date of ETT Placement: Sep 25, 2019 Time of ETT Placement: 0950 Progress/Results/Core Measures Suspected Sepsis SIRS Temperature: Pulse: Respiratory Rate: Laboratory Tests 12/27/20 10:30: White Blood Count 7.2 Blood Pressure / Mean: 12/27/20 10:30: Lactic Acid Level 2.53*H Laboratory Tests 12/27/20 10:30: Creatinine 1.15, Platelet Count 80L, Total Bilirubin 3.8H Results/Orders Lab Results Laboratory Tests Test 12/27/20 10:30 Range/Units White Blood Count 7.2 4.3-11.0 10^3/uL Red Blood Count 4.52 4.30-5.52 10^6/uL Hemoglobin 13.9 13.3-17.7 g/dL Hematocrit 41 40-54 % Mean Corpuscular Volume 91 80-99 fL Mean Corpuscular Hemoglobin 31 25-34 pg Mean Corpuscular Hemoglobin Concent 34 32-36 g/dL Red Cell Distribution Width 15.5 H 10.0-14.5 % Platelet Count 80 L 130-400 10^3/uL Mean Platelet Volume 12.0 9.0-12.2 fL Immature Granulocyte % (Auto) 0 % Neutrophils (%) (Auto) 65 42-75 % Lymphocytes (%) (Auto) 21 12-44 % Monocytes (%) (Auto) 12 0-12 % Eosinophils (%) (Auto) 1 0-10 % Basophils (%) (Auto) 1 0-10 % Neutrophils # (Auto) 4.7 1.8-7.8 10^3/uL Lymphocytes # (Auto) 1.5 1.0-4.0 10^3/uL Monocytes # (Auto) 0.9 0.0-1.0 10^3/uL Eosinophils # (Auto) 0.1 0.0-0.3 10^3/uL Basophils # (Auto) 0.0 0.0-0.1 10^3/uL Immature Granulocyte # (Auto) 0.0 0.0-0.1 10^3/uL Percent Immature Platelet Fraction 6.4 0.0-7.6 % Sodium Level 138 135-145 MMOL/L Potassium Level 4.0 3.6-5.0 MMOL/L Chloride Level 107 98-107 MMOL/L Carbon Dioxide Level 19 L 21-32 MMOL/L Anion Gap 12 5-14 MMOL/L Blood Urea Nitrogen 10 7-18 MG/DL Creatinine 1.15 0.60-1.30 MG/DL Estimat Glomerular Filtration Rate > 60 BUN/Creatinine Ratio 9 Glucose Level 118 H 70-105 MG/DL Lactic Acid Level 2.53 *H 0.50-2.00 MMOL/L Calcium Level 9.1 8.5-10.1 MG/DL Corrected Calcium 9.3 8.5-10.1 MG/DL Total Bilirubin 3.8 H 0.1-1.0 MG/DL Aspartate Amino Transf (AST/SGOT) 36 H 5-34 U/L Alanine Aminotransferase (ALT/SGPT) 21 0-55 U/L Alkaline Phosphatase 149 H 40-136 U/L C-Reactive Protein High Sensitivity 4.68 H 0.00-0.50 MG/DL Total Protein 7.4 6.4-8.2 GM/DL Albumin 3.7 3.2-4.5 GM/DL My Orders Orders - ROULA JAY MD Cbc With Automated Diff (12/27/20 10:11) Comprehensive Metabolic Panel (12/27/20 10:11) Blood Culture (12/27/20 10:11) Sputum Culture (12/27/20 10:11) Ed Iv/Invasive Line Start (12/27/20 10:11) Vital Signs Adult Sepsis Patie Q15M (12/27/20 10:11) O2 (12/27/20 10:11) Remove Rings In Anticipation O (12/27/20 10:11) Lactic Acid Analyzer (12/27/20 10:11) Hs C Reactive Protein (12/27/20 10:11) Fentanyl Inj (Sublimaze Injection) (12/27/20 10:34) Ketorolac Injection (Toradol Injection) (12/27/20 10:34) Ondansetron Injection (Zofran Injectio (12/27/20 10:45) Lactated Ringers (Lr 1000 Ml Iv Solution (12/27/20 10:34) Foot, Left, 3 Views (12/27/20 11:15) Hemoglobin A1c (12/27/20 11:57) Cefepime Injection (Maxipime Injection) (12/27/20 12:00) Vancomycin Injection (Vancomycin Injecti (12/27/20 12:00) Medications Given in ED Current Medications Medications Dose Ordered Sig/Shadi Route Start Time Stop Time Status Last Admin Dose Admin Ondansetron HCl 4 mg ONCE ONCE IVP 12/27/20 10:45 12/27/20 10:46 DC 12/27/20 10:55 4 MG Vital Signs/I&O 12/27/20 10:15 Temp 37.0 Pulse 61 Resp 18 B/P (MAP) 151/79 (103) Pulse Ox 98 Capillary Refill : Progress Note : Progress Note Seen and evaluated. Sepsis protocol initiated. We will get x-ray of the left foot. Fentanyl 50 mcg IV, Toradol 15 mg IV and Zofran 4 mg IV ordered. LR 1 L bolus. Monitor patient. 1153: X-ray negative. Labs indicate sepsis which is likely cellulitis from the foot. We will initiate cefepime due to penicillin allergy and vancomycin per sepsis protocol. I did discuss the case with Dr. Soto and she accepts patient for admission, inpatient status. She has requested addition of hemoglobin A1c which was ordered. Also requested consult with Dr. Johnson. 07/15/2001: I did discuss the case with Dr. Johnson and he agrees to see the patient in consult. Patient's tetanus is up-to-date. Pain is currently controlled after medications above. Patient agrees to admission. Diagnostic Imaging Diagonstic Imaging: Xray Plain Films/CT/US/NM/MRI: other Comments [facility] [place], [place] NAME: KATIANA BENSON [facility] REC#: [id number] PT STATUS: REG ER : 1960 PHYSICIAN: ROULA JAY MD ADMIT DATE: 12/27/20/ER Draft Date of Exam:12/27/20 FOOT, LEFT, 3 VIEWS Indication: Infection. 3 views were obtained FINDINGS: The alignment is normal. There is no fracture or dislocation. There is soft tissue swelling along the dorsal aspect of the foot. There are no radiopaque foreign bodies IMPRESSION: Soft tissue swelling otherwise unremarkable. Dictated on workstation # [id number] Dict: 12/27/20 1138 Trans: 12/27/20 1143 [facility] [id number] Interpreted by: JAYNE STANLEY MD Electronically signed by: Departure Communication (Admissions) Time/Spoke to Admitting Phy: 11:53 Time/Spoke to Consulting Phy: 12:02 Impression Primary Impression: Sepsis Qualified Codes: A41.9 - Sepsis, unspecified organism Additional Impression: Cellulitis of left foot Disposition: ADMITTED INPATIENT Condition: Stable Admissions Decision to Admit Reason: Admit from ER (General) Decision to Admit/Date: Dec 27, 2020 Time/Decision to Admit Time: 11:53 Departure-Patient Inst. Referrals: [facility] (PCP/Family) Primary Care Physician ROULA JAY MD Dec 27, 2020 10:41
[2020-12-27] MEDS ORDERED: ONDANSETRON 4 MG/2 ML (SDV) Z0FRAN IVP ONE (10:45)
[2020-12-27 10:51] LABS: HEMOGLOBIN 13.9 g/dL (13.3-17.7)
[2020-12-27 10:53] LABS: BASOPHILS % (AUTO) 1 % (0-10); EOSINOPHILS # (AUTO) 0.1 10^3/uL (0.0-0.3); EOSINOPHILS % (AUTO) 1 % (0-10); HEMATOCRIT 41 % (40-54); LYMPHOCYTES # (AUTO) 1.5 10^3/uL (1.0-4.0); LYMPHOCYTES % (AUTO) 21 % (12-44); MEAN CORPUSCULAR HEMOGLOBIN 31 pg (25-34); MEAN CORPUSCULAR HGB CONC 34 g/dL (32-36); MEAN CORPUSCULAR VOLUME 91 fL (80-99); MONOCYTES # (AUTO) 0.9 10^3/uL (0.0-1.0); MONOCYTES % (AUTO) 12 % (0-12); NEUTROPHILS # (AUTO) 4.7 10^3/uL (1.8-7.8); NEUTROPHILS % (AUTO) 65 % (42-75); PLATELET COUNT 80 10^3/uL (130-400); WHITE BLOOD COUNT 7.2 10^3/uL (4.3-11.0)
[2020-12-27 11:01] LABS: ALBUMIN 3.7 GM/DL (3.2-4.5); CHLORIDE 107 MMOL/L (98-107); SODIUM 138 MMOL/L (135-145)
[2020-12-27 11:02] LABS: CALCIUM 9.1 MG/DL (8.5-10.1)
[2020-12-27 11:04] LABS: GLUCOSE 118 MG/DL (70-105); TOTAL PROTEIN 7.4 GM/DL (6.4-8.2)
[2020-12-27 11:05] LABS: BILIRUBIN,TOTAL 3.8 MG/DL (0.1-1.0); CARBON DIOXIDE 19 MMOL/L (21-32)
[2020-12-27 11:07] LABS: ALKALINE PHOSPHATASE 149 U/L (40-136); CREATININE SERUM 1.15 MG/DL (0.60-1.30); GFR ESTIMATED > 60
[2020-12-27 11:08] LABS: BUN/CREATININE RATIO 9
[2020-12-27 11:10] LABS: ALANINE AMINOTRANSFERASE 21 U/L (0-55)
--- NOTE | 2020-12-27 11:44 | Diagnostic Imaging Report ---
Indication: Infection. 3 views were obtained FINDINGS: The alignment is normal. There is no fracture or dislocation. There is soft tissue swelling along the dorsal aspect of the foot. There are no radiopaque foreign bodies IMPRESSION: Soft tissue swelling otherwise unremarkable. Dictated by: Dictated on workstation # [id number]
[2020-12-27] MEDS ORDERED: VANCOMYCIN INJECTION 1,000 MG in NS (IVPB) 250 ML IV ONE (12:00)
[2020-12-27] MEDS ORDERED: CEFEPIME INJECTION 1,000 MG in WATER (STERILE) FOR INJECTION 10 ML IV ONE (12:00)
[2020-12-27 12:54] VITALS: BP 167/81
[2020-12-27] MEDS ORDERED: VANCOMYCIN INJECTION 0.1 MG in NS (IVPB) 250 ML IV SCH (13:15)
[2020-12-27] MEDS: ENOXAPARIN 40 MG/0.4 ML (LOVENOX) SYR SC SCH (13:26)
[2020-12-27] MEDS: NS IV 1000 ML 1,000 ML IV SCH (13:26)
[2020-12-27] MEDS: metroNIDAZOLE 500MG/100ML IVPB 100 ML IV SCH (13:27)
[2020-12-27] MEDS ORDERED: VANCOMYCIN 750 MG/NS 250 ML IVPB IV NR ×2 (13:30)
[2020-12-27] MEDS ORDERED: PREG150C PO (14:38)
[2020-12-27] MEDS ORDERED: PANT40TA52 PO (14:38)
[2020-12-27] MEDS ORDERED: DICL75TA2 PO (14:38)
[2020-12-27] MEDS ORDERED: TRAM50TA3 PO (14:38)
[2020-12-27] MEDS ORDERED: PROP80TA3 PO (14:38)
[2020-12-27] MEDS ORDERED: OMEG-160 PO (14:38)
[2020-12-27] MEDS ORDERED: ERGO1250 PO (14:49)
[2020-12-27] MEDS ORDERED: ONDANSETRON 4 MG/2 ML (SDV) Z0FRAN IVP PRN (15:00)
[2020-12-27] MEDS: inSUlin ASPART (NovoLOG) 1 UNIT/0.01 ML (CHARGE PER UNIT) SC SCH ×2 (15:33→21:28)
[2020-12-27 16:00] VITALS: BP 151/81
--- NOTE | 2020-12-27 16:44 | History & Physical-Hospitalist ---
History of Present Illness HPI/Chief Complaint CC: Left foot pain HPI: This is a [facility] patient who presents two weeks after a left foot injury of which a lead pipe fell on his foot and a wound has persisted and become cellulitic, Dr. Johnson will be consulted for possible I&D and he will be initiated on Cefepime and Vancomycin, he failed Keflex and Levaquin as an otupatient. Patient denies fever. Source: patient, family Exam Limitations: no limitations Date Seen 12/27/20 Time Seen by a Provider: 17:30 Attending Physician Svetlana Morales DO [facility] Referring Physician Date of Admission Dec 27, 2020 at 11:58 Home Medications & Allergies Home Medications Reviewed patient Home Medication Reconciliation performed by pharmacy medication reconciliations packaging technician and/or nursing. Patients Allergies have been reviewed. Allergies Allergies Coded Allergies Penicillins (Verified Allergy, Unknown, 09/25/19) Past Ncaqjxs-Sphlrx-Qvqqcs Hx Patient Social History Marrital Status: Employed/Student: employed Tobacco Use?: No Smoking Status: Former Smoker Use of E-Cig and/or Vaping dev: No Substance use?: No Alcohol Use?: No Pt feels they are or have been: No Immunizations Up To Date Tetanus Booster (TDap): Less Than 5 Years Hepatitis A: No Hepatitis B: No Seasonal Allergies Seasonal Allergies: No Current Status Advance Directives: No Communicates: Verbally Primary Language: Occitan Preferred Spoken Language: Occitan Is interpretation needed?: No Implanted or Applied Medical D: None Past Medical History Surgeries: Orthopedic, Vasectomy Chronic Bronchitis Hypertension Arthritis, Chronic Back Pain Loss of Vision: Denies Hearing Impairment: Denies Anxiety Family Medical History Reviewed Nursing Family Hx No Pertinent Family Hx Review of Systems Constitutional: see HPI Skin: see HPI Physical Exam Physical Exam Vital Signs Vital Signs - First Documented 12/27/20 12/27/20 10:15 12:38 Temp 37.0 Pulse 61 Resp 18 B/P (MAP) 151/79 (103) Pulse Ox 98 O2 Delivery Room Air Capillary Refill : Less Than 3 Seconds Height, Weight, BMI Height: '" Weight: lbs. oz. kg; 28.95 BMI Method: General Appearance: No Apparent Distress Eyes: Right Eye Normal Inspection, Right Eye PERRL HEENT: PERRL/EOMI, TMs Normal, Normal ENT Inspection, Pharynx Normal, Moist Mucous Membranes Neck: Full Range of Motion, Normal Inspection, Non Tender Respiratory: Chest Non Tender, Lungs Clear, Normal Breath Sounds, No Accessory Muscle Use, No Respiratory Distress Cardiovascular: Regular Rate, Rhythm, No Edema, No Gallop, No JVD, No Murmur, Normal Peripheral Pulses Gastrointestinal: Normal Bowel Sounds, No Organomegaly, No Pulsatile Mass, Non Tender, Soft Back: Normal Inspection, No CVA Tenderness, No Vertebral Tenderness Extremity: Normal Capillary Refill, Normal Inspection, Normal Range of Motion, Non Tender, No Calf Tenderness, No Pedal Edema Neurologic/Psychiatric: Alert, Oriented x3, No Motor/Sensory Deficits, Normal Mood/Affect Skin: Normal Color, Warm/Dry, Rash (left foot cellulitis with ecchymosis) Lymphatic: No Adenopathy Results Results/Procedures Labs Laboratory Tests 12/27/20 10:30 Patient resulted labs reviewed. Assessment/Plan Admission Diagnosis Assessment: Left foot cellulitis severe failed PO abx h/o etohism HTN Plan: Monitor foot IV abx Pain control Admission Status: Inpatient Order (span 2 midnights) Reason for Inpatient Admission: cellulitis severe with failed PO abx Diagnosis/Problems Diagnosis/Problems (1) Cellulitis of left foot Status: Acute (2) Sepsis Status: Acute Qualifiers: Sepsis type: sepsis due to unspecified organism Sepsis acute organ dysfunction status: without acute organ dysfunction Qualified Codes: A41.9 - Sepsis, unspecified organism SVETLANA MORALES DO Dec 27, 2020 16:44
[2020-12-27] MEDS ORDERED: amLODIPine 5 MG (NORVASC) TAB PO NR (16:45)
[2020-12-27] MEDS: fentaNYL INJ 100 MCG/2 ML AMP IVP PRN (17:01)
[2020-12-27] MEDS: HYDROcodone/APAP 5 MG/325 MG (LORTAB) TAB PO PRN (17:02)
[2020-12-27] MEDS: CEFEPIME INJECTION 1,000 MG in WATER (STERILE) FOR INJECTION 10 ML IV SCH (17:02)
[2020-12-27 20:00] VITALS: BP 155/85
--- NOTE | 2020-12-27 20:06 | CONSULTATION REPORT ---
DATE OF SERVICE: 12/27/2020 ATTENDING STAFF REGISTERED NURSE: [facility]. ADMITTING PHYSICIAN: Dr. Morales. HISTORY OF PRESENT ILLNESS: The patient is a 60-year-old male who presented to the Emergency Department with pain and swelling of the left foot. He reports that approximately 2 weeks ago, he dropped a pipe on it and he was wearing steel-toed boots and continued to work the rest of the day; however, towards the end of the day, he felt pain and did notice swelling. He states that approximately two days later, he noticed some blisters along the dorsal aspect of the forefoot. He states that this slightly worsened and was seen at [facility] and was started on oral antibiotics as well as wound care. He does have a history of neuropathy. He presented today with worsening pain as well as swelling and ecchymosis overlying the entirety of the dorsal aspect of the left foot. He has a palpable posterior tibial and dorsalis pedis pulses and moves all toes purposefully upon command. PAST MEDICAL HISTORY: Peripheral neuropathy, COPD, hypertension, degenerative joint disease. PAST SURGICAL HISTORY: Vasectomy. ALLERGIES: PENICILLIN. MEDICATIONS: Ipratropium/albuterol breathing treatments q.4 hours, lactulose 30 grams b.i.d., Protonix 40 mg b.i.d., potassium daily. SOCIAL HISTORY: Previous smoke, quit 2 years ago, 30 pack years. He does drink social alcohol. FAMILY HISTORY: Noncontributory. VITAL SIGNS: Temperature 37.0, blood pressure 151/79, pulse 61, respirations 18, pulse ox 98% on room air. REVIEW OF SYSTEMS: He is a well-nourished male currently in no acute distress. He is not experiencing any shortness of breath or difficulty breathing. No chest pain, palpitations, diaphoresis. No nausea or vomiting, no diarrhea or constipation. No fever, chills. No recent inadvertent weight loss. All other review of systems negative. PHYSICAL EXAMINATION: CHEST: A few scattered rales and expiratory wheezes bilaterally. HEART: Regular, no murmurs. EXTREMITIES: A +1 to 2/3 left foot edema with some overlying ecchymosis as well as thickened skin of the dorsum of the foot. There is no fluctuance to indicate any abscess. There does not appear to be any full-thickness necrotic skin. Palpable dorsalis pedis and posterior tibial pulse. HEENT: No scleral icterus. NECK: No cervical lymphadenopathy. ABDOMEN: Soft, nontender, nondistended. SKIN: Warm, dry. LABORATORY DATA: WBC 7.2, hemoglobin 13.9, hematocrit 41, platelets 80. BUN 10, creatinine 1.15. Total bilirubin 3.8, AST 36, ALT 21. ASSESSMENT AND PLAN: A 60-year-old male with edema, ecchymosis and cellulitis of the dorsum of the left foot secondary to a previous trauma approximately 2 weeks ago. There does not appear to be any abscess or any necrotic soft tissue. We will recommend conservative management with wound care as well as a lower extremity elevation and IV antibiotics. Job ID: [id number] DocumentID: [id number] Dictated Date: 12/27/2020 17:45:59 Prop Attendant Date: 12/27/2020 20:05:31 Dictated By: GEORGETTE MOREIRA MD
[2020-12-28] MEDS: CEFEPIME INJECTION 1,000 MG in WATER (STERILE) FOR INJECTION 10 ML IV SCH ×5 (00:09→23:21)
[2020-12-28 00:23] VITALS: BP 135/79
[2020-12-28] MEDS: metroNIDAZOLE 500MG/100ML IVPB 100 ML IV SCH ×2 (00:54→13:12)
[2020-12-28] MEDS: VANCOMYCIN 1500 MG/NS 500 ML IVPB IV SCH ×4 (01:48→13:11)
[2020-12-28 04:15] VITALS: BP_SYST 145; BP_SYST 176; BP_DIAS 67; BP_DIAS 78
--- NOTE | 2020-12-28 05:49 | Progress Note - Hospitalist ---
Subjective HPI/CC On Admission Date Seen by Provider: Dec 28, 2020 Time Seen by Provider: 11:00 CC: Left foot pain HPI: This is a [facility] patient who presents two weeks after a left foot injury of which a lead pipe fell on his foot and a wound has persisted and become cellulitic, Dr. Johnson will be consulted for possible I&D and he will be initiated on Cefepime and Vancomycin, he failed Keflex and Levaquin as an otupatient. Patient denies fever. Subjective/Events-last exam Patient doing about the same Elevating the leg Antibiotics maintained Wound care will see the patient Pain is pretty well controlled No concerns on this and Home meds were restarted Review of Systems General: Fatigue, Malaise Musculoskeletal: foot pain Focused Exam Lactate Level 12/27/20 10:30: Lactic Acid Level 2.53*H 12/27/20 12:32: Lactic Acid Level 1.61 Objective Exam Vital Signs Vital Signs Date Time Temp Pulse Resp B/P (MAP) Pulse Ox O2 Delivery O2 Flow Rate FiO2 12/28/20 19:29 37.8 63 18 146/74 (98) 96 Room Air Capillary Refill : Less Than 3 Seconds General Appearance: No Apparent Distress, WD/WN Respiratory: Lungs Clear Cardiovascular: Regular Rate, Rhythm Neurologic/Psychiatric: Alert, Oriented x3, No Motor/Sensory Deficits, Normal Mood/Affect Skin: Rash (Right leg with bruising and erythema) Results/Procedures Lab Laboratory Tests 12/28/20 05:33 Patient resulted labs reviewed. Assessment/Plan Assessment and Plan Assess & Plan/Chief Complaint Assessment: Left foot cellulitis severe failed PO abx h/o etohism HTN Plan: Monitor foot IV abx Pain control 12/28/2020: IV antibiotics Elevate Wound care Diagnosis/Problems Diagnosis/Problems (1) Cellulitis of left foot Status: Acute (2) Sepsis Status: Acute Qualifiers: Sepsis type: sepsis due to unspecified organism Sepsis acute organ dysfunction status: without acute organ dysfunction Qualified Codes: A41.9 - Sepsis, unspecified organism ANALY SOTO DO Dec 28, 2020 05:49
[2020-12-28 06:15] LABS: BASOPHILS % (AUTO) 1 % (0-10); EOSINOPHILS # (AUTO) 0.1 10^3/uL (0.0-0.3); EOSINOPHILS % (AUTO) 2 % (0-10); HEMATOCRIT 35 % (40-54); HEMOGLOBIN 12.1 g/dL (13.3-17.7); LYMPHOCYTES # (AUTO) 1.4 10^3/uL (1.0-4.0); LYMPHOCYTES % (AUTO) 34 % (12-44); MEAN CORPUSCULAR HEMOGLOBIN 31 pg (25-34); MEAN CORPUSCULAR HGB CONC 34 g/dL (32-36); MEAN CORPUSCULAR VOLUME 91 fL (80-99); MEAN PLATELET VOLUME 10.9 fL (9.0-12.2); MONOCYTES # (AUTO) 0.5 10^3/uL (0.0-1.0); MONOCYTES % (AUTO) 12 % (0-12); NEUTROPHILS # (AUTO) 2.1 10^3/uL (1.8-7.8); NEUTROPHILS % (AUTO) 51 % (42-75); PLATELET COUNT 60 10^3/uL (130-400); WHITE BLOOD COUNT 4.1 10^3/uL (4.3-11.0)
[2020-12-28] MEDS: HYDROcodone/APAP 5 MG/325 MG (LORTAB) TAB PO PRN ×3 (06:15→22:25)
[2020-12-28 06:41] LABS: CHLORIDE 109 MMOL/L (98-107)
[2020-12-28 06:42] LABS: SODIUM 140 MMOL/L (135-145)
[2020-12-28 06:43] LABS: CALCIUM 8.5 MG/DL (8.5-10.1); GLUCOSE 88 MG/DL (70-105)
[2020-12-28 06:44] LABS: CARBON DIOXIDE 20 MMOL/L (21-32)
[2020-12-28] MEDS: inSUlin ASPART (NovoLOG) 1 UNIT/0.01 ML (CHARGE PER UNIT) SC SCH ×4 (06:45→19:45)
[2020-12-28 06:47] LABS: CREATININE SERUM 1.15 MG/DL (0.60-1.30); GFR ESTIMATED > 60
[2020-12-28 06:48] LABS: BUN/CREATININE RATIO 10
[2020-12-28 08:06] VITALS: BP 125/58
[2020-12-28] MEDS: NS IV 1000 ML 1,000 ML IV SCH ×2 (09:19→23:20)
[2020-12-28] MEDS: amLODIPine 5 MG (NORVASC) TAB PO SCH (09:20)
[2020-12-28] MEDS ORDERED: LEVO750T39 PO (11:08)
[2020-12-28] MEDS ORDERED: FERR-84 PO (11:08)
[2020-12-28] MEDS ORDERED: MULT-1136 PO (11:08)
[2020-12-28] MEDS ORDERED: CETI10TA17 PO (11:08)
[2020-12-28 11:51] VITALS: BP 142/72
[2020-12-28] MEDS: ENOXAPARIN 40 MG/0.4 ML (LOVENOX) SYR SC SCH (13:12)
[2020-12-28] MEDS: fentaNYL INJ 100 MCG/2 ML AMP IVP PRN (16:41)
[2020-12-28 16:52] VITALS: BP 162/82
--- NOTE | 2020-12-28 18:08 | Wound Care Assessment ---
Wound Care Assessment Date Seen by Provider: Dec 28, 2020 Time Seen by Provider: 17:40 Chief Complaint Infected L foot. HPI The patient is a 60 year old male with dense peripheral neuropathy and infected L foot 11 days after crush injury. Plain film negative for fracture. Distal blisters to scabs dorsal foot. Palpable pulses. Will obtain MRI to rule out deep space infection. Neuropathy Smoking Status: Former Smoker Recreational Drug Use: No Alcohol Use: Past History Review of Systems Pulmonary: No Dyspnea Cardiovascular: No: Chest Pain Exam Vital Signs Date Time Temp Pulse Resp B/P (MAP) Pulse Ox O2 Delivery O2 Flow Rate FiO2 12/28/20 16:52 37.2 66 20 162/82 (108) 98 Room Air Capillary Refill : Less Than 3 Seconds Extremities: other (L foot edematous with erythema and multile areas of scab formation.) Results Laboratory Tests 12/27/20 20:18: Glucometer 101 12/28/20 05:33: White Blood Count 4.1L, Red Blood Count 3.88L, Hemoglobin 12.1L, Hematocrit 35L, Mean Corpuscular Volume 91, Mean Corpuscular Hemoglobin 31, Mean Corpuscular Hemoglobin Concent 34, Red Cell Distribution Width 15.3H, Platelet Count 60L, Mean Platelet Volume 10.9, Immature Granulocyte % (Auto) 0, Neutrophils (%) (Auto) 51, Lymphocytes (%) (Auto) 34, Monocytes (%) (Auto) 12, Eosinophils (%) (Auto) 2, Basophils (%) (Auto) 1, Neutrophils # (Auto) 2.1, Lymphocytes # (Auto) 1.4, Monocytes # (Auto) 0.5, Eosinophils # (Auto) 0.1, Basophils # (Auto) 0.0, Immature Granulocyte # (Auto) 0.0, Sodium Level 140, Potassium Level 4.0, Chloride Level 109H, Carbon Dioxide Level 20L, Anion Gap 11, Blood Urea Nitrogen 11, Creatinine 1.15, Estimat Glomerular Filtration Rate > 60, BUN/Creatinine Ratio 10, Glucose Level 88, Calcium Level 8.5 12/28/20 14:08: Glucometer 135H Microbiology 12/27/20 Blood Culture - Preliminary, Resulted No growth Microbiology 12/27/20 Blood Culture - Preliminary, Resulted No growth 12/27/20 Blood Culture - Preliminary, Resulted No growth Assessment/Plan/Dx 1. Infected L foot, R/O deep space infection. 2. Peripheral neuropathy. Plan: On IV antibiotics. MRI. RAPHAEL JONES MD Dec 28, 2020 18:08
[2020-12-28 19:29] VITALS: BP 146/74
[2020-12-28] MEDS ORDERED: NON-FORMULARY MEDICATION 1 EA EA (Cetirizine HCl 10 MG) PO PRN (20:00)
[2020-12-28] MEDS ORDERED: LORATADINE (CLARITIN) 10 MG TAB PO PRN (20:30)
[2020-12-28] MEDS ORDERED: NON-FORMULARY MEDICATION 1 EA EA (Diclofenac Sodium 75 MG) PO SCH (21:00)
[2020-12-28] MEDS ORDERED: NON-FORMULARY MEDICATION 1 EA EA (Propranolol HCl 80 MG) PO SCH (21:00)
[2020-12-28] MEDS: PREGABALIN 150 MG (LYRICA) CAPSULE PO SCH (22:25)
[2020-12-28] MEDS: PROPRANOLOL 20 MG (INDERAL) TABLET PO SCH (22:28)
[2020-12-29] VITALS (7 sets, daily range): BP systolic 119–159; BP diastolic 65–89
[2020-12-29] MEDS: metroNIDAZOLE 500MG/100ML IVPB 100 ML IV SCH ×2 (00:48→12:33)
[2020-12-29] MEDS: VANCOMYCIN 1500 MG/NS 500 ML IVPB IV SCH ×4 (01:47→13:07)
[2020-12-29] MEDS: inSUlin ASPART (NovoLOG) 1 UNIT/0.01 ML (CHARGE PER UNIT) SC SCH (05:04)
--- NOTE | 2020-12-29 05:55 | Progress Note - Hospitalist ---
Subjective HPI/CC On Admission Date Seen by Provider: Dec 29, 2020 Time Seen by Provider: 11:00 CC: Left foot pain HPI: This is a [facility] patient who presents two weeks after a left foot injury of which a lead pipe fell on his foot and a wound has persisted and become cellulitic, Dr. Johnson will be consulted for possible I&D and he will be initiated on Cefepime and Vancomycin, he failed Keflex and Levaquin as an otupatient. Patient denies fever. Subjective/Events-last exam Patient doing about the same Pain is still an issue MRI reveals hematoma which is infected so Dr. Johnson will evaluate for surgery Review of Systems General: Fatigue, Malaise Musculoskeletal: foot pain Focused Exam Lactate Level 12/27/20 10:30: Lactic Acid Level 2.53*H 12/27/20 12:32: Lactic Acid Level 1.61 Objective Exam Vital Signs Vital Signs Date Time Temp Pulse Resp B/P (MAP) Pulse Ox O2 Delivery O2 Flow Rate FiO2 12/29/20 23:22 36.6 54 20 121/70 (87) 96 Room Air Capillary Refill : Less Than 3 Seconds General Appearance: No Apparent Distress, WD/WN Respiratory: Lungs Clear Cardiovascular: Regular Rate, Rhythm Neurologic/Psychiatric: Alert, Oriented x3 Results/Procedures Lab Laboratory Tests 12/29/20 06:05 Patient resulted labs reviewed. Assessment/Plan Assessment and Plan Assess & Plan/Chief Complaint Assessment: Left foot cellulitis severe failed PO abx h/o etohism HTN Plan: Monitor foot IV abx Pain control 12/28/2020: IV antibiotics Elevate Wound care 12/29/2020: IV antibiotics Hematoma evacuation per Dr. Johnson Diagnosis/Problems Diagnosis/Problems (1) Cellulitis of left foot Status: Acute (2) Sepsis Status: Acute Qualifiers: Sepsis type: sepsis due to unspecified organism Sepsis acute organ dysfunction status: without acute organ dysfunction Qualified Codes: A41.9 - Sepsis, unspecified organism ANALY SOTO DO Dec 29, 2020 05:55
[2020-12-29] MEDS: MULTIVIT W/MINERALS TAB (THERAGRAN M) PO SCH (06:26)
[2020-12-29] MEDS: fentaNYL INJ 100 MCG/2 ML AMP IVP PRN ×2 (06:26→15:27)
[2020-12-29] MEDS: CEFEPIME INJECTION 1,000 MG in WATER (STERILE) FOR INJECTION 10 ML IV SCH ×4 (06:26→23:23)
[2020-12-29 06:35] LABS: BASOPHILS % (AUTO) 1 % (0-10); EOSINOPHILS # (AUTO) 0.1 10^3/uL (0.0-0.3); EOSINOPHILS % (AUTO) 2 % (0-10); HEMATOCRIT 35 % (40-54); HEMOGLOBIN 11.8 g/dL (13.3-17.7); LYMPHOCYTES # (AUTO) 1.3 10^3/uL (1.0-4.0); LYMPHOCYTES % (AUTO) 40 % (12-44); MEAN CORPUSCULAR HEMOGLOBIN 31 pg (25-34); MEAN CORPUSCULAR HGB CONC 34 g/dL (32-36); MEAN CORPUSCULAR VOLUME 90 fL (80-99); MEAN PLATELET VOLUME 11.1 fL (9.0-12.2); MONOCYTES # (AUTO) 0.5 10^3/uL (0.0-1.0); MONOCYTES % (AUTO) 15 % (0-12); NEUTROPHILS # (AUTO) 1.4 10^3/uL (1.8-7.8); NEUTROPHILS % (AUTO) 42 % (42-75); PLATELET COUNT 58 10^3/uL (130-400); WHITE BLOOD COUNT 3.4 10^3/uL (4.3-11.0)
[2020-12-29 07:03] LABS: CHLORIDE 111 MMOL/L (98-107); POTASSIUM 3.5 MMOL/L (3.6-5.0); SODIUM 141 MMOL/L (135-145)
[2020-12-29 07:04] LABS: CALCIUM 8.3 MG/DL (8.5-10.1)
[2020-12-29 07:05] LABS: GLUCOSE 101 MG/DL (70-105)
[2020-12-29 07:06] LABS: CARBON DIOXIDE 21 MMOL/L (21-32)
[2020-12-29 07:07] LABS: BILIRUBIN,TOTAL 2.4 MG/DL (0.1-1.0)
[2020-12-29 07:08] LABS: ALKALINE PHOSPHATASE 116 U/L (40-136)
[2020-12-29 07:09] LABS: CREATININE SERUM 0.99 MG/DL (0.60-1.30); GFR ESTIMATED > 60
[2020-12-29 07:10] LABS: BUN/CREATININE RATIO 9
[2020-12-29 07:11] LABS: ALANINE AMINOTRANSFERASE 17 U/L (0-55)
[2020-12-29] MEDS: ETODOLAC 300 MG (LODINE) CAP PO SCH ×2 (07:59→18:32)
[2020-12-29] MEDS: PROPRANOLOL 20 MG (INDERAL) TABLET PO SCH ×2 (07:59→19:40)
[2020-12-29] MEDS: amLODIPine 5 MG (NORVASC) TAB PO SCH (07:59)
[2020-12-29] MEDS: PANTOPRAZOLE 40 MG (PROTONIX) TAB PO SCH (08:00)
[2020-12-29] MEDS: FERROUS SULF 325 MG (IRON) TAB PO SCH (08:00)
[2020-12-29] MEDS: OMEGA 3 (FISH OIL) 1000 MG CAP PO SCH (08:00)
[2020-12-29] MEDS: PREGABALIN 150 MG (LYRICA) CAPSULE PO SCH ×2 (08:00→19:40)
[2020-12-29] MEDS: HYDROcodone/APAP 5 MG/325 MG (LORTAB) TAB PO PRN ×2 (08:05→15:27)
[2020-12-29] MEDS ORDERED: DHA PO SCH (09:00)
[2020-12-29] MEDS ORDERED: [UNRECOGNIZED DRUG - OTHER] PO SCH (09:00)
[2020-12-29] MEDS ORDERED: FISH OIL PO SCH (09:00)
[2020-12-29] MEDS ORDERED: NON-FORMULARY MEDICATION 1 EA EA (Multivitamin 1 EACH) PO SCH (09:00)
[2020-12-29] MEDS ORDERED: EPA PO SCH (09:00)
[2020-12-29] MEDS ORDERED: OMEGA PO SCH (09:00)
[2020-12-29] MEDS: ENOXAPARIN 40 MG/0.4 ML (LOVENOX) SYR SC SCH (12:29)
[2020-12-29] MEDS ORDERED: GADOBUTROL 10 MMOL/10 ML (GADAVIST) VIAL IV ONE (13:45)
--- NOTE | 2020-12-29 15:53 | Diagnostic Imaging Report ---
PROCEDURE: MRI left lower extremity with and without contrast. TECHNIQUE: Multiplanar, multisequence pre and post contrast-enhanced MRI of the left lower extremity was accomplished. INDICATION: Infected left foot, status post crush injury. Evaluate for deep space infection. COMPARISON: Radiographs from 12/27/2020 FINDINGS: No acute fracture is seen in the left forefoot. Alignment appears normal. No joint effusion is seen. There are no findings of osteomyelitis. There is a heterogeneous fluid collection in the superficial soft tissues of the dorsal left forefoot, which has intrinsic T1 hyperintensity. This measures 4.9 cm AP, 1.8 cm craniocaudal, and about 3.4 cm transverse. This most likely represents a hematoma although an infection is not excluded. There is an overlying skin defect. There is enhancing soft tissue edema at the dorsal left forefoot. No focal muscular atrophy is seen. The flexor tendons appear intact. The extensor tendons appear to be intact as well. The Lisfranc ligament is intact. IMPRESSION: 1. Enhancing edema at the dorsal left forefoot with heterogeneous fluid collection which most likely represents a hematoma. Infection is not excluded. 2. No acute osseous abnormality or evidence of osteomyelitis. Voicemail with return phone number left with RAPHAEL JONES MD by Dr. Ngo, on 12/29/2020 about 3:20 PM. Dictated by: Dictated on workstation # [id number]
--- NOTE | 2020-12-29 16:56 | Wound Care Assessment ---
Wound Care Assessment Date Seen by Provider: Dec 29, 2020 Time Seen by Provider: 16:55 Chief Complaint Infected L foot. HPI The patient is a 60 year old male with dense peripheral neuropathy and infected L foot 11 days after crush injury. Plain film negative for fracture. Distal blisters to scabs dorsal foot. Palpable pulses. Will obtain MRI to rule out deep space infection. 12/29/20 Interval Note: Patient seen. States foot less sore. MRI shows 4.9 x 3.4 x 1.8 cm hematoma, which with clinical presentation is likely infected. Dr. Morales informed. Case discussed with Dr. Johnson. Will sign off. Smoking Status: Former Smoker Recreational Drug Use: No Alcohol Use: Past History Review of Systems Pulmonary: No Dyspnea Exam Vital Signs Date Time Temp Pulse Resp B/P (MAP) Pulse Ox O2 Delivery O2 Flow Rate FiO2 12/29/20 16:37 36.4 56 18 159/89 (112) 100 Room Air Capillary Refill : Less Than 3 Seconds Extremities: other (L foot is bandaged.) Results Laboratory Tests 12/28/20 19:33: Glucometer 107 12/29/20 04:57: Glucometer 107 12/29/20 06:05: White Blood Count 3.4L, Red Blood Count 3.83L, Hemoglobin 11.8L, Hematocrit 35L, Mean Corpuscular Volume 90, Mean Corpuscular Hemoglobin 31, Mean Corpuscular Hemoglobin Concent 34, Red Cell Distribution Width 15.1H, Platelet Count 58L, Mean Platelet Volume 11.1, Immature Granulocyte % (Auto) 0, Neutrophils (%) (Auto) 42, Lymphocytes (%) (Auto) 40, Monocytes (%) (Auto) 15H, Eosinophils (%) (Auto) 2, Basophils (%) (Auto) 1, Neutrophils # (Auto) 1.4L, Lymphocytes # (Auto) 1.3, Monocytes # (Auto) 0.5, Eosinophils # (Auto) 0.1, Basophils # (Auto) 0.0, Immature Granulocyte # (Auto) 0.0, Percent Immature Platelet Fraction 3.8, Sodium Level 141, Potassium Level 3.5L, Chloride Level 111H, Carbon Dioxide Level 21, Anion Gap 9, Blood Urea Nitrogen 9, Creatinine 0.99, Estimat Glomerular Filtration Rate > 60, BUN/Creatinine Ratio 9, Glucose Level 101, Calcium Level 8.3L, Corrected Calcium 9.1, Total Bilirubin 2.4H, Aspartate Amino Transf (AST/SGOT) 32, Alanine Aminotransferase (ALT/SGPT) 17, Alkaline Phosphatase 116, Total Protein 6.0L, Albumin 3.0L 12/29/20 10:55: Glucometer 87 Microbiology 12/27/20 Blood Culture - Preliminary, Resulted No growth Assessment/Plan/Dx 1. Infected L foot. 2.Hematoma L dorsal foot, infected. 3. Peripheral neuropathy. Plan: Per Dr. Johnson. Will sign off. RAPHAEL JONES MD Dec 29, 2020 16:56
[2020-12-30] MEDS: VANCOMYCIN 1500 MG/NS 500 ML IVPB IV SCH ×2 (00:33)
[2020-12-30] MEDS: metroNIDAZOLE 500MG/100ML IVPB 100 ML IV SCH ×2 (00:34→13:23)
[2020-12-30] MEDS: CEFEPIME INJECTION 1,000 MG in WATER (STERILE) FOR INJECTION 10 ML IV SCH ×3 (05:14→17:28)
[2020-12-30] MEDS: MULTIVIT W/MINERALS TAB (THERAGRAN M) PO SCH (05:15)
[2020-12-30 06:09] LABS: HEMATOCRIT 38 % (40-54)
[2020-12-30 06:11] LABS: BASOPHILS % (AUTO) 1 % (0-10); EOSINOPHILS # (AUTO) 0.1 10^3/uL (0.0-0.3); EOSINOPHILS % (AUTO) 3 % (0-10); HEMOGLOBIN 12.7 g/dL (13.3-17.7); LYMPHOCYTES # (AUTO) 1.2 10^3/uL (1.0-4.0); LYMPHOCYTES % (AUTO) 40 % (12-44); MEAN CORPUSCULAR HEMOGLOBIN 31 pg (25-34); MEAN CORPUSCULAR HGB CONC 34 g/dL (32-36); MEAN CORPUSCULAR VOLUME 90 fL (80-99); MEAN PLATELET VOLUME 10.7 fL (9.0-12.2); MONOCYTES # (AUTO) 0.4 10^3/uL (0.0-1.0); MONOCYTES % (AUTO) 14 % (0-12); NEUTROPHILS # (AUTO) 1.2 10^3/uL (1.8-7.8); NEUTROPHILS % (AUTO) 42 % (42-75); PLATELET COUNT 63 10^3/uL (130-400); WHITE BLOOD COUNT 2.9 10^3/uL (4.3-11.0)
[2020-12-30 06:18] LABS: ALBUMIN 3.2 GM/DL (3.2-4.5)
[2020-12-30 06:19] LABS: CHLORIDE 109 MMOL/L (98-107); POTASSIUM 3.7 MMOL/L (3.6-5.0); SODIUM 141 MMOL/L (135-145)
[2020-12-30 06:20] LABS: CALCIUM 8.5 MG/DL (8.5-10.1)
[2020-12-30 06:21] LABS: GLUCOSE 83 MG/DL (70-105); TOTAL PROTEIN 6.3 GM/DL (6.4-8.2)
[2020-12-30 06:22] LABS: CARBON DIOXIDE 20 MMOL/L (21-32)
[2020-12-30 06:23] LABS: BILIRUBIN,TOTAL 2.7 MG/DL (0.1-1.0)
[2020-12-30 06:24] LABS: ALKALINE PHOSPHATASE 129 U/L (40-136)
[2020-12-30 06:25] LABS: CREATININE SERUM 0.91 MG/DL (0.60-1.30); GFR ESTIMATED > 60
[2020-12-30 06:26] LABS: BUN/CREATININE RATIO 11
[2020-12-30 06:27] LABS: ALANINE AMINOTRANSFERASE 19 U/L (0-55)
[2020-12-30 08:00] VITALS: BP 142/74
[2020-12-30] MEDS: OMEGA 3 (FISH OIL) 1000 MG CAP PO SCH (08:37)
[2020-12-30] MEDS: PREGABALIN 150 MG (LYRICA) CAPSULE PO SCH ×2 (08:37→19:27)
[2020-12-30] MEDS: amLODIPine 5 MG (NORVASC) TAB PO SCH (08:37)
[2020-12-30] MEDS: FERROUS SULF 325 MG (IRON) TAB PO SCH (08:37)
[2020-12-30] MEDS: PANTOPRAZOLE 40 MG (PROTONIX) TAB PO SCH (08:37)
[2020-12-30] MEDS: ETODOLAC 300 MG (LODINE) CAP PO SCH ×2 (08:37→17:28)
[2020-12-30] MEDS: PROPRANOLOL 20 MG (INDERAL) TABLET PO SCH ×2 (08:37→19:27)
[2020-12-30] MEDS: HYDROcodone/APAP 5 MG/325 MG (LORTAB) TAB PO PRN (08:38)
--- NOTE | 2020-12-30 08:38 | Progress Note - Hospitalist ---
Subjective HPI/CC On Admission Date Seen by Provider: Dec 30, 2020 Time Seen by Provider: 11:00 CC: Left foot pain HPI: This is a [facility] patient who presents two weeks after a left foot injury of which a lead pipe fell on his foot and a wound has persisted and become cellulitic, Dr. Johnson will be consulted for possible I&D and he will be initiated on Cefepime and Vancomycin, he failed Keflex and Levaquin as an otupatient. Patient denies fever. Subjective/Events-last exam Patient reports the pain is worse today I&D by Dr. Johnson at the bedside will be performed MRI showed infected hematoma IV antibiotics maintained Review of Systems General: Fatigue, Malaise Musculoskeletal: foot pain Focused Exam Lactate Level Objective Exam Vital Signs Vital Signs Date Time Temp Pulse Resp B/P (MAP) Pulse Ox O2 Delivery O2 Flow Rate FiO2 12/30/20 08:43 37.5 12/30/20 08:00 55 18 142/74 (96) 100 Room Air Capillary Refill : Less Than 3 Seconds General Appearance: No Apparent Distress, WD/WN, Chronically ill Respiratory: Lungs Clear Cardiovascular: Regular Rate, Rhythm Extremity: Other (Left foot with lessened erythema but abrasions and blisters with swelling) Neurologic/Psychiatric: Alert, Oriented x3 Results/Procedures Lab Laboratory Tests 12/30/20 05:35 Patient resulted labs reviewed. Assessment/Plan Assessment and Plan Assess & Plan/Chief Complaint Assessment: Left foot cellulitis severe failed PO abx h/o etohism HTN Thrombocytopenia Plan: Monitor foot IV abx Pain control 12/28/2020: IV antibiotics Elevate Wound care 12/29/2020: IV antibiotics Hematoma evacuation per Dr. Johnson 12/30/2020: I&D by Dr. Johnson Diagnosis/Problems Diagnosis/Problems (1) Cellulitis of left foot Status: Acute (2) Sepsis Status: Acute Qualifiers: Sepsis type: sepsis due to unspecified organism Sepsis acute organ dysfunction status: without acute organ dysfunction Qualified Codes: A41.9 - Sepsis, unspecified organism ANALY SOTO DO Dec 30, 2020 08:38
[2020-12-30] MEDS: fentaNYL INJ 100 MCG/2 ML AMP IVP PRN ×3 (09:59→14:24)
[2020-12-30] MEDS ORDERED: LIDOCAINE 1% INJ 20 ML 20 ML VIAL INJ ONE (10:30)
--- NOTE | 2020-12-30 11:17 | Progress Note ---
Subjective Date Seen by a Provider: Dec 30, 2020 Time Seen by a Provider: 10:15 Subjective/Events-last exam Patient seen with Dr. Jonhson. Patient reports that left foot hurts more today. Denies any fever/chills. No N/V. Tolerating diet. Focused Exam Lactate Level 12/27/20 12:32: Lactic Acid Level 1.61 Objective Exam Vital Signs Date Time Temp Pulse Resp B/P (MAP) Pulse Ox O2 Delivery O2 Flow Rate FiO2 12/30/20 08:43 37.5 12/30/20 08:00 37.3 55 18 142/74 (96) 100 Room Air 12/30/20 08:00 Room Air 12/29/20 23:22 36.6 54 20 121/70 (87) 96 Room Air 12/29/20 19:59 37.1 52 18 150/73 (98) 98 Room Air 12/29/20 19:40 Room Air 12/29/20 16:37 36.4 56 18 159/89 (112) 100 Room Air 12/29/20 11:58 37.6 57 18 143/85 (104) 98 Room Air I & O 12/30/20 07:00 Intake Total 2165 ml Balance 2165 ml Capillary Refill : Less Than 3 Seconds General Appearance: No Apparent Distress, WD/WN Neck: Normal Inspection, Supple Respiratory: No Accessory Muscle Use, No Respiratory Distress Cardiovascular: Regular Rate, Rhythm, No Edema Gastrointestinal: normal bowel sounds, non tender, soft Extremity: Normal Range of Motion, Other (Left foot swelling and ecchymosis, areas of ulcerative wounds, painful to palpation) Neurologic/Psychiatric: Alert, Oriented x3 Skin: Normal Color, Warm/Dry Results Lab Laboratory Tests 12/29/20 19:32: Glucometer 104 12/30/20 05:35: White Blood Count 2.9L, Red Blood Count 4.16L, Hemoglobin 12.7L, Hematocrit 38L, Mean Corpuscular Volume 90, Mean Corpuscular Hemoglobin 31, Mean Corpuscular Hemoglobin Concent 34, Red Cell Distribution Width 15.0H, Platelet Count 63L, Mean Platelet Volume 10.7, Immature Granulocyte % (Auto) 1, Neutrophils (%) (Auto) 42, Lymphocytes (%) (Auto) 40, Monocytes (%) (Auto) 14H, Eosinophils (%) (Auto) 3, Basophils (%) (Auto) 1, Neutrophils # (Auto) 1.2L, Lymphocytes # (Auto) 1.2, Monocytes # (Auto) 0.4, Eosinophils # (Auto) 0.1, Basophils # (Auto) 0.0, Immature Granulocyte # (Auto) 0.0, Percent Immature Platelet Fraction 5.2, Sodium Level 141, Potassium Level 3.7, Chloride Level 109H, Carbon Dioxide Level 20L, Anion Gap 12, Blood Urea Nitrogen 10, Creatinine 0.91, Estimat Glomerular F iltration Rate > 60, BUN/Creatinine Ratio 11, Glucose Level 83, Calcium Level 8.5, Corrected Calcium 9.1, Total Bilirubin 2.7H, Aspartate Amino Transf (AST/SGOT) 40H, Alanine Aminotransferase (ALT/SGPT) 19, Alkaline Phosphatase 129, Total Protein 6.3L, Albumin 3.2 Microbiology 12/27/20 Blood Culture - Preliminary, Resulted No growth Assessment/Plan Assessment/Plan Assess & Plan/Chief Complaint A 60-year-old male with edema, ecchymosis and cellulitis of the dorsum of the left foot secondary to a previous trauma. VSS MRI did show left foot hematoma which is most likely infected Will proceed with I&D of left foot hematoma today at bedside Continue IV abx and pain control Will increase hydrocodone to 7.5 q4h prn TAI RYDER TRANSFORMATION CONSULTANT Dec 30, 2020 11:16
[2020-12-30] MEDS: HYDROcodone/APAP 7.5 MG/325 MG (LORTAB, LORCET PLUS) TABLET PO PRN (13:22)
[2020-12-30] MEDS: ENOXAPARIN 40 MG/0.4 ML (LOVENOX) SYR SC SCH (13:23)
[2020-12-30 16:00] VITALS: BP 144/83
--- NOTE | 2020-12-30 17:48 | OPERATIVE REPORT ---
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 PREPROCEDURE DIAGNOSIS: Right dorsal foot hematoma versus abscess. POSTOPERATIVE DIAGNOSIS: Right dorsal foot hematoma with surrounding cellulitis. PROCEDURE PERFORMED: Incision and drainage, hematoma, right foot. SURGEON: Georgette Moreira MD. ANESTHESIA: Local. ESTIMATED BLOOD LOSS: Minimal. FINDINGS: Right dorsal foot hematoma with surrounding cellulitis. DISPOSITION: The patient tolerated the procedure well. INDICATIONS: The patient is a 60-year-old male, who states that he was working with a metal pipe and one dropped on the dorsal aspect of his right foot. He states that there was initially pain; however, tolerable. Over the time, there was significant swelling as well as ecchymosis of the dorsal aspect of the foot as well as the toes. An MRI was performed, which did show a fluid collection in the dorsal aspect of the foot. DESCRIPTION OF PROCEDURE: The foot was prepped and draped in a standard surgical fashion. A 1% lidocaine was used to anesthetize the overlying skin. A vertical skin incision was made over the dorsum of the foot, identifying a clotted hematoma. There was no purulence identified. Loculations were broken up by using blunt dissection and the wound was packed with sterile gauze followed by Kerlix wrap. The patient tolerated the procedure well. We will proceed with wound care with packing of the wound followed by Kerlix on a daily basis. He will also need to continue IV antibiotics. Job ID: [id number] DocumentID: [id number] Dictated Date: 12/30/2020 12:05:36 [employer] Sales Associate Date: 12/30/2020 17:48:16 Dictated By: GEORGETTE MOREIRA MD
[2020-12-30 23:25] VITALS: BP 143/74
[2020-12-31] MEDS: metroNIDAZOLE 500MG/100ML IVPB 100 ML IV SCH ×2 (00:12→13:53)
[2020-12-31] MEDS: CEFEPIME INJECTION 1,000 MG in WATER (STERILE) FOR INJECTION 10 ML IV SCH ×3 (00:12→11:42)
--- NOTE | 2020-12-31 05:48 | Progress Note - Hospitalist ---
Subjective HPI/CC On Admission Date Seen by Provider: Dec 31, 2020 CC: Left foot pain HPI: This is a [facility] patient who presents two weeks after a left foot injury of which a lead pipe fell on his foot and a wound has persisted and become celluli tic, Dr. Johnson will be consulted for possible I&D and he will be initiated on Cefepime and Vancomycin, he failed Keflex and Levaquin as an otupatient. Patient denies fever. Objective Exam Vital Signs Vital Signs Date Time Temp Pulse Resp B/P (MAP) Pulse Ox O2 Delivery O2 Flow Rate FiO2 12/31/20 08:57 Room Air 12/31/20 08:40 37.8 12/31/20 08:00 69 18 144/82 (102) 99 Capillary Refill : Less Than 3 Seconds Results/Procedures Lab Laboratory Tests 12/31/20 06:20 Patient resulted labs reviewed. Assessment/Plan Assessment and Plan Assess & Plan/Chief Complaint Assessment: Left foot cellulitis severe failed PO abx h/o etohism HTN Thrombocytopenia Plan: Monitor foot IV abx Pain control 12/28/2020: IV antibiotics Elevate Wound care 12/29/2020: IV antibiotics Hematoma evacuation per Dr. Johnson 12/30/2020: I&D by Dr. Johnson Diagnosis/Problems Diagnosis/Problems (1) Cellulitis of left foot Status: Acute (2) Sepsis Status: Acute Qualifiers: Sepsis type: sepsis due to unspecified organism Sepsis acute organ dysfunction status: without acute organ dysfunction Qualified Codes: A41.9 - Sepsis, unspecified organism ANALY SOTO DO Dec 31, 2020 05:48
[2020-12-31] MEDS: MULTIVIT W/MINERALS TAB (THERAGRAN M) PO SCH (05:56)
[2020-12-31 06:34] LABS: HEMATOCRIT 35 % (40-54); HEMOGLOBIN 12.2 g/dL (13.3-17.7); MEAN CORPUSCULAR HGB CONC 35 g/dL (32-36); NEUTROPHILS # (AUTO) 1.6 10^3/uL (1.8-7.8)
[2020-12-31 06:36] LABS: BASOPHILS % (AUTO) 1 % (0-10); EOSINOPHILS # (AUTO) 0.1 10^3/uL (0.0-0.3); EOSINOPHILS % (AUTO) 2 % (0-10); LYMPHOCYTES # (AUTO) 1.3 10^3/uL (1.0-4.0); LYMPHOCYTES % (AUTO) 37 % (12-44); MEAN CORPUSCULAR HEMOGLOBIN 31 pg (25-34); MEAN CORPUSCULAR VOLUME 90 fL (80-99); MEAN PLATELET VOLUME 10.9 fL (9.0-12.2); MONOCYTES # (AUTO) 0.4 10^3/uL (0.0-1.0); MONOCYTES % (AUTO) 13 % (0-12); NEUTROPHILS % (AUTO) 46 % (42-75); PLATELET COUNT 62 10^3/uL (130-400); WHITE BLOOD COUNT 3.4 10^3/uL (4.3-11.0)
[2020-12-31 06:43] LABS: ALBUMIN 3.2 GM/DL (3.2-4.5)
[2020-12-31 06:44] LABS: CHLORIDE 108 MMOL/L (98-107); POTASSIUM 3.9 MMOL/L (3.6-5.0); SODIUM 140 MMOL/L (135-145)
[2020-12-31 06:45] LABS: CALCIUM 8.4 MG/DL (8.5-10.1)
[2020-12-31 06:46] LABS: GLUCOSE 97 MG/DL (70-105); TOTAL PROTEIN 6.2 GM/DL (6.4-8.2)
[2020-12-31 06:47] LABS: CARBON DIOXIDE 21 MMOL/L (21-32)
[2020-12-31 06:48] LABS: BILIRUBIN,TOTAL 2.4 MG/DL (0.1-1.0)
[2020-12-31 06:49] LABS: ALKALINE PHOSPHATASE 130 U/L (40-136)
[2020-12-31 06:50] LABS: CREATININE SERUM 0.89 MG/DL (0.60-1.30); GFR ESTIMATED > 60
[2020-12-31 06:51] LABS: BUN/CREATININE RATIO 12
[2020-12-31 06:52] LABS: ALANINE AMINOTRANSFERASE 19 U/L (0-55)
[2020-12-31 08:00] VITALS: BP 144/82
[2020-12-31] MEDS: HYDROcodone/APAP 7.5 MG/325 MG (LORTAB, LORCET PLUS) TABLET PO PRN ×2 (08:35→13:58)
[2020-12-31] MEDS: ETODOLAC 300 MG (LODINE) CAP PO SCH (08:36)
[2020-12-31] MEDS: FERROUS SULF 325 MG (IRON) TAB PO SCH (08:36)
[2020-12-31] MEDS: PROPRANOLOL 20 MG (INDERAL) TABLET PO SCH (08:36)
[2020-12-31] MEDS: amLODIPine 5 MG (NORVASC) TAB PO SCH (08:36)
[2020-12-31] MEDS: PREGABALIN 150 MG (LYRICA) CAPSULE PO SCH (08:36)
[2020-12-31] MEDS: OMEGA 3 (FISH OIL) 1000 MG CAP PO SCH (08:36)
[2020-12-31] MEDS: PANTOPRAZOLE 40 MG (PROTONIX) TAB PO SCH (08:36)
[2020-12-31] MEDS: fentaNYL INJ 100 MCG/2 ML AMP IVP PRN (09:48)
--- NOTE | 2020-12-31 10:26 | Progress Note ---
Subjective Date Seen by a Provider: Dec 31, 2020 Time Seen by a Provider: 10:00 Subjective/Events-last exam doing better. less foot edema/redness/erythema. no fever/chills. Objective Exam Vital Signs Date Time Temp Pulse Resp B/P (MAP) Pulse Ox O2 Delivery O2 Flow Rate FiO2 12/31/20 08:57 Room Air 12/31/20 08:40 37.8 12/31/20 08:00 37.7 69 18 144/82 (102) 99 Room Air 12/30/20 23:25 36.8 55 18 143/74 (97) 98 Room Air 12/30/20 19:25 Room Air 12/30/20 16:00 36.5 51 16 144/83 (103) 99 Room Air I & O 12/31/20 07:00 Intake Total 2645 ml Balance 2645 ml Capillary Refill : Less Than 3 Seconds General Appearance: No Apparent Distress HEENT: PERRL/EOMI Neck: Full Range of Motion Respiratory: Chest Non Tender, Lungs Clear Cardiovascular: Regular Rate, Rhythm Gastrointestinal: normal bowel sounds, non tender, soft Extremity: Normal Capillary Refill, Other (wound intact, less edema/erythema) Neurologic/Psychiatric: Alert, Oriented x3 Skin: Normal Color Lymphatic: No Adenopathy Results Lab Laboratory Tests 12/31/20 06:20: White Blood Count 3.4L, Red Blood Count 3.95L, Hemoglobin 12.2L, Hematocrit 35L, Mean Corpuscular Volume 90, Mean Corpuscular Hemoglobin 31, Mean Corpuscular Hemoglobin Concent 35, Red Cell Distribution Width 15.3H, Platelet Count 62L, Mean Platelet Volume 10.9, Immature Granulocyte % (Auto) 0, Neutrophils (%) (Aut o) 46, Lymphocytes (%) (Auto) 37, Monocytes (%) (Auto) 13H, Eosinophils (%) (Auto) 2, Basophils (%) (Auto) 1, Neutrophils # (Auto) 1.6L, Lymphocytes # (Auto) 1.3, Monocytes # (Auto) 0.4, Eosinophils # (Auto) 0.1, Basophils # (Auto) 0.0, Immature Granulocyte # (Auto) 0.0, Percent Immature Platelet Fraction 5.2, Sodium Level 140, Potassium Level 3.9, Chloride Level 108H, Carbon Dioxide Level 21, Anion Gap 11, Blood Urea Nitrogen 11, Creatinine 0.89, Estimat Glomerular Filtration Rate > 60, BUN/Creatinine Ratio 12, Glucose Level 97, Calcium Level 8.4L, Corrected Calcium 9.0, Total Bilirubin 2.4H, Aspartate Amino Transf (AST/SGOT) 42H, Alanine Aminotransferase (ALT/SGPT) 19, Alkaline Phosphatase 130, Total Protein 6.2L, Albumin 3.2 Microbiology 12/30/20 Gram Stain - Final, Resulted 12/30/20 Wound Culture - Preliminary, Resulted Staphylococcus aureus Probable Klebsiella/Enterobact 12/27/20 Blood Culture - Preliminary, Resulted No growth Assessment/Plan Assessment/Plan Assess & Plan/Chief Complaint s/p I&D right foot hematoma/abscess. cont IV abx. wound care with gauze and kerlix daily. increase ambulation. GEORGETTE MOREIRA MD Dec 31, 2020 10:26
[2020-12-31] MEDS ORDERED: HYDR-3817 PO (10:30)
--- NOTE | 2020-12-31 10:32 | Discharge Inst-Surgical ---
D/C Lap Instructions-KIDO New, Converted, or Re-Newed RX: RX on Chart Follow Up Appt in 2 weeks Activity as tolerated wound care: dry dressing followed by kerlix followed by walking shoe daily. Regular Diet Symptoms to Report: Fever over 101 degree F, Nausea/Vomiting Infection Signs and Symptoms to report: Increased redness, Foul odor of wound, Increased drainage Bathing instructions: May shower Operative Area Clean/Dry; Keep incision clean/dry If any problems/questions: Contact your physician or go to Emergency Room GEORGETTE MOREIRA MD Dec 31, 2020 10:32
[2020-12-31] MEDS ORDERED: ACID1TAB5 PO (12:16)
[2020-12-31] MEDS ORDERED: LEVO750T39 PO (12:16)
--- NOTE | 2020-12-31 12:17 | Discharge Summary ---
Discharge Summary Hospital Course Was the Problem List Reviewed?: Yes Problems/Dx: (1) Cellulitis of left foot Status: Acute (2) Sepsis Status: Acute Qualifiers: Qualified Codes: A41.9 - Sepsis, unspecified organism Hospital Course Date of Admission: Dec 27, 2020 at 11:58 Admission Diagnosis : Family Physician/Provider: [facility] Date of Discharge: 12/31/20 Discharge Diagnosis: Left foot infected hematoma, history of alcoholism, thrombocytopenia Hospital Course: Standard hospital course admitted for IV antibiotics and wound care consult ordered MRI showing infected hematoma status post bedside I&D by Dr. Johnson and patient was deemed stable for discharge. Labs and Pending Lab Test: Laboratory Tests 12/31/20 06:20: White Blood Count 3.4L, Red Blood Count 3.95L, Hemoglobin 12.2L, Hematocrit 35L, Mean Corpuscular Volume 90, Mean Corpuscular Hemoglobin 31, Mean Corpuscular Hemoglobin Concent 35, Red Cell Distribution Width 15.3H, Platelet Count 62L, Mean Platelet Volume 10.9, Immature Granulocyte % (Auto) 0, Neutrophils (%) (Auto) 46, Lymphocytes (%) (Auto) 37, Monocytes (%) (Auto) 13H, Eosinophils (%) (Auto) 2, Basophils (%) (Auto) 1, Neutrophils # (Auto) 1.6L, Lymphocytes # (Auto) 1.3, Monocytes # (Auto) 0.4, Eosinophils # (Auto) 0.1, Basophils # (Auto) 0.0, Immature Granulocyte # (Auto) 0.0, Percent Immature Platelet Fraction 5.2, Sodium Level 140, Potassium Level 3.9, Chloride Level 108H, Carbon Dioxide Level 21, Anion Gap 11, Blood Urea Nitrogen 11, Creatinine 0.89, Estimat Glomerular Filtration Rate > 60, BUN/Creatinine Ratio 12, Glucose Level 97, Calcium Level 8.4L, Corrected Calcium 9.0, Total Bilirubin 2.4H, Aspartate Amino Transf (AST/SGOT) 42H, Alanine Aminotransferase (ALT/SGPT) 19, Alkaline Phosphatase 130, Total Protein 6.2L, Albumin 3.2 Microbiology 12/30/20 Gram Stain - Final, Resulted 12/30/20 Wound Culture - Preliminary, Resulted Staphylococcus aureus Probable Klebsiella/Enterobact 12/27/20 Blood Culture - Preliminary, Resulted No growth [place] Meds Active Lactinex Chewable Tablet (L. Acidophilus/Bulgaricus) 1 Each Tab.chew 1 Each PO ACHS Levofloxacin 750 Mg Tablet 750 Mg PO DAILY FILLED 12-25-2020 #7/7 DAY SUPPLY Hydrocodone-Acetamin 7.5-325 (Hydrocodone/Acetaminophen) 1 Each Tablet 1 Each PO Q4H Reported Cetirizine HCl 10 Mg Tablet 10 Mg PO DAILY PRN Multivitamin 1 Each Tablet 1 Each PO DAILY Iron (Ferrous Sulfate) 325 Mg Tablet 325 Mg PO DAILY Vitamin D2 (Ergocalciferol (Vitamin D2)) 1,250 Mcg Capsule 1,250 Mcg PO FRIDAY Tramadol HCl 50 Mg Tablet 50 Mg PO BID PRN Fish Oil 1,000 mg Softgel (Bernard-3/Dha/Epa/Fish Oil) 1 Each Capsule 2 Mg PO DAILY Propranolol HCl 80 Mg Tablet 80 Mg PO BID Lyrica (Pregabalin) 150 Mg Capsule 150 Mg PO BID Pantoprazole Sodium 40 Mg Tablet. 40 Mg PO DAILY Diclofenac Sodium 75 Mg Tablet. 75 Mg PO BID Assessment/Pt Instructions [facility] [address] Johnson for wound care Discharge Planning: <30 minutes discharge planning Discharge Instructions Discharge Diet: No Restrictions Discharge Physical Examination Vital Signs Vital Signs Date Time Temp Pulse Resp B/P (MAP) Pulse Ox O2 Delivery O2 Flow Rate FiO2 12/31/20 08:57 Room Air 12/31/20 08:40 37.8 12/31/20 08:00 69 18 144/82 (102) 99 General Appearance: No Apparent Distress, WD/WN, Chronically ill Allergies: Coded Allergies: Penicillins (Verified Allergy, Unknown, 09/25/19) Discharge Summary Date of Admission Dec 27, 2020 at 11:58 Date of Discharge Discharge Date: Dec 31, 2020 Admission Diagnosis Assessment: Left foot cellulitis severe failed PO abx h/o etohism HTN Plan: Monitor foot IV abx Pain control Discharge Diagnosis Assessment: Left foot cellulitis severe failed PO abx h/o etohism HTN Thrombocytopenia Plan: Monitor foot IV abx Pain control 12/28/2020: IV antibiotics Elevate Wound care 12/29/2020: IV antibiotics Hematoma evacuation per Dr. Johnson 12/30/2020: I&D by Dr. Johnson (1) Cellulitis of left foot Status: Acute (2) Sepsis Status: Acute Qualifiers: Qualified Codes: A41.9 - Sepsis, unspecified organism ANALY SOTO DO Dec 31, 2020 12:16
[2020-12-31] MEDS: ENOXAPARIN 40 MG/0.4 ML (LOVENOX) SYR SC SCH (14:17)
[2021-01-01] MEDS ORDERED: VITAMIN D2 1.25 MG (50,000 UNITS) CAP PO SCH (09:00)
--- NOTE | 2021-01-03 09:04 | Physician Query Clarification ---
PQ-Further Specificity Admission/Discharge Admission Date: Dec 27, 2020 at 11:58 Discharge Date: Dec 31, 2020 at 15:20 Dr. Moreira, The medical record reflects the following clinical scenario: History/Risk Factors: infected hematoma doral lt foot, cellulitis lt foot/leg, sepsis Clinical Findings: MRI - There is a heterogeneous fluid collection in the superficial soft tissues of the dorsal left forefoot, which has intrinsic T1 hyperintensity. This measures 4.9 cm AP, 1.8 cm craniocaudal, and about 3.4 cm transverse. This most likely represents a hematoma although an infection is not excluded. There is an overlying skin defect. There is enhancing soft tissue edema at the dorsal left forefoot. Treatment: I&D Question: Can you further specify the depth of the I&D per the clinical indicators above? Please document a response in the Progress Notes or Discharge Summary. 1. subcutaneous tissue 2. skin 3. Other, with explanation of the clinical findings. 4. Clinically undetermined, no explanation for the clinical findings. PHYSICIAN RESPONSE Can you specify per above: 1 Please remember a lack of response to the above will prompt a phone page by CDI/Coding staff. In responding to this query, please exercise your independent professional judgment. The purpose of this communication is to more accurately reflect the complexity of your patients condition. The fact that a question is asked does not imply that any particular answer is desired or expected. Thank you for your timely response to this clarification. Requestors name: Nixon THIS PHYSICIAN QUERY FORM IS A PERMANENT PART OF THE MEDICAL RECORD NIXON GREGORY Jan 03, 2021 09:03 GEORGETTE MOREIRA MD Jan 03, 2021 11:48
== END 2020-12-31 15:20 | disposition home or self-care (01) | DRG 579 ==
LOC: EDUNIT# 10:03 → ER 10:06 → 4TH 11:58
PROVIDERS: ADMIT Internal Medicine; ATTEND Internal Medicine
PROC: 0J9P0ZZ Drainage of Left Lower Leg Subcutaneous Tissue and Fascia, Open Approach (ICD-10-PCS; principal; 2020-12-30)
DX: S90.32XA Contusion of left foot, initial encounter (principal); A41.9 Sepsis, unspecified organism; L97.429 Non-pressure chronic ulcer of left heel and midfoot with unspecified severity; L03.116 Cellulitis of left lower limb; E11.42 Type 2 diabetes mellitus with diabetic polyneuropathy; I10 Essential (primary) hypertension; M19.91 Primary osteoarthritis, unspecified site; F41.9 Anxiety disorder, unspecified; J44.9 Chronic obstructive pulmonary disease, unspecified; D69.6 Thrombocytopenia, unspecified; F10.21 Alcohol dependence, in remission; Z87.891 Personal history of nicotine dependence; Z88.0 Allergy status to penicillin; Z79.2 Long term (current) use of antibiotics; W20.8XXA Other cause of strike by thrown, projected or falling object, initial encounter
CPT/HCPCS: 36415; 73630; 73720; 80048; 80053; 82947; 83036; 83605; 85025; 86141; 87040; 87070; 87077; 87186; 87205; 96361; 96374; 96375

== ENCOUNTER 2021-02-03 11:57 | Emergency (ER) | payer OTHER ==
[~2021-02-03] VITALS: Ht 180.3 cm; Wt 90.7 kg
[~2021-02-03 11:57] MED LIST changes: +ACID1TAB5 PO; +CETI10TA17 PO; +DICL75TA2 PO; +ERGO1250 PO; +FERR-84 PO; +HYDR-3817 PO; +LEVO750T39 PO; +MULT-1136 PO; +OMEG-160 PO; +PANT40TA52 PO; +PREG150C PO; +TRAM50TA3 PO
[2021-02-03] MEDS ORDERED: KETOROLAC 30 MG/ML VIAL IVP ONE (12:15)
[2021-02-03] MEDS ORDERED: LACTATED RINGERS 1,000 ML IV SCH (12:15)
--- NOTE | 2021-02-03 12:17 | ED General ---
General Chief Complaint: Cough/Cold/Flu Symptoms Stated Complaint: BODY ACHES,SOB,FEVER,ANXIETY Source of Information: Patient Exam Limitations: No Limitations (TIANA MOLINA APRN) History of Present Illness Date Seen by Provider: Feb 03, 2021 Time Seen by Provider: 12:16 Initial Comments To ER with reports of body aches, headache, lethargy but insomnia, anxiety, shortness of breath, diarrhea. Symptoms started on 02/01/2021. He is unvaccinated against Covid. 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 He denies fevers. He does have nausea. Timing/Duration: 2-3 Days Severity: Moderate Associated Systoms: Headaches, Nausea/Vomiting, Weakness (TIANA MOLINA APRN) Allergies and Home Medications Allergies Coded Allergies: Penicillins (Verified Allergy, Unknown, 09/25/19) Home Medications Cetirizine HCl 10 Mg Tablet, 10 MG PO DAILY PRN for ALLERGY SYMPTOMS, (Reported) Diclofenac Sodium 75 Mg Tablet.dr, 75 MG PO BID, (Reported) Ergocalciferol (Vitamin D2) 1,250 Mcg Capsule, 1,250 MCG PO FRIDAY, (Reported) Ferrous Sulfate 325 Mg Tablet, 325 MG PO DAILY, (Reported) Hydrocodone/Acetaminophen 1 Each Tablet, 1 EACH PO Q4H Prescribed by: GEORGETTE MOREIRA on 12/31/20 1030 L. Acidophilus/Bulgaricus 1 Each Tab.chew, 1 EACH PO ACHS Prescribed by: ANALY SOTO on 12/31/20 1216 Levofloxacin 750 Mg Tablet, 750 MG PO DAILY FILLED 12-25-2020 #7/7 DAY SUPPLY Prescribed by: ANALY SOTO on 12/31/20 1216 Multivitamin 1 Each Tablet, 1 EACH PO DAILY, (Reported) [place]-3/Dha/Epa/Fish Oil 1 Each Capsule, 2 MG PO DAILY, (Reported) Pantoprazole Sodium 40 Mg Tablet.dr, 40 MG PO DAILY, (Reported) Pregabalin 150 Mg Capsule, 150 MG PO BID, (Reported) Propranolol HCl 80 Mg Tablet, 80 MG PO BID, (Reported) Tramadol HCl 50 Mg Tablet, 50 MG PO BID PRN for PAIN-MODERATE (5-7), (Reported) Patient Home Medication List Home Medication List Reviewed: Yes (TIANA MOLINA APRN) Review of Systems Review of Systems Constitutional: see HPI EENTM: see HPI Respiratory: see HPI, dyspnea on exertion Cardiovascular: no symptoms reported Genitourinary: no symptoms reported Musculoskeletal: no symptoms reported Skin: no symptoms reported Psychiatric/Neurological: No Symptoms Reported Hematologic/Lymphatic: No Symptoms Reported Immunological/Allergic: no symptoms reported (TIANA MOLINA APRN) Past Wfmqtss-Pwctxk-Kpupic Hx Seasonal Allergies Seasonal Allergies: No (TIANA MOLINA APRN) Past Medical History Surgeries: Yes Orthopedic, Vasectomy Respiratory: Yes Chronic Bronchitis Cardiac: Yes Hypertension Neurological: No Reproductive Disorders: No Genitourinary: No Gastrointestinal: No Musculoskeletal: Yes Arthritis, Chronic Back Pain Endocrine: No HEENT: No Loss of Vision: Denies Hearing Impairment: Denies Cancer: No Psychosocial: Yes Anxiety Integumentary: No (TIANA MOLINA APRN) Family Medical History No Pertinent Family Hx (TIANA MOLINA APRN) Physical Exam Vital Signs Vital Signs - First Documented 02/03/21 02/03/21 12:17 14:24 Temp 37.4 Pulse 87 Resp 18 B/P (MAP) 141/94 (110) Pulse Ox 98 O2 Delivery Room Air (EDWIN TOLBERT MD) Vital Signs Capillary Refill : (TIANA MOLINA APRN) Height, Weight, BMI Height: '" Weight: lbs. oz. kg; 28.95 BMI Method: General Appearance: No Apparent Distress, WD/WN, Other (98% room air no distress speaks in full sentences) Eyes: Bilateral Eye Normal Inspection, Bilateral Eye PERRL Neck: Full Range of Motion, Normal Inspection Respiratory: Normal Breath Sounds, No Accessory Muscle Use, No Respiratory Distress Cardiovascular: Regular Rate, Rhythm, Normal Peripheral Pulses Gastrointestinal: Normal Bowel Sounds, Non Tender, Soft Extremity: Normal Capillary Refill, Normal Inspection Neurologic/Psychiatric: Alert, Oriented x3 Skin: Normal Color, Warm/Dry (TIANA MOLINA APRN) Focused Exam Lactate Level 02/03/21 12:11: Lactic Acid Level 2.51*H (EDWIN TOLBERT MD) Lactic Acid Level Laboratory Tests Test 02/03/21 12:11 Lactic Acid Level 2.51 MMOL/L (0.50-2.00) *H (EDWIN TOLBERT MD) Procedures/Interventions Date of ETT Placement: Sep 25, 2019 Time of ETT Placement: 0950 (TIANA MOLINA APRN) Progress/Results/Core Measures Suspected Sepsis SIRS Temperature: Pulse: Respiratory Rate: Laboratory Tests 02/03/21 12:11: White Blood Count 7.6 Blood Pressure / Mean: 02/03/21 12:11: Lactic Acid Level 2.51*H Laboratory Tests 02/03/21 12:11: Creatinine 0.90, Platelet Count 76L, Total Bilirubin 2.8H (TIANA MOLINA APRN) Results/Orders Lab Results Laboratory Tests Test 02/03/21 12:11 Range/Units White Blood Count 7.6 4.3-11.0 10^3/uL Red Blood Count 4.74 4.30-5.52 10^6/uL Hemoglobin 14.3 13.3-17.7 g/dL Hematocrit 42 40-54 % Mean Corpuscular Volume 88 80-99 fL Mean Corpuscular Hemoglobin 30 25-34 pg Mean Corpuscular Hemoglobin Concent 34 32-36 g/dL Red Cell Distribution Width 15.1 H 10.0-14.5 % Platelet Count 76 L 130-400 10^3/uL Mean Platelet Volume 11.8 9.0-12.2 fL Immature Granulocyte % (Auto) 0 % Neutrophils (%) (Auto) 62 42-75 % Lymphocytes (%) (Auto) 26 12-44 % Monocytes (%) (Auto) 11 0-12 % Eosinophils (%) (Auto) 0 0-10 % Basophils (%) (Auto) 0 0-10 % Neutrophils # (Auto) 4.8 1.8-7.8 10^3/uL Lymphocytes # (Auto) 2.0 1.0-4.0 10^3/uL Monocytes # (Auto) 0.9 0.0-1.0 10^3/uL Eosinophils # (Auto) 0.0 0.0-0.3 10^3/uL Basophils # (Auto) 0.0 0.0-0.1 10^3/uL Immature Granulocyte # (Auto) 0.0 0.0-0.1 10^3/uL Sodium Level 136 135-145 MMOL/L Potassium Level 3.6 3.6-5.0 MMOL/L Chloride Level 108 H 98-107 MMOL/L Carbon Dioxide Level 18 L 21-32 MMOL/L Anion Gap 10 5-14 MMOL/L Blood Urea Nitrogen 8 7-18 MG/DL Creatinine 0.90 0.60-1.30 MG/DL Estimat Glomerular Filtration Rate 87 BUN/Creatinine Ratio 9 Glucose Level 147 H 70-105 MG/DL Lactic Acid Level 2.51 *H 0.50-2.00 MMOL/L Calcium Level 8.9 8.5-10.1 MG/DL Corrected Calcium 9.1 8.5-10.1 MG/DL Total Bilirubin 2.8 H 0.1-1.0 MG/DL Aspartate Amino Transf (AST/SGOT) 45 H 5-34 U/L Alanine Aminotransferase (ALT/SGPT) 27 0-55 U/L Alkaline Phosphatase 177 H 40-136 U/L B-Type Natriuretic Peptide 106.1 H <100.0 PG/ML Total Protein 7.9 6.4-8.2 GM/DL Albumin 3.8 3.2-4.5 GM/DL Procalcitonin 0.06 <0.10 NG/ML Serum Alcohol < 10 <10 MG/DL Influenza Type A (RT-PCR) Not Detected Not Detecte Influenza Type B (RT-PCR) Not Detected Not Detecte SARS-CoV-2 RNA (RT-PCR) Detected H Not Detecte (EDWIN TOLBERT MD) Medications Given in ED Current Medications Medications Dose Ordered Sig/Shadi Route Start Time Stop Time Status Last Admin Dose Admin Ketorolac Tromethamine 15 mg ONCE ONCE IVP 02/03/21 12:15 02/03/21 12:16 DC 02/03/21 12:21 15 MG (EDWIN TOLBERT MD) Vital Signs/I&O 02/03/21 02/03/21 02/03/21 12:17 12:20 14:24 Temp 37.4 Pulse 87 73 Resp 18 18 B/P (MAP) 141/94 (110) 137/80 Pulse Ox 98 O2 Delivery Room Air Room Air Room Air (EDWIN TOLBERT MD) Vital Signs/I&O Capillary Refill : (TIANA MOLINA APRN) Departure Communication (Admissions) Family Conversation His lactic acid is likely elevated secondary to his liver dysfunction secondary to his alcohol use. I discussed with him the emergency use authorization of Regeneron, alternatives to treatment and side effects. He agrees to proceed. As such I have faxed his information to pharmacy. They will call him Friday for infusion. EKG shows sinus rhythm rate of 71 normal intervals no ectopy no ST segment change NAME: KATIANA BENSON [facility] REC#: [id number] PT STATUS: REG ER : 1960 PHYSICIAN: TIANA MOLINA APRN ADMIT DATE: 02/03/21/ER Draft Date of Exam:02/03/21 CHEST 1 VIEW, AP/PA ONLY INDICATION: Shortness of breath with nausea cough and fever. Comparison made to prior study from October 032019. FINDINGS: There is no focal alveolar infiltrate or consolidation. There is no effusion. There is no pneumothorax. Heart size and mediastinal contours appear appropriate. Pulmonary vascularity appears within normal limits. There is no acute or suspicious osseous abnormality. IMPRESSION: 1. No radiographic evidence of an acute cardiac pulmonary process. Dictated on workstation # [id number] Dict: 02/03/21 1232 Trans: 02/03/21 1234 [facility] [id number] Interpreted by: NACHO WEBBER MD Electronically signed by: (TIANA MOLINA APRN) Impression Primary Impression: COVID-19 Disposition: 01 HOME, SELF-CARE Condition: Stable Departure-Patient Inst. Decision time for Depature: 12:59 (TIANA MOLINA APRN) Referrals: [facility] (PCP/Family) Primary Care Physician Patient Instructions: COVID-19 ED, REGEN-COV (casirivimab and imdevimab) FDA Fact Sheet Add. Discharge Instructions: 1. Tylenol and ibuprofen for body aches and fever control. Schedule department will call you friday for infusion of Regeneron. This is a 2-hour infusion on average. They will call you Friday and it will be done sometime on Friday. This significantly improves outcomes and I strongly urge you to show up for this appointment. All discharge instructions reviewed with patient and/or family. Voiced understanding. ATTENDING PHYSICIAN NOTE: I was physically present as attending physician in the emergency department during the care of this patient, but I was not directly involved in the decision making or delivery of care for this patient. (BRUEGGEMANN,EDWIN TIANA MONTAÑO APRN Feb 03, 2021 12:17 EDWIN TOLBERT MD Feb 03, 2021 15:15
[2021-02-03 12:24] LABS: BASOPHILS % (AUTO) 0 % (0-10); EOSINOPHILS % (AUTO) 0 % (0-10); HEMATOCRIT 42 % (40-54); HEMOGLOBIN 14.3 g/dL (13.3-17.7); LYMPHOCYTES % (AUTO) 26 % (12-44); MEAN CORPUSCULAR HEMOGLOBIN 30 pg (25-34); MEAN CORPUSCULAR HGB CONC 34 g/dL (32-36); MEAN CORPUSCULAR VOLUME 88 fL (80-99); MEAN PLATELET VOLUME 11.8 fL (9.0-12.2); MONOCYTES # (AUTO) 0.9 10^3/uL (0.0-1.0); MONOCYTES % (AUTO) 11 % (0-12); NEUTROPHILS # (AUTO) 4.8 10^3/uL (1.8-7.8); NEUTROPHILS % (AUTO) 62 % (42-75); PLATELET COUNT 76 10^3/uL (130-400); WHITE BLOOD COUNT 7.6 10^3/uL (4.3-11.0)
--- NOTE | 2021-02-03 12:34 | Diagnostic Imaging Report ---
INDICATION: Shortness of breath with nausea cough and fever. Comparison made to prior study from October 032019. FINDINGS: There is no focal alveolar infiltrate or consolidation. There is no effusion. There is no pneumothorax. Heart size and mediastinal contours appear appropriate. Pulmonary vascularity appears within normal limits. There is no acute or suspicious osseous abnormality. IMPRESSION: 1. No radiographic evidence of an acute cardiac pulmonary process. Dictated by: Dictated on workstation # [id number]
[2021-02-03 12:38] LABS: ALBUMIN 3.8 GM/DL (3.2-4.5)
[2021-02-03 12:39] LABS: POTASSIUM 3.6 MMOL/L (3.6-5.0)
[2021-02-03 12:40] LABS: CALCIUM 8.9 MG/DL (8.5-10.1)
[2021-02-03 12:41] LABS: TOTAL PROTEIN 7.9 GM/DL (6.4-8.2)
[2021-02-03 12:43] LABS: BILIRUBIN,TOTAL 2.8 MG/DL (0.1-1.0)
[2021-02-03 12:45] LABS: CREATININE SERUM 0.9 MG/DL (0.60-1.30)
[2021-02-03 14:24] VITALS: BP 137/80
== END 2021-02-03 14:24 | disposition home or self-care (01) ==
LOC: EDUNIT# 11:57 → ER 12:02
DX: U07.1 COVID-19 (principal); I10 Essential (primary) hypertension; G89.29 Other chronic pain; M54.9 Dorsalgia, unspecified; F41.9 Anxiety disorder, unspecified; Z79.891 Long term (current) use of opiate analgesic; Z79.899 Other long term (current) drug therapy
CPT/HCPCS: 71045; 80053; 83605; 83880; 84145; 85025; 87040; 87636; 93005; 99284; G0480; 36415; 80320

== ENCOUNTER 2021-02-08 09:52 | Outpatient (CLI) | payer OTHER ==
[~2021-02-08] VITALS: Ht 180.3 cm; Wt 90.7 kg
[2021-02-08 09:50] VITALS: BP 127/76
[2021-02-08] MEDS ORDERED: EPINEPHrine INJECTION 1 MG/ML AMP IM PRN (10:00)
[2021-02-08] MEDS ORDERED: diphenhydrAMINE 50 MG/ML INJ (BENADRYL) IV PRN (10:00)
[2021-02-08] MEDS ORDERED: CASIRIVIMAB/IMDEVIMAB 1,200 MG in NS (IVPB) 250 ML IV ONE (10:00)
[2021-02-08 11:10] VITALS: BP 130/73
== END 2021-02-08 11:37 | disposition home or self-care (01) ==
LOC: INFUSION 09:52
PROVIDERS: ATTEND Nurse Practitioner Family
DX: Z23 Encounter for immunization (principal); U07.1 COVID-19

== ENCOUNTER 2021-11-08 08:00 | Outpatient (RCR) | payer OTHER ==
[2021-11-05 10:40] LABS: BASOPHILS # (AUTO) 0.1 10^3/uL (0.0-0.1); BASOPHILS % (AUTO) 1 % (0-10)
[2021-11-05 10:41] LABS: EOSINOPHILS # (AUTO) 0.1 10^3/uL (0.0-0.3); EOSINOPHILS % (AUTO) 3 % (0-10); HEMATOCRIT 43 % (40-54); HEMOGLOBIN 14.2 g/dL (13.3-17.7); LYMPHOCYTES # (AUTO) 1.8 10^3/uL (1.0-4.0); LYMPHOCYTES % (AUTO) 36 % (12-44); MEAN CORPUSCULAR HEMOGLOBIN 29 pg (25-34); MEAN CORPUSCULAR HGB CONC 33 g/dL (32-36); MEAN CORPUSCULAR VOLUME 89 fL (80-99); MEAN PLATELET VOLUME 10.9 fL (9.0-12.2); MONOCYTES # (AUTO) 0.5 10^3/uL (0.0-1.0); MONOCYTES % (AUTO) 11 % (0-12); NEUTROPHILS # (AUTO) 2.4 10^3/uL (1.8-7.8); NEUTROPHILS % (AUTO) 49 % (42-75); PLATELET COUNT 79 10^3/uL (130-400); WHITE BLOOD COUNT 4.9 10^3/uL (4.3-11.0)
[2021-11-05 21:49] LABS: HEPATITIS C ANTIBODY C Non-Reactive (Non-Reactive)
[~2021-11-08 08:00] MED LIST changes: -DULO60CA6 PO; +DULO60CA7 PO
== END 2021-11-10 | disposition home or self-care (01) ==
LOC: ONC 08:00
PROVIDERS: ATTEND Internal Medicine
DX: D69.6 Thrombocytopenia, unspecified (principal); R78.79 Finding of abnormal level of heavy metals in blood; Z87.898 Personal history of other specified conditions
CPT/HCPCS: 80074; 82728; 82746; 83540; 83550; 83883; 84155; 84165; 85025; 86703; G0463; 36415; 82175; 83655; 83825; 99214

== ENCOUNTER → 2021-11-12 | Outpatient (CLI) | payer OTHER ==
--- NOTE | 2021-11-12 10:42 | Diagnostic Imaging Report ---
INDICATION: Primary thrombocytopenia. PROCEDURE: Ultrasound abdomen complete. TECHNIQUE: Multiple Real-time grayscale images were obtained of the abdomen in various projections. FINDINGS: The liver is upper limits of normal in size at 18 cm. The portal vein is patent and shows normal direction of flow. No discrete liver mass is detected. The gallbladder is without stones or sludge. There is no wall thickening or biliary ductal dilatation. The spleen is enlarged at 20 cm. The aorta and IVC are unremarkable. The kidneys are without calculi or hydronephrosis. There is no ascites. IMPRESSION: Upper limits of normal sized liver as well as splenomegaly. There is no evidence of cholelithiasis or acute cholecystitis. Dictated by: Dictated on workstation # [id number]
== END ==
LOC: RAD 08:45
PROVIDERS: ATTEND Internal Medicine
DX: D69.49 Other primary thrombocytopenia (principal); R16.1 Splenomegaly, not elsewhere classified
CPT/HCPCS: 76700

== ENCOUNTER 2021-11-26 09:31 | Outpatient (RCR) | payer OTHER | END 2021-12-11 | disposition home or self-care (01) | LOC: ONC 09:31 | PROVIDERS: ATTEND Internal Medicine | DX: D69.6 Thrombocytopenia, unspecified (principal); R16.1 Splenomegaly, not elsewhere classified; R78.79 Finding of abnormal level of heavy metals in blood; Z87.898 Personal history of other specified conditions | CPT/HCPCS: 99213 ==

== ENCOUNTER 2021-12-03 07:04 | Day surgery (SDC) | payer OTHER ==
[2021-12-03] VITALS (10 sets, daily range): BP systolic 163–190; BP diastolic 94–114
[~2021-12-03] VITALS: Ht 180.3 cm; Wt 86.1 kg
[2021-12-03 07:52] LABS: HEMATOCRIT 39 % (40-54)
[2021-12-03 07:54] LABS: ABSOLUTE RETIC # 62 10e9/uL (24-90); BASOPHILS % (AUTO) 1 % (0-10); EOSINOPHILS # (AUTO) 0.1 10^3/uL (0.0-0.3); EOSINOPHILS % (AUTO) 2 % (0-10); HEMOGLOBIN 13.2 g/dL (13.3-17.7); LYMPHOCYTES # (AUTO) 1.5 10^3/uL (1.0-4.0); LYMPHOCYTES % (AUTO) 37 % (12-44); MEAN CORPUSCULAR HEMOGLOBIN 29 pg (25-34); MEAN CORPUSCULAR HGB CONC 34 g/dL (32-36); MEAN CORPUSCULAR VOLUME 87 fL (80-99); MEAN PLATELET VOLUME 11.6 fL (9.0-12.2); MONOCYTES # (AUTO) 0.6 10^3/uL (0.0-1.0); MONOCYTES % (AUTO) 14 % (0-12); NEUTROPHILS # (AUTO) 1.9 10^3/uL (1.8-7.8); NEUTROPHILS % (AUTO) 46 % (42-75); PLATELET COUNT 61 10^3/uL (130-400); RETICULOCYTE % 1.37 % (0.50-2.40); WHITE BLOOD COUNT 4.1 10^3/uL (4.3-11.0)
[2021-12-03] MEDS ORDERED: NS IV 1000 ML 1,000 ML IV STA (08:03)
[2021-12-03 08:08] LABS: INR 1.3 (0.8-1.4); PROTHROMBIN TIME PATIENT 16.8 SEC (12.2-14.7)
[2021-12-03] MEDS ORDERED: fentaNYL INJ 100 MCG/2 ML AMP IVP ONE (08:15)
[2021-12-03] MEDS ORDERED: MIDAZOLAM 2 MG/2 ML (VERSED) VIAL IVP ONE (08:15)
[2021-12-03] MEDS ORDERED: LIDOCAINE 1% INJ 20 ML VIAL INJ ONE (08:15)
[2021-12-03 08:50] LABS: BAND NEUTROPHILS 1 %; BASOPHILS % (MANUAL) 1 %; EOSINOPHILS % (MANUAL) 4 %; LYMPHOCYTES % (MANUAL) 33 %; MONOCYTES % (MANUAL) 14 %; NEUTROPHILS % (MANUAL) 47 %
[2021-12-03 08:51] LABS: ANISOCYTOSIS SLIGHT
[2021-12-03 08:52] LABS: ELLIPT/OVALOCYTES SLIGHT; POIKILOCYTOSIS SLIGHT
[2021-12-03] MEDS ORDERED: HYDROcodone/APAP 5 MG/325 MG (LORTAB) TAB PO PRN (09:15)
--- NOTE | 2021-12-03 10:08 | Pre-Op Note & Conscious Sedat ---
Pre-Operative Progress Note H&P Reviewed The H&P was reviewed, patient examined and no changes noted. Date H&P Reviewed: December 03, 2021 Time H&P Reviewed: 08:00 Pre-Op Diagnosis: thrombocytopenia Conscious Sedation Pre-Proced Time 08:00 ASA Score 2 For ASA 3 and 4: Consider anesthesia and medical clearance. Also, for patients with a history of failed moderate sedation consider anesthesia. Airway Lungs Heart ASA score ASA 1: a normal healthy patient ASA 2: a patient with a mild systemic disease (mid diabetes, controlled hypertension, obesity ASA 3: a patient with a severe systemic disease that limits activity (angina, COPD, prior Myocardial infarction) ASA 4: a patient with an incapacitating disease that is a constant threat to life (CHF, renal failure) ASA 5: a moribund patient not expected to survive 24 hrs. (ruptured aneurysm) ASA 6: a declared brain- patient whose organs are being harvested. For emergent operations, add the letter E after the classification Mallampati Classification Grade 2 Sedation Plan Analgesia, Amnesia, Plan communicated to team members, Discussed options with jace stroud/fam, Discussed risks with patient/fam The patient is an appropriate candidate to undergo the planned procedure, sedation, and anesthesia. The patient immediately re-assessed prior to indication. EMIR SILVERIO MD December 03, 2021 10:08
--- NOTE | 2021-12-03 10:43 | Diagnostic Imaging Report ---
INDICATION: Primary thrombocytopenia. Patient presents for CT-guided bone marrow aspiration and biopsy. Patient brought to the CT suite placed on table in the prone position. Axial imaging through the pelvis was performed to evaluate appropriate entry site. The low back was prepped and draped in usual sterile fashion. Small amount 1% lidocaine was utilized for local anesthesia. The procedure was performed utilizing conscious sedation with radiology nursing and constant patient monitoring. Patient was given a total of 100 mcg of fentanyl intravenously and 1 mg of Versed intravenously. Total procedure time was 4 minutes. A bone marrow biopsy needle was advanced and placed with its tip along the posterior cortex of the right iliac bone. The needle was advanced through the cortex utilizing the bone marrow drill. 2 bone marrow aspirates were then obtained. Next, the bone marrow drill was utilized to obtain a bone marrow core sample. Needle was removed and hemostasis was obtained using manual compression. The patient tolerated the procedure well and left the department in stable condition. IMPRESSION: Successful CT-guided bone marrow aspiration and core biopsy utilizing conscious sedation. Pathology results are currently pending. Dictated by: Dictated on workstation # [id number]
== END 2021-12-03 11:10 | disposition home or self-care (01) ==
LOC: RAD 07:04 → SDC 09:01 → RAD 11:10
PROVIDERS: ATTEND Internal Medicine
DX: D69.6 Thrombocytopenia, unspecified (principal); R16.1 Splenomegaly, not elsewhere classified; Z87.891 Personal history of nicotine dependence
CPT/HCPCS: 36415; 38222; 77012; 85007; 85027; 85045; 85610; 85730; 99156

== ENCOUNTER 2021-12-24 10:16 | Outpatient (RCR) | payer OTHER | END 2022-01-10 | disposition home or self-care (01) | LOC: ONC 10:16 | PROVIDERS: ATTEND Internal Medicine | DX: D69.6 Thrombocytopenia, unspecified (principal); R16.1 Splenomegaly, not elsewhere classified; R78.79 Finding of abnormal level of heavy metals in blood; Z87.898 Personal history of other specified conditions; Z86.59 Personal history of other mental and behavioral disorders | CPT/HCPCS: 88184; 88185; G0463; 99213 ==

== ENCOUNTER → 2021-12-31 | Outpatient (CLI) | payer SELFPAY ==
--- NOTE | 2021-12-31 11:43 | Diagnostic Imaging Report ---
INDICATION: Splenomegaly. Serum blood glucose level at the time of injection is 82 mg/dL. The patient was administered 13.8 mCi F-18 FDG intravenously in the left antecubital location and PET imaging from the top of the skull to mid thighs was performed. Noncontrast CT was also performed for attenuation correction and anatomic correlation. COMPARISON: No prior PET/CT study is available for comparison. There is symmetric activity throughout the brain. Soft tissues of the neck are unremarkable. There is low level activity with SUV values approximately 3 within lymph nodes in the regulo and mediastinum. No pulmonary parenchymal hypermetabolism is identified. Abdomen and pelvis demonstrates physiologic activity throughout the gastrointestinal and genitourinary tracts. There continue to be cirrhotic morphology to the liver without evidence of discrete mass. The spleen is enlarged. There are features suggestive of portal hypertension. No ascites is present on today's study. IMPRESSION: 1. Features suggestive of cirrhosis and portal hypertension. 2. Low-level activity within mediastinal and hilar lymph nodes bilaterally, perhaps reactive. The study is otherwise unremarkable. Dictated by: Dictated on workstation # [id number]
== END ==
LOC: RAD 08:15
PROVIDERS: ATTEND Internal Medicine
DX: R16.1 Splenomegaly, not elsewhere classified (principal)
CPT/HCPCS: 78815; A9552

== ENCOUNTER 2022-01-21 10:15 | Outpatient (RCR) | payer SELFPAY ==
[2022-01-21 10:34] LABS: MONOCYTES % (AUTO) 12 % (0-12)
[2022-01-21 10:36] LABS: BASOPHILS % (AUTO) 1 % (0-10); EOSINOPHILS # (AUTO) 0.1 10^3/uL (0.0-0.3); EOSINOPHILS % (AUTO) 2 % (0-10); HEMATOCRIT 40 % (40-54); HEMOGLOBIN 13.4 g/dL (13.3-17.7); LYMPHOCYTES # (AUTO) 1.5 10^3/uL (1.0-4.0); LYMPHOCYTES % (AUTO) 42 % (12-44); MEAN CORPUSCULAR HEMOGLOBIN 29 pg (25-34); MEAN CORPUSCULAR HGB CONC 34 g/dL (32-36); MEAN CORPUSCULAR VOLUME 86 fL (80-99); MEAN PLATELET VOLUME 11.1 fL (9.0-12.2); MONOCYTES # (AUTO) 0.4 10^3/uL (0.0-1.0); NEUTROPHILS # (AUTO) 1.6 10^3/uL (1.8-7.8); NEUTROPHILS % (AUTO) 44 % (42-75); PLATELET COUNT 50 10^3/uL (130-400); WHITE BLOOD COUNT 3.5 10^3/uL (4.3-11.0)
[2022-01-21 10:55] LABS: ALBUMIN 3.6 GM/DL (3.2-4.5); BILIRUBIN,TOTAL 1.3 MG/DL (0.1-1.0); CALCIUM 8.7 MG/DL (8.5-10.1); CREATININE SERUM 0.88 MG/DL (0.60-1.30); POTASSIUM 4.3 MMOL/L (3.6-5.0); TOTAL PROTEIN 6.4 GM/DL (6.4-8.2)
== END 2022-02-10 | disposition home or self-care (01) ==
LOC: ONC 10:15
PROVIDERS: ATTEND Internal Medicine
DX: D69.49 Other primary thrombocytopenia (principal); K74.60 Unspecified cirrhosis of liver; R16.1 Splenomegaly, not elsewhere classified; Z86.59 Personal history of other mental and behavioral disorders
CPT/HCPCS: 80053; 85025; G0463; 36415; 99213